=== PATIENT | female | born 1940 | race Caucasian/White ===

== ENCOUNTER → 2019-06-19 09:19 | Outpatient (BNVA) | payer MEDICARE, SELFPAY | PROVIDERS: Family Provider Family Medicine; PCP Family Medicine; Visit Provider Internal Medicine Rheumatology | DX: M81.0 Age-related osteoporosis without current pathological fracture (principal); Z79.899 Other long term (current) drug therapy; Z11.59 Encounter for screening for other viral diseases; Z11.1 Encounter for screening for respiratory tuberculosis; M19.90 Unspecified osteoarthritis, unspecified site; M32.9 Systemic lupus erythematosus, unspecified; Z72.89 Other problems related to lifestyle | CPT/HCPCS: 36415; 80076; 82306; 82310; 82565; 85025; 85651; 86140; 86480; 86704; 86803; 87340 ==

== ENCOUNTER → 2019-06-19 09:29 | Outpatient (BNVA) | payer MEDICARE, SELFPAY | PROVIDERS: Family Provider Family Medicine; PCP Family Medicine; Visit Provider Internal Medicine Rheumatology | DX: M81.0 Age-related osteoporosis without current pathological fracture (principal); M19.90 Unspecified osteoarthritis, unspecified site; M32.9 Systemic lupus erythematosus, unspecified; Z79.899 Other long term (current) drug therapy | CPT/HCPCS: 85025 ==

== ENCOUNTER → 2019-07-02 11:16 | Outpatient (BNVA) | payer MEDICARE, SELFPAY | PROVIDERS: Family Provider Family Medicine; PCP Family Medicine; Visit Provider Internal Medicine Rheumatology | DX: M32.9 Systemic lupus erythematosus, unspecified (principal); Z79.899 Other long term (current) drug therapy | CPT/HCPCS: 36415; 81001; 82565; 82570; 84156; 86160; 86225; 87086 ==

== ENCOUNTER → 2019-09-19 10:09 | Outpatient (BNVA) | payer MEDICARE, SELFPAY | PROVIDERS: Family Provider Family Medicine; PCP Family Medicine; Visit Provider Internal Medicine Rheumatology | DX: Z79.899 Other long term (current) drug therapy (principal); M32.9 Systemic lupus erythematosus, unspecified | CPT/HCPCS: 36415; 80076; 81001; 82565; 82575; 84156; 85025; 85651; 86140; 86160 ==

== ENCOUNTER → 2019-09-25 10:19 | Outpatient (BNVA) | payer MEDICARE, SELFPAY | PROVIDERS: Family Provider Family Medicine; PCP Family Medicine; Visit Provider Internal Medicine Rheumatology | DX: L93.2 Other local lupus erythematosus (principal); R76.8 Other specified abnormal immunological findings in serum; Z79.899 Other long term (current) drug therapy; M05.9 Rheumatoid arthritis with rheumatoid factor, unspecified; I12.9 Hypertensive chronic kidney disease with stage 1 through stage 4 chronic kidney disease, or unspecified chronic kidney disease; N18.9 Chronic kidney disease, unspecified; Z79.52 Long term (current) use of systemic steroids | CPT/HCPCS: 99214 ==

== ENCOUNTER 2019-10-25 11:42 | Outpatient (CLI) | payer MEDICARE, SELFPAY ==
--- NOTE | 2019-10-25 11:46 | MM_ITS ---
WS: [id number] DIAGNOSTIC LEFT DIGITAL MAMMOGRAM WITH CAD HISTORY: HX OF BREAST CA (RT MAST) COMPARISON: 10/15/2018 and 10/13/2017 Technique: CC, MLO and ML views. Breast composition: There are scattered areas of fibroglandular density. Stable asymmetry in the lat eral LEFT breast and stable calcifications. No interval change. MM/[place] [id number] IMPRESSION: BI-RADS: 2-Benign FOLLOW UP: 1 Year Follow-up
== END 2019-10-25 11:43 | disposition home or self-care (01) ==
LOC: RADSHAW 11:45
PROVIDERS: PCP Family Medicine; Visit Provider Family Medicine
DX: Z85.3 Personal history of malignant neoplasm of breast (principal); N64.89 Other specified disorders of breast
CPT/HCPCS: 77065

== ENCOUNTER → 2019-12-11 12:07 | Outpatient (BNVA) | payer MEDICARE, SELFPAY | PROVIDERS: PCP Family Medicine; Visit Provider Internal Medicine Cardiovascular Disease | DX: E78.2 Mixed hyperlipidemia (principal) | CPT/HCPCS: 80061 ==

== ENCOUNTER → 2020-01-29 11:22 | Outpatient (BNVA) | payer MEDICARE, SELFPAY | PROVIDERS: PCP Family Medicine; Visit Provider Internal Medicine Rheumatology | DX: L93.2 Other local lupus erythematosus (principal); I12.9 Hypertensive chronic kidney disease with stage 1 through stage 4 chronic kidney disease, or unspecified chronic kidney disease; N18.9 Chronic kidney disease, unspecified; R76.8 Other specified abnormal immunological findings in serum; Z79.52 Long term (current) use of systemic steroids; M19.90 Unspecified osteoarthritis, unspecified site; Z79.899 Other long term (current) drug therapy; M81.0 Age-related osteoporosis without current pathological fracture | CPT/HCPCS: 36415; 99214 ==

== ENCOUNTER → 2020-02-04 10:52 | Outpatient (BNVA) | payer MEDICARE, SELFPAY | PROVIDERS: PCP Family Medicine; Visit Provider Internal Medicine Rheumatology | DX: M32.9 Systemic lupus erythematosus, unspecified (principal); Z79.899 Other long term (current) drug therapy | CPT/HCPCS: 36415; 80076; 82306; 82565; 84550; 85025; 85651; 86140 ==

== ENCOUNTER → 2020-06-01 10:48 | Outpatient (BNVA) | payer MEDICARE, SELFPAY | PROVIDERS: PCP Family Medicine; Visit Provider Internal Medicine Rheumatology | DX: L93.2 Other local lupus erythematosus (principal); Z79.899 Other long term (current) drug therapy; M19.90 Unspecified osteoarthritis, unspecified site | CPT/HCPCS: 36415; 80076; 81001; 82565; 84156; 85025; 86140; 86160; 87086 ==

== ENCOUNTER → 2020-06-08 10:55 | Outpatient (BNVA) | payer MEDICARE, SELFPAY | PROVIDERS: PCP Family Medicine; Visit Provider Internal Medicine Rheumatology | DX: L93.2 Other local lupus erythematosus (principal); M19.90 Unspecified osteoarthritis, unspecified site; M81.0 Age-related osteoporosis without current pathological fracture; Z79.899 Other long term (current) drug therapy; R76.8 Other specified abnormal immunological findings in serum | CPT/HCPCS: 99214 ==

== ENCOUNTER 2020-06-08 12:00 | Outpatient (CLI) | payer MEDICARE, SELFPAY ==
[2020-06-08 12:45] LABS: Calcium 9.4 mg/dL (8.5-10.5)
== END 2020-06-08 12:01 | disposition home or self-care (01) ==
PROVIDERS: PCP Family Medicine; Visit Provider Internal Medicine Rheumatology
DX: M81.0 Age-related osteoporosis without current pathological fracture (principal); Z79.899 Other long term (current) drug therapy
CPT/HCPCS: 36415; 82310

== ENCOUNTER → 2020-06-11 10:30 | Outpatient (BNVA) | payer MEDICARE, SELFPAY | PROVIDERS: PCP Family Medicine; Visit Provider Internal Medicine Cardiovascular Disease | DX: E78.2 Mixed hyperlipidemia (principal); I10 Essential (primary) hypertension; G47.33 Obstructive sleep apnea (adult) (pediatric); I25.10 Atherosclerotic heart disease of native coronary artery without angina pectoris | CPT/HCPCS: 80061 ==

== ENCOUNTER → 2020-09-09 10:19 | Outpatient (BNVA) | payer MEDICARE, SELFPAY | PROVIDERS: PCP Family Medicine; Visit Provider Internal Medicine Rheumatology | DX: M32.9 Systemic lupus erythematosus, unspecified (principal); Z79.899 Other long term (current) drug therapy | CPT/HCPCS: 36415; 80076; 81001; 82565; 82570; 84156; 85025; 86140 ==

== ENCOUNTER 2020-10-27 11:06 | Observation (INO) | payer MEDICARE, SELFPAY ==
[2020-10-27] VITALS (44 sets, daily range): BP systolic 97–146; BP diastolic 55–88; PULSE 58–82; RESP 17–18; TEMP 37.1; O2SAT 84–99
--- NOTE | 2020-10-27 11:11 | ECG_ITS ---
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 Measurements Intervals [place] Rate: 61 P: -12 OK: 251 QRS: -68 QRSD: 155 T: 115 QT: 445 QTc: 450 Interpretive Statements SINUS RHYTHM WITH FIRST DEGREE AV BLOCK INTRAVENTRICULAR CONDUCTION DELAY [130+ ms QRS DURATION] LEFT VENTRICULAR HYPERTROPHY AND ST-T CHANGE ANTEROLATERAL MYOCARDIAL INFARCTION, PROBABLY RECENT Compared to ECG 07/02/2016 19:33:38 First degree AV block now present Intraventricular conduction delay now present ST (T wave) deviation now present Myocardial infarct finding now present Sinus bradycardia no longer present Left-axis deviation no longer present T-wave abnormality no longer present Electronically Signed On 11-04-2020 12:48:02 CDT by Jenniffer Ortiz M.D. [id number]
--- NOTE | 2020-10-27 11:15 | XRR_ITS ---
PROCEDURE INFORMATION: Exam: XR Chest Exam date and time: 10/27/2020 11:15 AM Age: 80 years old Clinical indication: Pain; Angina pectoris; Additional info: Chest pain TECHNIQUE: Imaging protocol: XR of the chest. Views: 1 view. COMPARISON: CR Chest 2 views* [id number] 07/29/2014 10:30 AM FINDINGS: Lungs: There is a small benign calcified granuloma in the left lung. No pneumonia is seen. Pleural spaces: Unremarkable. No pleural effusion. No pneumothorax. Heart/Mediastinum: The heart is normal for the AP projection. Benign small calcified mediastinal lymph nodes are present. Bones/joints: Unremarkable. XR/XR chest 1V portable [id number] IMPRESSION: No significant cardiopulmonary abnormality.
--- NOTE | 2020-10-27 11:16 | W.ED.CHESTPA ---
HPI - Chest Pain General: Chief Complaint: Chest Pain Stated Complaint: CHEST PAIN Time Seen by Provider: 10/27/20 11:15 History of Present Illness: HPI narrative: 80-year-old female with a history of coronary artery disease presents with complaint of chest pain with radiation to her left arm. Began this morning after she been unloading some groceries into her home. She had similar symptoms about 15 years ago when she had a IL and had several stents placed she states she had around 5 stents placed around 2005 or . She is a nondiabetic she does still take a full dose aspirin today as well as atorvastatin. She not recently had any symptoms like this or any other episodes. She did take a sublingual nitro with some relief of pain her pain is nearly resolved when she arrives here. EMS called a STEMI in the field on arrival here she has a right bundle branch block Dr. Bowles seen her initially when she presented here reviewed EKGs does not feel it is a STEMI. MD complaint: chest pain Pertinent past history: coronary artery disease Onset (ago): minute(s) Timing of current episode: episodic Prior episodes: Yes Onset: during exertion Pain location: left chest Pain radiation: left arm Severity: moderate Quality: aching and heaviness Relieving factors: nitroglycerin Exacerbating factors: exertion Associated symptoms: Reports dyspnea; Deny abdominal pain, diaphoresis, fever(s), leg edema, nausea, palpitations, sense of impending doom, syncope or vomiting Treatment prior to arrival: aspirin and nitroglycerin Review of Systems Const: Denies: fever(s) or diaphoresis Card: Denies: palpitations or syncope Resp: Reports: dyspnea GI: Denies: abdominal pain, nausea or vomiting [facility] ED PFSH: Medical History ASHD (arteriosclerotic heart disease) CKD (chronic kidney disease) Cutaneous lupus erythematosus Dysphagia Endometrial cancer GERD (gastroesophageal reflux disease) High risk medication use Hyperlipidemia Hypertension Immunization counseling Lupus (systemic lupus erythematosus) Osteoarthritis Osteoporosis 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 Sleep apnea SS-A antibody positive Surgical History H/O mastectomy H/O: hysterectomy History of appendectomy History of PTCA History of shoulder surgery Family History (Updated 06/11/20 @ 09:59 by Maria Alejandra Lund RN) Father Diabetes Family/Other Diabetes Denies family history of Rheumatoid arthritis CAD (coronary artery disease) Clotting disorder Dementia Chronic kidney disease (CKD) Systemic lupus erythematosus (SLE) in adult Suicide Anesthesia complication Bleeding disorder Lung disease Cancer Hypertension Stroke Social History Smoking and tobacco status: never smoked Alcohol intake: never History of recent travel: No Physical Exam Const: COMMON NORMALS: no acute distress GENERAL APPEARANCE: cooperative and comfortable ORIENTATION/CONSCIOUSNESS: Yes awake, Yes oriented to person, Yes oriented to place and Yes oriented to time HENMT: COMMON NORMALS: normocephalic, atraumatic and hearing grossly normal bilaterally HEAD & SCALP: normocephalic and atraumatic Neck/C-Spine: COMMON NORMALS: no JVD Resp: COMMON NORMALS: normal respiratory effort, No retractions, No use of accessory muscles and clear to auscultation bilaterally AUSCULTATION: clear to auscultation bilaterally Cardio: COMMON NORMALS: no JVD, regular rate, regular rhythm and No murmurs present (Cardio) RATE: regular rate RHYTHM: regular rhythm GI: COMMON NORMALS: Soft to palpation and No hepatosplenomegaly present AUSCULTATION: Yes normoactive bowel sounds PALPATION: Yes Soft to palpation, No Tenderness to palpation present (GI), No Guarding due to palpation present (GI) and Yes No hepatosplenomegaly present Extremity: COMMON NORMALS: normal to inspection, capillary refill normal, no clubbing, cyanosis or edema, no calf tenderness and no pedal edema Neuro: SENSORIUM/ORIENTATION: Yes oriented to person, Yes oriented to place and Yes oriented to time Skin: COMMON NORMALS: no rashes or lesions noted GENERAL SKIN EXAM: no rashes or lesions noted Course Vital Signs: Vital signs: Vital Signs Temperature 98.3 F 10/29/20 11:41 Pulse Rate 66 10/29/20 11:41 Respiratory Rate 17 10/29/20 11:41 Blood Pressure 122/74 10/29/20 11:41 Pulse Oximetry 98 10/29/20 11:41 MDM - Chest Pain MDM Narrative: Medical decision making narrative: Patient's first troponin markedly elevated 124. she continues to have chest pain despite multiple interventions and titration of nitro and given morphine. Discussed with Dr. Alcala again and he will take patient to the [facility] directly from the emergency room. Lab Data: Labs: Lab Results 10/27/20 10/27/20 10/27/20 Range/Units 10:57 10:57 10:57 WBC 10.2 H (4.0-10.0) 10^3/ uL RBC 3.77 L (4.1-5.3) 10^6/u L Hgb 12.4 (11.5-15.3) g/dL Hct 37.4 (37.0-47.0) % MCV 99.2 H (81-99) fL MCH 32.9 (28.0-34.0) pg MCHC 33.2 (30.0-36.0) g/dL RDW 12.1 (12.1-15.1) % Plt Count 215 (130-400) 10^3/c mm MPV 12.0 H (7.4-10.4) fL Neut % (Auto) 70.3 % Lymph % (Auto) 19.9 % [place] % (Auto) 8.1 % Eos % (Auto) 0.5 % Baso % (Auto) 0.8 % Neut # (Auto) 7.16 (1.8-7.7) 10^3/u L Lymph # (Auto) 2.0 (0.8-4.8) 10^3/u L [place] # (Auto) 0.8 (0.2-0.9) 10^3/u L Eos # (Auto) 0.1 (0.0-0.8) 10^3/u L Baso # (Auto) 0.1 (0.0-0.1) 10^3/u L Nucleated RBC % (a uto) 0 % Nucleated RBCs # 0.0 /100WBC Sodium 133 L (136-145) mmol/L Potassium 4.1 (3.5-5.1) mmol/L Chloride 96 L (98-107) mmol/L Carbon Dioxide 20 L (22-29) mmol/L Anion Gap 21.1 H (5-19) BUN 11 (8-23) mg/dL Creatinine 1.2 H (0.5-0.9) mg/dL GFR Calculation Not Reportable Glucose 161 H (65-115) mg/dL Calculated Osmolal ity 279 L (285-295) mOsm/k g Calcium 9.2 (8.5-10.5) mg/dL Total Bilirubin 0.5 (0.15-1.2) mg/dL AST 21 (0-32) U/L ALT 9 (0-33) U/L Alkaline Phosphata se 75 (35-105) IU/L Troponin T Baselin e 124 H* (0-10) ng/L Total Protein 6.6 (6.6-8.7) g/dL Albumin 4.5 (3.5-5.2) g/dL Globulin 2.1 (1.3-4.6) g/dL Discharge Plan Discharge Patient Disposition: Admitted As Inpatient Admit Provider: Galilea Bowles Clinical Impression: Acute non-ST elevation myocardial infarction (NSTEMI), Lupus (systemic lupus erythematosus), Hyperlipidemia, ASHD (arteriosclerotic heart disease), Hypertension Condition: Stable Discharge Diet: Cardiac Discharge Activity: Increase activity as tolerated Coding Level of Care Code ED Manager [employer] for Rosa Joyner
[2020-10-27 11:19] LABS: Basophils # 0.1 10^3/uL (0.0-0.1); Basophils % 0.8 %; Eosinophils # 0.1 10^3/uL (0.0-0.8); Eosinophils % 0.5 %; Hematocrit 37.4 % (37.0-47.0); Hemoglobin 12.4 g/dL (11.5-15.3); Lymphocytes % 19.9 %; Mean Corpuscular HGB Conc 33.2 g/dL (30.0-36.0); Mean Corpuscular Hemoglobin 32.9 pg (28.0-34.0); Mean Corpuscular Volume 99.2 fL (81-99); Monocytes # 0.8 10^3/uL (0.2-0.9); Monocytes % 8.1 %; Neutrophils # 7.16 10^3/uL (1.8-7.7); Neutrophils % 70.3 %; Nucleated Red Blood Cells % 0 %; Platelet Count 215 10^3/cmm (130-400); Red Blood Count 3.77 10^6/uL (4.1-5.3); Red Cell Distribution Width 12.1 % (12.1-15.1); White Blood Count 10.2 10^3/uL (4.0-10.0)
[2020-10-27] MEDS: clopidogrel 300 mg Tablet 600 MG PO (11:33)
[2020-10-27] MEDS: nitroglycerin 1 gm/inch oint Pkt 1 INCH TOPICAL (11:33)
[2020-10-27 11:37] LABS: Troponin(5th) Baseline 124 ng/L (0-10)
[2020-10-27 11:41] LABS: Alanine Aminotransferase 9 U/L (0-33); Albumin Level 4.5 g/dL (3.5-5.2); Alkaline Phosphatase 75 IU/L (35-105); Aspartate Amino Transferase 21 U/L (0-32); Blood Urea Nitrogen 11 mg/dL (8-23); Calcium 9.2 mg/dL (8.5-10.5); Carbon Dioxide 20 mmol/L (22-29); Chloride 96 mmol/L (98-107); Globulin 2.1 g/dL (1.3-4.6); Glucose 161 mg/dL (65-115); Osmolality Calculated 279 mOsm/kg (285-295); Sodium 133 mmol/L (136-145); Total Bilirubin 0.5 mg/dL (0.15-1.2); Total Protein 6.6 g/dL (6.6-8.7)
--- NOTE | 2020-10-27 11:43 | XACV_ITS ---
Exam Room: 1 Ht: 160 cm Wt: 65 kg BSA: 1.71 m2 Gender: Female : 1940 Any Known Allergies: Other Exam Priority: Routine Procedure(s): Procedure Description: Diagnostic procedure Procedure Description: PCI procedure Procedure Description: Drug Eluting Coronary Stent Procedure Description: PTCA Procedure Description: Miscellaneous Procedure Description: Temporary Pacemaker Insertion Procedure Description: ACT Procedure Description: Coronary Angiography Diagnostic Cath Status: Urgent Diagnostic Findings * Left Main has no disease. * Left Anterior Descending has no disease. * Circumflex has no disease. * Proximal Right Coronary Artery: total occlusion, RUBINA: 0 flow. * Mid Right Coronary Artery: total occlusion, RUBINA: 0 flow. * Coronary angiography shows right dominance. PCI Status: Urgent PCI Indication: STEMI - Immediate PCI for STEMI Interventional Findings * After somewhat difficulty we were able to cross the RCA lesion. Pronto-4 catheter was used for thrombectomy due to large thrombous burden. After multiple balloon angioplasty using compliant and noncompliant balloon were able to cross with the 3.5 x 38 mm Jamie stent posted at high NHUNG. It was then postdilated with noncompliant 3.5 x 12 mm balloon, excellent angiographic result with RUBINA-3 flow was achieved.Please note that due to hypotension and instability leading to shock patient was started on pressor temporary pacemaker was also placed for severe symptomatic bradycardia which improved her condition. Pacemaker was then taken out of the patient at the end of the case before transferring to cardiac stepdown unit in a stable condition since we do not have ICU bed because of Covid situation.. * Proximal Right Coronary Artery: 100% stenosis treated with a AB MINI TREK 1.50X8 RX BALLOON, AB TREK 3.00X20 RX BALLOON, and MDT NC EUPHORA RX 3.90I62BK BALLOON. 0% residual stenosis, RUBINA: 3 flow. * Mid Right Coronary Artery: 100% stenosis treated with a AB MINI TREK 1.50X8 RX BALLOON, AB TREK 2.75X20 RX BALLOON, AB TREK 3.00X20 RX BALLOON, MDT NC EUPHORA RX 3.20X19FJ BALLOON, and MDT R JAMIE 3.0X38 PARUL. 0% residual stenosis, RUBINA: 3 flow. Conclusions 1. 1-Normal left main2-LAD has patent previously placed bifurcating stent without significant in-stent restenosis in both diagonal and main left anterior descending artery3-LCx has patent previously placed proximal stent4-RCA is acutely occluded in the proximal and mid segment with in-stent stenosis and acute thrombosis.. 2. Temporary pacemaker placement: An emergent condition due to severe symptomatic bradycardia and shock due to right coronary artery occlusion temporary pacemaker was placed under stabilized condition through right femoral vein. Patient was paced at 60 to 80 bpm. Pacemaker was taken out at the end of the intervention since negative rate and rhythm was restored and blood pressure was stable.. 3. There is total occlusion coronary artery disease with one vessel disease. 4. Proximal Right Coronary Artery was treated with a Balloon, Balloon, and Balloon. 5. Mid Right Coronary Artery was treated with a Balloon, Balloon, Balloon, Balloon, and Drug Eluting Stent. Recommendations * 1-Return to inpatient for close monitoring and routine cath care2-Risk factor modification for secondary prevention3-Statin and aspirin 81 mg life--long, if tolerated4-Patient was pre-loaded with 600 mg of Plavix, continue Plavix 75mg p.o. daily for at least one year. We will assess at the end of one year again to continue if further or not5-Continue optimal medical management6-Follow up with cardiology in four weeks and your primary care in 10 days. Diagnostic RX Recommendation: PCI w/o planned CABG Pressures Phase:Rest AO : 156 / 83 ( 111 ) @ 11:09:00 AM 137 / 84 ( 109 ) @ 11:11:00 AM 152 / 82 ( 109 ) @ 11:17:00 AM 117 / 71 ( 84 ) @ 11:24:00 AM 108 / 59 ( 79 ) @ 11:26:00 AM 121 / 63 ( 93 ) @ 11:40:00 AM 128 / 71 ( 96 ) @ 11:44:00 AM 38 / 20 ( 22 ) @ 11:49:00 AM 38 / 22 ( 24 ) @ 11:49:00 AM 115 / 67 ( 88 ) @ 11:51:00 AM 74 / 37 ( 50 ) @ 11:55:00 AM 185 / 116 ( 139 ) @ 12:06:00 PM 177 / 102 ( 141 ) @ 12:08:00 PM 148 / 93 ( 118 ) @ 12:11:00 PM 117 / 73 ( 94 ) @ 12:14:00 PM 83 / 38 ( 57 ) @ 12:30:00 PM Clinical Evaluation EBL: 5mL-10mL Procedural Details Procedure Consent Obtained. Current Diagnosis : NSTEMI. Pre-Procedure Time Out. Identified patient by full name and date of as verbalized by the patient/guarantor. Does the consent match the physician's order: Yes. Accurate & Complete Informed Consent: Yes. Inpatient/Outpatient History & Physical on Chart: Yes. If H&P is completed, is and addenduem needed: Yes; If yes, is the addendum complete: N/A. Visualize and Verify Site with Patient/Guarantor: N/A. Relevant Radiology Images available: Yes. Pre-op teaching completed and patient verbalized understanding. The risks, benefits, and alternatives of sedation and/or procedure were discussed by physician. The patient agrees to continue. Procedure started. [facility] Clinical Fraility Score: 4: Vulnerable. Stock Tracer Indications: ACS > 24 hours. Chest Pain Symptom Assessment: Typical Angina Symptoms. Correct patient, site and procedure confirmed by cath team. Current diagnosis: NSTEMI. PERRLA. 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 Lungs clear x 5 lobes. A 18 gauge IV was started in the left anticubital using aseptic technique. IV Fluids: 0.9% NaCl at KVO. 0 mL infused prior to cardiac cath tech. Oxygen started at 2liters/min via nasal canula. bilateral groins was prepped with chloroprep then draped in the usual sterile fashion. Physician notified. Baseline sample Acquired. HR: 68 BPM. Physician arrived. Physician scrubbed in. Immediate Pre-Procedure Time Out. Correct Patient: Yes; Correct Procedure: Yes; Correct Site: Yes; Correct Patient Position: Yes; Correct Supplies: Yes; Dried Flammable Prep: Yes; Blood Products Available: N/A;. Lidocaine 1% infiltrated to the right groin. Arterial access obtained with micropuncture set. A Right femoral angiogram was performed to determine safe placement of closure device. A 5 hungarian JL4 catheter in over wire. Multiple views taken of left coronary artery. Catheter removed over the standard wire. A 5 hungarian JR4 catheter in over wire. Multiple views taken of right coronary artery. Catheter removed over the standard wire. 6 hungarian JR 4 guide catheter was inserted over the wire. Guide catheter out. 6 hungarian AL 0.75 guide catheter was inserted over the wire. Runthrough guidewire was advanced through the guide catheter to lesion in the prox RCA. AR Trek 2.75x20 balloon inserterted OTW. Balloon out. A second Runthrough guidewire was advanced through the guide catheter to lesion in the prox RCA. AR Trek 1.5x8 balloon inserterted OTW. Balloon out. One of the Runthrough wires out. AR Trek 1.5x8 balloon inserterted OTW. AP Pads placed on patient. Family arrived to [facility] and placed in the waiting room. Inflation number : 1 A AB MINI TREK 1.50X8 RX BALLOON was prepped and advanced across the Prox RCA , then inflated to 15 NHUNG for 0:19 seconds. Inflation number: 2 The AB MINI TREK 1.50X8 RX BALLOON was reinflated across the Prox RCA, to 15 NHUNG for 0:14 seconds. Results checked. Inflation number: 1 The AB MINI TREK 1.50X8 RX BALLOON was reinflated across the Mid RCA, to 15 NHUNG for 0:19 seconds. Inflation number: 2 The AB MINI TREK 1.50X8 RX BALLOON was reinflated across the Mid RCA, to 16 NHUNG for 0:09 seconds. Inflation number: 3 The AB MINI TREK 1.50X8 RX BALLOON was reinflated across the Mid RCA, to 16 NHUNG for 0:09 seconds. Balloon out. Inflation number : 4 A AB TREK 2.75X20 RX BALLOON was prepped and advanced across the Mid RCA , then inflated to 12 NHUNG for 0:12 seconds. Inflation number: 5 The AB TREK 2.75X20 RX BALLOON was reinflated across the Mid RCA, to 12 NHUNG for 0:09 seconds. Inflation number: 6 The AB TREK 2.75X20 RX BALLOON was reinflated across the Mid RCA, to 12 NHUNG for 0:09 seconds. Inflation number: 7 The AB TREK 2.75X20 RX BALLOON was reinflated across the Mid RCA, to 12 NHUNG for 0:08 seconds. Balloon out. Results checked. MDT R [place] 3.0x38 inserted and advanced OTW. Intact stent removed OTW. wire repositioned. Inflation number : 8 A AB TREK 3.00X20 RX BALLOON was prepped and advanced across the Mid RCA , then inflated to 16 NHUNG for 0:15 seconds. Inflation number: 3 The AB TREK 3.00X20 RX BALLOON was reinflated across the Prox RCA, to 16 NHUNG for 0:11 seconds. Balloon out. MDT R Jamie 3.0x38 inserted and advanced OTW. guideliner inserted OTW. Intact stent out OTW. Balloon out. guideliner out. Wire out. Dopamine off. Lidocaine 1% infiltrated to the right groin. TEMPORARY PACEMAKER:. Venous access obtained with a micropuncture set. Temporary pacer inserted. Rate: 80. MA: 5. 6 hungarian AL 0.75 SH guide catheter was inserted over the wire. Family updated by Bella Starr RN. Results checked. Runthrough guidewire was advanced through the guide catheter to lesion in the mid RCA. Inflation number : 4 A MDT NC EUPHORA RX 3.24A11AY BALLOON was prepped and advanced across the Prox RCA , then inflated to 16 NHUNG for 0:18 seconds. Inflation number: 5 The MDT NC EUPHORA RX 3.95V97ZH BALLOON was reinflated across the Prox RCA, to 16 NHUNG for 0:21 seconds. Inflation number: 9 The MDT NC EUPHORA RX 3.34I30SH BALLOON was reinflated across the Mid RCA, to 14 NHUNG for 0:14 seconds. Inflation number: 10 The MDT NC EUPHORA RX 3.44P45MJ BALLOON was reinflated across the Mid RCA, to 16 NHUNG for 0:17 seconds. Inflation number: 11 The MDT NC EUPHORA RX 3.94P66AB BALLOON was reinflated across the Mid RCA, to 16 NHUNG for 0:09 seconds. Inflation number: 12 The MDT NC EUPHORA RX 3.53F02FH BALLOON was reinflated across the Mid RCA, to 16 NHUNG for 0:15 seconds. Balloon out. ACT drawn. Results 362 seconds. Therapeutic limits - pre-heparin administration 90-150 seconds and monitoring heparin during a vascular procedure >250 seconds. Inflation Number : 13 A MDT R JAMIE 3.0X38 PARUL -Lot Number# _[id number] Exp: 02/10/2022 was prepped and advanced across the Mid RCA. The stent was deployed at 18 NHUNG for 0:38 seconds. Stent balloon out over wire. Results checked. Inflation number: 14 The MDT NC EUPHORA RX 3.07T20WL BALLOON was reinflated across the Mid RCA, to 16 NHUNG for 0:14 seconds. Inflation number: 15 The MDT NC EUPHORA RX 3.93W07SU BALLOON was reinflated across the Mid RCA, to 16 NHUNG for 0:08 seconds. Inflation number: 6 The MDT NC EUPHORA RX 3.56W60HC BALLOON was reinflated across the Prox RCA, to 16 NHUNG for 0:08 seconds. Inflation number: 7 The MDT NC EUPHORA RX 3.50C01ZV BALLOON was reinflated across the Prox RCA, to 14 NHUNG for 0:12 seconds. Balloon out. Results checked. Wire out. Results checked. Guide catheter out. TPM removed. Sheath(s) sutured into position with 2-0 silk and sterile 4x4's and Op-site applied over the site. No oozing or signs and symptoms of hematoma noted. Arterial sheath flushed and connected to tranducer and pressure bag with heparinized saline. Venous sheath flushed and connected to 0.9% NaCl with extension tubing. A Suture was successful obtaining hemostatsis at the Right Femoral vein insertion site. A Suture was successful obtaining hemostatsis at the Right Femoral artery insertion site. Post Procedure: Pulses reassessed and unchanged. PERRLA. 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 No VTE prophylaxis required. Medication's Wasted: Other = Versed 0.5 mg. Medication's Wasted: Heparin = 3000 units. Medication's Wasted: Other = Epinepherine 0.5 mg. Medication's Wasted: Other = Atropine 0.75 mg. Medication's Wasted: Lidocaine 1% = 12 mL. Total IV fluids: 548 mL. Contrast type used: Omnipaque 300 mg/mL, 150 mL bottle. PCI Indication: NSTE. Post-op diagnosis: CAD. Complications: None. Estimated blood loss: 5mL-10mL. Procedure completed. Patient transferred by bed to 1st floor. Vital chart was stopped. Access Site Site: Right Femoral artery Sheath Size: 6 Fr Hemostasis Method: Suture Hemostasis Success: Successful Site: Right Femoral vein Sheath Size: 6 Fr Hemostasis Method: Suture Hemostasis Success: Successful Procedure Medications Start: 12:01 PM Stop: 12:01 PM Medication: Versed Amount: 1 mg Route: I.V. Start: 12:01 PM Stop: 12:01 PM Medication: Fentanyl Amount: 50 mcg Route: I.V. Start: 12:02 PM Stop: 12:02 PM Medication: Versed Amount: 1 mg Route: I.V. Start: 12:08 PM Stop: 12:08 PM Medication: Versed Amount: 1 mg Route: I.V. Start: 12:17 PM Stop: 12:17 PM Medication: Versed Amount: 1 mg Route: I.V. Start: 12:18 PM Stop: 12:18 PM Medication: Heparin Amount: 3000 units Route: I.V. Start: 12:20 PM Stop: 12:20 PM Medication: Fentanyl Amount: 50 mcg Route: I.V. Start: 12:26 PM Stop: 12:26 PM Medication: Aggrastat 12.5 mg/250 mL Amount: 33 ml Route: I.V. bolus Start: 12:26 PM Stop: 12: PM Medication: Aggrastat 12.5 mg/250 mL Amount: 11.9 ml/hr Route: I.V. bolus Start: 12:39 PM Stop: 12:39 PM Medication: 0.9% Saline Amount: 250 ml Route: I.V. bolus Start: 12:42 PM Stop: 12:42 PM Medication: Versed Amount: 1 mg Route: I.V. Start: 12:49 PM Stop: 12:49 PM Medication: Atropine Amount: 0.25 mg Route: I.V. Start: 12:51 PM Stop: 12:51 PM Medication: Atropine Amount: 0.5 mg Route: I.V. Start: 12:55 PM Stop: 12:55 PM Medication: Atropine Amount: 0.25 mg Route: I.V. Start: 12:57 PM Stop: 12:57 PM Medication: Atropine Amount: 0.25 mg Route: I.V. Start: 12:59 PM Stop: 12:59 PM Medication: Zofran (ondansetron) Amount: 4 mg Route: I.V. Start: 12:59 PM Stop: 12:59 PM Medication: Dopamine 400mg/250 mL Amount: 10 mcg/kg/min Route: I.V. drip Start: 1:03 PM Stop: 1:03 PM Medication: Epinephrine Amount: 0.5 mg Route: I.V. Start: 1:08 PM Stop: 1:08 PM Medication: Zofran (ondansetron) Amount: 4 mg Route: I.V. Start: 1:13 PM Stop: 1:13 PM Medication: Lopressor (metoprolol) Amount: 5 mg Route: I.V. Start: 1:32 PM Stop: 1:32 PM Medication: Versed Amount: 0.5 mg Route: I.V. I, the attending physician, have reviewed and verified all procedure medications. Yes, all medications given per verbal order History/Risk Factors Hypertension: No Dyslipidemia: No Peripheral Arterial Disease (PAD): No Myocardial Infarction (NE): No Obesity: No Renal Disease: No Prior Interventions PCI: No CABG: No Valve Surgery: No Report Signatures Finalized by Galilea Bowles MD on 11/05/2020 02:33 PM
[2020-10-27 11:45] LABS: Anion Gap 21.1 (5-19); Potassium 4.1 mmol/L (3.5-5.1)
[2020-10-27] MEDS: heparin 5,000 unit/mL INJ 1 mL 4000 UNIT XX (11:49)
--- NOTE | 2020-10-27 11:50 | PM.HP ---
Providers/Chief Complaint Admitting Physician: Galilea Bowles MD Primary Care Provider: Javid Edwards MD Chief Complaint: CHEST PAIN History of Present Illness Bryanna Mark is a 80 year old female past medical history significant for coronary artery disease status post PCI 2004, hypertension hyperlipidemia on prednisone for immunological disorder, chronic kidney disease baseline creatinine around 1.2 presented with chest pain of 1 hour duration exactly similar fashion when she has her heart attack. There were dynamic EKG changes noted on EMS strips when she was alerted ST elevation OR however I reviewed the strip and called it off for ST elevation since she has a right bundle branch block with mild lateral ST elevation. Repeat twelve-lead EKG after nitroglycerin showed resolution of EKG changes and back to right bundle branch block. Patient continues to have chest pain first troponin was 124 which is positive for acute coronary syndrome. Since patient continues to have chest pain and had dynamic EKG changes I will take her to the Rehabilitator urgently. We will load her with Plavix aspirin and heparin. I have detailed discussion with the patient regarding all risk benefit and alternative for the procedure including contrast-induced nephropathy leading to transient or permanent dialysis, major minor bleed, urgent emergent vascular or bypass surgery, acute closure of stent, arrhythmia and worse case scenario . She understood and would like to proceed with it. Review of Systems Const: Denies: fever(s) or diaphoresis Card: Denies: palpitations or syncope Resp: Reports: dyspnea GI: Denies: abdominal pain, nausea or vomiting Medications/Allergies Home Medications Medication Instructions Recorded Confirmed Last Taken Type omega-3 fatty acids 1,000 mg 1,000 mg PO DAILY cap 03/30/19 10/28/20 Unknown History capsule aspirin 325 mg tablet 325 mg PO QAM 06/26/19 10/28/20 Unknown History cholecalciferol (vitamin D3) 50 2,000 unit PO DAILY #30 tab 01/27/20 10/28/20 Unknown Rx mcg (2,000 unit) tablet atenolol 25 mg PO BID 10/27/20 10/28/20 Unknown History atorvastatin 20 mg PO QAM 10/27/20 10/28/20 Unknown History nitroglycerin [Nitro-Time] 2.5 mg PO BID 10/27/20 10/28/20 Unknown History alendronate 70 mg PO Q7D 10/28/20 10/28/20 10/19/20 History amlodipine 5 mg PO BEDTIME 10/28/20 10/28/20 Unknown History diclofenac sodium 4 g TOPICAL QID PRN 10/28/20 10/28/20 Unknown History esomeprazole magnesium [Nexium] 20 mg PO DAILY 10/28/20 10/28/20 Unknown History hydroxychloroquine See Rx Instructions .ROUTE .COMPLEX 10/28/20 10/28/20 Unknown History lisinopril 40 mg PO QAM 10/28/20 10/28/20 Unknown History loratadine 10 mg PO DAILY PRN 10/28/20 10/28/20 Unknown History nitrofurantoin monohyd/m-cryst 1 cap PO BID 10/28/20 10/28/20 10/27/20 History finished 10/27/20 prednisone 2.5 mg PO QAM 10/28/20 10/28/20 Unknown History Allergies Allergy/AdvReac Type Severity Reaction Status Date / Time niacin Allergy ALGY-Rash Verified 10/28/20 08:35 PFSH Acute PFSH: Medical History ASHD (arteriosclerotic heart disease) CKD (chronic kidney disease) Cutaneous lupus erythematosus Dysphagia Endometrial cancer GERD (gastroesophageal reflux disease) High risk medication use Hyperlipidemia Hypertension Immunization counseling Lupus (systemic lupus erythematosus) Osteoarthritis Osteoporosis Positive sm/PRACTICE BUSINESS ASST antibody Sleep apnea SS-A antibody positive Surgical History H/O mastectomy H/O: hysterectomy History of appendectomy History of PTCA History of shoulder surgery Family History (Updated 06/11/20 @ 09:59 by Maria Alejandra Lund RN) Father Diabetes Family/Other Diabetes Denies family history of Rheumatoid arthritis CAD (coronary artery disease) Clotting disorder Dementia Chronic kidney disease (CKD) Systemic lupus erythematosus (SLE) in adult Suicide Anesthesia complication Bleeding disorder Lung disease Cancer Hypertension Stroke Social History Smoking and tobacco status: never smoked Alcohol intake: never History of recent travel: No Vitals/I&O/Wt Last Vital Signs Temp 98.7 F 10/27/20 11:14 Pulse 58 L 10/27/20 11:39 Resp 17 10/27/20 11:39 BP 135/81 10/27/20 11:39 Pulse Ox 98 10/27/20 11:39 Weight last 48 hrs Weight 143 lb Physical Exam Narrative: EXAM NARRATIVE: GENERAL: Patient is alert, awake and oriented x3. Moderate distress NECK: No jugular vein distension. HEENT: No cyanosis. No icterus. No pallor. HEART: Regular S1 and S2. No murmur, rub or gallop. LUNGS: Clear to auscultate bilaterally. ABDOMEN: Soft, nontender and nondistended. Positive bowel sounds. No guarding, rebound or tenderness. CENTRAL NERVOUS SYSTEM: Grossly nonfocal. EXTREMITIES: Lower extremities without edema bilaterally. Data : 10/28/20 04:30 10/28/20 04:30 A&P Assessment and plan (1) Non-ST elevation OR (NSTEMI): Patient has unstable non-ST elevation since she continues to have chest pain EKG changes we will proceed with left heart cath/PCI if indicated Status: Acute (2) Hypertension: Well-controlled Status: Acute Qualifiers: Hypertension type: essential hypertension Qualified Code(s): I10 - Essential (primary) hypertension (3) CKD (chronic kidney disease): IV fluids will be given will minimize contrast. Patient understand the risk of contrast-induced nephropathy Status: Acute Attestations Medical Necessity Statement*: Patient will be observation for 24 hours. Coding Level of Care Code New Pt Acute Screwhead Stoner And Polisher for Chg Fwd Patient Type New Medical Decision Making Moderate Complexity Diagnoses Non-ST elevation OR (NSTEMI) I21.4 Hypertension I10 Hypertension type: essential hypertension CKD (chronic kidney disease) N18.9
--- NOTE | 2020-10-27 13:11 | ECG_ITS ---
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 Measurements Intervals [place] Rate: 66 P: 83 NM: 245 QRS: -72 QRSD: 150 T: 102 QT: 457 QTc: 480 Interpretive Statements SINUS RHYTHM WITH FIRST DEGREE AV BLOCK INTRAVENTRICULAR CONDUCTION DELAY [130+ ms QRS DURATION] LEFT VENTRICULAR HYPERTROPHY AND ST-T CHANGE [VOLTAGE CRITERIA PLUS ST/T ABNORMALITY] ANTEROLATERAL MYOCARDIAL INFARCTION [40+ ms Q WAVE IN I/aVL/V3-V6], OF INDETERMINATE AGE ACUTE OK INTERPRETATION BASED ON A DEFAULT AGE OF 40 YEARS Compared to ECG 10/27/2020 11:10:50 No significant changes Electronically Signed On 10-27-2020 18:24:10 CDT by Rojas Redmond M.D. [id number]
[2020-10-27] MEDS: nitroglycerin 0.4 mg sublingual Tablet SUBLINGUAL (15:14)
--- NOTE | 2020-10-27 17:11 | ECG_ITS ---
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 Measurements Intervals [place] Rate: 62 P: 48 HI: 232 QRS: -70 QRSD: 152 T: 106 QT: 463 QTc: 473 Interpretive Statements SINUS RHYTHM WITH FIRST DEGREE AV BLOCK INTRAVENTRICULAR CONDUCTION DELAY [130+ ms QRS DURATION] LEFT VENTRICULAR HYPERTROPHY AND ST-T CHANGE [VOLTAGE CRITERIA PLUS ST/T ABNORMALITY] ANTEROLATERAL MYOCARDIAL INFARCTION [40+ ms Q WAVE IN I/aVL/V3-V6], OF INDETERMINATE AGE Compared to ECG 10/27/2020 16:38:56 No significant changes Electronically Signed On 10-29-2020 10:02:49 CDT by Jenniffer Ortiz M.D. [id number]
[2020-10-27 17:19] LABS: INR 1.13 (0.8-1.2)
[2020-10-27 17:32] LABS: Troponin 5 2HR 1438 ng/L (0-10)
--- NOTE | 2020-10-27 17:45 | PC.NURSE ---
PTT still pending at this time.
--- NOTE | 2020-10-27 18:28 | PC.NURSE ---
PTT pending. Call placed to lab. No answer.
[2020-10-27 18:53] LABS: Partial Thromboplastin Time 166.9 SECONDS (23.9-36.7)
--- NOTE | 2020-10-27 19:07 | PC.NURSE ---
Shift Note Frequent safety and comfort rounds continue. Orders and/or nursing care completed as indicated. Patient monitored for response to intervention and treatment(s). Education provided includes[post cath orders, pain medicines ordered, expected lab tests & activity restrictions. Two daughters at bedside.]. Patient and/or rental sales representative [Patient & daughters state understanding. Will continue to monitor BP. HR. Right groin site. pedal pulses..
[2020-10-27 20:41] LABS: Partial Thromboplastin Time 39.3 SECONDS (23.9-36.7)
[2020-10-28] VITALS (23 sets, daily range): BP systolic 103–128; BP diastolic 55–73; PULSE 57–82; RESP 16–18; TEMP 36.4–37.4; O2SAT 85–98
--- NOTE | 2020-10-28 01:00 | PC.NURSE ---
Around 2140: PTT therapeutic. Removed arterial sheath to patients right groin. Held pressure 20 min. Not hematoma noted. Vitals stable. Around 2215: Assisted Emma Dooley RN with removal of venous sheath to right groin. Held pressure 20 min. No hematoma noted. Vitals stable. Dressed sites with 4x4 guaze and transparent film. Patient tolerated procedures well.
[2020-10-28 05:10] LABS: Basophils # 0.1 10^3/uL (0.0-0.1); Basophils % 0.5 %; Eosinophils % 0.3 %; Hematocrit 33.1 % (37.0-47.0); Hemoglobin 10.3 g/dL (11.5-15.3); Lymphocytes % 19.3 %; Mean Corpuscular HGB Conc 31.1 g/dL (30.0-36.0); Mean Corpuscular Hemoglobin 32.4 pg (28.0-34.0); Mean Corpuscular Volume 104.1 fL (81-99); Mean Platelet Volume 11.7 fL (7.4-10.4); Monocytes # 0.9 10^3/uL (0.2-0.9); Monocytes % 8.5 %; Neutrophils # 7.31 10^3/uL (1.8-7.7); Nucleated Red Blood Cells % 0 %; Platelet Count 188 10^3/cmm (130-400); Red Blood Count 3.18 10^6/uL (4.1-5.3); Red Cell Distribution Width 12.4 % (12.1-15.1); White Blood Count 10.3 10^3/uL (4.0-10.0)
[2020-10-28 05:58] LABS: Anion Gap 14.1 (5-19); Blood Urea Nitrogen 13 mg/dL (8-23); Calcium 8.3 mg/dL (8.5-10.5); Carbon Dioxide 21 mmol/L (22-29); Chloride 104 mmol/L (98-107); Glucose 126 mg/dL (65-115); Osmolality Calculated 282 mOsm/kg (285-295); Potassium 4.1 mmol/L (3.5-5.1); Sodium 135 mmol/L (136-145)
[2020-10-28 06:00] LABS: Troponin T (5th) Once 2187 ng/L (0-10)
--- NOTE | 2020-10-28 06:29 | PC.NURSE ---
Shift Note Frequent safety and comfort rounds continue. Orders and/or nursing care completed as indicated. Patient monitored for response to intervention and treatment(s). Education provided includes reportable signs and symptoms and activity restrictions. Patient and/or patient access representative verbalized understanding of all teaching. Will continue to monitor.
--- NOTE | 2020-10-28 08:36 | PC.PHAR ---
pt states she takes care of her own medications-pt states she takes her hydroxychloroquine 200mg takes 100mg qam and 200mg hs rx filled as alternate taking 1 tab today with 2 tabs the next etc. on 09/06/20 90d/s-
[2020-10-28] MEDS: clopidogrel 75 mg Tablet PO (08:39)
--- NOTE | 2020-10-28 09:05 | USCV_ITS ---
Bryanna Mark Age: 80 Gender: F : 1940 Exam Date: 10/28/2020 14:09 Ordering Phys: Galilea Bowles MD ([email or web address]) Technologist: Trisha Stockton Exam Location: [facility] [place] Indication: POST STEMI BP: 117 / 73 HR: 64 Rhythm: Sinus Technical Quality: Adequate MEASUREMENTS (Male / Female) Normal Values 2D ECHO LV Diastolic Diameter PLAX 4.5 cm 4.2 - 5.9 / 3.9 - 5.3 cm LV Systolic Diameter PLAX 2.5 cm LV Chamber Size 3.8 cm IVS Diastolic Thickness 1.2 cm 0.6 - 1.0 / 0.6 - 0.9 cm IVS Systolic Thickness 1.3 cm LVPW Diastolic Thickness 1.4 cm 0.6 - 1.0 / 0.6 - 0.9 cm LVPW Systolic Thickness 1.5 cm RV Chamber Size 3.0 cm LVOT Diameter 2.0 cm LV Ejection Fraction 2D Teich 75.6 % LV Ejection Fraction MOD 2C 57.3 % LV Ejection Fraction 2C AL 60.0 % LA Diameter 3.1 cm LA Width 2.5 cm LA Height 3.5 cm RA Width 2.6 cm RA Height 4.2 cm Aorta at Sinotubular Diameter 3.0 cm M-MODE LV Diastolic Diameter MM 4.2 cm 4.2 - 5.9 / 3.9 - 5.3 cm LV Systolic Diameter MM 2.5 cm LV Ejection Fraction MM Teich 70.2 % IVS Diastolic Thickness MM 1.2 cm 0.6 - 1.0 / 0.6 - 0.9 cm IVS Systolic Thickness MM 1.2 cm LVPW Diastolic Thickness MM 1.2 cm 0.6 - 1.0 / 0.6 - 0.9 cm LVPW Systolic Thickness MM 1.4 cm Aortic Annulus Diameter 3.4 cm LA Ao Ratio MM 1.2 MV E Point Septal Separation 0.8 cm DOPPLER AV Peak Velocity 150.0 cm/s LVOT Peak Velocity 96.0 cm/s AV Area Cont Eq vti 2.6 cm squared AV Area Cont Eq pk 2.1 cm squared MV Area PHT 3.0 cm squared Mitral E to A Ratio 0.7 MV E' Velocity 39.0 cm/s Mitral E to MV E' Ratio 18.2 Mitral E to LV E' Lateral Ratio 15.8 Mitral E to LV E' Septal Ratio 21.4 TR Peak Velocity 165.9 cm/s TR Peak Gradient 11.0 mmHg TR Mean Velocity 115.6 cm/s TR Mean Gradient 6.6 mmHg TR Velocity Time Integral 43.3 cm TV Peak E Velocity 71.0 cm/s Right Atrial Pressure 3.0 mmHg Pulmonary Artery Systolic Pressu 14.0 mmHg PV Peak Velocity 66.0 cm/s RV Acceleration Time 0.2 s RV Ejection Time 0.3 s RV AcT/ET 0.6 FINDINGS Left Ventricle Normal left ventricular cavity size. Normal left ventricular systolic function. Left ventricular ejection fraction is estimated at 60 %. There appeared to be inferior wall hypokinesis.Grade I/IV diastolic dysfunction (abnormal relaxation filling pattern), normal to mildly elevated filling pressures. Right Ventricle The right ventricle is normal in size and function. Right Atrium The right atrium is normal in size. Left Atrium The left atrium is normal in size. Mitral Valve Structurally normal mitral valve without significant stenosis or prolapse. There is no mitral regurgitation. Aortic Valve Structurally normal aortic valve without significant sclerosis or stenosis. There is no aortic regurgitation. Tricuspid Valve Structurally normal tricuspid valve without significant stenosis or regurgitation. Pulmonary artery systolic pressure is normal. Pulmonic Valve Structurally normal pulmonic valve without significant stenosis. There is no pulmonic regurgitation. Pericardium Normal pericardium without effusion. Aorta Normal ascending aorta dimension. CONCLUSIONS 1-Normal left ventricular cavity size. Normal left ventricular systolic function. Left ventricular ejection fraction is estimated at 60 %. There appeared to be inferior wall hypokinesis.Grade I/IV diastolic dysfunction (abnormal relaxation filling pattern), normal to mildly elevated filling pressures. 2-There is no pericardial effusion. 3-No significant valve abnormalities. 4-Pulmonary artery systolic pressure is within normal limits. 5-Right atrial pressure is around 5 mm of mercury. 6-There are no prior echocardiogram studies to compare. Galilea Bowles MD (Electronically Signed) Final Date: 28 October 2020 18:07 S
--- NOTE | 2020-10-28 09:22 | PC.CHAP ---
Pastoral Care Encounter/Spiritual Assessment Type of Contact [] Declined occupational therapist assistants visit [] Patient/Family/Request visit [] Outpatient visit [] Follow-up visit [] Physician referral [] Code/Alert [x] Routine visit [] Staff referral [] Actively dying [] Patient sleeping [] Family support [] [] Out of room [] Palliative care [] [] Receiving care in room [] Pre-surgical visit [] Trauma [] Long length of stay [] ICU visit [] Other: Relational/Emotional Strength [] Patient feels connected with others/family/visitors/staff [] Distress [] Loneliness/isolation [] Abandonment Spirituality of Patient [x] Person of Winter [] Attends Baptist of their Winter [] Believes in Prayer [] Reads Bible or Baptist materials [] There are Spiritual issues to be addressed Professor Of Music Interventions [x] Prayer [x] Active listening [x] Non-anxious presence [x] Spiritual/emotional support [] Crisis/trauma care [] Spiritual counseling [] Bereavement support [] Provided bereavement packet [] Provided Bible/devotional materials [] Provided toy/stuffed animal, coloring book to patient or family member [] Provided Communion [] Anointing/[place] [] Salvation [x] Completed spiritual assessment [] Other: Impact on Illness or Injury [] Angry [] Fearful [] Anxious [] Often cries [] Exhaustion [] Unable to work [] Unable to attend jew [] Unable to walk/stand [] Unable to read [] Unable to drive [] Unable to eat/drink [] Unable to sleep [] Unable to be with family [] Patient intubated [] Other: Summary feeling much better .. another stint .. already had 5... very happy with care Time spent with patient 10 min
--- NOTE | 2020-10-28 12:43 | P.PN_ITS ---
Subjective Subjective: Interval history: Patient underwent left heart cath noted to have occluded RCA with full metal jacket stents in the past. It was treated with balloon angioplasty and drug-eluting stent postdilated with noncompliant balloon. During the intervention patient dropped blood pressure and became severely bradycardic it was treated with temporary pacemaker pressors and atropine. Post PCI course overnight remained uneventful. Pacemaker was discontinued upon transfer from the Supervisor Electron Tube Processing. Troponin jumped up to more than 2000. Today she denies any complaints and stable vital cosby. Right groin looks good without major bruise or hematoma Vitals/I&O/Wt Last Vital Signs Temp 98.9 F 10/28/20 07:55 Pulse 72 10/28/20 07:55 Resp 18 10/28/20 07:55 BP 116/66 10/28/20 07:55 Pulse Ox 97 10/28/20 07:55 10/27/20 10/28/20 10/28/20 22:59 06:59 14:59 Intake Total 120 / 120 Output Total 1250 / 1250 Balance 120 / 120 -1250 / -1130 Weight last 48 hrs Weight 148 lb 4.8 oz Weight 143 lb Physical Exam Narrative: EXAM NARRATIVE: GENERAL: Patient is alert, awake and oriented x3. NECK: No jugular vein distension. HEENT: No cyanosis. No icterus. No pallor. HEART: Regular S1 and S2. No murmur, rub or gallop. LUNGS: Clear to auscultate bilaterally. ABDOMEN: Soft, nontender and nondistended. Positive bowel sounds. No guarding, rebound or tenderness. CENTRAL NERVOUS SYSTEM: Grossly nonfocal. EXTREMITIES: Lower extremities without edema bilaterally. Data : 10/28/20 04:30 10/28/20 04:30 A&P Assessment and plan (1) Non-ST elevation DC (NSTEMI): Post PCI to mid RCA with drug-eluting stent. No overnight event will optimize medicine will ask for echocardiogram today. We will monitor her for any heart block after institution beta-ted. If remains stable over the next 24 hours will discharge Status: Acute (2) Hypertension: Well-controlled Status: Acute Qualifiers: Hypertension type: essential hypertension Qualified Code(s): I10 - Essential (primary) hypertension (3) CKD (chronic kidney disease): Stable and normal now. Will discontinue IV fluid Status: Acute Attestations Medical Necessity Statement*: Patient require continuation hospitalization. 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
[2020-10-28] MEDS: alum-mag-hydroxide-sime 30 mL UDC PO (18:34)
--- NOTE | 2020-10-28 19:13 | PC.NURSE ---
Shift Note Frequent safety and comfort rounds continue. Orders and/or nursing care completed as indicated. Patient monitored for response to intervention and treatment(s). Education provided includes post heart attack care site care and restrictions. Patient and/or consumer sales representative verbalized understanding. Will continue to monitor.
[2020-10-29 04:00] VITALS: BP 101/57; PULSE 73; RESP 16; TEMP 525.2; TEMP 977.4; O2SAT 93
[2020-10-29 05:53] VITALS: PULSE 67
[2020-10-29 07:41] VITALS: BP 114/75; PULSE 69; RESP 17; TEMP 36.7; O2SAT 95
[2020-10-29] MEDS: clopidogrel 75 mg Tablet PO (09:00)
--- NOTE | 2020-10-29 10:11 | P.DS_ITS ---
Discharge Providers Date of Admission: 10/28/20 13:24 Date of Discharge: October 29, 2020 Attending Provider at Admission: Galilea Bowles MD Attending Provider at Discharge: Galilea Bowles MD Primary Care Provider: Javid Edwards MD Diagnoses at Discharge Discharge Diagnosis (1) Non-ST elevation [place] (NSTEMI): Status: Resolved (2) Hypertension: Status: Acute Qualifiers: Hypertension type: essential hypertension Qualified Code(s): I10 - Ess ential (primary) hypertension (3) CKD (chronic kidney disease): Reason for Visit Reason for Visit: CHEST PAIN Hospital Course Hospital Course Patient underwent left heart cath noted to have occluded RCA with full metal jacket stents in the past. It was treated with balloon angioplasty and drug- eluting stent postdilated with noncompliant balloon. During the intervention patient dropped blood pressure and became severely bradycardic it was treated with temporary pacemaker pressors and atropine. Post PCI course overnight remained uneventful. Pacemaker was discontinued upon transfer from the Combination Operator. Troponin jumped up to more than 2000. Today she denies any complaints and stable vital cosby. Overall she is doing fine from cardiovascular perspective medicine were optimized she denies any more complaint. Right groin looks good without major bruise or hematoma. We will discharge her with follow-up at cardiology clinic . Physical Exam Narrative: EXAM NARRATIVE: GENERAL: Patient is alert, awake and oriented x3. NECK: No jugular vein distension. HEENT: No cyanosis. No icterus. No pallor. HEART: Regular S1 and S2. No murmur, rub or gallop. LUNGS: Clear to auscultate bilaterally. ABDOMEN: Soft, nontender and nondistended. Positive bowel sounds. No guarding, rebound or tenderness. CENTRAL NERVOUS SYSTEM: Grossly nonfocal. EXTREMITIES: Lower extremities without edema bilaterally. Discharge Data Data Completed and Pending: Completed Studies During Hospitalization Category Date Time Status XR chest 1V meaghan ble [id number] Stat Exams 10/27/20 11:15 Completed CV. echo complete * [id number] Routine Ultrasound 10/28/20 09:05 Completed Pending at discharge Category Date Time Status MANAGER TECHNICAL SERVICES request for service Stat Exams 10/27/20 11:43 Taken Basic Metabolic P silvestre Routine Lab 10/29/20 10:07 Ordered Troponin T (5th) Once Routine Lab 10/29/20 10:07 Ordered Vitals: Last Vital Signs Temp 98.1 F 10/29/20 07:41 Pulse 69 10/29/20 07:41 Resp 17 10/29/20 07:41 BP 114/75 10/29/20 07:41 Pulse Ox 95 10/29/20 07:41 Discharge Plan Discharge Patient Disposition: Home Condition: Stable Prescriptions: New clopidogrel 75 mg Tablet 75 mg PO DAILY Qty: 90 RF: 4 pantoprazole 40 mg tablet,delayed release (DR/EC) 40 mg PO DAILY 56 Days Qty: 56 RF: 0 Continued omega-3 fatty acids [Fish Oil Concentrate] 1,000 mg capsule 1,000 mg PO DAILY RF: 0 cholecalciferol (vitamin D3) 50 mcg (2,000 unit) tablet 2,000 unit PO DAILY Qty: 30 RF: 0 atenolol 25 mg tablet 25 mg PO BID RF: 0 atorvastatin 20 mg tablet 20 mg PO QAM RF: 0 nitroglycerin [Nitro-Time] 2.5 mg capsule, extended release 2.5 mg PO BID RF: 0 alendronate 70 mg tablet 70 mg PO Q7D RF: 0 loratadine 10 mg tablet 10 mg PO DAILY PRN (Reason: Allergy Symptoms) RF: 0 nitrofurantoin monohyd/m-cryst 100 mg capsule 1 cap PO BID RF: 0 prednisone 2.5 mg tablet 2.5 mg PO QAM RF: 0 hydroxychloroquine 200 mg tablet See Rx Instructions .ROUTE .COMPLEX RF: 0 diclofenac sodium 1 % gel 4 g topical QID PRN (Reason: Pain) RF: 0 Changed aspirin 325 mg tablet 81 mg PO QAM Qty: 0 RF: 0 lisinopril 40 mg tablet 20 mg PO QAM Qty: 30 RF: 4 Discontinued esomeprazole magnesium [Nexium] 20 mg Capsule,Delayed Release(Dr/Ec) 20 mg PO DAILY RF: 0 amlodipine 5 mg tablet 5 mg PO BEDTIME RF: 0 Discharge Orders: Discharge Order (Routine); Ordered 10/29/20 Ordered By: Galilea Bowles Referrals: Rojas Redmond MD [Physician] - (You have a follow up appointment with Dr. Redmond on 12/17 at 3:00pm. If you have any quesitons or concers please call the office. ) Carmella Phillip FNP [Nurse Practitioner] - (You have a hospital follow up appointment with Carmella Phillip on , November 05, at 3:00pm. If you have any questions or concerns please call the office. ) Discharge Diet: Cardiac Discharge Activity: Increase activity as tolerated Patient Instructions: Myocardial Infarction (DC), Left Heart Catheterization (DC), Coronary Angioplasty (DC), Coronary Intravascular Stent Placement (DC), Chest Pain Stoplight, Opioid Safety, Post Angiogram Home Care Instructions Activity Restrictions/Additional Instructions: Follow-up with Ms. Carmella Phillip 7 days. Follow-up with Dr. Redmond in 6 to 8 w eeks. Discharge Attestations Time Spent in Discharge Care*: greater than 30 min Specific Discharge Activities: educating patient and educating and/or supporting family/caregiver Quality Metrics Clinical Quality Measures During this hospital stay, did patient experience: AMI Clinical Trial Participant: No Contraindication to aspirin (AMI): Aspirin given Contraindication to statin: Statin prescribed Coding Level of Care Code Established Pt Acute Chg FW DC note Patient Type Established History Comprehensive Exam Comprehensive Medical Decision Making Moderate Complexity Diagnoses Non-ST elevation [place] (NSTEMI) I21.4 Hypertension I10 Hypertension type: essential hypertension CKD (chronic kidney disease) N18.9
--- NOTE | 2020-10-29 10:30 | PC.NURSE ---
called Lab to verify on orders for BMP and Trop. Orders received and they will come down to pt room.
--- NOTE | 2020-10-29 11:14 | PC.CHAP ---
Pastoral Care Encounter/Spiritual Assessment Type of Contact [] Declined prior authorization nurse visit [] Patient/Family/Request visit [] Outpatient visit [] Follow-up visit [] Physician referral [] Code/Alert [x] Routine visit [] Staff referral [] Actively dying [] Patient sleeping [] Family support [] [] Out of room [x] Palliative care [] [x] Receiving care in room [] Pre-surgical visit [] Trauma [x] Long length of stay [] ICU visit [] Other: Relational/Emotional Strength [x] Patient feels connected with others/family/visitors/staff [x] Distress [] Loneliness/isolation [] Abandonment Spirituality of Patient [x] Person of Winter [] Attends Sikh of their Winter [x] Believes in Prayer [] Reads Bible or Methodist materials [] There are Spiritual issues to be addressed Sales And Service Advisor Interventions [x] Prayer [x] Active listening [x] Non-anxious presence [x] Spiritual/emotional support [] Crisis/trauma care [x] Spiritual counseling [] Bereavement support [] Provided bereavement packet [] Provided Bible/devotional materials [] Provided toy/stuffed animal, coloring book to patient or family member [x] Provided Communion [] Anointing/[place] [] Salvation [x] Completed spiritual assessment [] Other: Impact on Illness or Injury [] Angry [x] Fearful [] Anxious [] Often cries [] Exhaustion [x] Unable to work [] Unable to attend muslim [] Unable to walk/stand [] Unable to read [] Unable to drive [] Unable to eat/drink [] Unable to sleep [] Unable to be with family [] Patient intubated [] Other: Summary has nurse with her under nurses care was able to have prayer no communication Time spent with patient 10 mins
[2020-10-29 11:36] VITALS: BP 122/74; PULSE 66; RESP 17; TEMP 36.8; O2SAT 98
[2020-10-29 11:41] VITALS: BP 122/74; PULSE 66; RESP 17; TEMP 36.8; O2SAT 98
[2020-10-29 12:00] LABS: Anion Gap 14.5 (5-19); Blood Urea Nitrogen 14 mg/dL (8-23); Calcium 8.8 mg/dL (8.5-10.5); Carbon Dioxide 24 mmol/L (22-29); Chloride 99 mmol/L (98-107); Glucose 137 mg/dL (65-115); Osmolality Calculated 279 mOsm/kg (285-295); Potassium 4.5 mmol/L (3.5-5.1); Sodium 133 mmol/L (136-145)
[2020-10-29 12:09] LABS: Troponin T (5th) Once 2088 ng/L (0-10)
--- NOTE | 2020-10-29 13:04 | PC.NURSE ---
Discharge to home w/ caregiver Accompanied by Dr Gilman. Ushered via wheelchair to their private vehicle. Instructions provided on post angiogram, and new meds, continued meds, dose change to lisinopril and aspirin and stopped meds. Discharge packet provided. education materials provided to pt.
== END 2020-10-29 12:00 | disposition home or self-care (01) ==
LOC: ER 11:37 → CCL 11:44 → CSU 10-28 05:56
PROVIDERS: Nurse Practitioner Family; Admitting Provider Internal Medicine Cardiovascular Disease; Emergency Provider Family Medicine; PCP Family Medicine; Visit Provider Internal Medicine Cardiovascular Disease
DX: I21.4 Non-ST elevation (NSTEMI) myocardial infarction (principal); I12.9 Hypertensive chronic kidney disease with stage 1 through stage 4 chronic kidney disease, or unspecified chronic kidney disease; N18.9 Chronic kidney disease, unspecified; I25.10 Atherosclerotic heart disease of native coronary artery without angina pectoris; E78.5 Hyperlipidemia, unspecified; Z79.52 Long term (current) use of systemic steroids; Z79.82 Long term (current) use of aspirin; Z85.89 Personal history of malignant neoplasm of other organs and systems; M19.90 Unspecified osteoarthritis, unspecified site; M81.0 Age-related osteoporosis without current pathological fracture; G47.30 Sleep apnea, unspecified
CPT/HCPCS: 33210; 36415; 71045; 80048; 80053; 84484; 85025; 85347; 85610; 85730; 93005; 93306; 93454; 99291; C1725; C1769; C1779; C1874; C1887; C1894; C9600; G0378; J0171; J0461; J1265; J1644; J2250; J2405; J3010; J3246; J3490; Q9967

== ENCOUNTER → 2020-11-05 16:00 | Outpatient (BNVA) | payer MEDICARE, SELFPAY | PROVIDERS: PCP Family Medicine; Visit Provider Nurse Practitioner Family | DX: I25.10 Atherosclerotic heart disease of native coronary artery without angina pectoris (principal); Z09 Encounter for follow-up examination after completed treatment for conditions other than malignant neoplasm | CPT/HCPCS: 80048 ==

== ENCOUNTER → 2020-11-30 09:54 | Outpatient (BNVA) | payer MEDICARE, SELFPAY | PROVIDERS: PCP Family Medicine; Visit Provider Internal Medicine Rheumatology | DX: L93.2 Other local lupus erythematosus (principal); Z79.899 Other long term (current) drug therapy | CPT/HCPCS: 36415; 80076 ==

== ENCOUNTER → 2020-12-07 09:40 | Outpatient (BNVA) | payer MEDICARE, SELFPAY | PROVIDERS: PCP Family Medicine; Visit Provider Internal Medicine Cardiovascular Disease | DX: E78.2 Mixed hyperlipidemia (principal); E78.5 Hyperlipidemia, unspecified | CPT/HCPCS: 80061 ==

== ENCOUNTER → 2020-12-29 10:44 | Outpatient (BNVA) | payer MEDICARE, SELFPAY | PROVIDERS: PCP Family Medicine; Visit Provider Internal Medicine Rheumatology | DX: L93.2 Other local lupus erythematosus (principal); M19.90 Unspecified osteoarthritis, unspecified site; M81.0 Age-related osteoporosis without current pathological fracture; Z79.899 Other long term (current) drug therapy; R76.8 Other specified abnormal immunological findings in serum; I25.10 Atherosclerotic heart disease of native coronary artery without angina pectoris; I13.10 Hypertensive heart and chronic kidney disease without heart failure, with stage 1 through stage 4 chronic kidney disease, or unspecified chronic kidney disease; N18.9 Chronic kidney disease, unspecified; Z71.89 Other specified counseling | CPT/HCPCS: 99214 ==

== ENCOUNTER 2021-01-29 10:37 | Outpatient (CLI) | payer MEDICARE, SELFPAY ==
--- NOTE | 2021-01-29 10:40 | MM_ITS ---
WS: [id number] Left breast diagnostic digital mammogram, 01/29/2021 Clinical Data: HX OF BREAST Ca; rt MASTECTOMY Comparison: 10/25/2019, 10/15/2018, 10/13/2017, 10/07/2016, 10/06/2015, 09/29/2012, 09/26/2013, 09/24/2012, 08/23, 08/18/2010, 08/05/2010, 02/04/2010, 01/14/2009, 01/14/2008, 01/10/2007, 01/09/2006. Findings: The breast parenchymal pattern shows fibroglandular tissue. No spiculated masses or clustered calcifi cations are seen. There are no secondary signs of carcinoma. MM/[place] [id number] Impression: 1. Negative left breast mammogram unchanged. 2. Recommend annual left breast mammogram. BIRADS: 1-Negative FOLLOW UP: 1 Year Follow-up The CAD liner checker was used.
== END 2021-01-29 10:38 | disposition home or self-care (01) ==
LOC: RADSHAW 10:39
PROVIDERS: PCP Family Medicine; Visit Provider Family Medicine
DX: Z85.3 Personal history of malignant neoplasm of breast (principal); Z90.12 Acquired absence of left breast and nipple
CPT/HCPCS: 77065

== ENCOUNTER 2021-02-14 11:22 | Observation (INO) | payer MEDICARE, SELFPAY ==
--- NOTE | 2021-02-14 11:33 | CTR_ITS ---
PROCEDURE INFORMATION: Exam: CT Angiography Head With Contrast, Arteriography Exam date and time: 02/14/2021 11:33 AM Age: 80 years old Clinical indication: Dizziness and giddiness and vertigo; Additional info: Vertigo/light-headedness TECHNIQUE: Imaging protocol: Computed tomography angiography of the head with contrast. Exam focused on the arteries. 3D rendering (Not supervised by radiologist): MIP and/or 3D reconstructed images were created by the technologist. Radiation optimization: All CT scans at this facility use at least one of these dose optimization techniques: automated exposure control; mA and/or kV adjustment per patient size (includes targeted exams where dose is matched to clinical indication); or iterative reconstruction. Contrast material: VISI 320; Contrast volume: 95 ml; Contrast route: INTRAVENOUS (IV); COMPARISON: CT head wo con* [id number] 02/14/2021 12:51 PM RADIATION DOSE METRICS: Total DLP (mGy-cm): 2178.79 FINDINGS: ANTERIOR CIRCULATION: Right internal carotid artery: Unremarkable. Intracranial segment is patent with no significant stenosis. No aneurysm. Right middle cerebral artery: Unremarkable. No occlusion or significant stenosis. No aneurysm. Right anterior cerebral artery: Unremarkable. No occlusion or significant stenosis. No aneurysm. Left internal carotid artery: Unremarkable. Intracranial segment is patent with no significant stenosis. No aneurysm. Left middle cerebral artery: Unremarkable. No occlusion or significant stenosis. No aneurysm. Left anterior cerebral artery: Unremarkable. No occlusion or significant stenosis. No aneurysm. POSTERIOR CIRCULATION: Right vertebral artery: Unremarkable. No occlusion or significant stenosis. No aneurysm. Left vertebral artery: Unremarkable. No occlusion or significant stenosis. No aneurysm. Basilar artery: Unremarkable. No occlusion or significant stenosis. No aneurysm. Right posterior cerebral artery: Unremarkable. No occlusion or significant stenosis. No aneurysm. Left posterior cerebral artery: Unremarkable. No occlusion or significant stenosis. No aneurysm. Brain: No definite mass, mass effect, or midline shift. Cerebral ventricles: No ventriculomegaly. Bones/joints: Unremarkable. No acute fracture. Soft tissues: Unremarkable. IMPRESSION: No large vessel stenosis or occlusion. PROCEDURE INFORMATION: Exam: CT Angiography Neck With Contrast Exam date and time: 02/14/2021 11:33 AM Age: 80 years old Clinical indication: Dizziness and giddiness and vertigo; Additional info: Vertigo/light-headedness TECHNIQUE: Imaging protocol: Computed tomography angiography of the neck with contrast. 3D rendering (Not supervised by radiologist): MIP and/or 3D reconstructed images were created by the technologist. Radiation optimization: All CT scans at this facility use at least one of these dose optimization techniques: automated exposure control; mA and/or kV adjustment per patient size (includes targeted exams where dose is matched to clinical indication); or iterative reconstruction. Contrast material: VISI 320; Contrast volume: 95 ml; Contrast route: INTRAVENOUS (IV); COMPARISON: CT head wo con* [id number] 02/14/2021 12:51 PM RADIATION DOSE METRICS: Total DLP (mGy-cm): 2178.79 FINDINGS: Right common carotid artery: No stenosis. No dissection or occlusion. Right internal carotid artery: No stenosis of the extracranial segment. No dissection or occlusion. Right external carotid artery: No occlusion or stenosis of the origin. Left common carotid artery: No stenosis. No dissection or occlusion. Left internal carotid artery: Mild luminal narrowing of the proximal internal carotid artery with less than 50% luminal narrowing. No dissection or occlusion. Left external carotid artery: No occlusion or stenosis of the origin. Right vertebral artery: No stenosis. No dissection or occlusion. Left vertebral artery: No stenosis. No dissection or occlusion. Soft tissues: Normal. No significant soft tissue swelling. Bones/joints: No acute fracture. CT/CT angio headneck* [id number] IMPRESSION: Mild luminal narrowing of the left internal carotid artery. No significant stenosis or occlusion. REFERENCES: NASCET CRITERIA. The degree of internal carotid artery stenosis is based on NASCET criteria. Normal is no stenosis. Mild is less than 50% stenosis. Moderate is 50-69% stenosis. Severe is 70% to 99% stenosis. Total occlusion is no detectable patent lumen. Radiation Dose CTDIVOL = (mGy): DLP = 2178.79~2178.79 (mGy-cm)
--- NOTE | 2021-02-14 11:33 | CTR_ITS ---
PROCEDURE INFORMATION: Exam: CT Head Without Contrast Exam date and time: 02/14/2021 11:33 AM Age: 80 years old Clinical indication: Dizziness; Additional info: Light-headedness TECHNIQUE: Imaging protocol: Computed tomography of the head without contrast. Radiation optimization: All CT scans at this facility use at least one of these dose optimization techniques: automated exposure control; mA and/or kV adjustment per patient size (includes targeted exams where dose is matched to clinical indication); or iterative reconstruction. COMPARISON: MRI Head w/wo* [id number] 10/27/2017 1:24 PM RADIATION DOSE METRICS: Total DLP (mGy-cm): 766.49 FINDINGS: Brain: No hemorrhage. Mild diffuse cerebral atrophy and sequela of chronic small vessel ischemic disease. No mass effect. Cerebral ventricles: No ventriculomegaly. Paranasal sinuses: Visualized sinuses are unremarkable. No fluid levels. Mastoid air cells: Visualized mastoid air cells are well aerated. Bones/joints: Unremarkable. No acute fracture. Soft tissues: Unremarkable. CT/CT head wo con* [id number] IMPRESSION: No acute intracranial abnormality. Radiation Dose CTDIVOL = (mGy): DLP = 766.49 (mGy-cm)
--- NOTE | 2021-02-14 11:34 | ECG_ITS ---
[facility] Test Date: 2021-02-14 Pat Name: Bryanna Mark Department: Room: 253 Gender: Female Emergency Medcl Emt: : 1940 Requested By: Jad Avery Order Number: [id number] Reading MD: JEANNE CARPENTER Measurements Intervals [place] Rate: 58 P: 74 MT: 243 QRS: -69 QRSD: 150 T: 107 QT: 454 QTc: 447 Interpretive Statements SINUS BRADYCARDIA WITH FIRST DEGREE AV BLOCK, RBBB INTRAVENTRICULAR CONDUCTION DELAY [130+ ms QRS DURATION] LEFT VENTRICULAR HYPERTROPHY AND ST-T CHANGE [VOLTAGE CRITERIA PLUS ST/T ABNORMALITY] Compared to ECG 02/14/2021 14:29:25 No significant change Electronically Signed On 02-15-2021 12:53:25 WAREHOUSE SHIPPER by JEANNE CARPENTER [email or web address]
[2021-02-14 11:42] VITALS: BP 123/91; PULSE 67; RESP 18; TEMP 37.1; O2SAT 99; BMI 26.5
[2021-02-14 11:42] LABS: Basophils # 0.1 10^3/uL (0.0-0.1); Basophils % 0.8 %; Eosinophils # 0.1 10^3/uL (0.0-0.8); Eosinophils % 1.3 %; Hematocrit 39.4 % (37.0-47.0); Hemoglobin 12.6 g/dL (11.5-15.3); Lymphocytes % 35.3 %; Mean Corpuscular Hemoglobin 30.4 pg (28.0-34.0); Mean Corpuscular Volume 95.2 fl (81-99); Mean Platelet Volume 12.7 fL (7.4-10.4); Monocytes # 0.8 10^3/uL (0.2-0.9); Monocytes % 9.1 %; Neutrophils # 4.49 10^3/uL (1.8-7.7); Neutrophils % 53.1 %; Nucleated Red Blood Cells % 0 %; Platelet Count 241 10^3/cmm (130-400); Red Blood Count 4.14 10^6/uL (4.1-5.3); Red Cell Distribution Width 12.5 % (12.1-15.1); White Blood Count 8.5 10^3/uL (4.0-10.0)
--- NOTE | 2021-02-14 11:54 | ED_ITS ---
HPI - General Adult General: Chief complaint: Dizziness Stated complaint: DIZZINESS Time Seen by Provider: 02/14/21 11:33 History of Present Illness: HPI narrative: HPI: [80]yo patient w/ hx of CAD s/p stent x 5 on plavix, HTN, hLD BIBA for concern for light-headedness and vertigo-like symptoms since 7:15am. Patient was at home when she suddenly felt light-headed on standing up and that she is spinning. Patient denies any room spinning sensation. Patient has had issues with plavix in the past and was recently restarted on the medicine given significant coronary diseases. Patient lives at home by herself and has fallen last week due to similar symptoms. On arrival, the patient denies any chest pain, SOB, palpitations, focal neurological weakness in the arms or legs. Patient could not recall exactly what happened, but denied any post-ictal confusion, bowel or bladder incontinence after the incident. Denies any chest pain, shortness, palpitation, abdominal pain or back pain prior to the episode of syncope. No recent exertional chest pain or shortness of breath. Denies vertigo or disequilibrium. The episode of syncope was not preceded by any prodromes including nausea, pallor, or diaphoresis. No symptoms of diarrhea, hematuria, dysuria, melena or hematochezia. No prior documented hx of anemia requiring blood transfusions, VTE, or aortic aneurysm. Cath report from showed severe one vessel disease for which patient was started on plavix. Patient is followed by Dr. Redmond. Onset: 4 hrs ago Duration: Episodic Location: home Severity: moderate Review of Systems Narrative: Constitutional: No fever, no chills. HEENT: No vision changes CV: No chest pain, no palpitations PULM: No productive cough, no dyspnea. GI: No abdominal pain, no N/V/D. : No Dysuria MSKEL: No muscle pain SKIN: No new rashes, no lesions. NEURO: No headache, no focal weakness. +light-headedness, +vertigo HEME: No visible bruises PSYCH: Normal mood PFSH ED PFSH: Medical History ASHD (arteriosclerotic heart disease) CKD (chronic kidney disease) Cutaneous lupus erythematosus Dysphagia Endometrial cancer GERD (gastroesophageal reflux disease) High risk medication use Hyperlipidemia Hypertension Immunization counseling Lupus (systemic lupus erythematosus) Osteoarthritis Osteoporosis Positive sm/COTTON BALL BAGGER antibody Sleep apnea SS-A antibody positive Surgical History H/O mastectomy H/O: hysterectomy History of appendectomy History of PTCA History of shoulder surgery Family History Father Diabetes Family/Other Diabetes Denies family history of Rheumatoid arthritis CAD (coronary artery disease) Clotting disorder Dementia Chronic kidney disease (CKD) Systemic lupus erythematosus (SLE) in adult Suicide Anesthesia complication Bleeding disorder Lung disease Cancer Hypertension Stroke Social History Smoking and tobacco status: never smoked Alcohol intake: never History of recent travel: No Physical Exam 2 Narrative: EXAM NARRATIVE: Head: Atraumatic Eyes: PERRL, conjunctiva without injection, eyes tracking ENT: Mucous membrane moist NECK: Supple without lymphadenopathy, no nuchal rigidity LUNGS: LCTAB CV: RRR ABDOMEN: Soft, nontender in all quadrants, no guarding or rebound tenderness, no CVA or flank tenderness bilaterally EXTREMITY: Normal ROM SKIN: No rash or erythema NEURO: Mental status: A/Ox3 CN II-XII tested and intact. Sensation intact to sharp/dull differentiation in all extremities. Motor: Normal tone and bulk. No abnormal movements appreciated. No pronator drift. Strength tested and 5/5 in bilateral wrist flexion/extension, elbow flexion/extension, shoulder abduction, straight leg raise, knee flexion/extension, ankle dorsiflexion/plantarflexion. Patient unable to ambulate with steady gait Coordination: Finger to nose and heel to miranda testing intact bilaterally. PSYCH: Cooperative mood and affect Course Vital Signs: Vital signs: Vital Signs Temperature 98.7 F 02/14/21 11:42 Pulse Rate 67 02/14/21 11:42 Respiratory Rate 18 02/14/21 11:42 Blood Pressure 123/91 02/14/21 11:42 Pulse Oximetry 99 02/14/21 11:42 MDM - General Adult MDM Narrative: Medical decision making narrative: [80]yo patient w/ hx of CAD s/p stent x 5, HLD, HTN presenting to the ED with near syncope w/ vertigo-like symptoms. -No chestp ain -palpitations. Currently symptom free. HDS. Neurologically intact. Given history, exam and workup, presentation not consistent with seizures given short time course, no postictal state, no seizure activity. Low suspicion for acute neurologic catastrophes to include ICH given lack of trauma, risk factors for bleeding diathesis. Low suspicion for vascular catastrophes to include PE, thoracic aortic dissection, AAA rupture. Presentation not consistent with acute life threatening arrhythmia, structural heart disease, electrical conduction abnormalities, or ACS. Workup: CBC, BMP, Troponin x 2, CT head, CTA head/neck Intervention: IVF, meclizine, PO challenge, and serial reassessment EKG: No e/o STEMI. No evidence of Brugada?s sign, delta wave, epsilon wave, significantly prolonged QTc, or malignant arrhythmia. [11:59] On reassessment, patient continues to HDS. No acute complaints currently. No syncopal episode in the ER. No arrhythmia noted on the equipment monitor phototypesetting. []Patient has been able to ambulate in the ED without issues. No suspicion of neurogenic syncope at this time. However, given age, cardiovascula r risk factors and multiple co-rmbities, the patient will need inpatient workup for cardiac syncope. Patient agrees with the plan for inpatient admission at this time. Disposition: Admit to medicine, telemetry bed for cardiac monitoring and cardiology review. Lab Data: Labs: Lab Results 02/14/21 02/14/21 02/14/21 11:00 11:00 11:00 WBC 8.5 10^3/uL 10^3/ uL (4.0-10.0) RBC 4.14 10^6/uL 10^6 /uL (4.1-5.3) Hgb 12.6 g/dL g/dL (11.5-15.3) Hct 39.4 % % (37.0-47.0) MCV 95.2 fl fl (81-99) MCH 30.4 pg pg (28.0-34.0) MCHC 32.0 g/dL g/dL (30.0-36.0) RDW 12.5 % % (12.1-15.1) Plt Count 241 10^3/cmm 10^3 /cmm (130-400) MPV 12.7 fL H fL (7.4-10.4) Neut % (Auto) 53.1 % % Lymph % (Auto) 35.3 % % Wright % (Auto) 9.1 % % Eos % (Auto) 1.3 % % Baso % (Auto) 0.8 % % Neut # (Auto) 4.49 10^3/uL 10^3 /uL (1.8-7.7) Lymph # (Auto) 3.0 10^3/uL 10^3/ uL (0.8-4.8) Wright # (Auto) 0.8 10^3/uL 10^3/ uL (0.2-0.9) Eos # (Auto) 0.1 10^3/uL 10^3/ uL (0.0-0.8) Baso # (Auto) 0.1 10^3/uL 10^3/ uL (0.0-0.1) Nucleated RBC % (a uto) 0 % % Nucleated RBCs # 0.0 /100WBC /100W BC Sodium 128 mmol/L L mmol /L (136-145) Potassium 4.4 mmol/L mmol/L (3.5-5.1) Chloride 92 mmol/L L mmol/ L (98-107) Carbon Dioxide 24 mmol/L mmol/L (22-29) Anion Gap 16.4 (5-19) BUN 16 mg/dL mg/dL (8-23) Creatinine 1.1 mg/dL H mg/dL (0.5-0.9) GFR Calculation Not Reportable Glucose 178 mg/dL H mg/dL (65-115) Calculated Osmolal ity 272 mOsm/kg L mOs m/kg (285-295) Calcium 9.4 mg/dL mg/dL (8.5-10.5) Total Bilirubin 0.2 mg/dL mg/dL (0.15-1.2) AST 22 U/L U/L (0-32) ALT 11 U/L U/L (0-33) Alkaline Phosphata se 87 IU/L IU/L (35-105) Troponin T Baselin e 139 ng/L H* ng/L (0-10) Total Protein 7.0 g/dL g/dL (6.6-8.7) Albumin 4.5 g/dL g/dL (3.5-5.2) Globulin 2.5 g/dL g/dL (1.3-4.6) Lipase 67 U/L H U/L (13-60) Imaging Data^: Other Imaging: Radiologist's impression: [facility] [facility] [place], [place] [address]FE Scan ReportSigned Patient: Bryanna Mark #: [id number]: [id number]#:[id number]/Sex: 80 / FADM Date: 02/14/21Loc: ERRoom/Bed:Attending Dr: Ordering Provider/Ordering MD: Jad Avery MD Date of Service: 02/14/21 Procedure(s): CT angio headneck* [id number] Accession Number(s): [id number] Report Number: [id number] PROCEDURE INFORMATION: Exam: CT Angiography Head With Contrast, Arteriography Exam date and time: 02/14/2021 11:33 AM Age: 80 years old Clinical indication: Dizziness and giddiness and vertigo; Additional info: Vertigo/light-headedness TECHNIQUE: Imaging protocol: Computed tomography angiography of the head with contrast. Exam focused on the arteries. 3D rendering (Not supervised by radiologist): MIP and/or 3D reconstructed images were created by the technologist. Radiation optimization: All CT scans at this facility use at least one of these dose optimization techniques: automated exposure control; mA and/or kV adjustment per patient size (includes targeted exams where dose is matched to clinical indication); or iterative reconstruction. Contrast material: VISI 320; Contrast volume: 95 ml; Contrast route: INTRAVENOUS (IV); COMPARISON: CT head wo con* [id number] 02/14/2021 12:51 PM RADIATION DOSE METRICS: Total DLP (mGy-cm): 2178.79 FINDINGS: ANTERIOR CIRCULATION: Right internal carotid artery: Unremarkable. Intracranial segment is patent with no significant stenosis. No aneurysm. Right middle cerebral artery: Unremarkable. No occlusion or significant stenosis. No aneurysm. Right anterior cerebral artery: Unremarkable. No occlusion or significant stenosis. No aneurysm. Left internal carotid artery: Unremarkable. Intracranial segment is patent with no significant stenosis. No aneurysm. Left middle cerebral artery: Unremarkable. No occlusion or significant stenosis. No aneurysm. Left anterior cerebral artery: Unremarkable. No occlusion or significant stenosis. No aneurysm. POSTERIOR CIRCULATION: Right vertebral artery: Unremarkable. No occlusion or significant stenosis. No aneurysm. Left vertebral artery: Unremarkable. No occlusion or significant stenosis. No aneurysm. Basilar artery: Unremarkable. No occlusion or significant stenosis. No aneurysm. Right posterior cerebral artery: Unremarkable. No occlusion or significant stenosis. No aneurysm. Left posterior cerebral artery: Unremarkable. No occlusion or significant stenosis. No aneurysm. Brain: No definite mass, mass effect, or midline shift. Cerebral ventricles: No ventriculomegaly. Bones/joints: Unremarkable. No acute fracture. Soft tissues: Unremarkable. IMPRESSION: No large vessel stenosis or occlusion. PROCEDURE INFORMATION: Exam: CT Angiography Neck With Contrast Exam date and time: 02/14/2021 11:33 AM Age: 80 years old Clinical indication: Dizziness and giddiness and vertigo; Additional info: Vertigo/light-headedness TECHNIQUE: Imaging protocol: Computed tomography angiography of the neck with contrast. 3D rendering (Not supervised by radiologist): MIP and/or 3D reconstructed images were created by the technologist. Radiation optimization: All CT scans at this facility use at least one of these dose optimization techniques: automated exposure control; mA and/or kV adjustment per patient size (includes targeted exams where dose is matched to clinical indication); or iterative reconstruction. Contrast material: VISI 320; Contrast volume: 95 ml; Contrast route: INTRAVENOUS (IV); COMPARISON: CT head wo con* [id number] 02/14/2021 12:51 PM RADIATION DOSE METRICS: Total DLP (mGy-cm): 2178.79 FINDINGS: Right common carotid artery: No stenosis. No dissection or occlusion. Right internal carotid artery: No stenosis of the extracranial segment. No dissection or occlusion. Right external carotid artery: No occlusion or stenosis of the origin. Left common carotid artery: No stenosis. No dissection or occlusion. Left internal carotid artery: Mild luminal narrowing of the proximal internal carotid artery with less than 50% luminal narrowing. No dissection or occlusion. Left external carotid artery: No occlusion or stenosis of the origin. Right vertebral artery: No stenosis. No dissection or occlusion. Left vertebral artery: No stenosis. No dissection or occlusion. Soft tissues: Normal. No significant soft tissue swelling. Bones/joints: No acute fracture. CT/CT angio headneck* [id number] IMPRESSION: Mild luminal narrowing of the left internal carotid artery. No significant stenosis or occlusion. REFERENCES: NASCET CRITERIA. The degree of internal carotid artery stenosis is based on NASCET criteria. Normal is no stenosis. Mild is less than 50% stenosis. Moderate is 50-69% stenosis. Severe is 70% to 99% stenosis. Total occlusion is no detectable patent lumen. Radiation Dose CTDIVOL = (mGy): DLP = 2178.79~2178.79 (mGy-cm) Dictated By:Rodolfo Tate DOSigned By:Rodolfo Tate DOSigned Date/Time:02/14/21 1338DD/ [address] [place] [id number] Scan ReportSigned Patient: Bryanna Mrak #: [id number]: 1940Acct#:[id number]/Sex: 80 / FADM Date: 02/14/21Loc: ERRoom/Bed:Attending Dr: Ordering Provider/Ordering MD: Jad Avery MD Date of Service: 02/14/21 Procedure(s): CT head wo con* [id number] Accession Number(s): [id number] Report Number: [id number] PROCEDURE INFORMATION: Exam: CT Head Without Contrast Exam date and time: 02/14/2021 11:33 AM Age: 80 years old Clinical indication: Dizziness; Additional info: Light-headedness TECHNIQUE: Imaging protocol: Computed tomography of the head without contrast. Radiation optimization: All CT scans at this facility use at least one of these dose optimization techniques: automated exposure control; mA and/or kV adjustment per patient size (includes targeted exams where dose is matched to clinical indication); or iterative reconstruction. COMPARISON: MRI Head w/wo* [id number] 10/27/2017 1:24 PM RADIATION DOSE METRICS: Total DLP (mGy-cm): 766.49 FINDINGS: Brain: No hemorrhage. Mild diffuse cerebral atrophy and sequela of chronic small vessel ischemic disease. No mass effect. Cerebral ventricles: No ventriculomegaly. Paranasal sinuses: Visualized sinuses are unremarkable. No fluid levels. Mastoid air cells: Visualized mastoid air cells are well aerated. Bones/joints: Unremarkable. No acute fracture. Soft tissues: Unremarkable. CT/CT head wo con* [id number] IMPRESSION: No acute intracranial abnormality. Radiation Dose CTDIVOL = (mGy): DLP = 766.49 (mGy-cm) Dictated By:Rodolfo Tate DOSigned By:Rodolfo Tate DOSigned Date/Time:02/14/21 1335DD/ 1133 Discharge Plan Discharge Patient Disposition: Admitted As Inpatient Clinical Impression: Light-headedness, Vertigo Condition: Stable Discharge Diet: Advance as tolerated Discharge Activity: Resume usual activity Coding Level of Care Code ED Finger Lift Operator for Rosa Joyner
[2021-02-14 12:15] LABS: Alanine Aminotransferase 11 U/L (0-33); Albumin Level 4.5 g/dL (3.5-5.2); Alkaline Phosphatase 87 IU/L (35-105); Anion Gap 16.4 (5-19); Aspartate Amino Transferase 22 U/L (0-32); Blood Urea Nitrogen 16 mg/dL (8-23); Calcium 9.4 mg/dL (8.5-10.5); Carbon Dioxide 24 mmol/L (22-29); Chloride 92 mmol/L (98-107); Creatinine Clr Calc Pharmacy 37.1411; Globulin 2.5 g/dL (1.3-4.6); Glucose 178 mg/dL (65-115); Lipase 67 U/L (13-60); Osmolality Calculated 272 mOsm/kg (285-295); Potassium 4.4 mmol/L (3.5-5.1); Sodium 128 mmol/L (136-145); Total Bilirubin 0.2 mg/dL (0.15-1.2)
[2021-02-14 12:38] LABS: Troponin(5th) Baseline 139 ng/L (0-10)
[2021-02-14] MEDS: iodixanol 320 mg/mL 100mL Btl IV (12:59)
--- NOTE | 2021-02-14 13:34 | ECG_ITS ---
[facility] Test Date: 2021-02-14 Pat Name: Bryanna Mark Department: Room: Gender: Female Impregnating Helper: : 1940 Requested By: Jad Avery Order Number: [id number] Reading MD: JEANNE CARPENTER Measurements Intervals [place] Rate: 58 P: 51 MT: 245 QRS: -68 QRSD: 152 T: 109 QT: 446 QTc: 440 Interpretive Statements SINUS BRADYCARDIA WITH FIRST DEGREE AV BLOCK RIGHT BUNDLE BRANCH BLOCK [120+ ms QRS DURATION, UPRIGHT V1, 40+ ms S IN I/aVL/V4/V5/V6] LEFT VENTRICULAR HYPERTROPHY AND ST-T CHANGE [VOLTAGE CRITERIA PLUS ST/T ABNORMALITY] INFERIOR MYOCARDIAL INFARCTION , OF INDETERMINATE AGE [40+ ms Q WAVE AND/OR ST/T ABNORMALITY IN II/aVF] ANTEROLATERAL MYOCARDIAL INFARCTION , OF INDETERMINATE AGE [40+ ms Q WAVE IN I/aVL/V3-V6] Compared to ECG 02/14/2021 13:22:58 Right bundle-branch block now present Sinus rhythm no longer present Intraventricular conduction delay no longer present ST (T wave) deviation still present Myocardial infarct finding still present Electronically Signed On 02-15-2021 12:59:00 CLINIC MD ASSOCIATE by JEANNE CARPENTER [id number]
[2021-02-14] MEDS: sodium chloride 0.9% 500 ML IV (13:38)
[2021-02-14] MEDS: meclizine 25 mg tablet 50 MG PO (13:38)
[2021-02-14] MEDS: aspirin 325 mg Tablet PO (13:39)
[2021-02-14] MEDS: heparin drip 25,000 UNIT/500 ML PREMIX 19 UNIT IV (13:46)
[2021-02-14] MEDS: heparin 5,000 unit/mL INJ 1 mL 4000 UNIT IVP (13:47)
[2021-02-14 13:54] VITALS: BP 132/77; PULSE 63; RESP 18; O2SAT 100
--- NOTE | 2021-02-14 13:56 | PC.NURSE ---
Continual cardiac, Blood Pressure, and SpO2 monitoring initiated upon arrival.
[2021-02-14 14:49] LABS: Troponin 5 2HR Delta -13.5 ABS# (0-10)
[2021-02-14 14:50] LABS: Troponin 5 2HR 125.5 ng/L (0-10)
--- NOTE | 2021-02-14 15:58 | PM.HP ---
Providers/Chief Complaint Primary Care Provider: Javid Edwards MD Chief Complaint: DIZZINESS History of Present Illness Bryanna Mark is a 80 year old female with past medical history of coronary artery disease status post stent x5 on aspirin and Plavix, hypertension, hyperlipidemia came in via EMS for concern of lightheadedness and vertigo-like symptoms since this morning. She said she was home when she first started getting lightheaded upon standing up and that she is spinning. She denies any room spinning sensation. She has had issues in the past with Plavix but recently (3 months ago) was started on it due to her significant coronary artery disease. She says she lives at home alone and has had falls in the previous week due to similar symptoms. She can remember exactly what happened but denies any postictal confusion, bladder or bowel incontinence after the incident. Both Of patient's daughter present in the room and patient states that she has had issues with vertigo in the past and she has been to on meclizine as well. She no longer takes it however. She also complains of sinus issues and she says that she has been having headaches lately as well. She denies a fever cough. Denies any ear fullness. Denies any pain behind her ears. She has also been told in the past that her blood pressure drops low when she stands up. Denies chest pain, shortness of breath, palpitation, abdominal pain, back pain. Denies diarrhea, constipation. She follows Dr. Redmond as an outpatient.Patient did have an angiogram done in October this year and had severe RCA disease for which she was stented ED course: 123/91, respirate 18, pulse rate 67, temperature 98.7, pulse ox 99% CBC BMP troponin x2 were done. CTA head and neck was also performed. She was given IV fluids meclizine. EKG did not show any new findings. He does have a left bundle branch block which is old. Due to cardiovascular risk factors multiple comorbidities patient will need inpatient work-up for cardiac syncope. Hospitalist was called for admission. CT head neck did not show any large vessel stenosis or occlusion, he did show mild luminal narrowing of the left internal carotid artery. No significant stenosis or occlusion. Review of Systems General: Reports: 10 or more systems reviewed and unremarkable except in HPI and below Medications/Allergies Home Medications Medication Instructions Recorded Confirmed Last Taken Type omega-3 fatty acids 1,000 mg 1,000 mg PO DAILY cap 03/30/19 12/29/20 Unknown History capsule cholecalciferol (vitamin D3) 50 2,000 unit PO DAILY #30 tab 01/27/20 12/29/20 Unknown Rx mcg (2,000 unit) tablet atenolol 25 mg PO BID 10/27/20 12/29/20 Unknown History atorvastatin 20 mg PO QAM 10/27/20 12/29/20 Unknown History nitroglycerin [Nitro-Time] 2.5 mg PO BID 10/27/20 12/29/20 Unknown History aspirin 81 mg PO QAM #0 tab 10/28/20 12/29/20 Unknown Rx clopidogrel 75 mg PO DAILY #90 tab 10/28/20 12/29/20 Unknown Rx diclofenac sodium 4 g TOPICAL QID PRN 10/28/20 12/29/20 Unknown History lisinopril 40 mg tablet 40 mg PO QAM #90 tab 12/17/20 12/29/20 Unknown Rx hydroxychloroquine 200 mg tablet See Rx Instructions PO .COMPLEX 12/29/20 12/29/20 Unknown Rx #45 tab prednisone 2.5 mg tablet 2.5 mg PO QAM #30 tab 12/29/20 12/29/20 Unknown Rx Allergies Allergy/AdvReac Type Severity Reaction Status Date / Time niacin Allergy ALGY-Rash Verified 12/29/20 11:19 PFSH Acute PFSH: Medical History ASHD (arteriosclerotic heart disease) CKD (chronic kidney disease) Cutaneous lupus erythematosus Dysphagia Endometrial cancer GERD (gastroesophageal reflux disease) High risk medication use Hyperlipidemia Hypertension Immunization counseling Lupus (systemic lupus erythematosus) Osteoarthritis Osteoporosis Positive sm/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 RELATIONSHIP CONSULTANT antibody Sleep apnea SS-A antibody positive Surgical History H/O mastectomy H/O: hysterectomy History of appendectomy History of PTCA History of shoulder surgery Family History Father Diabetes Family/Other Diabetes Denies family history of Rheumatoid arthritis CAD (coronary artery disease) Clotting disorder Dementia Chronic kidney disease (CKD) Systemic lupus erythematosus (SLE) in adult Suicide Anesthesia complication Bleeding disorder Lung disease Cancer Hypertension Stroke Social History Smoking and tobacco status: never smoked Alcohol intake: never History of recent travel: No Vitals/I&O/Wt Last Vital Signs Temp 98.7 F 02/14/21 11:42 Pulse 63 02/14/21 13:54 Resp 18 02/14/21 13:54 BP 132/77 02/14/21 13:54 Pulse Ox 100 02/14/21 13:54 Weight last 48 hrs Weight 68.039 kg Physical Exam Narrative: EXAM NARRATIVE: General: Alert oriented x3, patient seen sitting up in bed with 2 daughters present bedside. HEENT: Normocephalic, atraumatic, EOMI, breathing NC, Right TM clear, cerumen noted in right ear, left TM is slightly erythematous, no evidence of effusion. Throat non-erythematous. Cardio: Regular rate rhythm, normal S1-S2, no gross murmers Respiratory: Good bilateral air entry, no wheezes no rhonchi appreciated GI: Abdomen soft, nontender, nondistended, bowel sounds + Behavior: Appropriate and cooperative Extremities: Pulses 2+, no edema, no cyanosis Data : 02/14/21 17:37 02/14/21 11:00 A&P Assessment and plan (1) Light-headedness: Status: Acute (2) Vertigo: Status: Acute (3) Hyperlipidemia: Status: Acute (4) Hypertension: Status: Acute Qualifiers: Hypertension type: essential hypertension Qualified Code(s): I10 - Essential (primary) hypertension (5) Sleep apnea: Status: Acute Qualifiers: Sleep apnea type: obstructive Qualified Code(s): G47.33 - Obstructive sleep apnea (adult) (pediatric) (6) Otitis media: Status: Acute Additional A&P Information Pt presented with light headedness and falls at home. She has a long standing hx of vertigo. Also has been having headaches. Was on meclizine in the past. Reports issues with sinuses as well. Ear exam shows mildly erythematous left tympanic membrane. - Will start augmentin 875 BID for otitis media. Pt's symptoms do not seem to be due to cardiac etiology but will rule arrythmia. - Start meclizine 25 TID - Check orthostatic vitals - Place on cardiac telemetry - Trop elevated but delta trop negative. (when she had NSTEMI in oct, trop went up to 1400 range). Case discussed with director of land on-call (Dr. Bowles). He reviewed her angiogram results. There are no other vessels diseased enough to have intervention. She had severe RCA disease which was stented. Plavix could possibly cause lightheadedness and in that case patient can be loaded with brilinta 180 and started on 90 BID. I will hold off on his for now as I believe her vertigo/light headedness is related to ear infection. - Will start anti-histamine as well for her. - Will rule out cardiac arrythmia - monitor on tele. - Consider placing radiation monitor at discharge - Will wait for 6 hour troponin. - Place on IV fluids for gentle hydration. - Patient is vaccinated for COVID (including booster dose). - Pt was started on heparin drip in ER. After extensive discussion with cardiology, i will dc drip at this point. FUll Code Cardiac diet DVT PPX: heparin Attestations Medical Necessity Statement*: observation. Possible dc in AM. Coding Level of Care Code Acute In Process Inspector for Chg Fwd Diagnoses Light-headedness R42 Vertigo R42 Hyperlipidemia E78.5 Hypertension I10 Hypertension type: essential hypertension Sleep apnea G47.33 Sleep apnea type: obstructive Otitis media H66.90
--- NOTE | 2021-02-14 17:34 | ECG_ITS ---
[facility] Test Date: 2021-02-14 Pat Name: Bryanna Mark Department: Room: Gender: Female Wool Fleece Sorter: : 1940 Requested By: Jad Avery Order Number: [id number] Reading MD: JEANNE CARPENTER Measurements Intervals [place] Rate: 61 P: -2 IA: 241 QRS: -69 QRSD: 149 T: 108 QT: 429 QTc: 434 Interpretive Statements SINUS RHYTHM WITH FIRST DEGREE AV BLOCK INTRAVENTRICULAR CONDUCTION DELAY [130+ ms QRS DURATION] LEFT VENTRICULAR HYPERTROPHY AND ST-T CHANGE [VOLTAGE CRITERIA PLUS ST/T ABNORMALITY] ANTEROLATERAL MYOCARDIAL INFARCTION , OF INDETERMINATE AGE [40+ ms Q WAVE IN I/aVL/V3-V6] Compared to ECG 10/27/2020 18:38:49 No significant changes Electronically Signed On 02-15-2021 12:59:13 RADIO FREQUENCY TECHNICIAN by JEANNE CARPENTER [email or web address] [email or web address] hospital[id number]
[2021-02-14 17:44] LABS: Platelet Count 188 10^3/cmm (130-400)
[2021-02-14 20:50] VITALS: BP 116/60; PULSE 53; RESP 14; O2SAT 99
[2021-02-14 20:55] VITALS: BP 123/80; BP 139/84; PULSE 58; PULSE 60; RESP 17; TEMP 36.7; O2SAT 96
[2021-02-14] MEDS: atorvastatin 40 mg Tablet 20 MG PO (21:54)
[2021-02-14] MEDS: meclizine 25 mg tablet PO (21:54)
[2021-02-14] MEDS: amoxicillin-clav 875-125 mg Tablet 1 TAB PO (21:54)
[2021-02-14 22:49] VITALS: BMI 25.4
[2021-02-14 23:40] VITALS: PULSE 89; O2SAT 92
[2021-02-15] VITALS: BP 122/80; PULSE 69; RESP 18; TEMP 36.7; O2SAT 96
[2021-02-15 04:00] VITALS: BP 120/79; PULSE 67; RESP 17; TEMP 36.7; O2SAT 94
[2021-02-15 05:39] LABS: Basophils # 0.1 10^3/uL (0.0-0.1); Basophils % 0.9 %; Eosinophils # 0.1 10^3/uL (0.0-0.8); Eosinophils % 1.6 %; Hematocrit 35.3 % (37.0-47.0); Hemoglobin 11.3 g/dL (11.5-15.3); Lymphocytes # 1.9 10^3/uL (0.8-4.8); Lymphocytes % 27.5 %; Mean Corpuscular Hemoglobin 30.4 pg (28.0-34.0); Mean Corpuscular Volume 94.9 fl (81-99); Mean Platelet Volume 12.4 fL (7.4-10.4); Monocytes # 0.7 10^3/uL (0.2-0.9); Monocytes % 10.9 %; Neutrophils # 3.94 10^3/uL (1.8-7.7); Neutrophils % 58.7 %; Nucleated Red Blood Cells % 0 %; Platelet Count 189 10^3/cmm (130-400); Red Blood Count 3.72 10^6/uL (4.1-5.3); Red Cell Distribution Width 12.7 % (12.1-15.1); White Blood Count 6.7 10^3/uL (4.0-10.0)
[2021-02-15 06:05] LABS: Alanine Aminotransferase 10 U/L (0-33); Albumin Level 3.7 g/dL (3.5-5.2); Alkaline Phosphatase 63 IU/L (35-105); Anion Gap 12.7 (5-19); Aspartate Amino Transferase 21 U/L (0-32); Blood Urea Nitrogen 14 mg/dL (8-23); Carbon Dioxide 25 mmol/L (22-29); Chloride 101 mmol/L (98-107); Globulin 1.9 g/dL (1.3-4.6); Glucose 74 mg/dL (65-115); Osmolality Calculated 277 mOsm/kg (285-295); Potassium 4.7 mmol/L (3.5-5.1); Sodium 134 mmol/L (136-145); Total Bilirubin 0.3 mg/dL (0.15-1.2); Total Protein 5.6 g/dL (6.6-8.7)
[2021-02-15 07:33] VITALS: BP 106/61; PULSE 52; RESP 16; TEMP 36.9; O2SAT 95
[2021-02-15] MEDS: meclizine 25 mg tablet PO ×2 (07:59→14:41)
[2021-02-15] MEDS: predniSONE 1 mg Tablet 2.5 MG PO (07:59)
[2021-02-15] MEDS: aspirin 81 mg EC Tablet PO (07:59)
[2021-02-15] MEDS: clopidogrel 75 mg Tablet PO (07:59)
[2021-02-15] MEDS: amoxicillin-clav 875-125 mg Tablet 1 TAB PO (07:59)
--- NOTE | 2021-02-15 10:03 | PC.CHAP ---
Pastoral Care Encounter/Spiritual Assessment Type of Contact [] Declined geospatial applications developer visit [] Patient/Family/Request visit [] Outpatient visit [] Follow-up visit [] Physician referral [] Code/Alert [x] Routine visit [] Staff referral [] Actively dying [] Patient sleeping [] Family support [] [] Out of room [] Palliative care [] [] Receiving care in room [] Pre-surgical visit [] Trauma [] Long length of stay [] ICU visit [] Other: Relational/Emotional Strength [x] Patient feels connected with others/family/visitors/staff [] Distress [] Loneliness/isolation [] Abandonment Spirituality of Patient [x] Person of Winter [x] Attends Nondenominational of their Winter [x] Believes in Prayer [] Reads Bible or Gnosticist materials [] There are Spiritual issues to be addressed Appointment Setter Interventions [x] Prayer [x] Active listening [x] Non-anxious presence [x] Spiritual/emotional support [] Crisis/trauma care [] Spiritual counseling [] Bereavement support [] Provided bereavement packet [] Provided Bible/devotional materials [] Provided toy/stuffed animal, coloring book to patient or family member [] Provided Communion [] Anointing/[place] [] Salvation [x] Completed spiritual assessment [] Other: Impact on Illness or Injury [] Angry [] Fearful [] Anxious [] Often cries [] Exhaustion [] Unable to work [] Unable to attend restoration [] Unable to walk/stand [] Unable to read [] Unable to drive [] Unable to eat/drink [] Unable to sleep [] Unable to be with family [] Patient intubated [] Other: Summary Time spent with patient 10 min
[2021-02-15 11:36] VITALS: BP 108/64; PULSE 57; RESP 17; TEMP 36.9; O2SAT 96
--- NOTE | 2021-02-15 13:28 | P.DS_ITS ---
Discharge Providers Date of Admission: 02/14/21 13:51 Date of Discharge: February 15, 2021 Attending Provider at Admission: Maru Juarez MD Attending Provider at Discharge: Galilea Frost MD Primary Care Provider: Javid Edwards MD Diagnoses at Discharge Discharge Diagnosis (1) Light-headedness: Status: Resolved (2) Vertigo: Status: Resolved (3) Hyperlipidemia: (4) Hypertension: Qualifiers: Hypertension type: essential hypertension Qualified Code(s): I10 - Essential (primary) hypertension (5) Sleep apnea: Qualifiers: Sleep apnea type: obstructive Qualified Code(s): G47.33 - Obstructive sleep apnea (adult) (pediatric) (6) Otitis media: Status: Resolved Reason for Visit Reason for Visit: DIZZINESS Hospital Course Hospital Course History of Present Illness by Dr Juarez Bryanna Mark is a 80 year old female with past medical history of coronary artery disease status post stent x5 on aspirin and Plavix, hypertension, hyperlipidemia came in via EMS for concern of lightheadedness and vertigo-like symptoms since this morning. She said she was home when she first started getting lightheaded upon standing up and that she is spinning. She denies any room spinning sensation. She has had issues in the past with Plavix but recently (3 months ago) was started on it due to her significant coronary artery disease. She says she lives at home alone and has had falls in the previous week due to similar symptoms. She can remember exactly what happened but denies any postictal confusion, bladder or bowel incontinence after the incident. Both Of patient's daughter present in the room and patient states that she has had issues with vertigo in the past and she has been to on meclizine as well. She no longer takes it however. She also complains of sinus issues and she says that she has been having headaches lately as well. She denies a fever cough. Denies any ear fullness. Denies any pain behind her ears. She has also been told in the past that her blood pressure drops low when she stands up. Denies chest pain, shortness of breath, palpitation, abdominal pain, back pain. Denies diarrhea, constipation. She follows Dr. Redmond as an outpatient.Patient did have an angiogram done in October this year and had severe RCA disease for which she was stented ED course: 123/91, respirate 18, pulse rate 67, temperature 98.7, pulse ox 99% CBC BMP troponin x2 were done. CTA head and neck was also performed. She was given IV fluids meclizine. EKG did not show any new findings. He does have a left bundle branch block which is old. Due to cardiovascular risk factors multiple comorbidities patient will need inpatient work-up for cardiac syncope. Hospitalist was called for admission. CT head neck did not show any large vesse l stenosis or occlusion, he did show mild luminal narrowing of the left internal carotid artery. No significant stenosis or occlusion Hosp course: Patient was admitted for evaluation of lightheadedness. CT head, CTA head and neck unremarkable. No severe electrolyte abnormality, orthostasis negative. On telemetry she was diagnosed to have bradycardia, lowest heart rate 58, she remained hemodynamically stable. At the time of discharge she will get event monitor, atenolol was discontinued. During hospitalization she was started on Augmentin for possible otitis media. Trop elevated but delta trop negative. (when she had NSTEMI in oct, trop went up to 1400 range). Case discussed with corporation secretary on-call (Dr. Bowles). He reviewed her angiogram results. There are no other vessels diseased enough to have intervention. She had severe RCA disease which was stented. Plavix could possibly cause lightheadedness and in that case patient can be loaded with brilinta 180mg and started on 90mg BID. Daughter updated. Patient will be discharged home with home health services. PT evaluated her and deemed him stable to go home. She was not orthostatic nor lightheaded at the time of PT evaluation. Physical Exam Narrative: EXAM NARRATIVE: General: Alert oriented x3, patient seen sitting up in bed with 2 daughters present bedside. HEENT: Normocephalic, atraumatic, EOMI, breathing NC, Right TM clear, cerumen noted in right ear, left TM is slightly erythematous, no evidence of effusion. Throat non-erythematous. Cardio: Regular rate rhythm, normal S1-S2, no gross murmers Respiratory: Good bilateral air entry, no wheezes no rhonchi appreciated GI: Abdomen soft, nontender, nondistended, bowel sounds + Behavior: Appropriate and cooperative Extremities: Pulses 2+, no edema, no cyanosi Discharge Data Data Completed and Pending: Completed Studies During Hospitalization Category Date Time Status CT angio headneck * [id number] Urge nt Cat Scan 02/14/21 11:[address] head wo con* 7 0450 Urgent Cat Scan 02/14/21 11:33 Completed Pending at discharge Category Date Time Status CV. echo complete * [id number] Routine Ultrasound 02/15/21 18:10 Ordered Labs from last 24 hours 02/15/21 02/15/21 02/14/21 04:40 04:40 17:37 WBC 6.7 RBC 3.72 L Hgb 11.3 L Hct 35.3 L MCV 94.9 MCH 30.4 MCHC 32.0 RDW 12.7 Plt Count 189 188 MPV 12.4 H Neut % (Auto) 58.7 Lymph % (Auto) 27.5 [place] % (Auto) 10.9 Eos % (Auto) 1.6 Baso % (Auto) 0.9 Neut # (Auto) 3.94 Lymph # (Auto) 1.9 [place] # (Auto) 0.7 Eos # (Auto) 0.1 Baso # (Auto) 0.1 Nucleated RBC % (a uto) 0 Nucleated RBCs # 0.0 Sodium 134 L Potassium 4.7 Chloride 101 Carbon Dioxide 25 Anion Gap 12.7 BUN 14 Creatinine 1.0 H GFR Calculation Not Reportable Glucose 74 Calculated Osmolal ity 277 L Calcium 9.0 Magnesium 2.0 Total Bilirubin 0.3 AST 21 ALT 10 Alkaline Phosphata se 63 Troponin T 120 Min [place] Delta Troponin T Troponin T Hi Sens 6Hr Troponin T Hi Sens 6Hr Delta Total Protein 5.6 L Albumin 3.7 Globulin 1.9 02/14/21 02/14/21 17:37 13:36 WBC RBC Hgb Hct MCV MCH MCHC RDW Plt Count MPV Neut % (Auto) Lymph % (Auto) [place] % (Auto) Eos % (Auto) Baso % (Auto) Neut # (Auto) Lymph # (Auto) [place] # (Auto) Eos # (Auto) Baso # (Auto) Nucleated RBC % (a uto) Nucleated RBCs # Sodium Potassium Chloride Carbon Dioxide Anion Gap BUN Creatinine GFR Calculation Glucose Calculated Osmolal ity Calcium Magnesium Total Bilirubin AST ALT Alkaline Phosphata se Troponin T 120 Min [place] 125.5 H Delta Troponin T -13.5 L Troponin T Hi Sens 6Hr 147.0 H Troponin T Hi Sens 6Hr Delta 8.0 Total Protein Albumin Globulin Vitals: Last Vital Signs Temp 98.4 F 02/15/21 11:36 Pulse 57 L 02/15/21 11:36 Resp 17 02/15/21 11:36 BP 108/64 02/15/21 11:36 Pulse Ox 96 02/15/21 11:36 Discharge Plan Discharge Patient Disposition: Home Health Service Condition: Stable Prescriptions: New meclizine 25 mg Tablet 25 mg PO TID Qty: 30 RF: 0 amoxicillin-pot clavulanate 875-125 mg Tablet 1 tab PO BID Qty: 10 RF: 0 Brilinta 90 mg tablet 90 mg PO BID Qty: 60 RF: 4 Continued hydroxychloroquine 200 mg tablet See Rx Instructions PO .COMPLEX Qty: 45 RF: 3 prednisone 2.5 mg tablet 2.5 mg PO QAM Qty: 30 RF: 3 omega-3 fatty acids [Fish Oil Concentrate] 1,000 mg capsule 1,000 mg PO DAILY RF: 0 lisinopril 40 mg tablet 40 mg PO QAM Qty: 90 RF: 3 cholecalciferol (vitamin D3) 50 mcg (2,000 unit) tablet 2,000 unit PO DAILY Qty: 30 RF: 0 atorvastatin 20 mg tablet 20 mg PO QAM RF: 0 nitroglycerin [Nitro-Time] 2.5 mg capsule, extended release 2.5 mg PO BID RF: 0 diclofenac sodium 1 % gel 4 g topical QID PRN (Reason: Pain) RF: 0 aspirin 325 mg tablet 81 mg PO QAM Qty: 0 RF: 0 Discontinued atenolol 25 mg tablet 25 mg PO BID RF: 0 clopidogrel 75 mg Tablet 75 mg PO DAILY Qty: 90 RF: 4 Discharge Orders: Discharge Order (Routine); Ordered 02/15/21 Ordered By: Galilea Frost Other Ambulatory Orders: CA cardiac event monitor (Routine) Timeframe: 3 Weeks Facility: [facility] - Location: Cardiac Diagnostic Laboratory Ordered By: Galilea Frost Referrals: Javid Edwards MD [Primary Care Provider] - 02/23/21 1:40 pm Discharge Diet: Advance as tolerated Discharge Activity: Resume usual activity Patient Instructions: Meclizine (By mouth) (Antivert, Antivert/25, Antivert/50, Motion..., Amoxicillin/Clavulanate Potassium (By mouth) (Augmentin, Augmentin..., Vertigo (DC), Opioid Safety Discharge Attestations Time Spent in Discharge Care*: less than 30 min Quality Metrics Clinical Quality Measures During this hospital stay, did patient experience: None Coding Level of Care Code Acute Chg FW DC note Diagnoses Light-headedness R42 Vertigo R42 Hyperlipidemia E78.5 Hypertension I10 Hypertension type: essential hypertension Sleep apnea G47.33 Sleep apnea type: obstructive Otitis media H66.90
[2021-02-15 15:17] VITALS: BP 110/68; PULSE 59; RESP 16; TEMP 36.7; O2SAT 95
[2021-02-15 15:47] VITALS: BP 110/68; PULSE 59; RESP 16; TEMP 36.7; O2SAT 95
--- NOTE | 2021-02-16 14:30 | PC.SOCIAL ---
spoke with Bryanna at [facility], she states they did receive the paperwork and are reviewing, they will contact [facility] when they know if they can or can't accept.
--- NOTE | 2021-02-17 09:16 | DCPLANNER ---
manager balance had message to schedule a follow up appointment for patient with Dr. Trinh. Patient was admitted to the floor.
== END 2021-02-15 15:47 | disposition home health service (06) ==
LOC: ER 14:07 → MEDSURG 17:49
PROVIDERS: Admitting Provider Internal Medicine; Emergency Provider Emergency Medicine; PCP Family Medicine; Visit Provider Internal Medicine
DX: R42 Dizziness and giddiness (principal); I25.10 Atherosclerotic heart disease of native coronary artery without angina pectoris; E78.5 Hyperlipidemia, unspecified; I10 Essential (primary) hypertension; G47.33 Obstructive sleep apnea (adult) (pediatric); H66.90 Otitis media, unspecified, unspecified ear; I25.2 Old myocardial infarction; Z79.82 Long term (current) use of aspirin; Z79.02 Long term (current) use of antithrombotics/antiplatelets; Z95.5 Presence of coronary angioplasty implant and graft
CPT/HCPCS: 36415; 70450; 70496; 70498; 80053; 83690; 83735; 84484; 85025; 85049; 93005; 96365; 96375; 97116; 97161; 99285; G0378; J1644; J7040; J7512; J8597; Q9967

== ENCOUNTER → 2021-05-04 13:16 | Outpatient (BNVA) | payer MEDICARE, SELFPAY | PROVIDERS: PCP Family Medicine; Visit Provider Internal Medicine Rheumatology | DX: L93.2 Other local lupus erythematosus (principal); Z79.899 Other long term (current) drug therapy; Z79.52 Long term (current) use of systemic steroids; R76.8 Other specified abnormal immunological findings in serum; M81.0 Age-related osteoporosis without current pathological fracture; I12.9 Hypertensive chronic kidney disease with stage 1 through stage 4 chronic kidney disease, or unspecified chronic kidney disease; N18.9 Chronic kidney disease, unspecified; I25.10 Atherosclerotic heart disease of native coronary artery without angina pectoris; Z71.89 Other specified counseling | CPT/HCPCS: 99214 ==

== ENCOUNTER → 2021-05-27 14:33 | Outpatient (BNVA) | payer MEDICARE, SELFPAY | PROVIDERS: PCP Family Medicine; Visit Provider Internal Medicine Cardiovascular Disease | DX: I25.10 Atherosclerotic heart disease of native coronary artery without angina pectoris (principal); R00.1 Bradycardia, unspecified; Z79.899 Other long term (current) drug therapy; G47.33 Obstructive sleep apnea (adult) (pediatric); E78.5 Hyperlipidemia, unspecified; I10 Essential (primary) hypertension; G40.909 Epilepsy, unspecified, not intractable, without status epilepticus | CPT/HCPCS: 99214 ==

== ENCOUNTER 2021-05-29 22:19 | Inpatient (IN) | payer MEDICARE, SELFPAY ==
[2021-05-29 22:25] VITALS: BP 94/73; PULSE 30; RESP 30; TEMP 36.6; O2SAT 92; BMI 29.2
--- NOTE | 2021-05-29 22:25 | XRR_ITS ---
PROCEDURE INFORMATION: Exam: XR Chest Exam date and time: 05/29/2021 10:25 PM Age: 80 years old Clinical indication: Other: Bradycardia; Additional info: Nausea, 3rd degree heart block TECHNIQUE: Imaging protocol: XR of the chest. Views: 1 view. COMPARISON: CR XR chest 1V portable [id number] 10/27/2020 11:20 AM FINDINGS: Lungs: No consolidation. Left upper lobe calcified benign granuloma. Pleural spaces: Unremarkable. No pleural effusion. No pneumothorax. Heart/Mediastinum: Cardiomegaly. Bones/joints: Unremarkable. XR/XR chest 1V portable [id number] IMPRESSION: Cardiomegaly, lungs are clear.
--- NOTE | 2021-05-29 22:26 | ECG_ITS ---
[facility] Test Date: 2021-05-29 Pat Name: Bryanna Mark Department: Room: ICU10 Gender: Female Coding Spec: : 1940 Requested By: Amarjit Navarro Order Number: [id number] Deidre MD: Girma Jones M.D. Measurements Intervals [place] Rate: 36 P: [place]: QRS: 158 QRSD: 157 T: -76 QT: 574 QTc: 450 Interpretive Statements SINUS RHYTHM WITH HIGH GRADE AV BLOCK RIGHT BUNDLE BRANCH BLOCK [120+ ms QRS DURATION, UPRIGHT V1, 40+ ms S IN I/aVL/V4/V5/V6] LEFT POSTERIOR FASCICULAR BLOCK [QRS AXIS > 109, INFERIOR Q] POSSIBLE ANTERIOR MYOCARDIAL INFARCTION , OF INDETERMINATE AGE [30 ms Q WAVE IN V3/V4, OR R < 0.2 mV IN V4] Compared to ECG 02/14/2021 18:51:36 Left posterior fascicular block now present Myocardial infarct finding now present Sinus bradycardia no longer present ST (T wave) deviation no longer present Electronically Signed On 05-30-2021 15:44:22 CDT by Girma Jones M.D. [id number]
[2021-05-29 22:31] LABS: ABG PH Result 7.35 (7.35-7.45); Arterial Blood Gas Hematocrit 34.1 % (37-47); Base Excess ABG -8.6 mmol/L (-2.0-2.0); Blood Gas Allen Test Pos; Blood Gas LPM 3.5 %; Blood Gas Sample Site Radial, right; Blood Gas Sample Type Arterial; HCO3 ABG 15.9 mmol/L (22-26); Oxygen Device NC
[2021-05-29 22:34] LABS: Basophils # 0.1 10^3/uL (0.0-0.1); Basophils % 0.5 %; Eosinophils % 0.1 %; Hematocrit 36.4 % (37.0-47.0); Hemoglobin 11.8 g/dL (11.5-15.3); Lymphocytes # 3.5 10^3/uL (0.8-4.8); Lymphocytes % 22.9 %; Mean Corpuscular HGB Conc 32.4 g/dL (30.0-36.0); Mean Corpuscular Hemoglobin 30.9 pg (28.0-34.0); Mean Corpuscular Volume 95.3 fl (81-99); Mean Platelet Volume 12.2 fL (7.4-10.4); Monocytes # 1.1 10^3/uL (0.2-0.9); Monocytes % 7.3 %; Neutrophils # 10.38 10^3/uL (1.8-7.7); Neutrophils % 68.6 %; Nucleated Red Blood Cells % 0 %; Platelet Count 256 10^3/cmm (130-400); Red Blood Count 3.82 10^6/uL (4.1-5.3); Red Cell Distribution Width 13.6 % (12.1-15.1); White Blood Count 15.2 10^3/uL (4.0-10.0)
[2021-05-29] MEDS: sodium chloride 0.9% 500 ML 999 ML IV (22:39)
[2021-05-29 22:45] LABS: INR 1.05 (0.8-1.2)
[2021-05-29] MEDS: succinylcholine 20 mg/mL SDV 10mL 100 MG IV (22:47)
[2021-05-29 22:48] VITALS: BP 80/30; PULSE 86; RESP 25; O2SAT 95
[2021-05-29 22:53] VITALS: RESP 14
[2021-05-29 22:56] LABS: Alanine Aminotransferase 17 U/L (0-33); Albumin Level 4.2 g/dL (3.5-5.2); Alkaline Phosphatase 88 IU/L (35-105); Anion Gap 25.7 (5-19); Aspartate Amino Transferase 27 U/L (0-32); Blood Urea Nitrogen 23 mg/dL (8-23); Calcium 8.5 mg/dL (8.5-10.5); Carbon Dioxide 15 mmol/L (22-29); Chloride 86 mmol/L (98-107); Creatine Phosphokinase 212 U/L (26-192); Globulin 2.3 g/dL (1.3-4.6); Glucose 196 mg/dL (65-115); Magnesium 2.3 mg/dL (1.7-2.3); Osmolality Calculated 263 mOsm/kg (285-295); Phosphorus 4.5 mg/dL (2.5-4.5); Potassium 4.7 mmol/L (3.5-5.1); Sodium 122 mmol/L (136-145); Total Bilirubin 0.4 mg/dL (0.15-1.2); Total Protein 6.5 g/dL (6.6-8.7)
[2021-05-29 22:57] LABS: Troponin(5th) Baseline 216 ng/L (0-10)
[2021-05-29] MEDS: EPINEPHrine 0.1 mg/mL SYR 10 mL 1 MG IVP (22:59)
[2021-05-29 23:00] VITALS: BP 180/100; PULSE 95; RESP 24
[2021-05-29 23:00] LABS: NT Pro B Type Natriuretic Pept 7756 pg/mL (0-450)
--- NOTE | 2021-05-29 23:02 | XRR_ITS ---
PROCEDURE INFORMATION: Exam: XR Chest Exam date and time: 05/29/2021 11:02 PM Age: 80 years old Clinical indication: Device placement; Other: Ett and og placement; Additional info: Intubation tube placement TECHNIQUE: Imaging protocol: XR of the chest. Views: 1 view. COMPARISON: CR (CHEST, ) 05/29/2021 10:33 PM FINDINGS: Tubes, catheters and devices: Endotracheal tube tip seen in place 4.5 cm above the paul. Lungs: Unremarkable. No consolidation. Pleural spaces: Unremarkable. No pleural effusion. No pneumothorax. Heart/Mediastinum: Cardiomegaly. Bones/joints: Unremarkable. XR/XR chest 1V portable [id number] IMPRESSION: 1. Endotracheal tube tip seen in place 4.5 cm above the paul. 2. Cardiomegaly.
--- NOTE | 2021-05-29 23:16 | XACV_ITS ---
Exam Room: 2 Ht: 160 cm Wt: 75 kg BSA: 1.85 m2 Gender: Female : 1940 Any Known Allergies: Other Exam Priority: Routine Procedure(s): Procedure Description: Diagnostic procedure Procedure Description: Miscellaneous Procedure Description: Temporary Pacemaker Insertion Procedure Description: Coronary Angiography Diagnostic Cath Status: Emergency Diagnostic Findings * No disease noted in the Left Main, Left Anterior Descending, Right, or Circumflex coronary arteries. Patent prior stents. * Coronary angiography shows right dominance. * INDICATION: 80 year old female with past medical history of coronary artery disease with multiple PCI's in the past, hypertension, hyperlipidemia, lupus and seizure disorder has presented to the hospital after feeling weak for 1 day. She was also having nausea and complained of chest pain, indigestion and was burping through the day. When EMS arrived they found her in complete heart block and heart rates in the 30s. She was put on transcutaneous pacing. In the emergency room she was intubated.EKG does not show ST elevation [place] however has baseline artifact and has complete heart block. Initial troponin is 216.. PCI Status: Emergency Interventional Findings * PROCEDURE DETAIL: We obtained access in the right common femoral vein. After introducing the sheath, we placed transvenous pacemaker and capture was confirmed. Sheath and pacemaker were sutured in place. Patient left the cardiac catheterization technician in a stable condition. . Conclusions 1. No disease noted in the Left Main, Left Anterior Descending, Right, or Circumflex coronary arteries. Patent prior stents. 2. S/p successful temporary pacemaker placement. Recommendations * Transfer to ICU. * Patient will need permanent pacemaker placement. Diagnostic RX Recommendation: medical therapy and/or counseling Pressures Phase:Rest AO : -19 / -21 ( -20 ) @ 7:23:36 PM 0 / -1 ( 0 ) @ 7:23:36 PM 75 / 55 ( 66 ) @ 7:23:36 PM Clinical Evaluation EBL: 5mL-10mL Procedural Details Pre-Procedure Time Out. Identified patient by full name and date of as verbalized by the patient/guarantor. Does the consent match the physician's order: Yes. Accurate & Complete Informed Consent: N/A Emergent. Inpatient/Outpatient History & Physical on Chart: N/A Emergent. If H&P is completed, is and addenduem needed: N/A Emergent; If yes, is the addendum complete: N/A Emergent. Visualize and Verify Site with Patient/Guarantor: N/A. Relevant Radiology Images available: N/A Emergent. The risks, benefits, and alternatives of sedation and/or procedure were discussed by physician. The patient agrees to continue. Procedure started. [facility] Clinical Fraility Score: 6: Moderately Frail. Air Pollution Analyst Indications: Other. Correct patient, site and procedure confirmed by cath team. IV Site on Arrival: 18 gauge in the left anticubital. IV Fluids: 0.9% NaCl at KVO. 0 mL infused prior to cardiac catheterization technician. right groin was prepped with chloroprep then draped in the usual sterile fashion. right radial was prepped with chloroprep then draped in the usual sterile fashion. Physician notified. Baseline sample Acquired. HR: 96 BPM. Patient arrived to cardiac catheterization technician on a ventilator and will be managed by respiratiory. Equipment: 6F - Femoral. Cardiac Cath Pack. ACIST Manifold Kit Model BT 2000. Heparinized Saline (2 units/mL), 1000 mL bag. Kit, Micropuncture. Physician arrived. Physician scrubbed in. Immediate Pre-Procedure Time Out. Correct Patient: N/A Emergent; Correct Procedure: N/A Emergent; Correct Site: N/A Emergent; Correct Patient Position: N/A Emergent; Correct Supplies: N/A Emergent; Dried Flammable Prep: N/A Emergent; Blood Products Available: N/A Emergent;. Lidocaine 1% infiltrated to the right groin. Venous access obtained with a micropuncture set. Temporary pacer inserted. Trancutaneous pacemaker turned off. Temporary pacemaker turned on. Lidocaine 1% infiltrated to the right groin. Arterial access obtained with micropuncture set. Patient arrived with a Versed and Epi drip. A 5 sudanese JL4 catheter in over wire. Multiple views taken of left coronary artery. Catheter removed over the standard wire. A 5 sudanese JR4 catheter in over wire. Multiple views taken of right coronary artery. Catheter removed over the standard wire. A Right femoral angiogram was performed to determine safe placement of closure device. A Suture was successful obtaining hemostatsis at the Right Femoral vein insertion site. A Angio-Seal VIP ([place]) was successful obtaining hemostatsis at the Right Femoral artery insertion site. Post Procedure: Pulses reassessed and unchanged. PERRLA. Strong, equal hand upholsterer helper bilaterally. No VTE prophylaxis required. Medication's Wasted: Other = Versed 1 mg. Total IV fluids: 111 mL. Contrast type used: Visipaque 320 mgI/mL, 500 mL bottle. Estimated blood loss: 5mL-10mL. Airway - Unaffected, no intervention required; spontaneous ventilation. Circulation: W/N/L, pulses unchanged. Nausea/Vomiting: No. Procedure completed. Medication's Wasted: Lidocaine 1% = 11 mL. Medication's Wasted: Other = Fentanyl 100 mg. Medication's Wasted: Heparin = 1000 units. Patient transferred by bed to ICU. Vital chart was stopped. Access Site Site: Right Femoral vein Sheath Size: 6 Fr Hemostasis Method: Suture Hemostasis Success: Successful Site: Right Femoral artery Sheath Size: 6 Fr Hemostasis Method: Angio-Seal VIP ([place]) Hemostasis Success: Successful Procedure Medications Start: 11:49 PM Stop: 11:49 PM Medication: Versed Amount: 0.5 mg Route: I.V. Start: 12:09 AM Stop: 12:09 AM Medication: Versed Amount: 0.5 mg Route: I.V. I, the attending physician, have reviewed and verified all procedure medications. Yes, all medications given per verbal order History/Risk Factors Hypertension: Yes Dyslipidemia: Yes Peripheral Arterial Disease (PAD): No Myocardial Infarction (HI): Yes Obesity: Yes Renal Disease: No Tobacco Use: Never Prior Interventions PCI: Yes CABG: No Valve Surgery: No Date of PCI: 10/27/2020 Report Signatures Finalized by Girma Jones MD on 06/12/2021 09:03 AM
--- NOTE | 2021-05-29 23:16 | PM.CONSULT ---
Providers/Reason For Consult Consulting Physician/Specialty*: Girma Jones MD/Cardiology Reason for Consult*: Complete heart block/NSTEMI Requesting Physician: Dr Ferguson Primary Care Provider: Javid Edwards MD History of Present Illness History of Present Illness Bryanna Mark is a 80 year old female with past medical history of coronary artery disease with multiple PCI's in the past, hypertension, hyperlipidemia, lupus and seizure disorder has presented to the hospital after feeling weak for 1 day. She was also having nausea and complained of chest pain, indigestion and was burping through the day. When EMS arrived they found her in complete heart block and heart rates in the 30s. She was put on transcutaneous pacing. In the emergency room she was intubated. EKG does not show ST elevation [place] however has baseline artifact and has complete heart block. Initial troponin is 216. Review of Systems General: Reports: ROS unobtainable due to endotracheal tube Medications/Allergies Home Medications Medication Instructions Recorded Confirmed Last Taken Type omega-3 fatty acids 1,000 mg 1,000 mg PO DAILY cap 03/30/19 05/27/21 02/14/21 History capsule (Fish Oil Concentrate) cholecalciferol (vitamin D3) 50 2,000 unit PO DAILY #30 tab 01/27/20 05/27/21 02/14/21 Rx mcg (2,000 unit) tablet aspirin 325 mg tablet 81 mg PO QAM #0 tab 10/28/20 05/27/21 02/15/21 Rx diclofenac sodium 1 % topical gel 4 g TOPICAL QID PRN 10/28/20 05/27/21 02/08/21 History ticagrelor 90 mg tablet (Brilinta) 90 mg PO BID #60 tab 02/16/21 05/27/21 Unknown Rx nitroglycerin 2.5 mg See Rx Instructions .ROUTE 05/03/21 05/27/21 Unknown Rx capsule,extended release .COMPLEX #180 capsule (Nitro-Time) hydroxychloroquine 200 mg tablet See Rx Instructions PO .COMPLEX 05/04/21 05/27/21 Unknown Rx #45 tab prednisone 2.5 mg tablet See Rx Instructions .ROUTE 05/04/21 05/27/21 Unknown Rx .COMPLEX #90 tab atorvastatin 20 mg tablet See Rx Instructions .ROUTE 05/05/21 05/27/21 Unknown Rx .COMPLEX #100 tab levetiracetam 250 mg tablet 500 mg PO BID tab 05/27/21 05/27/21 Unknown History lisinopril 40 mg tablet 20 mg PO QAM tab 05/27/21 Unknown History Allergies Allergy/AdvReac Type Severity Reaction Status Date / Time niacin Allergy ALGY-Rash Verified 05/27/21 09:37 PFSH Acute PFSH: Medical History ASHD (arteriosclerotic heart disease) CKD (chronic kidney disease) Cutaneous lupus erythematosus Dysphagia Endometrial cancer GERD (gastroesophageal reflux disease) High risk medication use Hyperlipidemia Hypertension Immunization counseling Lupus (systemic lupus erythematosus) Osteoarthritis Osteoporosis Positive sm/CROWN ATTACHER antibody Sleep apnea SS-A antibody positive Surgical History H/O mastectomy H/O: hysterectomy History of appendectomy History of PTCA History of shoulder surgery Family History Father Diabetes Family/Other Diabetes Denies family history of Rheumatoid arthritis CAD (coronary artery disease) Clotting disorder Dementia Chronic kidney disease (CKD) Systemic lupus erythematosus (SLE) in adult Suicide Anesthesia complication Bleeding disorder Lung disease Cancer Hypertension Stroke Social History Smoking and tobacco status: never smoked Alcohol intake: never History of recent travel: No Vitals/I&O/Wt Last Vital Signs Temp 97.8 F 05/29/21 22:25 Pulse 95 05/29/21 23:00 Resp 24 H 05/29/21 23:00 BP 180/100 05/29/21 23:00 Pulse Ox 95 05/29/21 22:48 Weight last 48 hrs Weight 165 lb Physical Exam Narrative: GENERAL: Patient is intubated HEENT: No cyanosis. No icterus. No pallor. [] HEART: Paced rhythm LUNGS: Crackles ABDOMEN: Soft CENTRAL NERVOUS SYSTEM: Intubated and sedated EXTREMITIES: Lower extremities with 1+ edema bilaterally. Urinary Catheter Management: Castellanos: Cath Placed During This Visit: yes Urinary Catheter Date of Insertion: 05/29/21 Urinary Catheter Time of Insertion: 23:05 Data : 05/29/21 22:20 05/30/21 06:05 A&P Assessment and plan (1) NSTEMI (non-ST elevated myocardial infarction): Status: Acute (2) Complete heart block: Status: Acute (3) Hyperlipidemia: Status: Acute (4) Hypertension: Status: Acute Qualifiers: Hypertension type: essential hypertension Qualified Code(s): I10 - Essential (primary) hypertension (5) Bradycardia: Status: Acute (6) ASHD (arteriosclerotic heart disease): Status: Acute Plan Patient has presented with complete heart block, confusion and not feeling well. She was complaining of chest pressure and indigestion through the day. Initial troponin is elevated. We will proceed with temporary pacemaker placement and coronary angiogram with possible percutaneous coronary intervention. Risks and benefits of the procedure have been discussed with the patient and his family. They understand the risks and benefits and wants to proceed with the procedure. They want her to be DNR for continuous churn buttermaker but for the duration of procedure have agreed to keep her full code. We will continue aspirin and Brilinta Her D-dimer is elevated as well. Patient is intubated and sedated. We will repeat echocardiogram Thank you for involving us with care of this patient. We will continue to follow. Please call with questions. Coding Level of Care Code Acute Stave Log Cut Off Saw Operator for [facility] Fwd Diagnoses NSTEMI (non-ST elevated myocardial infarction) I21.4 Complete heart block I44.2 Hyperlipidemia E78.5 Hypertension I10 Hypertension type: essential hypertension Bradycardia R00.1 ASHD (arteriosclerotic heart disease) I25.10
[2021-05-29 23:21] LABS: Add Urine Culture? No; Add Urine Microscopic? YES; Amorphous Sediment Urine 1+ /hpf; Bacteria Urine TRACE /hpf; Bilirubin Urine Neg (Negative); Blood Urine 2+ (Negative); Glucose Urine UA Norm (Normal); Ketones Urine Negative (Negative); Leukocyte Esterase Urine Negative (Negative); Nitrate Urine Negative (Negative); Protein Urine Neg (Negative); Squamous Epithelial Cell Urine 0-4 /hpf (0-5); Urine Appearance Clear (CLEAR); Urine Color Yellow (Yellow); Urobilinogen Urine Norm (Negative); WBC Urine 0-4 /hpf (0-5); pH Urine 5 (5-7)
--- NOTE | 2021-05-29 23:35 | W.PM.OPSUD ---
Surgery/Procedure H&P Update DATE OF PROCEDURE: May 29, 2021 DATE H&P PERFORMED: 05/29/21 H&P UPDATE INFORMATION: I have reviewed H&P completed within last 30 days, I have examined patient prior to procedure and No changes to prior documentation PREOP DIAGNOSIS: NSTEMI/ Complete heart block PRIMARY INDICATION FOR PROCEDURE: NSTEMI/complete heart block PLANNED PROCEDURE: Temporary transvenous pacemaker placement/ LHC/ Possible PCI OTHER PERTINENT EXAM FINDINGS: Patient is intubated and sedated
[2021-05-30] VITALS (58 sets, daily range): BP systolic 79–130; BP diastolic 44–93; PULSE 70–81; RESP 14–31; TEMP 36.5–38.1; O2SAT 90–100
--- NOTE | 2021-05-30 00:26 | ED_ITS ---
HPI - Chest Pain General: Chief Complaint: Chest Pain Stated Complaint: bradycardia/ pacing Time Seen by Provider: 05/29/21 22:25 Source: family and EMS History of Present Illness: 80-year-old female, who lives at home. EMS was called to the home regarding generalized weakness, multiple episodes of seizure today, nausea and vomiting. Evidently, she was also having chest pressure as well according to the family. On EMS arrival, she was found to be lethargic, and complete heart block on the monitor. She presents paced after receiving 5 mg of Versed. She response to noxious stimuli. Last blood pressure was 100 systolic. MD complaint: chest heaviness, chest discomfort and other Pertinent past history: coronary artery disease Onset (ago): hour(s) Timing of current episode: still present Prior episodes: No Onset: during rest Pain location: substernal Pain radiation: other Quality: other Associated symptoms: Reports nausea and vomiting; Deny fever(s) Review of Systems General: Reports: ROS unobtainable due to medical condition and ROS unobtainable due to mental status Const: Denies: fever(s) Card: Reports: chest pain GI: Reports: nausea and vomiting Neuro: Reports: other [facility] ED PFSH: Medical History ASHD (arteriosclerotic heart disease) CKD (chronic kidney disease) Cutaneous lupus erythematosus Dysphagia Endometrial cancer GERD (gastroesophageal reflux disease) High risk medication use Hyperlipidemia Hypertension Immunization counseling Lupus (systemic lupus erythematosus) Osteoarthritis Osteoporosis Positive sm/CEPHALOMETRIC ANALYST antibody Sleep apnea SS-A antibody positive Surgical History H/O mastectomy H/O: hysterectomy History of appendectomy History of PTCA History of shoulder surgery Family History Father Diabetes Family/Other Diabetes Denies family history of Rheumatoid arthritis CAD (coronary artery disease) Clotting disorder Dementia Chronic kidney disease (CKD) Systemic lupus erythematosus (SLE) in adult Suicide Anesthesia complication Bleeding disorder Lung disease Cancer Hypertension Stroke Social History Smoking and tobacco status: never smoked Alcohol intake: never History of recent travel: No Physical Exam Const: GENERAL APPEARANCE: ill appearing and frail appearing ORIENTATION/CONSCIOUSNESS: Yes patient obtunded HENMT: COMMON NORMALS: normocephalic, atraumatic and Normal external nose present HEAD & SCALP: normocephalic and atraumatic FACE & SINUS: normal facial exam NOSE: Normal external nose present Eye: COMMON NORMALS: Equal, round and reactive pupils present and EOMs intact bilaterally PUPIL: Yes Equal, round and reactive pupils present Chest: COMMONS NORMALS: normal inspection of the chest Resp: EFFORT & INSPECTION: Yes decreased respiratory effort and Yes labored AUSCULTATION: rhonchi (Slight) and diminished lung sounds Cardio: RATE: bradycardic RHYTHM: abnormal rhythm PERIPHERAL PULSES: radial pulses present (Thready) GI: COMMON NORMALS: Normal to inspection, nondistended, normoactive bowel sounds present INSPECTION: Yes normal to inspection Neuro: BRICE COMA SCALE: document GCS findings Brice coma scale eye opening: To pressure [place] coma scale verbal response: Sounds [place] coma scale motor response: Localising [place] coma scale total score: 9 Procedures Intubation Time out performed: No sedative: Etomidate Mg Given: 20 paralytic: Succinylcholine Mg Given: 100 Laryngoscope: fiber optic video scope ET Tube Size: 8 ET Tube Uncuffed: No Tube Secured Depth (cm): 22 Tube Secured Location: lips Tube Placement Confirmation: visualized tube passing through cords, equal breath sounds bilaterally and confirmation by capnometry Patient Tolerated Procedure: well and no complications Intubation Complications: none Course Consultations: Consultation #1: Karen Consultation #2: [email or web address] Vital Signs: Vital signs: Vital Signs Temperature 97.8 F 05/29/21 22:25 Pulse Rate 95 05/29/21 23:00 Respiratory Rate 24 H 05/29/21 23:00 Blood Pressure 180/100 05/29/21 23:00 Pulse Oximetry 95 05/29/21 22:48 MDM - Chest Pain Medical Decision Making Patient arrives in complete heart block, being paced. Patient was moved over to our monitor, pacing paused to obtain EKG which shows essentially complete heart block. Patient was obtunded after 5 mg of Versed in the field. Patient was mildly hypotensive as well. Cardiology was consulted on the patient's arrival. EKG was shown to cardiology. Spoke with family briefly, they agreed to transfer to [employer] for transvenous pacer placement. They also agreed to intubation to secure airway for procedure. They however do not want chest compressions done outside of the procedure for resuscitation. Intubation proceeded without complication. Patient became difficult to capture on the pacemaker, and was bradycardic in terms of peripheral pulses. 1 mg of epinephrine was given, with increase in heart rate, and better capture. Pressure improved as well. This process was repeated once for another episode of bradycardia and hypotension without good capture. Patient was placed on an epinephrine drip for transfer to the [employer] to provide adequate pressure and heart rate. Family was counseled on condition, and critical nature of the presentation and process. Hospitalist is aware to and will admit with cardiology consultation. Lab Data : 05/29/21 22:20 05/29/21 22:20 Radiology Impressions Chest X-Ray 05/29/21 23:02 IMPRESSION: 1. Endotracheal tube tip seen in place 4.5 cm above the paul. 2. Cardiomegaly. Laboratory Results WBC 15.2 10^3/uL (4.0-10.0) H 05/29/21 22:20 RBC 3.82 10^6/uL (4.1-5.3) L 05/29/21 22:20 Hgb 11.8 g/dL (11.5-15.3) 05/29/21 22: Hct 36.4 % (37.0-47.0) L 05/29/21: MCV 95.3 fl (81-99) 05/29/21 22:20 MCH 30.9 pg (28.0-34.0) 05/29/21 22:20 MCHC 32.4 g/dL (30.0-36.0) 05/29/21: RDW 13.6 % (12.1-15.1) 05/29/21 22:20 Plt Count 256 10^3/cmm (130-400) 05/29/21 22:20 MPV 12.2 fL (7.4-10.4) H 05/29/21 22:20 Neut % (Auto) 68.6 % 05/29/21 22:20 Lymph % (Auto) 22.9 % 05/29/21 22:20 [place] % (Auto) 7.3 % 05/29/21: Eos % (Auto) 0.1 % 05/29/21:20 Baso % (Auto) 0.5 % 05/29/21 22:20 Neut # (Auto) 10.38 10^3/uL (1.8-7.7) H 05/29/21 22: Lymph # (Auto) 3.5 10^3/uL (0.8-4.8) 05/29/21 22:20 [place] # (Auto) 1.1 10^3/uL (0.2-0.9) H 05/29/21 22: Eos # (Auto) 0.0 10^3/uL (0.0-0.8) 05/29/21 22: Baso # (Auto) 0.1 10^3/uL (0.0-0.1) 05/29/21 22: Nucleated RBC % (auto) 0 % 05/29/21 22: Nucleated RBCs # 0.0 /100WBC 05/29/21 22: PT 14.00 SECONDS (12.1-14.9) 05/29/21 22: INR 1.05 (0.8-1.2) 05/29/21 22: APTT 30.0 SECONDS (23.9-36.7) 05/29/21 22: D-Dimer 2.30 ug/mIFEU (0-0.59) H 05/29/21: Specimen Type Arterial 05/29/21: Sample Site Radial, right 05/29/21: ABG pH 7.35 (7.35-7.45) 05/29/21: ABG pCO2 29.0 mmHg (35-45) L 05/29/21: ABG pO2 117.0 mmHg (80.0-100.0) H 05/29/21: ABG HCO3 15.9 mmol/L (22-26) L 05/29/21: ABG Base Excess -8.6 mmol/L (-2.0-2.0) L 05/29/21: Wes Test Pos 05/29/21: Hematocrit 34.1 % (37-47) L 05/29/21: O2 Delivery Device Nc 05/29/21: O2 Liters/Min 3.5 % 03/12/22 22:29 Field Control Inspector ID [email or web address] 05/29/21 22:29 Sodium 122 mmol/L (136-145) L 05/29/21 22:20 Potassium 4.7 mmol/L (3.5-5.1) 05/29/21 22:20 Chloride 86 mmol/L (98-107) L 05/29/21 22:20 Carbon Dioxide 15 mmol/L (22-29) L 05/29/21 22:20 Anion Gap 25.7 (5-19) H 05/29/21 22:20 BUN 23 mg/dL (8-23) 05/29/21 22:20 Creatinine 1.8 mg/dL (0.5-0.9) H 05/29/21 22:20 GFR Calculation Not Reportable 05/29/21 22:20 Glucose 196 mg/dL (65-115) H 05/29/21 22:20 Calculated Osmolality 263 mOsm/kg (285-295) L 05/29/21 22:20 Calcium 8.5 mg/dL (8.5-10.5) 05/29/21 22:20 Phosphorus 4.5 mg/dL (2.5-4.5) 05/29/21 22:20 Magnesium 2.3 mg/dL (1.7-2.3) 05/29/21 22:20 Total Bilirubin 0.4 mg/dL (0.15-1.2) 05/29/21 22:20 AST 27 U/L (0-32) 05/29/21 22:20 ALT 17 U/L (0-33) 05/29/21 22:20 Alkaline Phosphatase 88 IU/L (35-105) 05/29/21 22:20 Creatine Kinase 212 U/L (26-192) H 05/29/21 22:20 Troponin T Baseline 216 ng/L (0-10) H* 05/29/21 22:20 NT-Pro-B Natriuret Pep 7756 pg/mL (0-450) H 05/29/21 22:20 Total Protein 6.5 g/dL (6.6-8.7) L 05/29/21 22:20 Albumin 4.2 g/dL (3.5-5.2) 05/29/21 22:20 Globulin 2.3 g/dL (1.3-4.6) 05/29/21 22:20 Urine Color Yellow (Yellow) 05/29/21 23:06 Urine Appearance Clear (CLEAR) 05/29/21 23:06 Urine pH 5 (5-7) 05/29/21 23:06 Ur Specific [place] 1.020 (1.005-1.030) 05/29/21 23:06 Urine Protein Neg (Negative) 05/29/21 23:06 Urine Glucose (UA) Norm (Normal) 05/29/21 23:06 Urine Ketones Negative (Negative) 05/29/21 23:06 Urine Blood 2+ (Negative) H 05/29/21 23:06 Urine Nitrate Negative (Negative) 05/29/21 23:06 Urine Bilirubin Neg (Negative) 05/29/21 23:06 Urine Urobilinogen Norm mg/dL (Negative) 05/29/21 23:06 Ur Leukocyte Esterase Negative (Negative) 05/29/21 23:06 Urine RBC 5-10 /hpf (0-2) H 05/29/21 23:06 Urine WBC 0-4 /hpf (0-5) H 05/29/21 23:06 Ur Squamous Epith Cells 0-4 /hpf (0-5) H 05/29/21 23:06 Amorphous Sediment 1+ /hpf 05/29/21 23:06 Urine Bacteria Trace /hpf (NONE) 05/29/21 23:06 Hyaline Casts 5-10 /lpf H 05/29/21 23:06 Critical Care Time Critical Care Time: Critical Care Time: Yes Total Critical Care Time: 40 Attestation: This case had a high probability of a clinically significant, sudden, or life threatening deterioration of this patient's condition which required my full and direct attention, intervention and personal management. Time is independent of any procedures performed including the intubation. Discharge Plan Discharge Patient Disposition: Admitted As Inpatient Clinical Impression: Complete heart block, Cardiogenic shock Condition: Critical Coding Level of Care Code ED Shoe Repairer for [facility] Exam Comprehensive
[2021-05-30] MEDS: EPINEPHrine 2.5 MG in sodium chloride 0.9% 250 ML 9.07 MG IV (00:30)
[2021-05-30] MEDS: sodium chloride 0.9% 1,000 ML 50 ML IV (00:30)
--- NOTE | 2021-05-30 00:30 | PC.NURSE ---
TRANSFER FROM [employer] Patient [place] [employer] [place]. Right temporary venous pacer in place, rate 70, 2.5 mA, Asynchronous. Versed gtt running at 1 mg/hour, fentanyl drip hanging but not running, NS at 50 mL/hour, Epi drip at 0.2 mcg/kg/min. ET tube 8.0, 22 cm at lip, TV 350, PEEP 5, Fi02 35%. Patient squeezes nurses hand with left hand. RN to wean off epi drip and begin levophed.
--- NOTE | 2021-05-30 01:00 | USCV_ITS ---
Bryanna Mark Age: 80 Gender: F : 1940 Exam Date: 05/30/2021 06:21 Ordering Phys: Vivian Dumont MD Technologist: Trisha Stockton [place] [facility] [place]: POST CODE ON VENT TEMP PACER BP: 100 / 71 HR: 70 Rhythm: Sinus Technical Quality: Adequate MEASUREMENTS (Male / Female) Normal Values 2D ECHO LV Diastolic Diameter PLAX 3.6 cm 4.2 - 5.9 / 3.9 - 5.3 cm LV Systolic Diameter PLAX 3.0 cm LV Chamber Size 3.3 cm IVS Diastolic Thickness 1.2 cm 0.6 - 1.0 / 0.6 - 0.9 cm IVS Systolic Thickness 1.5 cm LVPW Diastolic Thickness 1.5 cm 0.6 - 1.0 / 0.6 - 0.9 cm LVPW Systolic Thickness 2.3 cm RV Chamber Size 2.3 cm LVOT Diameter 2.0 cm LV Ejection Fraction 2D Teich 38.8 % LV Ejection Fraction MOD 2C 51.5 % LV Ejection Fraction 2C AL 50.2 % LA Diameter 2.2 cm LA Width 3.7 cm LA Height 4.6 cm RA Width 3.7 cm RA Height 3.9 cm Aorta at Sinotubular Diameter 3.3 cm M-MODE Aortic Annulus Diameter 3.4 cm LA Ao Ratio MM 0.8 MV E Point Septal Separation 0.7 cm DOPPLER AV Peak Velocity 139.0 cm/s LVOT Peak Velocity 81.0 cm/s AV Area Cont Eq vti 2.3 cm squared AV Area Cont Eq pk 1.8 cm squared MV Area PHT 5.0 cm squared Mitral E to A Ratio 0.8 MV E' Velocity 49.0 cm/s Mitral E to MV E' Ratio 18.5 Mitral E to LV E' Lateral Ratio 23.0 Mitral E to LV E' Septal Ratio 15.5 TR Peak Velocity 153.1 cm/s TR Peak Gradient 9.4 mmHg TR Mean Velocity 109.9 cm/s TR Mean Gradient 5.6 mmHg TR Velocity Time Integral 37.3 cm TV Peak E Velocity 97.0 cm/s Right Atrial Pressure 15.0 mmHg Pulmonary Artery Systolic Pressu 24.4 mmHg PV Peak Velocity 78.0 cm/s RV Acceleration Time 0.1 s RV Ejection Time 0.4 s RV AcT/ET 0.4 FINDINGS Left Ventricle Technically limited quality echocardiogram because of poor ultrasonic windows. Normal left ventricular size. Grossly LV systolic function is mildly reduced. Regional wall motion abnormalities cannot be assessed because of poor ultrasonic windows. Grade 1 diastolic dysfunction Right Ventricle Grossly normal Right Atrium The right atrium is normal in size. Left Atrium The left atrium is normal in size. Mitral Valve Mitral annular calcification without significant stenosis or prolapse. There is mild mitral regurgitation. Aortic Valve Thickened aortic valve without significant stenosis. There is no aortic regurgitation. Tricuspid Valve Grossly normal. No significant stenosis or regurgitation. Insufficient TR jet to calculate RVSP. Pulmonic Valve Not well-visualized Pericardium Normal pericardium without effusion. Aorta Normal ascending aorta dimension. CONCLUSIONS Technically limited quality echocardiogram because of poor ultrasonic windows. Grossly LV systolic function is mildly reduced. Accurate assessment of regional wall motion abnormalities is not possible because of poor quality images. Grade 1 diastolic dysfunction. Mild mitral regurgitation. Mild mitral annular calcification is seen. Accurate comparison is not possible with prior echocardiograms because of limited quality of current study. Girma Jones MD (Electronically Signed) Final Date: 30 May 2021 10:28 S
--- NOTE | 2021-05-30 01:00 | USR_ITS ---
PROCEDURE INFORMATION: Exam: US Duplex Lower Extremity Veins, Bilateral Exam date and time: 05/30/2021 1:00 AM Age: 80 years old Clinical indication: Other: Post code; Prior surgery; Surgery date: 6+ months; Surgery type: PT on vent but looks like lt knee replacement. Appears well healed. ; Additional info: Evaluate for dvt TECHNIQUE: Imaging protocol: Real-time Duplex ultrasound of the bilateral extremities with 2-D louis scale, color Doppler flow and spectral waveform analysis with image documentation. Complete exam focused on the bilateral lower extremity veins. COMPARISON: CTA Thoracic/Abd/Pelvis Aorta 07/02/2016 1:50 PM FINDINGS: Right deep veins: The common femoral vein and deep femoral vein were not imaged due to bandage. The popliteal veins is patent without thrombus. Normal Doppler waveforms. Normal compressibility and/or augmentation response. Right superficial veins: No visualized thrombus. The great saphenous vein superior segment was not imaged due to bandage. Left deep veins: Unremarkable. The common femoral, femoral, proximal profunda femoral and popliteal veins are patent without thrombus. Normal Doppler waveforms. Normal compressibility and/or augmentation response. Left superficial veins: Saphenofemoral junction is patent without thrombus. Soft tissues: Unremarkable. US/[place] [id number] IMPRESSION: 1. No deep vein thrombosis identified (limited study).
--- NOTE | 2021-05-30 01:05 | P.HP_ITS ---
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 Over the last 24 hours patient has been complaining of recurrent episodes of nausea vomiting and her described seizure-like activity . Latter episodes are described as lightheadedness, transient loss of consciousness or altered mentation followed by a sensation of feeling unwell. No postictal phase per se. Today she had these episodes more frequently. EMS was called which found her to be in complete heart block with heart rate 30s. She was very lethargic. She received Versed and transcutaneous pacing was started and discontinued in the ER. She was subsequently intubated for airway protection due as she was lethargic likely has a combination of the heart block and benzodiazepines. Went to cardiac Technical Agronomist urgently and now has a temporary transvenous pacemaker in place. And 2 mg of epinephrine infusion at the time of my assessment. Ongoing drips are fentanyl at 50 and Versed at 2 mg/h, wakes up to calling name and follow simple commands. Blood pressure is currently stable, heart rhythm is paced. Coronaries were noted to be without current obstruction and all previous stents were patent. Patient also with a h/o chronic hyponatremia, today Na is at 122. Review of Systems General: Reports: 10 or more systems reviewed and unremarkable except in HPI and below Const: Denies: fever(s), chills or body aches Eyes: Denies: change in vision, blurry vision or photophobia ENMT: Reports: hoarseness; Denies: throat pain, enlarged tonsils, odynophagia or nasal congestion Card: Denies: chest pain, palpitations, irregular heart rhythm, edema, swelling of feet/ankles, lightheadedness, pre-syncope, dyspnea on exertion or orthopnea Resp: Denies: dyspnea, productive cough, non-productive cough, wheezing, stridor, pain on inspiration, change in phlegm color, hemoptysis or chest congestion GI: Denies: abdominal pain, nausea, vomiting, hematemesis, coffee ground emesis, dysphagia, heartburn, diarrhea, constipation, GI cramping, change in stool character, hematochezia or melena : Denies: flank pain, difficulty voiding, dysuria, urinary frequency, urinary urgency, urinary hesitancy or hematuria Musc: Denies: neck pain, back pain, extremity pain, joint swelling, joint warmth or deformity Neuro: Denies: headache(s), numbness in extremities, weakness in extremities, sensory changes, difficulty walking, frequent falls, dizziness, vertigo, behavioral changes, Slurred speech present or seizure-like activity Psych: Denies: anxiety, depression, suicidal ideation or homicidal ideation Endo: Denies: polyuria, polydipsia, tired all the time, cold intolerance or hot flashes Moncho/Lymph: Denies: easy bruising or easy bleeding Medications/Allergies Home Medications Medication Instructions Recorded Confirmed Last Taken Type omega-3 fatty acids 1,000 mg 1,000 mg PO DAILY cap 03/30/19 05/27/21 02/14/21 History capsule (Fish Oil Concentrate) cholecalciferol (vitamin D3) 50 2,000 unit PO DAILY #30 tab 01/27/20 05/27/21 02/14/21 Rx mcg (2,000 unit) tablet aspirin 325 mg tablet 81 mg PO QAM #0 tab 10/28/20 05/27/21 02/15/21 Rx diclofenac sodium 1 % topical gel 4 g TOPICAL QID PRN 10/28/20 05/27/21 02/08/21 History ticagrelor 90 mg tablet (Brilinta) 90 mg PO BID #60 tab 02/16/21 05/27/21 Unknown Rx nitroglycerin 2.5 mg See Rx Instructions .ROUTE 05/03/21 05/27/21 Unknown Rx capsule,extended release .COMPLEX #180 capsule (Nitro-Time) hydroxychloroquine 200 mg tablet See Rx Instructions PO .COMPLEX 05/04/21 05/27/21 Unknown Rx #45 tab prednisone 2.5 mg tablet See Rx Instructions .ROUTE 05/04/21 05/27/21 Unknown Rx .COMPLEX #90 tab atorvastatin 20 mg tablet See Rx Instructions .ROUTE 05/05/21 05/27/21 Unknown Rx .COMPLEX #100 tab levetiracetam 250 mg tablet 500 mg PO BID tab 05/27/21 05/27/21 Unknown History lisinopril 40 mg tablet 20 mg PO QAM tab 05/27/21 Unknown History Allergies Allergy/AdvReac Type Severity Reaction Status Date / Time niacin Allergy ALGY-Rash Verified 05/27/21 09:37 PFSH Acute PFSH: Medical History ASHD (arteriosclerotic heart disease) CKD (chronic kidney disease) Cutaneous lupus erythematosus Dysphagia Endometrial cancer GERD (gastroesophageal reflux disease) High risk medication use Hyperlipidemia Hypertension Immunization counseling Lupus (systemic lupus erythematosus) Osteoarthritis Osteoporosis 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 Sleep apnea SS-A antibody positive Surgical History H/O mastectomy H/O: hysterectomy History of appendectomy History of PTCA History of shoulder surgery Family History Father Diabetes Family/Other Diabetes Denies family history of Rheumatoid arthritis CAD (coronary artery disease) Clotting disorder Dementia Chronic kidney disease (CKD) Systemic lupus erythematosus (SLE) in adult Suicide Anesthesia complication Bleeding disorder Lung disease Cancer Hypertension Stroke Social History Smoking and tobacco status: never smoked Alcohol intake: never History of recent travel: No Vitals/I&O/Wt Last Vital Signs Temp 97.8 F 05/29/21 22:25 Pulse 95 05/29/21 23:00 Resp 24 H 05/29/21 23:00 BP 180/100 05/29/21 23:00 Pulse Ox 95 05/29/21 22:48 05/29/21 05/29/21 05/30/21 14:59 22:59 07:59 Intake Total 500 / 500 Balance 500 / 500 Weight last 48 hrs Weight 74.843 kg Physical Exam Narrative: GEN: intubated, sedated, currently on Fenatnyl and Versed infusion CVS: S1S2 N RS: CTA B/L all areas Abd: Soft, nt/nd , bs+ CONVEYOR LOADER: unable to assess at this time. EXT: No edema, clubbing or cyanosis Urinary Catheter Management: Castellanos: Cath Placed During This Visit: yes Urinary Catheter Date of Insertion: 05/29/21 Urinary Catheter Time of Insertion: 23:05 Data : 05/29/21 22:20 05/29/21 22:20 A&P Assessment and plan (1) Complete heart block: Patient presenting today with complete heart block, now status post placement of transvenous pacer overnight. At the time of current assessment patient is pacing, heart rate in the 70s. Requiring 2 mics of epinephrine, blood pressure 130/70 mmHg. Change epinephrine infusion to Levophed, titrate to keep MAP greater than 65. Initially had presented with cardiogenic shock which is now resolved. We will monitor her in the ICU overnight and titrate pressors as possible. Elevated troponins, however underwent left heart cath additionally which showed clean coronaries and patent stents. Possible that patient's past seizure episodes since 10/2020 were related to intermittent heart block and syncope. Continue fentanyl and Versed for sedation, aim to start titrating down sedation in the morning and attempts at extubation. PPM placement likely tomorrow Continue aspirin, list of her home medications pending verification. Continue home dose of prednisone. Noted elevated D-dimer, avoiding CTA chest has just received contrast and creatinine at 1.8. Check lower extremity Doppler. Status: Acute (2) Cardiogenic shock: Status: Acute (3) Hyponatremia: Sodium currently at 122 Check urine lites Gentle IV fluids normal saline at 50 cc an hour Daughter reports multiple episodes of vomiting and a few episodes of diarrhea today which may be contributing. Recheck sodium with a.m. labs. Status: Acute Plan CODE STATUS: Limited resuscitation. Patient is DNR with no chest compressions. Also DNI once extubated periprocedurally. Okay for ICU admission, pressors, central line, ACLS drugs only. Attestations Medical Necessity Statement*: >2midnight admission anticipated for above defined care Coding Level of Care Code Acute Pulp Screen Operator for Rosa Joyner Diagnoses Complete heart block I44.2 Cardiogenic shock R57.0 Hyponatremia E87.1
[2021-05-30] MEDS: norepinephrine 8 MG in dextrose 5 % 500 ML 3.81 MG IV (01:46)
--- NOTE | 2021-05-30 03:08 | PC.NURSE ---
Castellanos catheter placed in ER.
--- NOTE | 2021-05-30 04:17 | PC.NURSE ---
FAMILY Family in waiting room. RN went to update on patients status. Notified that all blood pressure support paused at this time and patient is tolerating.
[2021-05-30 05:24] LABS: ABG PCO2 30.9 mmHg (35-45); ABG PH Result 7.44 (7.35-7.45); Arterial Blood Gas Hematocrit 33.7 % (37-47); Base Excess ABG -2.3 mmol/L (-2.0-2.0); Blood Gas Allen Test Pos; Blood Gas Sample Site Radial, right; Blood Gas Sample Type Arterial; Blood Gas Tidal Volume 0.35; HCO3 ABG 21.1 mmol/L (22-26); Oxygen Device VENT
--- NOTE | 2021-05-30 05:26 | ECG_ITS ---
[facility] Test Date: 2021-05-30 Pat Name: Bryanna Mark Department: Room: ICU10 Gender: Female Secretary Of State: : 1940 Requested By: Amarjit Navarro Order Number: [id number] Deidre MD: Girma Jones M.D. Measurements Intervals [place] Rate: 71 P: [place]: QRS: -90 QRSD: 188 T: 72 QT: 489 QTc: 531 Interpretive Statements ELECTRONIC VENTRICULAR PACEMAKER Compared to ECG 05/29/2021 22:23:19 Sinus rhythm no longer present Right bundle-branch block no longer present Left posterior fascicular block no longer present Myocardial infarct finding no longer present T-wave abnormality no longer present Possible ischemia no longer present Prolonged QT interval no longer present Electronically Signed On 05-30-2021 15:52:37 CDT by Girma Jones M.D. [id number]
--- NOTE | 2021-05-30 05:41 | PC.NURSE ---
SEDATION VACATION Patient given sedation vacation. Patient follows commands to squeeze nurses hand with right and left hand. Case Packer equal. When patient told to let go she did so. Patient attempting to talk with ET tube in, patient reassured. Patient nods appropriately to yes and no questions.
[2021-05-30 06:39] LABS: Troponin T (5th) Once 228 ng/L (0-10)
[2021-05-30 06:42] LABS: Alanine Aminotransferase 33 U/L (0-33); Albumin Level 3.6 g/dL (3.5-5.2); Alkaline Phosphatase 78 IU/L (35-105); Anion Gap 15.7 (5-19); Aspartate Amino Transferase 43 U/L (0-32); Blood Urea Nitrogen 22 mg/dL (8-23); Calcium 7.9 mg/dL (8.5-10.5); Carbon Dioxide 21 mmol/L (22-29); Chloride 91 mmol/L (98-107); Glucose 122 mg/dL (65-115); Osmolality Calculated 261 mOsm/kg (285-295); Potassium 4.7 mmol/L (3.5-5.1); Sodium 123 mmol/L (136-145); Thyroid Stimulating Hormone 3.73 uIU/mL (0.27-4.20); Total Bilirubin 0.5 mg/dL (0.15-1.2); Total Protein 5.6 g/dL (6.6-8.7)
--- NOTE | 2021-05-30 08:14 | XRR_ITS ---
PROCEDURE INFORMATION: Exam: XR Chest Exam date and time: 05/30/2021 8:14 AM Age: 80 years old Clinical indication: Dyspnea; Additional info: Chf, recent extubation TECHNIQUE: Imaging protocol: XR of the chest. Views: 1 view. COMPARISON: CR XR chest 1V portable [id number] 05/29/2021 10:58 PM FINDINGS: Lungs: Unremarkable. No consolidation. Pleural spaces: Unremarkable. No pleural effusion. No pneumothorax. Heart/Mediastinum: Unremarkable. No cardiomegaly. Bones/joints: Unremarkable. XR/XR chest 1V portable [id number] IMPRESSION: No acute findings.
--- NOTE | 2021-05-30 08:38 | PM.PN ---
Subjective Subjective: Patient had temporary transvenous pacemaker placed last night. Left heart cath showed patent prior stents. Vitals/I&O/Wt Last Vital Signs Temp 97.7 F 05/30/21 00:55 Pulse 71 05/30/21 06:00 Resp 24 H 05/30/21 07:50 BP 119/75 05/30/21 04:00 Pulse Ox 100 05/30/21 07:50 05/29/21 05/30/21 05/30/21 21:59 06:59 14:59 Intake Total Output Total Balance Weight last 48 hrs Weight 165 lb Physical Exam Narrative: GENERAL: Patient is intubated HEENT: No cyanosis. No icterus. No pallor. [] HEART: Paced rhythm LUNGS: Clear to auscultation ABDOMEN: Soft CENTRAL NERVOUS SYSTEM: Intubated and sedated EXTREMITIES: Lower extremities with 1+ edema bilaterally. Urinary Catheter Management: Castellanos: Cath Placed During This Visit: yes Reason for Continuing Indwelling Catheter: Accurate Measurement of Urinary Output in Critically Ill Patients Urinary Catheter Date of Insertion: 05/29/21 Urinary Catheter Time of Insertion: 23:05 Data : 05/30/21 15:47 05/30/21 15:47 A&P Assessment and plan (1) NSTEMI (non-ST elevated myocardial infarction): Status: Acute (2) Complete heart block: Status: Acute (3) Hyperlipidemia: Status: Acute (4) Hypertension: Status: Acute Qualifiers: Hypertension type: essential hypertension Qualified Code(s): I10 - Essential (primary) hypertension (5) Bradycardia: Status: Acute (6) ASHD (arteriosclerotic heart disease): Status: Acute Plan Patient has presented with complete heart block, confusion and not feeling well. She was complaining of chest pressure and indigestion through the day. Initial troponin was elevated. Patient had successful placement of TVP last night. Pacing at 70 bpm. LHC did not show significant CAD. Prior stents were patent. Plan for permanent pacemaker placement in 1-2 days once infection is ruled out We will continue aspirin and Brilinta Requiring minimal support from the Vent. Plan for extubation today. Repeat echocardiogram was of limited quality and showed mildly reduced LV function. Thank you for involving us with care of this patient. We will continue to follow. Please call with questions. Attestations Medical Necessity Statement*: Care expected to cross 2 midnights. Coding Level of Care Code Acute Cripple Worker for Chg Fwd Diagnoses NSTEMI (non-ST elevated myocardial infarction) I21.4 Complete heart block I44.2 Hyperlipidemia E78.5 Hypertension I10 Hypertension type: essential hypertension Bradycardia R00.1 ASHD (arteriosclerotic heart disease) I25.10
[2021-05-30] MEDS: FUROsemide 10 mg/mL SDV 4mL 40 MG IVP (09:19)
[2021-05-30] MEDS: aspirin 81 mg EC Tablet PO (09:19)
[2021-05-30] MEDS: levETIRAcetam 500 mg Tablet PO ×2 (09:19→18:22)
[2021-05-30] MEDS: pantoprazole DR 40 mg Tablet PO ×2 (09:20→18:22)
[2021-05-30] MEDS: predniSONE 1 mg Tablet 2 MG PO (09:20)
--- NOTE | 2021-05-30 10:41 | PC.NURSE ---
Dr. Menard at bedside, Patient extubated to 3L NC, small amount bloody drainage noted on OG tube when pulled out, Dr. Menard gave v.o. to draw BMP and HgB at 1600, make sure protonix is BID
[2021-05-30] MEDS: piperacillin-tazobactam 3.375 GM in sodium chloride 0.9% (plus) 50 ML IV ×2 (11:33→18:22)
[2021-05-30 12:24] LABS: Iron 110 ug/dL (37-145); Percent Saturation 42.1 % (20-50); Total Iron Binding Capacity 261 mcg/dl; Unsaturated Iron Binding 151 ug/dL (112-347)
--- NOTE | 2021-05-30 12:27 | PM.PN ---
Subjective Subjective: Admitted last night. On examination seen with family at bedside. Patient is awake and alert on 50 of fentanyl, volume control on minimal support with ventilator. Patient is following commands. Patient sedation was turned off completely, was turned over to pressure support at 8 with which she did fine and was ultimately extubated. Patient has been placed with temporary venous pacemaker. Denies any nausea vomiting, headache, chest pain. Vitals/I&O/Wt Last Vital Signs Temp 97.7 F 05/30/21 00:55 Pulse 72 05/30/21 10:55 Resp 19 H 05/30/21 10:46 BP 119/75 05/30/21 04:00 Pulse Ox 96 05/30/21 10:46 05/29/21 05/30/21 05/30/21 21:59 06:59 14:59 Intake Total Output Total Balance Weight last 48 hrs Weight 74.843 kg Physical Exam Narrative: General: No acute distress, AO x3 HEENT: PERRLA, pupils bilaterally equal and reactive Chest: Bilateral good rate equal air entry, fine crackles present in lower zone CVS: S1-S2 regular, soft pansystolic murmur at left retrosternal fourth intercostal space, paced rhythm,, no tachycardia, no gallops, no rubs Abdomen: Soft, nontender, no organomegaly, bowel sounds present Neuro: No focal deficits, no facial deformity, AO x3, power 5/5 in all limbs Urinary Catheter Management: Castellanos: Cath Placed During This Visit: yes Reason for Continuing Indwelling Catheter: Accurate Measurement of Urinary Output in Critically Ill Patients Urinary Catheter Date of Insertion: 05/29/21 Urinary Catheter Time of Insertion: 23:05 Data : 05/29/21 22:20 05/30/21 06:05 A&P Assessment and plan (1) Complete heart block: Post transvenous pacemaker implantation. Paced. EKG appreciated. Hold off on any rate limiting drugs. Plan for pacemaker implantation tomorrow. Echocardiogram results appreciated. Possibly mild LV dysfunction, grade 1 diastolic dysfunction. Keep mean artery pressure 65. Head of the bed elevated to 30 to 45 degrees. Status: Acute (2) Cardiogenic shock: Resolved. Off Levophed. Status: Acute (3) Hyponatremia: Cannot rule out SIADH versus hypervolemic hyponatremia. Stop IV fluids. IV Lasix 40 mg stat. Add urine studies to the UA from yesterday. Repeat BMP in evening. Status: Acute Plan Respiratory failure: Intubated on admission most likely to protect airway. Extubated today. Mild leukocytosis. Check MRSA swab. For now start on Zosyn as patient is planned for pacemaker implantation in next 24 hours. If remains hemodynamically stable and afebrile can plan to stop Zosyn within next 2 days. Check A1c, lipid panel, blood culture. CODE STATUS: Limited resuscitation. Patient is DNR with no chest compressions. Also DNI once extubated periprocedurally. Okay for ICU admission, pressors, central line, ACLS drugs only. Bedside swallow study. Lovenox for DVT prophylaxis. Protonix for PUD prophylaxis. Attestations Medical Necessity Statement*: Requires further hospitalization for management of respiratory failure, post extubation, resolving cardiogenic shock, complete heart block requiring pacemaker implantation Critical Care Time: BXThe high probability of a clinically significant, sudden or life threatening deterioration of the patient's [cardiac, renal, respiratory system(s) required my full and direct attention, intervention and personal management. The critical care time is as shown. This time is in addition to time spent performing any reported procedures but includes the following: [x] Data and vital sign review and interpretation [x] Patient assessment, examination and intervention [x] Documentation [x] Medication orders and management Critical Care Time (min): 90 Coding Level of Care Code Acute Financial Counselor for Rosa Fwd Diagnoses Complete heart block I44.2 Cardiogenic shock R57.0 Hyponatremia E87.1
[2021-05-30 15:56] LABS: Basophils # 0.1 10^3/uL (0.0-0.1); Basophils % 0.4 %; Lymphocytes # 1.7 10^3/uL (0.8-4.8); Lymphocytes % 10.8 %; Mean Corpuscular HGB Conc 34.2 g/dL (30.0-36.0); Mean Corpuscular Hemoglobin 31.9 pg (28.0-34.0); Mean Corpuscular Volume 93.4 fl (81-99); Monocytes # 1.8 10^3/uL (0.2-0.9); Monocytes % 11.6 %; Neutrophils # 11.68 10^3/uL (1.8-7.7); Neutrophils % 76.7 %; Nucleated Red Blood Cells % 0 %; Platelet Count 188 10^3/cmm (130-400); Red Blood Count 4.07 10^6/uL (4.1-5.3); Red Cell Distribution Width 13.8 % (12.1-15.1); White Blood Count 15.2 10^3/uL (4.0-10.0)
[2021-05-30 16:36] LABS: Anion Gap 19.2 (5-19); Blood Urea Nitrogen 20 mg/dL (8-23); Calcium 8.4 mg/dL (8.5-10.5); Carbon Dioxide 24 mmol/L (22-29); Chloride 89 mmol/L (98-107); Glucose 106 mg/dL (65-115); Osmolality Calculated 269 mOsm/kg (285-295); Potassium 4.2 mmol/L (3.5-5.1); Sodium 128 mmol/L (136-145)
[2021-05-30] MEDS: ondansetron 2 mg/ML SDV 2 mL 4 MG IVP (19:50)
[2021-05-30 19:59] LABS: Potassium, Radom Urine 56 mmol/L; Urine Random Sodium 33 mmol/L
[2021-05-30 20:00] LABS: Urine Random Chloride 15 mmol/L
[2021-05-30] MEDS: atorvastatin 40 mg Tablet 20 MG PO (20:01)
[2021-05-31] VITALS (98 sets, daily range): BP systolic 76–139; BP diastolic 30–109; PULSE 69–124; RESP 15–36; TEMP 36.8–37.6; O2SAT 74–100
[2021-05-31] MEDS: acetaminophen 325 mg Tablet 650 MG PO ×2 (00:29→20:24)
--- NOTE | 2021-05-31 00:49 | ECG_ITS ---
[facility] Test Date: 2021-05-31 Pat Name: Bryanna Mark Department: Room: ICU10 Gender: Female Carder Blankets: : 1940 Requested By: Vivian Dumont Order Number: [id number] Deidre MD: Girma Jones M.D. Measurements Intervals [place] Rate: 88 P: 103 CT: 318 QRS: -73 QRSD: 153 T: 107 QT: 430 QTc: 523 Interpretive Statements POSSIBLE RIGHT ATRIAL ENLARGEMENT [0.25mV P-WAVE] INTRAVENTRICULAR CONDUCTION DELAY [130+ ms QRS DURATION] LEFT VENTRICULAR HYPERTROPHY AND ST-T CHANGE [VOLTAGE CRITERIA PLUS ST/T ABNORMALITY] Compared to ECG 05/30/2021 05:17:10 Intraventricular conduction delay now present Left ventricular hypertrophy now present ST (T wave) deviation now present Myocardial infarct finding now present Ventricular-paced complex(es) or rhythm no longer present Electronically Signed On 05-31-2021 21:50:02 CDT by Girma Jones M.D. [id number]
[2021-05-31] MEDS: piperacillin-tazobactam 3.375 GM in sodium chloride 0.9% (plus) 50 ML IV ×3 (02:56→18:01)
[2021-05-31 04:57] LABS: Basophils # 0.1 10^3/uL (0.0-0.1); Basophils % 0.5 %; Hematocrit 34.4 % (37.0-47.0); Hemoglobin 11.5 g/dL (11.5-15.3); Lymphocytes # 1.9 10^3/uL (0.8-4.8); Lymphocytes % 12.5 %; Mean Corpuscular HGB Conc 33.4 g/dL (30.0-36.0); Mean Corpuscular Hemoglobin 31.8 pg (28.0-34.0); Mean Platelet Volume 12.1 fL (7.4-10.4); Monocytes # 1.5 10^3/uL (0.2-0.9); Monocytes % 9.9 %; Neutrophils # 11.81 10^3/uL (1.8-7.7); Neutrophils % 76.8 %; Nucleated Red Blood Cells % 0 %; Platelet Count 181 10^3/cmm (130-400); Red Blood Count 3.62 10^6/uL (4.1-5.3); White Blood Count 15.4 10^3/uL (4.0-10.0)
[2021-05-31 05:21] LABS: Cholesterol 92 mg/dL (0-200); HDL Cholesterol 46 mg/dL (60-100); LDL Cholesterol Calculated 31 mg/dL (50-129); Triglycerides 75 mg/dL (0-150); VLDL Cholestrol Calculation 15 mg/dL (0-30)
[2021-05-31 05:27] LABS: Estmated Average Glucose 108; Hemoglobin A1C 5.4 % (4.0-6.0)
[2021-05-31 05:31] LABS: Alanine Aminotransferase 24 U/L (0-33); Albumin Level 3.7 g/dL (3.5-5.2); Alkaline Phosphatase 71 IU/L (35-105); Anion Gap 18.1 (5-19); Aspartate Amino Transferase 35 U/L (0-32); Blood Urea Nitrogen 28 mg/dL (8-23); Calcium 7.8 mg/dL (8.5-10.5); Carbon Dioxide 19 mmol/L (22-29); Chloride 94 mmol/L (98-107); Globulin 1.6 g/dL (1.3-4.6); Glucose 120 mg/dL (65-115); Osmolality Calculated 271 mOsm/kg (285-295); Potassium 4.1 mmol/L (3.5-5.1); Sodium 127 mmol/L (136-145); Thyroid Stimulating Hormone 2.01 uIU/mL (0.27-4.20); Total Bilirubin 0.4 mg/dL (0.15-1.2); Total Protein 5.3 g/dL (6.6-8.7)
--- NOTE | 2021-05-31 07:32 | PC.NURSE ---
Dr. Jones rounded this morning discussing POC. Talked about patient receiving permanent pacemaker possibly by tomorrow with Dr. Redmond. Received order for Levophed for patients blood pressure.
[2021-05-31] MEDS: pantoprazole DR 40 mg Tablet PO ×2 (08:14→17:02)
[2021-05-31] MEDS: aspirin 81 mg EC Tablet PO (08:14)
[2021-05-31] MEDS: levETIRAcetam 500 mg Tablet PO ×2 (08:14→17:01)
[2021-05-31] MEDS: predniSONE 1 mg Tablet 2 MG PO (08:14)
[2021-05-31] MEDS: enoxaparin 40 mg/0.4 mL Syringe SUBCUT (08:15)
--- NOTE | 2021-05-31 08:45 | P.PN_ITS ---
Subjective Subjective: This patient is admitted to the hospital with complaints of nausea vomiting and diarrhea. She was found to be in complete heart block. She had a temporary pacemaker insertion. She also had a cardiac catheterization which revealed a patent stented segments of the arteries. LV ejection fraction appeared to be in the normal range by echocardiogram. Echocardiogram was suboptimal quality. Patient continues to be hypotensive. She is on Levophed at 15 mics. She is not on any IV fluid at this time. No chest pain or chest tightness. No shortness of breath. Medications: Medication Review Details: Current Medications Acetaminophen (Acetaminophen 325 Mg Tablet) 650 mg PO Q6H PRN PRN Reason: Mild/Mod Pain Or Temp >/= 101 Last Admin: 05/31/21 00:29 Dose: 650 mg Documented by: Aspirin (Aspirin 81 Mg Ec Tablet) 81 mg PO DAILY [facility] Last Admin: 05/31/21 08:14 Dose: 81 mg Documented by: Atorvastatin Calcium (Atorvastatin 40 Mg Tablet) 20 mg PO BEDTIME [facility] Last Admin: 05/30/21 20:01 Dose: 20 mg Documented by: Enoxaparin Sodium (Enoxaparin 40 Mg/0.4 Ml Syringe) 40 mg SUBCUT Q24H [facility] Last Admin: 05/31/21 08:15 Dose: 40 mg Documented by: Piperacillin Sod/Tazobactam (Sod 3.375 gm/ Sodium Chloride) 50 mls @ 12.5 mls/hr IV Q8H [facility]; Protocol Last Infusion: 05/31/21 07:29 Dose: Infused Documented by: Norepinephrine Bitartrate 4 mg (/ Dextrose) 254 mls @ 0 mls/hr IV .Q0M [facility]; Protocol Levetiracetam (Levetiracetam 500 Mg Tablet) 500 mg PO BID [facility] Last Admin: 05/31/21 08:14 Dose: 500 mg Documented by: Ondansetron HCl (Ondansetron 2 Mg/Ml Sdv 2 Ml) 4 mg IVP Q8H PRN PRN Reason: vomiting, or N/V if npo Last Admin: 05/30/21 19:50 Dose: 4 mg Documented by: Pantoprazole Sodium (Pantoprazole Dr 40 Mg Tablet) 40 mg PO BID [facility] Last Admin: 05/31/21 08:14 Dose: 40 mg Documented by: Prednisone (Prednisone 1 Mg Tablet) 2 mg PO DAILY [facility] Last Admin: 05/31/21 08:14 Dose: 2 mg Documented by: Vitals/I&O/Wt Last Vital Signs Temp 98.3 F 05/31/21 04:23 Pulse 118 H 05/31/21 08:41 Resp 18 05/31/21 08:35 BP 103/56 05/31/21 08:15 Pulse Ox 96 05/31/21 08:35 05/30/21 05/31/21 05/31/21 22:59 06:59 14:59 Intake Total 160 / 160 50 / 50 Output Total 1500 / 1500 325 / 1825 Balance -1340 / -1340 -325 / -1665 50 / 50 Weight last 48 hrs Weight 165 lb Physical Exam Narrative: GENERAL: The patient is alert and oriented times three. Not in any acute distress. Appears to be somewhat HEENT: No significant pallor, icterus or lymphadenopathy.Oral cavity: There are no mucous membrane lesions. NECK: Trachea appears to be central. No masses noted. No JVD or thyromegaly appreciated. RESPIRATORY: Chest is symmetrical. No intercostals muscle retraction or any accessory muscle activation. There is no chest wall tenderness. Breath sounds are heard bilaterally. No rales or rhonchi heard. No evidence of any consolidation. BREASTS: Deferred. HEART: The first heart sound is variable. No significant murmurs. No pericardial rub. Abdomen. No distention. No tenderness. No organomegaly appreciated. Bowel sounds are normally heard. : Deferred. RECTAL: Deferred. LYMPHATIC: No lymphadenopathy noted in the neck or groin. EXTREMITIES: No edema or cyanosis. No clubbing. Peripheral pulses are palpated in fairly good volume and amplitude MUSCULOSKELETAL: No acute joint deformities or swelling SKIN: There are no significant rashes or ecchymosis NEUROPSYCHIATRIC: The patient is alert and oriented x3. Appears to be in a good mood. No tremors or rigidity noted. Urinary Catheter Management: Castellanos: Cath Placed During This Visit: yes Reason for Continuing Indwelling Catheter: Accurate Measurement of Urinary Output in Critically Ill Patients Urinary Catheter Date of Insertion: 05/29/21 Urinary Catheter Time of Insertion: 23:05 Data : 05/31/21 04:32 05/31/21 04:32 Other Labs: Laboratory Last Values WBC 15.4 10^3/uL (4.0-10.0) H 05/31/21 04:32 RBC 3.62 10^6/uL (4.1-5.3) L 05/31/21 04:32 Hgb 11.5 g/dL (11.5-15.3) 05/31/21 04:32 Hct 34.4 % (37.0-47.0) L 05/31/21 04:32 MCV 95.0 fl (81-99) 05/31/21 04:32 MCH 31.8 pg (28.0-34.0) 05/31/21 04:32 MCHC 33.4 g/dL (30.0-36.0) 05/31/21 04:32 RDW 14.0 % (12.1-15.1) 05/31/21 04:32 Plt Count 181 10^3/cmm (130-400) 05/31/21 04:32 MPV 12.1 fL (7.4-10.4) H 05/31/21 04:32 Neut % (Auto) 76.8 % 05/31/21 04:32 Lymph % (Auto) 12.5 % 05/31/21 04:32 [place] % (Auto) 9.9 % 05/31/21 04:32 Eos % (Auto) 0.0 % 05/31/21 04:32 Baso % (Auto) 0.5 % 05/31/21 04:32 Neut # (Auto) 11.81 10^3/uL (1.8-7.7) H 05/31/21 04:32 Lymph # (Auto) 1.9 10^3/uL (0.8-4.8) 05/31/21 04:32 [place] # (Auto) 1.5 10^3/uL (0.2-0.9) H 05/31/21 04:32 Eos # (Auto) 0.0 10^3/uL (0.0-0.8) 05/31/21 04:32 Baso # (Auto) 0.1 10^3/uL (0.0-0.1) 05/31/21 04:32 Nucleated RBC % (auto) 0 % 05/31/21 04:32 Nucleated RBCs # 0.0 /100WBC 05/31/21 04:32 PT 14.00 SECONDS (12.1-14.9) 05/29/21 22:20 INR 1.05 (0.8-1.2) 05/29/21 22:20 APTT 30.0 SECONDS (23.9-36.7) 05/29/21 22:20 D-Dimer 2.30 ug/mIFEU (0-0.59) H 05/29/21 22:20 Specimen Type Arterial 05/30/21 03:04 Sample Site Radial, right 05/30/21 03:04 ABG pH 7.44 (7.35-7.45) 05/30/21 03:04 ABG pCO2 30.9 mmHg (35-45) L 05/30/21 03:04 ABG pO2 152.0 mmHg (80.0-100.0) H 05/30/21 03:04 ABG HCO3 21.1 mmol/L (22-26) L 05/30/21 03:04 ABG Base Excess -2.3 mmol/L (-2.0-2.0) L 05/30/21 03:04 Wes Test Pos 05/30/21 03:04 Hematocrit 33.7 % (37-47) L 05/30/21 03:04 O2 Delivery Device Vent 05/30/21 03:04 O2 Liters/Min 3.5 % 05/29/21 22:29 FiO2 35.0 % 05/30/21 03:04 Tidal Volume 0.35 05/30/21 03:04 PEEP 5.0 cmH20 05/30/21 03:04 Animal Husbandry Worker ID [email or web address] 05/30/21 03:04 Sodium 127 mmol/L (136-145) L 05/31/21 04:32 Potassium 4.1 mmol/L (3.5-5.1) 05/31/21 04:32 Chloride 94 mmol/L (98-107) L 05/31/21 04:32 Carbon Dioxide 19 mmol/L (22-29) L 05/31/21 04:32 Anion Gap 18.1 (5-19) 05/31/21 04:32 BUN 28 mg/dL (8-23) H 05/31/21 04:32 Creatinine 1.7 mg/dL (0.5-0.9) H 05/31/21 04:32 GFR Calculation Not Reportable 05/31/21 04:32 Glucose 120 mg/dL (65-115) H 05/31/21 04:32 Estimat Average Glucose 108 05/31/21 04:32 Hemoglobin A1c 5.4 % (4.0-6.0) 05/31/21 04:32 Calculated Osmolality 271 mOsm/kg (285-295) L 05/31/21 04:32 Calcium 7.8 mg/dL (8.5-10.5) L 05/31/21 04:32 Phosphorus 4.5 mg/dL (2.5-4.5) 05/29/21 22:20 Magnesium 2.0 mg/dL (1.7-2.3) 05/31/21 04:32 Iron 110 ug/dL (37-145) 05/30/21 06:05 TIBC 261 mcg/dl 05/30/21 06:05 % Saturation 42.1 % (20-50) 05/30/21 06:05 Unsat Iron Binding 151 ug/dL (112-347) 05/30/21 06:05 Total Bilirubin 0.4 mg/dL (0.15-1.2) 05/31/21 04:32 AST 35 U/L (0-32) H 05/31/21 04:32 ALT 24 U/L (0-33) 05/31/21 04:32 Alkaline Phosphatase 71 IU/L (35-105) 05/31/21 04:32 Creatine Kinase 212 U/L (26-192) H 05/29/21 22:20 Troponin T Gen 5 ng/L 228 ng/L (0-10) H* 05/30/21 06:05 Troponin T Baseline 216 ng/L (0-10) H* 05/29/21 22:20 NT-Pro-B Natriuret Pep 7756 pg/mL (0-450) H 05/29/21 22:20 Total Protein 5.3 g/dL (6.6-8.7) L 05/31/21 04:32 Albumin 3.7 g/dL (3.5-5.2) 05/31/21 04:32 Globulin 1.6 g/dL (1.3-4.6) 05/31/21 04:32 Triglycerides 75 mg/dL (0-150) 05/31/21 04:32 Cholesterol 92 mg/dL (0-200) 05/31/21 04:32 LDL Cholesterol, Calc 31 mg/dL (50-129) L 05/31/21 04:32 Total VLDL Cholesterol 15 mg/dL (0-30) 05/31/21 04:32 HDL Cholesterol 46 mg/dL (60-100) L 05/31/21 04:32 Cholesterol/HDL Ratio 2.00 mg/dL (0.0-4.40) 05/31/21 04:32 TSH 2.01 uIU/mL (0.27-4.20) 05/31/21 04:32 Urine Color Yellow (Yellow) 05/29/21 23:06 Urine Appearance Clear (CLEAR) 05/29/21 23:06 Urine pH 5 (5-7) 05/29/21 23:06 Ur Specific [place] 1.020 (1.005-1.030) 05/29/21 23:06 Urine Protein Neg (Negative) 05/29/21 23:06 Urine Glucose (UA) Norm (Normal) 05/29/21 23:06 Urine Ketones Negative (Negative) 05/29/21 23:06 Urine Blood 2+ (Negative) H 05/29/21 23:06 Urine Nitrate Negative (Negative) 05/29/21 23:06 Urine Bilirubin Neg (Negative) 05/29/21 23:06 Urine Urobilinogen Norm mg/dL (Negative) 05/29/21 23:06 Ur Leukocyte Esterase Negative (Negative) 05/29/21 23:06 Urine RBC 5-10 /hpf (0-2) H 05/29/21 23:06 Urine WBC 0-4 /hpf (0-5) H 05/29/21 23:06 Ur Squamous Epith Cells 0-4 /hpf (0-5) H 05/29/21 23:06 Amorphous Sediment 1+ /hpf 05/29/21 23:06 Urine Bacteria Trace /hpf (NONE) 05/29/21 23:06 Hyaline Casts 5-10 /lpf H 05/29/21 23:06 Ur Random Sodium 33 mmol/L 05/29/21 23:06 Ur Random Potassium 56 mmol/L 05/29/21 23:06 Ur Random Chloride 15 mmol/L 05/29/21 23:06 Micro: Microbiology 05/30/21 18:24 Blood Culture - Preliminary Blood SPECIMEN COLLECTED 05/30/21 18:19 Blood Culture - Preliminary Blood SPECIMEN COLLECTED EKG 3: My Interpretation: EKG showed sinus tachycardia with first-degree AV block and supraventricular ectopics. Intraventricular conduction delay. Features of old anterol ateral/inferior wall myocardial infarction EKG computer-generated impression: Venous Duplex 05/30/21 01:00 IMPRESSION: 1. No deep vein thrombosis identified (limited study). Chest X-Ray 05/30/21 08:14 IMPRESSION: No acute findings. A&P Assessment and plan (1) Complete heart block: The patient seems to have intermittent high degree AV block. Currently she seems to be in sinus tachycardia. She requires a permanent pacemaker [place]. Currently she has the temporary transvenous pacemaker. Because of the low-grade fever and elevated white cell count, we may hold off on this procedure at this time. Status: Acute (2) Elevated troponin: Most likely a type II myocardial infarction. Apparently the patient had the cardiac arrest him to reveal no no significant coronary lesions. Status: Acute (3) ASHD (arteriosclerotic heart disease): Status post cardiac catheterization. Found to have patent stents. At this point, patient may not require any further intervention. Status: Acute (4) Elevated white blood cell count: Source of infection is not clear. Status: Acute (5) Low grade fever: As mentioned above. Blood culture is pending. Status: Acute Plan We will consider the permanent basement dilation, once the fever has subsided and the patient has no evidence of infection Attestations Medical Necessity Statement*: Patient requires continued hospital stay for close monitoring and further management Coding Level of Care Code Acute Composite Mechanic for [facility] Fwd History Detailed Exam Detailed Medical Decision Making Moderate Complexity Diagnoses Complete heart block I44.2 Elevated troponin R77.8 ASHD (arteriosclerotic heart disease) I25.10 Elevated white blood cell count D72.829 Low grade fever R50.9
[2021-05-31] MEDS: sodium chloride 0.9% 250 ML 999 ML IV (09:13)
[2021-05-31] MEDS: sodium chloride 0.9% 1,000 ML 75 ML IV (09:19)
--- NOTE | 2021-05-31 10:43 | PC.CHAP ---
Pastoral Care Encounter/Spiritual Assessment Type of Contact [] Declined electro mechanical technologist visit [] Patient/Family/Request visit [] Outpatient visit [] Follow-up visit [] Physician referral [] Code/Alert [x] Routine visit [] Staff referral [] Actively dying [] Patient sleeping [x] Family support [] [] Out of room [] Palliative care [] [] Receiving care in room [] Pre-surgical visit [] Trauma [] Long length of stay [x] ICU visit [] Other: Relational/Emotional Strength [] Patient feels connected with others/family/visitors/staff [] Distress [] Loneliness/isolation [] Abandonment Spirituality of Patient [] Person of Winter [] Attends Buddhist of their Winter [] Believes in Prayer [] Reads Bible or Catholic materials [] There are Spiritual issues to be addressed Jacquard Twine Polisher Operator Interventions [x] Prayer [x] Active listening [x] Non-anxious presence [x] Spiritual/emotional support [] Crisis/trauma care [] Spiritual counseling [] Bereavement support [] Provided bereavement packet [] Provided Bible/devotional materials [] Provided toy/stuffed animal, coloring book to patient or family member [] Provided Communion [] Anointing/[place] [] Salvation [x] Completed spiritual assessment [] Other: Impact on Illness or Injury [] Angry [] Fearful [] Anxious [] Often cries [] Exhaustion [] Unable to work [] Unable to attend caodaism [] Unable to walk/stand [] Unable to read [] Unable to drive [] Unable to eat/drink [] Unable to sleep [] Unable to be with family [] Patient intubated [] Other: Summary daughters present with patient... Time spent with patient 10 min
[2021-05-31] MEDS: sodium chloride 0.9% 1,000 ML 125 ML IV (16:48)
--- NOTE | 2021-05-31 18:03 | PC.NURSE ---
Dr. Redmond rounded a few times today, if patient remains afebrile and low WBC possible pacemaker placement tomorrow, pending results.
--- NOTE | 2021-05-31 19:27 | PM.PN ---
Subjective Subjective: Pt doing better. Had cardiac cath. Has some rt groin discomfort. N/V better. Has Temp PCM. Denies CP, SOB, cough, dizziness. Vitals/I&O/Wt Last Vital Signs Temp 99.5 F 05/31/21 18:00 Pulse 92 05/31/21 18:00 Resp 24 H 05/31/21 18:00 BP 120/56 05/31/21 18:00 Pulse Ox 98 05/31/21 18:00 05/31/21 05/31/21 05/31/21 06:59 14:59 22:59 Intake Total 645.974 / 306.529 8484.75 / 1684.724 Output Total 325 / 1825 800 / 800 Balance -325 / -1665 645.974 / 645.974 238.75 / 884.724 Weight last 48 hrs Weight 74.843 kg Physical Exam Const: OTHER: NAD Resp: OTHER: BS+, CTA Cardio: OTHER: S1S2, RRR, Mur (-) GI: OTHER: Soft, NT, BS+ Extremity: OTHER: Edema+ Neuro: OTHER: A&Ox4 non focal Skin: OTHER: Rt groin dressing dry Urinary Catheter Management: Castellanos: Cath Placed During This Visit: yes Reason for Continuing Indwelling Catheter: Accurate Measurement of Urinary Output in Critically Ill Patients Urinary Catheter Date of Insertion: 05/29/21 Urinary Catheter Time of Insertion: 23:05 Data : 06/02/21 02:59 06/02/21 02:59 Micro: Microbiology 05/30/21 18:24 Blood Culture - Preliminary Blood NEGATIVE TO DATE 05/30/21 18:19 Blood Culture - Preliminary Blood NEGATIVE TO DATE 05/30/21 19:35 MRSA Culture - Final Nose A&P Assessment and plan (1) Bradycardia: due to Complete Heart Block Status: Acute (2) Hypertension: stable Status: Acute Qualifiers: Hypertension type: essential hypertension Qualified Code(s): I10 - Essential (primary) hypertension (3) Complete heart block: Temp PCM. RRR Status: Acute (4) NSTEMI (non-ST elevated myocardial infarction): stable Status: Acute (5) Hyperlipidemia: Status: Acute Plan Patient has presented with complete heart block, confusion and not feeling well.? She was complaining of chest pressure and indigestion through the day.? Initial troponin was elevated. Patient had successful placement of TVP last night. Pacing at 70 bpm. LHC did not show significant CAD. Prior stents were patent. Plan for permanent pacemaker placement in 1-2 days once infection is ruled out We will continue aspirin and Brilinta Requiring minimal support from the Vent. Plan for extubation today. Repeat echocardiogram was of limited quality and showed mildly reduced LV function. Thank you for involving us with care of this patient.? We will continue to follow.? Please call with questions. Attestations Medical Necessity Statement*: Requires further hospitalization for management of respiratory failure, post extubation, resolving cardiogenic shock, complete heart block requiring pacemaker implantation Time Spent in Patient Care: 25 min Critical Care Time: 10 min Coding Level of Care Code Acute Band Aid Machine Operator for [facility] Fwd Diagnoses Bradycardia R00.1 Hypertension I10 Hypertension type: essential hypertension Complete heart block I44.2 NSTEMI (non-ST elevated myocardial infarction) I21.4 Hyperlipidemia E78.5
[2021-05-31] MEDS: atorvastatin 40 mg Tablet 20 MG PO (20:23)
[2021-06-01] VITALS (67 sets, daily range): BP systolic 92–157; BP diastolic 46–81; PULSE 75–107; RESP 15–31; TEMP 36.8–37.4; O2SAT 74–100
[2021-06-01] MEDS: sodium chloride 0.9% 1,000 ML 125 ML IV ×3 (01:04→16:32)
[2021-06-01] MEDS: piperacillin-tazobactam 3.375 GM in sodium chloride 0.9% (plus) 50 ML IV ×3 (02:04→18:01)
[2021-06-01 06:05] LABS: Basophils % 0.3 %; Hematocrit 30.1 % (37.0-47.0); Hemoglobin 9.8 g/dL (11.5-15.3); Lymphocytes # 0.8 10^3/uL (0.8-4.8); Lymphocytes % 7.4 %; Mean Corpuscular HGB Conc 32.6 g/dL (30.0-36.0); Mean Corpuscular Hemoglobin 31.4 pg (28.0-34.0); Mean Corpuscular Volume 96.5 fl (81-99); Mean Platelet Volume 11.5 fL (7.4-10.4); Monocytes # 0.9 10^3/uL (0.2-0.9); Monocytes % 7.7 %; Neutrophils % 84.2 %; Nucleated Red Blood Cells % 0 %; Platelet Count 140 10^3/cmm (130-400); Red Blood Count 3.12 10^6/uL (4.1-5.3); Red Cell Distribution Width 14.3 % (12.1-15.1); White Blood Count 11.3 10^3/uL (4.0-10.0)
[2021-06-01 06:33] LABS: Anion Gap 12.8 (5-19); Blood Urea Nitrogen 16 mg/dL (8-23); Carbon Dioxide 20 mmol/L (22-29); Chloride 103 mmol/L (98-107); Glucose 117 mg/dL (65-115); Osmolality Calculated 276 mOsm/kg (285-295); Potassium 3.8 mmol/L (3.5-5.1); Sodium 132 mmol/L (136-145)
[2021-06-01] MEDS: levETIRAcetam 500 mg Tablet PO ×2 (08:09→17:11)
[2021-06-01] MEDS: pantoprazole DR 40 mg Tablet PO ×2 (08:09→17:11)
[2021-06-01] MEDS: aspirin 81 mg EC Tablet PO (08:09)
[2021-06-01] MEDS: predniSONE 1 mg Tablet 2 MG PO (08:09)
[2021-06-01] MEDS: enoxaparin 30 mg/0.3 mL Syringe SUBCUT (09:14)
--- NOTE | 2021-06-01 09:14 | PC.NURSE ---
Dr. Redmond rounded this morning and decided to wait until possibly tomorrow to insert permanent pacemaker due to WBC still being slightly elevated.
[2021-06-01] MEDS: ondansetron 2 mg/ML SDV 2 mL 4 MG IVP (09:18)
--- NOTE | 2021-06-01 09:33 | PC.NURSE ---
Patient reports nausea during breakfast and family asked for basin because patient was going to get sick, witnessed patient spitting eggs out in basin. Patient stated eggs were dry . PRN zofran given for nausea.
--- NOTE | 2021-06-01 09:46 | PM.PN ---
Subjective Subjective: Patient is feeling okay. This morning she had a temp of 99.4. The white cell count is coming down. Telemetry shows mostly sinus rhythm with a first-degree AV block. Couple of times she had ventricular pacing for couple of beats. She is off the IV pressors Medications: Medication Review Details: Current Medications Acetaminophen (Acetaminophen 325 Mg Tablet) 650 mg PO Q6H PRN PRN Reason: Mild/Mod Pain Or Temp >/= 101 Last Admin: 05/31/21 20:24 Dose: 650 mg Documented by: Aspirin (Aspirin 81 Mg Ec Tablet) 81 mg PO DAILY [facility] Last Admin: 06/01/21 08:09 Dose: 81 mg Documented by: Atorvastatin Calcium (Atorvastatin 40 Mg Tablet) 20 mg PO BEDTIME [facility] Last Admin: 05/31/21 20:23 Dose: 20 mg Documented by: Enoxaparin Sodium (Enoxaparin 30 Mg/0.3 Ml Syringe) 30 mg SUBCUT Q24H [facility] Last Admin: 06/01/21 09:14 Dose: 30 mg Documented by: Piperacillin Sod/Tazobactam (Sod 3.375 gm/ Sodium Chloride) 50 mls @ 12.5 mls/hr IV Q8H [facility]; Protocol Last Infusion: 06/01/21 06:10 Dose: Infused Documented by: Norepinephrine Bitartrate 4 mg (/ Dextrose) 254 mls @ 0 mls/hr IV .Q0M [facility]; Protocol Last Titration: 05/31/21 10:02 Dose: 0 mcg/min, 0 mls/hr Documented by: Sodium Chloride (Sodium Chloride 0.9%) 1,000 mls @ 125 mls/hr IV .Q8H [facility] Last Admin: 06/01/21 08:45 Dose: 125 mls/hr Documented by: Levetiracetam (Levetiracetam 500 Mg Tablet) 500 mg PO BID [facility] Last Admin: 06/01/21 08:09 Dose: 500 mg Documented by: Ondansetron HCl (Ondansetron 2 Mg/Ml Sdv 2 Ml) 4 mg IVP Q8H PRN PRN Reason: vomiting, or N/V if npo Last Admin: 06/01/21 09:18 Dose: 4 mg Documented by: Pantoprazole Sodium (Pantoprazole Dr 40 Mg Tablet) 40 mg PO BID [facility] Last Admin: 06/01/21 08:09 Dose: 40 mg Documented by: Prednisone (Prednisone 1 Mg Tablet) 2 mg PO DAILY [facility] Last Admin: 06/01/21 08:09 Dose: 2 mg Documented by: Trazodone HCl (Trazodone 50 Mg Tablet) 25 mg PO BEDTIME PRN PRN Reason: SLEEP Vitals/I&O/Wt Last Vital Signs Temp 99.4 F 06/01/21 08:15 Pulse 82 06/01/21 08:15 Resp 23 H 06/01/21 08:15 BP 141/54 06/01/21 08:15 Pulse Ox 99 06/01/21 08:15 05/31/21 06/01/21 06/01/21 22:59 06:59 14:59 Intake Total 1088.75 / 2580.913 8986 / 2784.724 1020.417 / 1020.417 Output Total 1050 / 1050 250 / 1300 Balance 38.75 / 684.724 800 / 8862.943 0833.417 / 1020.417 Physical Exam Narrative: GENERAL: The patient is alert and oriented times three. Not in any acute distress.? Appears to be somewhat HEENT: No significant pallor, icterus or lymphadenopathy.Oral cavity: There are no mucous membrane lesions. NECK: Trachea appears to be central. No masses noted. No JVD or thyromegaly appreciated. RESPIRATORY: Chest is symmetrical. No intercostals muscle retraction or any accessory muscle activation. There is no chest wall tenderness. Breath sounds are heard bilaterally. No rales or rhonchi heard. No evidence of any consolidation. BREASTS: Deferred. HEART: The first heart sound is variable.? No significant murmurs.? No pericardial rub. Abdomen. No ? distention. No tenderness. No organomegaly appreciated.? Bowel sounds are normally heard. : Deferred. RECTAL: Deferred. LYMPHATIC: No lymphadenopathy noted in the neck or groin. EXTREMITIES: No edema or cyanosis. No clubbing.? Peripheral pulses are palpated in fairly good volume and amplitude MUSCULOSKELETAL: No acute joint deformities or swelling SKIN: There are no significant rashes or ecchymosis NEUROPSYCHIATRIC: The patient is alert and oriented x3. Appears to be in a good mood. No tremors or rigidity noted. Urinary Catheter Management: Castellanos: Cath Placed During This Visit: yes Reason for Continuing Indwelling Catheter: Accurate Measurement of Urinary Output in Critically Ill Patients Urinary Catheter Date of Insertion: 05/29/21 Urinary Catheter Time of Insertion: 23:05 Data : 06/01/21 05:56 06/01/21 05:56 Micro: Microbiology 05/30/21 18:24 Blood Culture - Preliminary Blood NEGATIVE TO DATE 05/30/21 18:19 Blood Culture - Preliminary Blood NEGATIVE TO DATE 05/30/21 19:35 MRSA Culture - Final Nose A&P Assessment and plan (1) Complete heart block: The patient seems to have intermittent high degree AV block. Currently she seems to be in sinus rhythm .she requires a permanent pacemaker implantation. Currently she has the temporary transvenous pacemaker. She still has a low-grade fever but the white cell count is coming down. Blood cultures has no growth so far. Urine culture grew only contaminants. Status: Acute (2) Elevated troponin: Most likely a type II myocardial infarction. Apparently the patient had the cardiac arrest him to reveal no no significant coronary lesions. Status: Acute (3) ASHD (arteriosclerotic heart disease): Status post cardiac catheterization. Found to have patent stents. At this point, patient may not require any further intervention. Status: Acute (4) Elevated white blood cell count: Source of infection is not clear. Status: Acute (5) Low grade fever: As mentioned above. Blood culture final report is pending Status: Acute Plan We will consider the permanent basement dilation, once the fever has subsided and the patient has no evidence of infection. We would like to make sure that she remains afebrile for at least 24 hours. Attestations Medical Necessity Statement*: Patient requires continued hospital stay for close monitoring and further management Coding Level of Care Code Acute Pharmacy Resident for g Fwd History Detailed Exam Detailed Medical Decision Making Moderate Complexity Diagnoses Complete heart block I44.2 Elevated troponin R77.8 ASHD (arteriosclerotic heart disease) I25.10 Elevated white blood cell count D72.829 Low grade fever R50.9
--- NOTE | 2021-06-01 11:28 | PM.PN ---
Subjective Subjective: Doing little better. Less nausea. Some rt groin discomfort. Denies CP, SOB, dizziness, cough.Lt ar soreness much less Vitals/I&O/Wt Last Vital Signs Temp 98.7 F 06/02/21 06:00 Pulse 109 H 06/02/21 10:00 Resp 23 H 06/02/21 10:00 BP 142/58 06/02/21 10:00 Pulse Ox 92 06/02/21 09:00 06/01/21 06/02/21 06/02/21 22:59 06:59 14:59 Intake Total 1262.917 / 2453.334 1050 / 3503.334 1000 / 1000 Output Total 150 / 150 225 / 375 Balance 1112.917 / 2303.334 825 / 3128.334 1000 / 1000 Physical Exam Narrative: NAD CVS: S1S2, RRR, Mur (-) Resp: CTA Abd soft, NT, BS+ Edema trace DIRECTOR OF MATERIALS MANAGEMENT: A&Ox4 Skin: lt deltoid area bruised Urinary Catheter Management: Castellanos: Cath Placed During This Visit: yes Reason for Continuing Indwelling Catheter: Accurate Measurement of Urinary Output in Critically Ill Patients Urinary Catheter Date of Insertion: 05/29/21 Urinary Catheter Time of Insertion: 23:05 Data : 06/02/21 02:59 06/02/21 02:59 A&P Assessment and plan (1) Acute blood loss anemia: Status: Acute (2) Elevated white blood cell count: Status: Acute (3) Hyponatremia: Status: Acute (4) Complete heart block: Status: Acute (5) Hypertension: Status: Acute Qualifiers: Hypertension type: essential hypertension Qualified Code(s): I10 - Essential (primary) hypertension (6) Bradycardia: Status: Acute (7) ASHD (arteriosclerotic heart disease): Status: Acute Plan Patient has presented with complete heart block, confusion and not feeling well.? She was complaining of chest pressure and indigestion through the day.? Initial troponin was elevated. Patient had successful placement of TVP last night. Pacing at 70 bpm. LHC did not show significant CAD. Prior stents were patent. Plan for permanent pacemaker placement in 1-2 days once infection is ruled out We will continue aspirin and Brilinta Requiring minimal support from the Vent. Plan for extubation today. Repeat echocardiogram was of limited quality and showed mildly reduced LV function. Thank you for involving Pt scheduled to have permanent PCM placed F/u H/H. due to her Ac anemia which is most likely caused by the recent hematoma over her lt deltoid area and partially from possibly from Zosyn. Pt is asymptomatic however. Leukocytosis improving. Due to Prednisone Attestations Medical Necessity Statement*: Requires further hospitalization for management of respiratory failure, post extubation, resolving cardiogenic shock, complete heart block requiring pacemaker implantation. Has temporay Pacemaker but will need Permanent Pacemaker sheduled for placement tomorrow Coding Level of Care Code Acute Patient Clerical Assistant for Chg Fwd Diagnoses Acute blood loss anemia D62 Elevated white blood cell count D72.829 Hyponatremia E87.1 Complete heart block I44.2 Hypertension I10 Hypertension type: essential hypertension Bradycardia R00.1 ASHD (arteriosclerotic heart disease) I25.10
--- NOTE | 2021-06-01 14:53 | PC.NURSE ---
Patient resting well after bed bath and linen change.
[2021-06-01] MEDS: atorvastatin 40 mg Tablet 20 MG PO (20:25)
[2021-06-02] VITALS (25 sets, daily range): BP systolic 88–154; BP diastolic 53–87; PULSE 70–131; RESP 17–35; TEMP 36.9–37.3; O2SAT 91–100
[2021-06-02] MEDS: sodium chloride 0.9% 1,000 ML 125 ML IV ×3 (00:33→22:17)
[2021-06-02] MEDS: piperacillin-tazobactam 3.375 GM in sodium chloride 0.9% (plus) 50 ML IV ×3 (02:21→18:45)
[2021-06-02 03:25] LABS: Basophils % 0.2 %; Hematocrit 28.6 % (37.0-47.0); Hemoglobin 9.1 g/dL (11.5-15.3); Lymphocytes % 8.3 %; Mean Corpuscular HGB Conc 31.8 g/dL (30.0-36.0); Mean Corpuscular Hemoglobin 31.2 pg (28.0-34.0); Mean Corpuscular Volume 97.9 fl (81-99); Mean Platelet Volume 12.3 fL (7.4-10.4); Monocytes # 0.9 10^3/uL (0.2-0.9); Monocytes % 7.7 %; Neutrophils # 9.78 10^3/uL (1.8-7.7); Neutrophils % 83.2 %; Nucleated Red Blood Cells % 0 %; Platelet Count 159 10^3/cmm (130-400); Red Blood Count 2.92 10^6/uL (4.1-5.3); Red Cell Distribution Width 14.4 % (12.1-15.1); White Blood Count 11.8 10^3/uL (4.0-10.0)
[2021-06-02 03:47] LABS: Anion Gap 11.6 (5-19); Blood Urea Nitrogen 13 mg/dL (8-23); Calcium 8.1 mg/dL (8.5-10.5); Carbon Dioxide 19 mmol/L (22-29); Chloride 106 mmol/L (98-107); Glucose 125 mg/dL (65-115); Osmolality Calculated 278 mOsm/kg (285-295); Potassium 3.6 mmol/L (3.5-5.1); Sodium 133 mmol/L (136-145)
--- NOTE | 2021-06-02 09:27 | PM.PN ---
Subjective Subjective: The patient is remaining afebrile. Has not had any chest pain, palpitation or dizziness. No unusual shortness of breath. No cough. Telemetry shows sinus rhythm/tachycardia. She had ventricular pacing couple of times for couple of beats. No other specific symptoms. Medications: Medication Review Details: Current Medications Acetaminophen (Acetaminophen 325 Mg Tablet) 650 mg PO Q6H PRN PRN Reason: Mild/Mod Pain Or Temp >/= 101 Last Admin: 05/31/21 20:24 Dose: 650 mg Documented by: Aspirin (Aspirin 81 Mg Ec Tablet) 81 mg PO DAILY [facility] Last Admin: 06/01/21 08:09 Dose: 81 mg Documented by: Atorvastatin Calcium (Atorvastatin 40 Mg Tablet) 20 mg PO BEDTIME [facility] Last Admin: 06/01/21 20:25 Dose: 20 mg Documented by: Enoxaparin Sodium (Enoxaparin 40 Mg/0.4 Ml Syringe) 40 mg SUBCUT Q24H SUNNY Piperacillin Sod/Tazobactam (Sod 3.375 gm/ Sodium Chloride) 50 mls @ 12.5 mls/hr IV Q8H [facility]; Protocol Last Infusion: 06/02/21 06:29 Dose: Infused Documented by: Norepinephrine Bitartrate 4 mg (/ Dextrose) 254 mls @ 0 mls/hr IV .Q0M [facility]; Protocol Last Titration: 05/31/21 10:02 Dose: 0 mcg/min, 0 mls/hr Documented by: Sodium Chloride (Sodium Chloride 0.9%) 1,000 mls @ 125 mls/hr IV .Q8H [facility] Last Admin: 06/02/21 00:33 Dose: 125 mls/hr Documented by: Levetiracetam (Levetiracetam 500 Mg Tablet) 500 mg PO BID [facility] Last Admin: 06/01/21 17:11 Dose: 500 mg Documented by: Ondansetron HCl (Ondansetron 2 Mg/Ml Sdv 2 Ml) 4 mg IVP Q8H PRN PRN Reason: vomiting, or N/V if npo Last Admin: 06/01/21 09:18 Dose: 4 mg Documented by: Pantoprazole Sodium (Pantoprazole Dr 40 Mg Tablet) 40 mg PO BID [facility] Last Admin: 06/01/21 17:11 Dose: 40 mg Documented by: Prednisone (Prednisone 1 Mg Tablet) 2 mg PO DAILY [facility] Last Admin: 06/01/21 08:09 Dose: 2 mg Documented by: Trazodone HCl (Trazodone 50 Mg Tablet) 25 mg PO BEDTIME PRN PRN Reason: SLEEP Vitals/I&O/Wt Last Vital Signs Temp 98.7 F 06/02/21 06:00 Pulse 77 06/02/21 06:00 Resp 22 H 06/02/21 06:00 BP 128/65 06/02/21 06:00 Pulse Ox 99 06/02/21 06:00 06/01/21 06/02/21 06/02/21 22:59 06:59 14:59 Intake Total 1262.917 / 2453.334 1050 / 3503.334 Output Total 150 / 150 225 / 375 Balance 1112.917 / 2303.334 825 / 3128.334 Physical Exam Narrative: GENERAL: The patient is alert and oriented times three. Not in any acute distress.? Appears to be somewhat HEENT: Mild pallor, No icterus or lymphadenopathy.Oral cavity: There are no mucous membrane lesions. NECK: Trachea appears to be central. No masses noted. No JVD or thyromegaly appreciated. RESPIRATORY: Chest is symmetrical. No intercostals muscle retraction or any accessory muscle activation. There is no chest wall tenderness. Breath sounds are heard bilaterally. No rales or rhonchi heard. No evidence of any consolidation. BREASTS: Deferred. HEART: The first heart sound is variable.? No significant murmurs.? No pericardial rub. Abdomen. No ? distention. No tenderness. No organomegaly appreciated.? Bowel sounds are normally heard. : Deferred. RECTAL: Deferred. LYMPHATIC: No lymphadenopathy noted in the neck or groin. EXTREMITIES: Has diffuse ecchymosis and swelling in the left upper extremity. Early she fell on the left side MUSCULOSKELETAL: No acute joint deformities or swelling SKIN: She has diffuse ecchymosis in the left upper arm. NEUROPSYCHIATRIC: The patient is alert and oriented x3. Appears to be in a good mood. No tremors or rigidity noted. Urinary Catheter Management: Castellanos: Cath Placed During This Visit: yes Reason for Continuing Indwelling Catheter: Accurate Measurement of Urinary Output in Critically Ill Patients Urinary Catheter Date of Insertion: 05/29/21 Urinary Catheter Time of Insertion: 23:05 Data : 06/02/21 02:59 03/16/22 02:59 A&P Assessment and plan (1) Complete heart block: The patient seems to have intermittent high degree AV block. Currently she seems to be in sinus rhythm .she requires a permanent pacemaker implantation. Currently she has the temporary transvenous pacemaker. Since she is remaining afebrile with no bacterial growth in the cultures, it may be appropriate to go ahead with a permanent pacemaker. Discussed with the primary attending, Dr. Powers Status: Acute (2) Elevated troponin: Most likely a type II myocardial infarction. Apparently the patient had the cardiac catheterization which revealed no significant coronary lesions Status: Acute (3) ASHD (arteriosclerotic heart disease): Status post cardiac catheterization. Found to have patent stents. At this point, patient may not require any further intervention. Status: Acute (4) Elevated white blood cell count: This could be related to the steroid use. Her white cell count has come down from 15.8-11.8. Status: Acute (5) Low grade fever: Patient is currently afebrile most of 48 hours. Cultures are negative so far. Status: Acute (6) Acute blood loss anemia: She has no active source of bleeding. Most likely this is from the hemodilution and frequent blood drawing. Status: Acute Plan Since there is no evidence of any active infection at this time, it may be appropriate to go ahead with the permanent pacer implantation. Since she is requiring the pacing only once in a great while, we may do a single-chamber pacemaker. This also may reduce the chance of infection. Discussed with Dr. Powers who agreed with this plan. She has no evidence of any active bleed. Attestations Medical Necessity Statement*: Patient requires continued hospital stay for close monitoring and further management Coding Level of Care Code Acute Overnight Associate for Chg Fwd History Detailed Exam Detailed Medical Decision Making Moderate Complexity Diagnoses Complete heart block I44.2 Elevated troponin R77.8 ASHD (arteriosclerotic heart disease) I25.10 Elevated white blood cell count D72.829 Low grade fever R50.9 Acute blood loss anemia D62
[2021-06-02] MEDS: pantoprazole DR 40 mg Tablet PO ×2 (09:43→17:04)
[2021-06-02] MEDS: predniSONE 1 mg Tablet 2 MG PO (09:43)
[2021-06-02] MEDS: levETIRAcetam 500 mg Tablet PO ×2 (09:43→17:04)
[2021-06-02] MEDS: aspirin 81 mg EC Tablet PO (09:43)
--- NOTE | 2021-06-02 10:41 | PC.SOCIAL ---
IMM update IMM updated with patient. Copy Pg 2 provided. Verbalized an understanding. Initialled, dated, timed, and placed in chart.
[2021-06-02] MEDS: LORazepam 2 mg/mL INJ 1 mL IVP (11:43)
--- NOTE | 2021-06-02 11:56 | PM.PN ---
Subjective Subjective: Nausea improved. Doing much better. Denies, CP, SOB, headache, dizziness. No h/o hematuria, hemetemesis, GI bleed. Her bruising over lt arm improving Vitals/I&O/Wt Last Vital Signs Temp 98.7 F 06/02/21 06:00 Pulse 109 H 06/02/21 10:00 Resp 23 H 06/02/21 10:00 BP 142/58 06/02/21 10:00 Pulse Ox 92 06/02/21 09:00 06/01/21 06/02/21 06/02/21 22:59 06:59 14:59 Intake Total 1262.917 / 2453.334 1050 / 3503.334 1000 / 1000 Output Total 150 / 150 225 / 375 Balance 1112.917 / 2303.334 825 / 3128.334 1000 / 1000 Physical Exam Narrative: NAD CVS: S1S2, RRR, Mur (-) Resp: CTA Abd soft, NT, BS+ Edema trace RADIATION ONCOLOGY MANAGER: A&Ox4 Skin: lt deltoid area bruise Urinary Catheter Management: Castellanos: Cath Placed During This Visit: yes Reason for Continuing Indwelling Catheter: Accurate Measurement of Urinary Output in Critically Ill Patients Urinary Catheter Date of Insertion: 05/29/21 Urinary Catheter Time of Insertion: 23:05 Data : 06/02/21 02:59 06/02/21 02:59 A&P Assessment and plan (1) Acute blood loss anemia: Status: Acute (2) Elevated troponin: Status: Acute (3) Elevated white blood cell count: Status: Acute (4) Complete heart block: Status: Acute (5) Seizure disorder: Status: Acute (6) Hypertension: Status: Acute Qualifiers: Hypertension type: essential hypertension Qualified Code(s): I10 - Essential (primary) hypertension (7) Bradycardia: Status: Acute (8) ASHD (arteriosclerotic heart disease): Status: Acute Plan Patient has presented with complete heart block, confusion and not feeling well.? She was complaining of chest pressure and indigestion through the day.? Initial troponin was elevated. Patient had successful placement of TVP last night. Pacing at 70 bpm. LHC did not show significant CAD. Prior stents were patent. Plan for permanent pacemaker placement in 1-2 days once infection is ruled out We will continue aspirin and Brilinta Requiring minimal support from the Vent. Plan for extubation today. Repeat echocardiogram was of limited quality and showed mildly reduced LV function. Thank you for involving today Pt scheduled to have permanent PCM placed F/u H/H. due to her Ac anemia which is most likely caused by the recent hematoma over her lt deltoid area and partially from possibly from Zosyn. No other signs of bleeding source. Pt is asymptomatic however. Leukocytosis improving. Due to Prednisone. Rosario C/S neg. On Abx. Afebrile Attestations Medical Necessity Statement*: Requires further hospitalization for management of respiratory failure, post extubation, resolving cardiogenic shock, complete heart block requiring pacemaker implantation. Has temporay Pacemaker but will need Permanent Pacemaker sheduled for placement today Time Spent in Patient Care: 40 min Critical Care Time: 10 min Coding Level of Care Code Acute Marble Setter Helper for Rosa Fwd Diagnoses Acute blood loss anemia D62 Elevated troponin R77.8 Elevated white blood cell count D72.829 Complete heart block I44.2 Seizure disorder G40.909 Hypertension I10 Hypertension type: essential hypertension Bradycardia R00.1 ASHD (arteriosclerotic heart disease) I25.10
--- NOTE | 2021-06-02 11:58 | PC.CHAP ---
Pastoral Care Encounter/Spiritual Assessment Type of Contact [] Declined supervisor tile and mottle visit [] Patient/Family/Request visit [] Outpatient visit [] Follow-up visit [] Physician referral [] Code/Alert [x] Routine visit [] Staff referral [] Actively dying [] Patient sleeping [x] Family support [] [] Out of room [] Palliative care [] [] Receiving care in room [] Pre-surgical visit [] Trauma [] Long length of stay [x] ICU visit [] Other: Relational/Emotional Strength [] Patient feels connected with others/family/visitors/staff [] Distress [] Loneliness/isolation [] Abandonment Spirituality of Patient [] Person of Winter [] Attends Protestant of their Winter [] Believes in Prayer [] Reads Bible or Scientology materials [] There are Spiritual issues to be addressed Display Screen Fabricator Interventions [x] Prayer [x] Active listening [x] Non-anxious presence [x] Spiritual/emotional support [] Crisis/trauma care [] Spiritual counseling [] Bereavement support [] Provided bereavement packet [] Provided Bible/devotional materials [] Provided toy/stuffed animal, coloring book to patient or family member [] Provided Communion [] Anointing/[place] [] Salvation [x] Completed spiritual assessment [] Other: Impact on Illness or Injury [] Angry [] Fearful [] Anxious [] Often cries [] Exhaustion [] Unable to work [] Unable to attend temple [] Unable to walk/stand [] Unable to read [] Unable to drive [] Unable to eat/drink [] Unable to sleep [] Unable to be with family [] Patient intubated [] Other: Summary daughters present... patient getting pace maker... Time spent with patient 15 min
--- NOTE | 2021-06-02 12:06 | PC.NURSE ---
Patient out with rn labor delivery at this time
--- NOTE | 2021-06-02 15:08 | PC.NURSE ---
patient back from cardiac cath rn at this time
--- NOTE | 2021-06-02 17:32 | XRR_ITS ---
PROCEDURE INFORMATION: Exam: XR Chest Exam date and time: 06/02/2021 5:32 PM Age: 80 years old Clinical indication: Device placement; Cardiac pacemaker placement or adjustment; Additional info: Post pacemaker, please make sure that all the extraneous leads are off the TECHNIQUE: Imaging protocol: XR of the chest. Views: 1 view. COMPARISON: CR (CHEST, ) 05/30/2021 12:41 PM FINDINGS: Tubes, catheters and devices: Pacemaker. Lungs: Mild pulmonary vascular congestion. Patchy bilateral left greater than right airspace infiltrates and/or pulmonary edema. Pleural spaces: Unremarkable. No pleural effusion. No pneumothorax. Heart/Mediastinum: Cardiomegaly. Bones/joints: Unremarkable. XR/XR chest 1V portable [id number] IMPRESSION: 1. Cardiomegaly. 2. Mild pulmonary vascular congestion. 3. Patchy bilateral left greater than right airspace infiltrates and/or pulmonary edema.
--- NOTE | 2021-06-02 20:17 | P.OP_ITS ---
Operative Report Date of procedure: June 02, 2021 Pre-op diagnosis: Preop Diagnosis NSTEMI/ Complete heart block Procedure: LOCATION: Cardiac catheterization lab PREOPERATIVE DIAGNOSES: Intermittent high degree AV block POSTOPERATIVE DIAGNOSES: The same COMPLICATIONS: None ESTIMATED BLOOD LOSS: Around 5 milliliters. BRIEF HISTORY: This is an 80-year-old white female who was initially admitted to hospital with complaints of nausea vomiting diarrhea and high degree AV block. Her heart rate was in the 30s. She had a temporary pacemaker insertion to the right groin. She was admitted to the ICU for close monitoring and management. She required intermittent ventricular pacing. For further management of her condition, she required a permanent pacemaker implantation. She had elevated white cell count and low-grade fever. But for the last 48 hours or so, she has not had any fever. Her white cell count came down significantly. At this point, it was thought to be appropriate to go ahead with the permanent pacer implantation. A single chamber permanent pacemaker implantation was recommended for further management of her condition. Because of the recent infection, chronic steroid use and anemia tests are to be appropriate to go ahead with a single-chamber device to minimize the chance of infection. She was not a candidate for Micra in view of her age and chronic steroid use. The procedure was explained to the patient in detail with the risks and benefits. The risks of bleeding, hematoma, vascular injury, infection, pneumothorax, myocardial perforation and other concomitant complications were explained in detail, which the patient and her family understood well and consented to proceed. PROCEDURE DESCRIPTION: The patient was brought to the Cardiac Catheterization Lab. The left and the right side of the neck and the subclavian area were cleaned and draped in a sterile fashion. 1% Xylocaine was used as the local anesthetic agent. Left subclavian venogram was performed by injecting 20 milliliters of Omnipaque through the left antecubital vein. A left subclavian venous access was obtained using an 18-gauge access needle, under venographic guidance. . A two-inch long incision was made 2.0 centimeters below the midclavicular region. By sharp and blunt dissection, a pacemaker pocket was made. Over the guidewire, a 7-Kyrgyz venous sheath with dilator was advanced. The venous dilator and the guidewire were taken out. A screw-in ventricular lead was advanced through the venous sheath and was positioned towards the right ventricle. Under fluoroscopic guidance, the ventricular lead was positioned toward the right ventricular apex. Good pacing and sensing thresholds were obtained. The lead was secured to the endocardium by advancing the helix. The stability of the lead was tested by gentle twisting movements and also by asking the patient to take some deep breaths and cough. The venous sheath was peeled off, at this time. The lead was secured to the pectoralis fascia, by suturing with 1-0 Surgilon. The pacemaker pocket was copiously irrigated with vancomycin solution. Complete hemostasis was achieved. Sponge counts were confirmed. The leads were attached to a Medtronic generator. The leads were positioned behind the generator and the generator was attached to the pectoralis fascia after placing an antibiotic sleeve TYRX by suturing with 0-Surgilon. The pocket was closed in layers. Skin was approximated using 4-0 Vicryl. IMPLANTED DEVICES: VENTRICULAR LEAD: Model number: [id number]/[id number] Serial number: [id number] Make: [employer] GENERATOR Brand:Azurel XT SR MRI SureScan Model number: [id number] Serial number: [id number] Make: Medtronic IMPLANTATION DATA: With the pacing system analyzer, the R wave sensing was 17 millivolts with a lead impedance of 589 and a pacing threshold was 0.875 volts at 0.5 milliseconds. Through the device, the R-wave sensing was 17.3 millivolts with a lead impedance of 608 and a pacing threshold was 1.0 volts at 0.4 milliseconds. The pacemaker was set for VVI mode with a rate of 60 bpm. The ventricular output of 3.5 V, pulse width of 0.4 ms and sensitivity of 0.9 mV TYRX REF [facility] 6122 Lot #[id number] Make- Medtronic (We used the TYRX because of the patient's a recent infection, anemia, long-term steroid use-high risk for recurrent infection) A pressure dressing was applied over the pacemaker site. The patient was transferred to the Medical Floor in stable condition. A chest x-ray was ordered to confirm the lead position and also to rule out any pneumothorax.
[2021-06-02] MEDS: atorvastatin 40 mg Tablet 20 MG PO (21:23)
[2021-06-02] MEDS: acetaminophen 325 mg Tablet 650 MG PO (21:23)
[2021-06-02] MEDS: trazodone 50 mg Tablet 25 MG PO (21:52)
[2021-06-03] VITALS (22 sets, daily range): BP systolic 79–145; BP diastolic 43–84; PULSE 70–114; RESP 16–31; TEMP 37.1–38.2; O2SAT 85–100
[2021-06-03] MEDS: lanolin oint 7 gm 1 APPLIC TOPICAL (02:13)
[2021-06-03] MEDS: piperacillin-tazobactam 3.375 GM in sodium chloride 0.9% (plus) 50 ML IV ×3 (02:13→17:59)
--- NOTE | 2021-06-03 06:00 | ECG_ITS ---
[facility] Test Date: 2021-06-03 Pat Name: Bryanna Mark Department: Room: ICU10 Gender: Female Electrical Integrator: : 1940 Requested By: Rojas Redmond Order Number: [id number] Deidre MD: Rojas Redmond M.D. Measurements Intervals Abie Rate: 94 P: 79 ME: 210 QRS: -62 QRSD: 136 T: 114 QT: 392 QTc: 492 Interpretive Statements Atrial fibrillation with rapid ventricular rate. Intraventricular conduction delay ACUTE IN Compared to ECG 05/31/2021 01:45:40 First degree AV block now present Myocardial infarct finding now present Left ventricular hypertrophy no longer present ST (T wave) deviation no longer present Electronically Signed On 06-03-2021 21:59:46 CDT by Rojas Redmond M.D. [email or web address]
--- NOTE | 2021-06-03 07:33 | PC.OT ---
OT evaluation orders received. Hold OT evaluation due to bed rest orders x24 hours.
[2021-06-03] MEDS: enoxaparin 40 mg/0.4 mL Syringe SUBCUT (08:16)
[2021-06-03] MEDS: aspirin 81 mg EC Tablet PO (08:16)
[2021-06-03] MEDS: predniSONE 1 mg Tablet 2 MG PO (08:16)
[2021-06-03] MEDS: pantoprazole DR 40 mg Tablet PO ×2 (08:16→17:50)
[2021-06-03] MEDS: levETIRAcetam 500 mg Tablet PO ×2 (08:16→17:50)
[2021-06-03] MEDS: sodium chloride 0.9% 1,000 ML 125 ML IV (08:25)
[2021-06-03] MEDS: potassium chloride oral liq 20 mEq/15 mL UDC PO (09:33)
[2021-06-03] MEDS: FUROsemide 10 mg/mL SDV 4mL 40 MG IVP (09:33)
--- NOTE | 2021-06-03 09:58 | P.PN_ITS ---
Subjective Subjective: Patient is feeling okay. She was confused during the night. Denies any chest pain or shortness of breath. Her chest x-ray revealed features of CHF with a possible pneumonia. She remains afebrile. The repeat CBC from this morning is pending. She also has painful swelling of the right metatars ophalangeal joint. She had a infection of the joint which was drained in the past by her primary care provider Medications: Medication Review Details: Laboratory Last Values WBC 11.8 10^3/uL (4.0 -10.0) H 06/02/21 02:59 RBC 2.92 10^6/uL (4.1 -5.3) L 06/02/21 02:59 Hgb 9.1 g/dL (11.5-15 .3) L 06/02/21 02:59 Hct 28.6 % (37.0-47.0 ) L 06/02/21 02:59 MCV 97.9 fl (81-99) 06/02/21 02:59 MCH 31.2 pg (28.0-34. 0) 06/02/21 02:59 MCHC 31.8 g/dL (30.0-3 6.0) 06/02/21 02:59 RDW 14.4 % (12.1-15.1 ) 06/02/21 02:59 Plt Count 159 10^3/cmm (130 -400) 06/02/21 02:59 MPV 12.3 fL (7.4-10.4 ) H 06/02/21 02:59 Neut % (Auto) 83.2 % 06/02/21 02:59 Lymph % (Auto) 8.3 % 06/02/21 02:59 Guadalupe % (Auto) 7.7 % 06/02/21 02:59 Eos % (Auto) 0.0 % 06/02/21 02:59 Baso % (Auto) 0.2 % 06/02/21 02:59 Neut # (Auto) 9.78 10^3/uL (1.8 -7.7) H 06/02/21 02:59 Lymph # (Auto) 1.0 10^3/uL (0.8- 4.8) 06/02/21 02:59 Guadalupe # (Auto) 0.9 10^3/uL (0.2- 0.9) 06/02/21 02:59 Eos # (Auto) 0.0 10^3/uL (0.0- 0.8) 06/02/21 02:59 Baso # (Auto) 0.0 10^3/uL (0.0- 0.1) 06/02/21 02:59 Nucleated RBC % (a uto) 0 % 06/02/21 02:59 Nucleated RBCs # 0.0 /100WBC 06/02/21 02:59 PT 14.00 SECONDS (12 .1-14.9) 05/29/21 22:20 INR 1.05 (0.8-1.2) 05/29/21 22:20 APTT 30.0 SECONDS (23. 9-36.7) 05/29/21 22:20 D-Dimer 2.30 ug/mIFEU (0- 0.59) H 05/29/21 22:20 Specimen Type Arterial 05/30/21 03:04 Sample Site Radial, right 05/30/21 03:04 ABG pH 7.44 (7.35-7.45) 05/30/21 03:04 ABG pCO2 30.9 mmHg (35-45) L 05/30/21 03:04 ABG pO2 152.0 mmHg (80.0- 100.0) H 05/30/21 03:04 ABG HCO3 21.1 mmol/L (22-2 6) L 05/30/21 03:04 ABG Base Excess -2.3 mmol/L (-2.0 -2.0) L 05/30/21 03:04 Wes Test Pos 05/30/21 03:04 Hematocrit 33.7 % (37-47) L 05/30/21 03:04 O2 Delivery Device Vent 05/30/21 03:04 O2 Liters/Min 3.5 % 05/29/21 22:29 FiO2 35.0 % 05/30/21 03:04 Tidal Volume 0.35 05/30/21 03:04 PEEP 5.0 cmH20 05/30/21 03:04 Senior Linux Unix Engineer ID [email or web address] 05/30/21 03:04 Sodium 133 mmol/L (136-1 45) L 06/02/21 02:59 Potassium 3.6 mmol/L (3.5-5 .1) 06/02/21 02:59 Chloride 106 mmol/L (98-10 7) 06/02/21 02:59 Carbon Dioxide 19 mmol/L (22-29) L 06/02/21 02:59 Anion Gap 11.6 (5-19) 06/02/21 02:59 BUN 13 mg/dL (8-23) 06/02/21 02:59 Creatinine 0.9 mg/dL (0.5-0. 9) 06/02/21 02:59 GFR Calculation Not Reportable 06/02/21 02:59 Glucose 125 mg/dL (65-115 ) H 06/02/21 02:59 Estimat Average Gl ucose 108 05/31/21 04:32 Hemoglobin A1c 5.4 % (4.0-6.0) 05/31/21 04:32 Calculated Osmolal ity 278 mOsm/kg (285- 295) L 06/02/21 02:59 Calcium 8.1 mg/dL (8.5-10 .5) L 06/02/21 02:59 Phosphorus 4.5 mg/dL (2.5-4. 5) 05/29/21 22:20 Magnesium 2.0 mg/dL (1.7-2. 3) 05/31/21 04:32 Iron 110 ug/dL (37-145 ) 05/30/21 06:05 TIBC 261 mcg/dl 05/30/21 06:05 % Saturation 42.1 % (20-50) 05/30/21 06:05 Unsat Iron Binding 151 ug/dL (112-34 7) 05/30/21 06:05 Total Bilirubin 0.4 mg/dL (0.15-1 .2) 05/31/21 04:32 AST 35 U/L (0-32) H 05/31/21 04:32 ALT 24 U/L (0-33) 05/31/21 04:32 Alkaline Phosphata se 71 IU/L (35-105) 05/31/21 04:32 Creatine Kinase 212 U/L (26-192) H 05/29/21 22:20 Troponin T Gen 5 n g/L 228 ng/L (0-10) H* 05/30/21 06:05 Troponin T Baselin e 216 ng/L (0-10) H* 05/29/21 22:20 NT-Pro-B Natriuret Pep 7756 pg/mL (0-450 ) H 05/29/21 22:20 Total Protein 5.3 g/dL (6.6-8.7 ) L 05/31/21 04:32 Albumin 3.7 g/dL (3.5-5.2 ) 05/31/21 04:32 Globulin 1.6 g/dL (1.3-4.6 ) 05/31/21 04:32 Triglycerides 75 mg/dL (0-150) 05/31/21 04:32 Cholesterol 92 mg/dL (0-200) 05/31/21 04:32 LDL Cholesterol, C alc 31 mg/dL (50-129) L 05/31/21 04:32 Total VLDL Cholest miguel 15 mg/dL (0-30) 05/31/21 04:32 HDL Cholesterol 46 mg/dL (60-100) L 05/31/21 04:32 Cholesterol/HDL Ra gila 2.00 mg/dL (0.0-4 .40) 05/31/21 04:32 TSH 2.01 uIU/mL (0.27 -4.20) 05/31/21 04:32 Urine Color Yellow (Yellow) 05/29/21 23:06 Urine Appearance Clear (CLEAR) 05/29/21 23:06 Urine pH 5 (5-7) 05/29/21 23:06 Ur Specific Gravit y 1.020 (1.005-1.0 30) 05/29/21 23:06 Urine Protein Neg (Negative) 05/29/21 23:06 Urine Glucose (UA) Norm (Normal) 05/29/21 23:06 Urine Ketones Negative (Negati ve) 05/29/21 23:06 Urine Blood 2+ (Negative) H 05/29/21 23:06 Urine Nitrate Negative (Negati ve) 05/29/21 23:06 Urine Bilirubin Neg (Negative) 05/29/21 23:06 Urine Urobilinogen Norm mg/dL (Negat essence) 05/29/21 23:06 Ur Leukocyte Merari ase Negative (Negati ve) 05/29/21 23:06 Urine RBC 5-10 /hpf (0-2) H 05/29/21 23:06 Urine WBC 0-4 /hpf (0-5) H 05/29/21 23:06 Ur Squamous Epith Cells 0-4 /hpf (0-5) H 05/29/21 23:06 Amorphous Sediment 1+ /hpf 05/29/21 23:06 Urine Bacteria Trace /hpf (NONE) 05/29/21 23:06 Hyaline Casts 5-10 /lpf H 05/29/21 23:06 Ur Random Sodium 33 mmol/L 05/29/21 23:06 Ur Random Potassiu m 56 mmol/L 05/29/21 23:06 Ur Random Chloride 15 mmol/L 05/29/21 23:06 Vitals/I&O/Wt Last Vital Signs Temp 99.0 F 06/03/21 08:00 Pulse 86 06/03/21 08:00 Resp 30 H 06/03/21 08:00 BP 120/67 06/03/21 08:00 Pulse Ox 99 06/03/21 06:00 06/02/21 06/03/21 06/03/21 22:59 06:59 14:59 Intake Total 1200 / 2250 1000 / 3250 Output Total 400 / 400 300 / 700 Balance 800 / 1850 700 / 2550 Physical Exam Narrative: GENERAL: The patient is alert and oriented times three. Not in any acute distress.? Appears to be somewhat HEENT: Mild pallor, No icterus or lymphadenopathy.Oral cavity: There are no mucous membrane lesions. NECK: Trachea appears to be central. No masses noted. No JVD or thyromegaly appr eciated. RESPIRATORY: The pacemaker site has no hematoma bleeding. Few fine crackles at the bases. BREASTS: Deferred. HEART: The first heart sound is variable.? No significant murmurs.? No pericardial rub. Abdomen. No ? distention. No tenderness. No organomegaly appreciated.? Bowel sounds are normally heard. : Deferred. RECTAL: Deferred. LYMPHATIC: No lymphadenopathy noted in the neck or groin. EXTREMITIES: Has diffuse ecchymosis and swelling in the left upper extremity.? Early she fell on the left side MUSCULOSKELETAL: Diffuse swelling with redness of the right metatarsophalangeal joint SKIN: She has diffuse ecchymosis in the left upper arm. NEUROPSYCHIATRIC: The patient is alert and oriented x3. Appears to be in a good mood. No tremors or rigidity noted. Urinary Catheter Management: Castellanos: Cath Placed During This Visit: yes Reason for Continuing Indwelling Catheter: Accurate Measurement of Urinary Output in Critically Ill Patients Urinary Catheter Date of Insertion: 05/29/21 Urinary Catheter Time of Insertion: 23:05 Data : 06/03/21 09:49 06/02/21 02:59 Other Labs: Laboratory Last Values WBC 11.8 10^3/uL (4.0-10.0) H 06/02/21 02:59 RBC 2.92 10^6/uL (4.1-5.3) L 06/02/21 02:59 Hgb 9.1 g/dL (11.5-15.3) L 06/02/21 02:59 Hct 28.6 % (37.0-47.0) L 06/02/21 02:59 MCV 97.9 fl (81-99) 06/02/21 02:59 MCH 31.2 pg (28.0-34.0) 06/02/21 02:59 MCHC 31.8 g/dL (30.0-36.0) 06/02/21 02:59 RDW 14.4 % (12.1-15.1) 06/02/21 02:59 Plt Count 159 10^3/cmm (130-400) 06/02/21 02:59 MPV 12.3 fL (7.4-10.4) H 06/02/21 02:59 Neut % (Auto) 83.2 % 06/02/21 02:59 Lymph % (Auto) 8.3 % 06/02/21 02:59 Guadalupe % (Auto) 7.7 % 06/02/21 02:59 Eos % (Auto) 0.0 % 06/02/21 02:59 Baso % (Auto) 0.2 % 06/02/21 02:59 Neut # (Auto) 9.78 10^3/uL (1.8-7.7) H 06/02/21 02:59 Lymph # (Auto) 1.0 10^3/uL (0.8-4.8) 06/02/21 02:59 [place]upe # (Auto) 0.9 10^3/uL (0.2-0.9) 06/02/21 02:59 Eos # (Auto) 0.0 10^3/uL (0.0-0.8) 06/02/21 02:59 Baso # (Auto) 0.0 10^3/uL (0.0-0.1) 06/02/21 02:59 Nucleated RBC % (auto) 0 % 06/02/21 02:59 Nucleated RBCs # 0.0 /100WBC 06/02/21 02:59 PT 14.00 SECONDS (12.1-14.9) 05/29/21 22:20 INR 1.05 (0.8-1.2) 05/29/21 22:20 APTT 30.0 SECONDS (23.9-36.7) 05/29/21 22:20 D-Dimer 2.30 ug/mIFEU (0-0.59) H 05/29/21 22:20 Specimen Type Arterial 05/30/21 03:04 Sample Site Radial, right 05/30/21 03:04 ABG pH 7.44 (7.35-7.45) 05/30/21 03:04 ABG pCO2 30.9 mmHg (35-45) L 05/30/21 03:04 ABG pO2 152.0 mmHg (80.0-100.0) H 05/30/21 03:04 ABG HCO3 21.1 mmol/L (22-26) L 05/30/21 03:04 ABG Base Excess -2.3 mmol/L (-2.0-2.0) L 05/30/21 03:04 Wes Test Pos 05/30/21 03:04 Hematocrit 33.7 % (37-47) L 05/30/21 03:04 O2 Delivery Device Vent 05/30/21 03:04 O2 Liters/Min 3.5 % 05/29/21 22:29 FiO2 35.0 % 05/30/21 03:04 Tidal Volume 0.35 05/30/21 03:04 PEEP 5.0 cmH20 05/30/21 03:04 Senior Linux Unix Engineer ID [email or web address] 05/30/21 03:04 Sodium 133 mmol/L (136-145) L 06/02/21 02:59 Potassium 3.6 mmol/L (3.5-5.1) 06/02/21 02:59 Chloride 106 mmol/L (98-107) 06/02/21 02:59 Carbon Dioxide 19 mmol/L (22-29) L 06/02/21 02:59 Anion Gap 11.6 (5-19) 06/02/21 02:59 BUN 13 mg/dL (8-23) 06/02/21 02:59 Creatinine 0.9 mg/dL (0.5-0.9) 06/02/21 02:59 GFR Calculation Not Reportable 06/02/21 02:59 Glucose 125 mg/dL (65-115) H 06/02/21 02:59 Estimat Average Glucose 108 05/31/21 04:32 Hemoglobin A1c 5.4 % (4.0-6.0) 05/31/21 04:32 Calculated Osmolality 278 mOsm/kg (285-295) L 06/02/21 02:59 Calcium 8.1 mg/dL (8.5-10.5) L 06/02/21 02:59 Phosphorus 4.5 mg/dL (2.5-4.5) 05/29/21 22:20 Magnesium 2.0 mg/dL (1.7-2.3) 05/31/21 04:32 Iron 110 ug/dL (37-145) 05/30/21 06:05 TIBC 261 mcg/dl 05/30/21 06:05 % Saturation 42.1 % (20-50) 05/30/21 06:05 Unsat Iron Binding 151 ug/dL (112-347) 05/30/21 06:05 Total Bilirubin 0.4 mg/dL (0.15-1.2) 05/31/21 04:32 AST 35 U/L (0-32) H 05/31/21 04:32 ALT 24 U/L (0-33) 05/31/21 04:32 Alkaline Phosphatase 71 IU/L (35-105) 05/31/21 04:32 Creatine Kinase 212 U/L (26-192) H 05/29/21 22:20 Troponin T Gen 5 ng/L 228 ng/L (0-10) H* 05/30/21 06:05 Troponin T Baseline 216 ng/L (0-10) H* 05/29/21 22:20 NT-Pro-B Natriuret Pep 7756 pg/mL (0-450) H 05/29/21 22:20 Total Protein 5.3 g/dL (6.6-8.7) L 05/31/21 04:32 Albumin 3.7 g/dL (3.5-5.2) 05/31/21 04:32 Globulin 1.6 g/dL (1.3-4.6) 05/31/21 04:32 Triglycerides 75 mg/dL (0-150) 05/31/21 04:32 Cholesterol 92 mg/dL (0-200) 05/31/21 04:32 LDL Cholesterol, Calc 31 mg/dL (50-129) L 05/31/21 04:32 Total VLDL Cholesterol 15 mg/dL (0-30) 05/31/21 04:32 HDL Cholesterol 46 mg/dL (60-100) L 05/31/21 04:32 Cholesterol/HDL Ratio 2.00 mg/dL (0.0-4.40) 05/31/21 04:32 TSH 2.01 uIU/mL (0.27-4.20) 05/31/21 04:32 Urine Color Yellow (Yellow) 05/29/21 23:06 Urine Appearance Clear (CLEAR) 05/29/21 23:06 Urine pH 5 (5-7) 05/29/21 23:06 Ur Specific Boling 1.020 (1.005-1.030) 05/29/21 23:06 Urine Protein Neg (Negative) 05/29/21 23:06 Urine Glucose (UA) Norm (Normal) 05/29/21 23:06 Urine Ketones Negative (Negative) 05/29/21 23:06 Urine Blood 2+ (Negative) H 05/29/21 23:06 Urine Nitrate Negative (Negative) 05/29/21 23:06 Urine Bilirubin Neg (Negative) 05/29/21 23:06 Urine Urobilinogen Norm mg/dL (Negative) 05/29/21 23:06 Ur Leukocyte Esterase Negative (Negative) 05/29/21 23:06 Urine RBC 5-10 /hpf (0-2) H 05/29/21 23:06 Urine WBC 0-4 /hpf (0-5) H 05/29/21 23:06 Ur Squamous Epith Cells 0-4 /hpf (0-5) H 05/29/21 23:06 Amorphous Sediment 1+ /hpf 05/29/21 23:06 Urine Bacteria Trace /hpf (NONE) 05/29/21 23:06 Hyaline Casts 5-10 /lpf H 05/29/21 23:06 Ur Random Sodium 33 mmol/L 05/29/21 23:06 Ur Random Potassium 56 mmol/L 05/29/21 23:06 Ur Random Chloride 15 mmol/L 05/29/21 23:06 A&P Assessment and plan (1) Acute diastolic heart failure: Had some episodes of sinus tachycardia. Most likely this might be causing the diastolic heart failure. She may be carefully treated with diuretics. Status: Acute (2) Third degree heart block: Patient had intermittent high degree AV block. Had the permanent pacer implantation yesterday. Status: Acute (3) Presence of permanent cardiac pacemaker: Patient had the permanent single-chamber pacemaker evaluation yesterday. Jabari tabitah was interrogated today. Was found to be functioning well. Patient and the family was given instructions about further management. May continue on the current antibiotics. Status: Acute (4) Gouty arthritis: Patient appears to have gouty arthritis of the right big toe at the metatarsophalangeal joint. Management as per the primary. This could be causing the elevated white cell count. Status: Acute (5) ASHD (arteriosclerotic heart disease): Status post cardiac catheterization. Found to have patent stents. At this point, patient may not require any further intervention. Status: Acute (6) Acute blood loss anemia: Anemia is improving. Status: Acute Plan Patient may be given Lasix 40 mg with potassium 20 mEq p.o. now. Also will discontinue the IV fluid. Management of the possible gouty arthritis as per Dr. Powers Continue on the current antibiotics. Possible discharge home tomorrow with Keflex 500 mg p.o. every 6 hours for 5 days Attestations Medical Necessity Statement*: Possible discharge home tomorrow Coding Level of Care Code Acute Finish Specialist for Chg Fwd History Detailed Exam Detailed Medical Decision Making Moderate Complexity Diagnoses ASHD (arteriosclerotic heart disease) I25.10 Acute blood loss anemia D62 Third degree heart block I44.2 Presence of permanent cardiac pacemaker Z95.0 Gouty arthritis M10.9 Acute diastolic heart failure I50.31
[2021-06-03 10:09] LABS: Basophils % 0.3 %; Hematocrit 30.4 % (37.0-47.0); Hemoglobin 10.1 g/dL (11.5-15.3); Lymphocytes # 1.1 10^3/uL (0.8-4.8); Lymphocytes % 9.2 %; Mean Corpuscular HGB Conc 33.2 g/dL (30.0-36.0); Mean Corpuscular Hemoglobin 31.9 pg (28.0-34.0); Mean Corpuscular Volume 95.9 fl (81-99); Mean Platelet Volume 11.4 fL (7.4-10.4); Monocytes % 8.4 %; Neutrophils # 9.72 10^3/uL (1.8-7.7); Neutrophils % 81.4 %; Nucleated Red Blood Cells % 0 %; Platelet Count 191 10^3/cmm (130-400); Red Blood Count 3.17 10^6/uL (4.1-5.3); Red Cell Distribution Width 14.3 % (12.1-15.1); White Blood Count 11.9 10^3/uL (4.0-10.0)
--- NOTE | 2021-06-03 16:10 | P.PN_ITS ---
Subjective Subjective: Pt doing better today. Had perm PCM placed yesterday. Her leg has edema. Denied CP< SOB, cough, N/V Vitals/I&O/Wt Last Vital Signs Temp 98.9 F 06/05/21 07:35 Pulse 71 06/05/21 07:35 Resp 16 06/05/21 07:35 BP 107/64 06/05/21 07:35 Pulse Ox 97 06/05/21 07:35 06/04/21 06/05/21 06/05/21 22:59 06:59 14:59 Intake Total 580 / 1060 450 / 1510 Output Total 425 / 425 300 / 725 Balance 155 / 635 150 / 785 Physical Exam Narrative: NAD CVS: S1S2, RRR, Mur (-) Resp: CTA Abd soft, NT, BS+ Edema trace DISTRICT ADMINISTRATIVE ASSISTANT: A&Ox4 Skin: lt deltoid area bruise Rt Big Toe: swollen, tender, warm, erythema+ Urinary Catheter Management: Castellanos: Cath Placed During This Visit: yes Reason for Continuing Indwelling Catheter: Accurate Measurement of Urinary Output in Critically Ill Patients Urinary Catheter Date of Insertion: 05/29/21 Urinary Catheter Time of Insertion: 23:05 Data : 06/04/21 15:57 06/04/21 15:57 Micro: Microbiology 05/30/21 18:24 Blood Culture - Final Blood NO GROWTH AFTER 5 DAYS 05/30/21 18:19 Blood Culture - Final Blood NO GROWTH AFTER 5 DAYS A&P Assessment and plan (1) Acute diastolic heart failure: edema Status: Acute (2) Presence of permanent cardiac pacemaker: Placed 06/02/21 Status: Acute (3) Third degree heart block: Rate controlled now Status: Acute (4) Acute blood loss anemia: Possibly due to hematoma over arm and meds Status: Acute (5) Hyponatremia: improving Status: Acute (6) Seizure disorder: Status: Acute (7) ASHD (arteriosclerotic heart disease): Status: Acute (8) Hypertension: Status: Acute Qualifiers: Hypertension type: essential hypertension Qualified Code(s): I10 - Essential (primary) hypertension (9) Gouty arthritis: Inflamed Rt 1st MTP jt Status: Acute Plan Lasix IV Kenalog 40 mg IM Prednisone 40 mg qd x5. Then taper to her usual dose Celebrex 200 mg bid x5 d Attestations Medical Necessity Statement*: Pt w/ 3rd degree Ht Block now s/p PCM, has Ac Diastolic CHF and Ac Gout. Will need continued hospitalization for the management of these acute problems Time Spent in Patient Care: 45 min Critical Care Time: 10 min Coding Level of Care Code Acute Senior Qa Automation Engineer for Chg Fwd Diagnoses Acute diastolic heart failure I50.31 Presence of permanent cardiac pacemaker Z95.0 Third degree heart block I44.2 Acute blood loss anemia D62 Hyponatremia E87.1 Seizure disorder G40.909 ASHD (arteriosclerotic heart disease) I25.10 Hypertension I10 Hypertension type: essential hypertension Gouty arthritis M10.9
--- NOTE | 2021-06-03 17:44 | PC.NURSE ---
Patient HR sustaining 140s SR W/ BBB. Travel Journalist notified by this nurse. Orders to give 5mg of metoprolol IVP and to follow up in half in hour post administration.
[2021-06-03] MEDS: metoprolol tartrate 1 mg/1 mL SDV 5 mL 5 MG IVP (17:50)
[2021-06-03] MEDS: CELEcoxib 100 mg Capsule PO (17:50)
[2021-06-03] MEDS: triamcinolone 40 mg/mL SDV IM (17:50)
[2021-06-03] MEDS: metoprolol tartrate 50 mg Tablet PO (19:41)
[2021-06-03] MEDS: acetaminophen 325 mg Tablet 650 MG PO (19:41)
[2021-06-03] MEDS: FUROsemide 20 mg Tablet PO (21:22)
[2021-06-03] MEDS: atorvastatin 40 mg Tablet 20 MG PO (21:22)
[2021-06-03] MEDS: potassium chloride ER 10 mEq Tablet PO (21:22)
[2021-06-04] VITALS (21 sets, daily range): BP systolic 102–130; BP diastolic 57–79; PULSE 70–118; RESP 7–34; TEMP 36.6–37.3; O2SAT 94–100
[2021-06-04] MEDS: piperacillin-tazobactam 3.375 GM in sodium chloride 0.9% (plus) 50 ML IV ×3 (02:14→21:42)
[2021-06-04] MEDS: aspirin 81 mg EC Tablet PO (09:08)
[2021-06-04] MEDS: FUROsemide 20 mg Tablet PO (09:08)
[2021-06-04] MEDS: pantoprazole DR 40 mg Tablet PO ×2 (09:08→17:11)
[2021-06-04] MEDS: levETIRAcetam 500 mg Tablet PO ×2 (09:08→17:11)
[2021-06-04] MEDS: enoxaparin 40 mg/0.4 mL Syringe SUBCUT (09:09)
[2021-06-04] MEDS: potassium chloride ER 10 mEq Tablet PO (09:09)
[2021-06-04] MEDS: metoprolol tartrate 50 mg Tablet PO (09:10)
[2021-06-04] MEDS: CELEcoxib 100 mg Capsule PO ×2 (09:10→17:11)
--- NOTE | 2021-06-04 09:41 | PM.PN ---
Subjective Subjective: Doing better. Rt toe less swollen and painful. Less red. Feels tired. Denied CP, SOB, dizziness Vitals/I&O/Wt Last Vital Signs Temp 98.9 F 06/05/21 07:35 Pulse 71 06/05/21 07:35 Resp 16 06/05/21 07:35 BP 107/64 06/05/21 07:35 Pulse Ox 97 06/05/21 07:35 06/04/21 06/05/21 06/05/21 22:59 06:59 14:59 Intake Total 580 / 1060 450 / 1510 Output Total 425 / 425 300 / 725 Balance 155 / 635 150 / 785 Physical Exam Narrative: NAD CVS: S1S2, RRR, Mur (-) Resp: CTA Abd soft, NT, BS+ Edema trace PSYCHIATRIC NURSE: A&Ox4 Skin: lt deltoid area bruise Rt 1st MTP Jt: mild tender, less swollen and ertrgem Urinary Catheter Management: Castellanos: Cath Placed During This Visit: yes Reason for Continuing Indwelling Catheter: Accurate Measurement of Urinary Output in Critically Ill Patients Urinary Catheter Date of Insertion: 05/29/21 Urinary Catheter Time of Insertion: 23:05 Data : 06/04/21 15:57 06/04/21 15:57 Micro: Microbiology 05/30/21 18:24 Blood Culture - Final Blood NO GROWTH AFTER 5 DAYS 05/30/21 18:19 Blood Culture - Final Blood NO GROWTH AFTER 5 DAYS A&P Assessment and plan (1) Acute diastolic heart failure: compensated Status: Acute (2) Gouty arthritis: improving Status: Acute (3) Presence of permanent cardiac pacemaker: stable Status: Acute (4) Third degree heart block: s/p PCM. Pacing Status: Acute (5) Hyponatremia: improving Status: Acute (6) Hypertension: Status: Acute Qualifiers: Hypertension type: essential hypertension Qualified Code(s): I10 - Essential (primary) hypertension (7) ASHD (arteriosclerotic heart disease): Status: Acute Plan Transfer pt to [facility] Continue current meds PT/OT Attestations Medical Necessity Statement*: Pt w/ 3rd degree Ht Block now s/p PCM, has Ac Diastolic CHF and Ac Gout. Will need continued hospitalization for the management of these acute problems Time Spent in Patient Care: 45 min Coding Level of Care Code Acute Marriage Therapist for Chg Fwd Diagnoses Acute diastolic heart failure I50.31 Gouty arthritis M10.9 Presence of permanent cardiac pacemaker Z95.0 Third degree heart block I44.2 Hyponatremia E87.1 Hypertension I10 Hypertension type: essential hypertension ASHD (arteriosclerotic heart disease) I25.10
--- NOTE | 2021-06-04 10:31 | PC.CHAP ---
Pastoral Care Encounter/Spiritual Assessment Type of Contact [] Declined clinical social work therapist visit [] Patient/Family/Request visit [] Outpatient visit [] Follow-up visit [] Physician referral [] Code/Alert [x] Routine visit [] Staff referral [] Actively dying [] Patient sleeping [x] Family support [] [] Out of room [] Palliative care [] [] Receiving care in room [] Pre-surgical visit [] Trauma [] Long length of stay [x] ICU visit [] Other: Relational/Emotional Strength [] Patient feels connected with others/family/visitors/staff [] Distress [] Loneliness/isolation [] Abandonment Spirituality of Patient [] Person of Winter [] Attends Orthodoxy of their Winter [] Believes in Prayer [] Reads Bible or Mosque materials [] There are Spiritual issues to be addressed B2B Sales Consultant Interventions [x] Prayer [x] Active listening [x] Non-anxious presence [x] Spiritual/emotional support [] Crisis/trauma care [] Spiritual counseling [] Bereavement support [] Provided bereavement packet [] Provided Bible/devotional materials [] Provided toy/stuffed animal, coloring book to patient or family member [] Provided Communion [] Anointing/Trevor [] Salvation [x] Completed spiritual assessment [] Other: Impact on Illness or Injury [] Angry [] Fearful [] Anxious [] Often cries [] Exhaustion [] Unable to work [] Unable to attend spiritism [] Unable to walk/stand [] Unable to read [] Unable to drive [] Unable to eat/drink [] Unable to sleep [] Unable to be with family [] Patient intubated [] Other: Summary patient setting up in chair.. family states there is confusion.. hoping there will be clarity soon.. daughter remained in room all night with patient.. Time spent with patient 15 min
--- NOTE | 2021-06-04 15:04 | P.PN_ITS ---
Subjective Subjective: The patient is feeling better. However she has difficulty in ambulation because of generalized weakness. Her shortness of breath is improved. She had a urine output of more than 3 L following the IV Lasix yesterday. She also had a low-grade fever last night. She continues to have the swelling of the right metatarsophalangeal joint which is swollen and tender with a diffuse redness. Medications: Medication Review Details: Current Medications Acetaminophen (Acetaminophen 325 Mg Tablet) 650 mg PO Q6H PRN PRN Reason: Mild/Mod Pain Or Temp >/= 101 Last Admin: 06/03/21 19:41 Dose: 650 mg Documented by: Aspirin (Aspirin 81 Mg Ec Tablet) 81 mg PO DAILY [facility] Last Admin: 06/04/21 09:08 Dose: 81 mg Documented by: Atorvastatin Calcium (Atorvastatin 40 Mg Tablet) 20 mg PO BEDTIME [facility] Last Admin: 06/03/21 21:22 Dose: 20 mg Documented by: Celecoxib (Celecoxib 100 Mg Capsule) 100 mg PO BID [facility] Last Admin: 06/04/21 09:10 Dose: 100 mg Documented by: Enoxaparin Sodium (Enoxaparin 40 Mg/0.4 Ml Syringe) 40 mg SUBCUT Q24H [facility] Last Admin: 06/04/21 09:09 Dose: 40 mg Documented by: Furosemide (Furosemide 20 Mg Tablet) 20 mg PO DAILY@0800 [facility] Last Admin: 06/04/21 09:08 Dose: 20 mg Documented by: Piperacillin Sod/Tazobactam (Sod 3.375 gm/ Sodium Chloride) 50 mls @ 12.5 mls/hr IV Q8H [facility]; Protocol Last Admin: 06/04/21 12:46 Dose: 12.5 mls/hr Documented by: Norepinephrine Bitartrate 4 mg (/ Dextrose) 254 mls @ 0 mls/hr IV .Q0M [facility]; Protocol Last Titration: 05/31/21 10:02 Dose: 0 mcg/min, 0 mls/hr Documented by: Lanolin (Lanolin Oint 7 Gm) 1 applic TOPICAL PRN PRN PRN Reason: DRYNESS Last Admin: 06/03/21 02:13 Dose: 1 applic Documented by: Levetiracetam (Levetiracetam 500 Mg Tablet) 500 mg PO BID [facility] Last Admin: 06/04/21 09:08 Dose: 500 mg Documented by: Metoprolol Tartrate (Metoprolol Tartrate 50 Mg Tablet) 50 mg PO BID@0900,2100 [facility] Last Admin: 06/04/21 09:10 Dose: 50 mg Documented by: Ondansetron HCl (Ondansetron 2 Mg/Ml Sdv 2 Ml) 4 mg IVP Q8H PRN PRN Reason: vomiting, or N/V if npo Last Admin: 06/01/21 09:18 Dose: 4 mg Documented by: Pantoprazole Sodium (Pantoprazole Dr 40 Mg Tablet) 40 mg PO BID [facility] Last Admin: 06/04/21 09:08 Dose: 40 mg Documented by: Potassium Chloride (Potassium Chloride Er 10 Meq Tablet) 10 meq PO DAILY [facility] Last Admin: 06/04/21 09:09 Dose: 10 meq Documented by: Prednisone (Prednisone 1 Mg Tablet) 2 mg PO DAILY [facility] Last Admin: 06/03/21 08:16 Dose: 2 mg Documented by: Trazodone HCl (Trazodone 50 Mg Tablet) 25 mg PO BEDTIME PRN PRN Reason: SLEEP Last Admin: 06/02/21 21:52 Dose: 25 mg Documented by: Vitals/I&O/Wt Last Vital Signs Temp 98.8 F 06/04/21 03:00 Pulse 72 06/04/21 14:00 Resp 19 H 06/04/21 14:00 BP 121/67 06/04/21 14:00 Pulse Ox 94 06/04/21 14:00 06/04/21 06/04/21 06/04/21 06:59 14:59 22:59 Intake Total 50 / 920 480 / 480 Output Total 900 / 3625 Balance -850 / -2705 480 / 480 Physical Exam Narrative: GENERAL: The patient is alert and oriented times three. Not in any acute distress.? Appears to be somewhat HEENT: Mild pallor, No icterus or lymphadenopathy.Oral cavity: There are no mucous membrane lesions. NECK: Trachea appears to be central. No masses noted. No JVD or thyromegaly appreciated. RESPIRATORY: The pacemaker site has no hematoma bleeding.? Few fine crackles at the bases. BREASTS: Deferred. HEART: The first heart sound is variable.? No significant murmurs.? No pericardial rub. Abdomen. No ? distention. No tenderness. No organomegaly appreciated.? Bowel sounds are normally heard. : Deferred. RECTAL: Deferred. LYMPHATIC: No lymphadenopathy noted in the neck or groin. EXTREMITIES: Has diffuse ecchymosis and swelling in the left upper extremity.? Early she fell on the left side MUSCULOSKELETAL: Diffuse swelling with redness of the right metatarsophalangeal joint SKIN: She has diffuse ecchymosis in the left upper arm, seems to be resolving NEUROLOGY: The patient is alert and oriented x3. Appears to be in a good mood. No tremors or rigidity noted. Urinary Catheter Management: Castellanos: Cath Placed During This Visit: yes Reason for Continuing Indwelling Catheter: Accurate Measurement of Urinary Output in Critically Ill Patients Urinary Catheter Date of Insertion: 05/29/21 Urinary Catheter Time of Insertion: 23:05 Data : 06/03/21 09:49 06/02/21 02:59 Other Labs: Laboratory Last Values WBC 11.9 10^3/uL (4.0-10.0) H 06/03/21 09:49 RBC 3.17 10^6/uL (4.1-5.3) L 06/03/21 09:49 Hgb 10.1 g/dL (11.5-15.3) L 06/03/21 09:49 Hct 30.4 % (37.0-47.0) L 06/03/21 09:49 MCV 95.9 fl (81-99) 06/03/21 09:49 MCH 31.9 pg (28.0-34.0) 06/03/21 09:49 MCHC 33.2 g/dL (30.0-36.0) 06/03/21 09:49 RDW 14.3 % (12.1-15.1) 06/03/21 09:49 Plt Count 191 10^3/cmm (130-400) 06/03/21 09:49 MPV 11.4 fL (7.4-10.4) H 06/03/21 09:49 Neut % (Auto) 81.4 % 06/03/21 09:49 Lymph % (Auto) 9.2 % 06/03/21 09:49 [place] % (Auto) 8.4 % 06/03/21 09:49 Eos % (Auto) 0.0 % 06/03/21 09:49 Baso % (Auto) 0.3 % 06/03/21 09:49 Neut # (Auto) 9.72 10^3/uL (1.8-7.7) H 06/03/21 09:49 Lymph # (Auto) 1.1 10^3/uL (0.8-4.8) 06/03/21 09:49 [place] # (Auto) 1.0 10^3/uL (0.2-0.9) H 06/03/21 09:49 Eos # (Auto) 0.0 10^3/uL (0.0-0.8) 06/03/21 09:49 Baso # (Auto) 0.0 10^3/uL (0.0-0.1) 06/03/21 09:49 Nucleated RBC % (auto) 0 % 06/03/21 09:49 Nucleated RBCs # 0.0 /100WBC 06/03/21 09:49 PT 14.00 SECONDS (12.1-14.9) 05/29/21 22:20 INR 1.05 (0.8-1.2) 05/29/21 22:20 APTT 30.0 SECONDS (23.9-36.7) 05/29/21 22:20 D-Dimer 2.30 ug/mIFEU (0-0.59) H 05/29/21 22:20 Specimen Type Arterial 05/30/21 03:04 Sample Site Radial, right 05/30/21 03:04 ABG pH 7.44 (7.35-7.45) 05/30/21 03:04 ABG pCO2 30.9 mmHg (35-45) L 05/30/21 03:04 ABG pO2 152.0 mmHg (80.0-100.0) H 05/30/21 03:04 ABG HCO3 21.1 mmol/L (22-26) L 05/30/21 03:04 ABG Base Excess -2.3 mmol/L (-2.0-2.0) L 05/30/21 03:04 Wes Test Pos 05/30/21 03:04 Hematocrit 33.7 % (37-47) L 05/30/21 03:04 O2 Delivery Device Vent 05/30/21 03:04 O2 Liters/Min 3.5 % 05/29/21 22:29 FiO2 35.0 % 05/30/21 03:04 Tidal Volume 0.35 05/30/21 03:04 PEEP 5.0 cmH20 05/30/21 03:04 Grain Oilseed Or Pasture Grower ID ellpe 05/30/21 03:04 Sodium 133 mmol/L (136-145) L 06/02/21 02:59 Potassium 3.6 mmol/L (3.5-5.1) 06/02/21 02:59 Chloride 106 mmol/L (98-107) 06/02/21 02:59 Carbon Dioxide 19 mmol/L (22-29) L 06/02/21 02:59 Anion Gap 11.6 (5-19) 06/02/21 02:59 BUN 13 mg/dL (8-23) 06/02/21 02:59 Creatinine 0.9 mg/dL (0.5-0.9) 06/02/21 02:59 GFR Calculation Not Reportable 06/02/21 02:59 Glucose 125 mg/dL (65-115) H 06/02/21 02:59 Estimat Average Glucose 108 05/31/21 04:32 Hemoglobin A1c 5.4 % (4.0-6.0) 05/31/21 04:32 Calculated Osmolality 278 mOsm/kg (285-295) L 06/02/21 02:59 Calcium 8.1 mg/dL (8.5-10.5) L 06/02/21 02:59 Phosphorus 4.5 mg/dL (2.5-4.5) 05/29/21 22:20 Magnesium 2.0 mg/dL (1.7-2.3) 05/31/21 04:32 Iron 110 ug/dL (37-145) 05/30/21 06:05 TIBC 261 mcg/dl 05/30/21 06:05 % Saturation 42.1 % (20-50) 05/30/21 06:05 Unsat Iron Binding 151 ug/dL (112-347) 05/30/21 06:05 Total Bilirubin 0.4 mg/dL (0.15-1.2) 05/31/21 04:32 AST 35 U/L (0-32) H 05/31/21 04:32 ALT 24 U/L (0-33) 05/31/21 04:32 Alkaline Phosphatase 71 IU/L (35-105) 05/31/21 04:32 Creatine Kinase 212 U/L (26-192) H 05/29/21 22:20 Troponin T Gen 5 ng/L 228 ng/L (0-10) H* 05/30/21 06:05 Troponin T Baseline 216 ng/L (0-10) H* 05/29/21 22:20 NT-Pro-B Natriuret Pep 7756 pg/mL (0-450) H 05/29/21 22:20 Total Protein 5.3 g/dL (6.6-8.7) L 05/31/21 04:32 Albumin 3.7 g/dL (3.5-5.2) 05/31/21 04:32 Globulin 1.6 g/dL (1.3-4.6) 05/31/21 04:32 Triglycerides 75 mg/dL (0-150) 05/31/21 04:32 Cholesterol 92 mg/dL (0-200) 05/31/21 04:32 LDL Cholesterol, Calc 31 mg/dL (50-129) L 05/31/21 04:32 Total VLDL Cholesterol 15 mg/dL (0-30) 05/31/21 04:32 HDL Cholesterol 46 mg/dL (60-100) L 05/31/21 04:32 Cholesterol/HDL Ratio 2.00 mg/dL (0.0-4.40) 05/31/21 04:32 TSH 2.01 uIU/mL (0.27-4.20) 05/31/21 04:32 Urine Color Yellow (Yellow) 05/29/21 23:06 Urine Appearance Clear (CLEAR) 05/29/21 23:06 Urine pH 5 (5-7) 05/29/21 23:06 Ur Specific [place] 1.020 (1.005-1.030) 05/29/21 23:06 Urine Protein Neg (Negative) 05/29/21 23:06 Urine Glucose (UA) Norm (Normal) 05/29/21 23:06 Urine Ketones Negative (Negative) 05/29/21 23:06 Urine Blood 2+ (Negative) H 05/29/21 23:06 Urine Nitrate Negative (Negative) 05/29/21 23:06 Urine Bilirubin Neg (Negative) 05/29/21 23:06 Urine Urobilinogen Norm mg/dL (Negative) 05/29/21 23:06 Ur Leukocyte Esterase Negative (Negative) 05/29/21 23:06 Urine RBC 5-10 /hpf (0-2) H 05/29/21 23:06 Urine WBC 0-4 /hpf (0-5) H 05/29/21 23:06 Ur Squamous Epith Cells 0-4 /hpf (0-5) H 05/29/21 23:06 Amorphous Sediment 1+ /hpf 05/29/21 23:06 Urine Bacteria Trace /hpf (NONE) 05/29/21 23:06 Hyaline Casts 5-10 /lpf H 05/29/21 23:06 Ur Random Sodium 33 mmol/L 05/29/21 23:06 Ur Random Potassium 56 mmol/L 05/29/21 23:06 Ur Random Chloride 15 mmol/L 05/29/21 23:06 A&P Assessment and plan (1) Acute diastolic heart failure: Patient responded appropriately to IV Lasix. Currently on the p.o. Lasix 20 mg daily. The heart failure seems to be compensated. May continue on the current medications. The extreme feeling of weakness is unexplained. I may go ahead and do a BMP to evaluate for any electrolyte abnormalities. Status: Acute (2) Third degree heart block: Patient had intermittent high degree AV block. Had the permanent pacer impl antation yesterday. Has not had any significant arrhythmias since the metoprolol was restarted. We will continue on the same Status: Acute (3) Presence of permanent cardiac pacemaker: The pacemaker function appears to be appropriate. We will continue on the current measures. We will arrange for in office and at home monitoring, once discharge Status: Acute (4) Gouty arthritis: Patient appears to have gouty arthritis of the right big toe at the metatarsophalangeal joint. Management as per the primary. This could be causing the elevated white cell count. Repeat the CBC today. Status: Acute (5) ASHD (arteriosclerotic heart disease): Status post cardiac catheterization. Found to have patent stents. At this point, patient may not require any further intervention. Status: Acute (6) Acute blood loss anemia: We will do a repeat CBC today. Status: Acute Plan IV Lasix 20 mg PO today. Continue on the continue on the p.o. Lasix. Encourage ambulation with the physical therapy. Repeat CBC and BMP today. If he continues to remain stable, possible discharge home tomorrow Attestations Medical Necessity Statement*: Dispositioin as per the primary Coding Level of Care Code Acute Supervisor [employer] for Chg Fwd History Detailed Exam Detailed Medical Decision Making Moderate Complexity Diagnoses Acute diastolic heart failure I50.31 Third degree heart block I44.2 Presence of permanent cardiac pacemaker Z95.0 Gouty arthritis M10.9 ASHD (arteriosclerotic heart disease) I25.10 Acute blood loss anemia D62
--- NOTE | 2021-06-04 15:30 | PC.SOCIAL ---
IMM update IMM updated with patient. Verbalized an understanding. Copy Pg 2 provided. Initialled, dated, timed, and placed in chart.
[2021-06-04 16:18] LABS: Basophils # 0.1 10^3/uL (0.0-0.1); Basophils % 0.3 %; Eosinophils # 0.1 10^3/uL (0.0-0.8); Eosinophils % 0.5 %; Hematocrit 27.6 % (37.0-47.0); Hemoglobin 9.5 g/dL (11.5-15.3); Lymphocytes # 1.1 10^3/uL (0.8-4.8); Lymphocytes % 7.6 %; Mean Corpuscular HGB Conc 34.4 g/dL (30.0-36.0); Mean Corpuscular Hemoglobin 31.9 pg (28.0-34.0); Mean Corpuscular Volume 92.6 fl (81-99); Mean Platelet Volume 11.6 fL (7.4-10.4); Monocytes % 6.5 %; Neutrophils # 12.49 10^3/uL (1.8-7.7); Neutrophils % 84.4 %; Nucleated Red Blood Cells % 0 %; Platelet Count 193 10^3/cmm (130-400); Red Blood Count 2.98 10^6/uL (4.1-5.3); Red Cell Distribution Width 14.5 % (12.1-15.1); White Blood Count 14.8 10^3/uL (4.0-10.0)
[2021-06-04 16:37] LABS: Anion Gap 20.8 (5-19); Blood Urea Nitrogen 15 mg/dL (8-23); Calcium 8.3 mg/dL (8.5-10.5); Carbon Dioxide 16 mmol/L (22-29); Chloride 99 mmol/L (98-107); Glucose 160 mg/dL (65-115); Osmolality Calculated 278 mOsm/kg (285-295); Potassium 3.8 mmol/L (3.5-5.1); Sodium 132 mmol/L (136-145)
--- NOTE | 2021-06-04 16:51 | PC.NURSE ---
Report called to the medical surgical floor to RN assigned to patient. [facility] nurse reported that the patient's room is currently dirty and to wait to transfer patient until room is clean. This nurse will follow up on the status of the room shortly.
[2021-06-04 16:55] LABS: Slide Review Slide Review Perform
--- NOTE | 2021-06-04 18:20 | PC.NURSE ---
Patient transferred to Med Surg floor room 257 accompanied by daughter and this nurse. Patient transferred via wheelchair. Patient transferred from wheelchair to bed with two assist. Patient tolerated well. Belonging transferred with patient and placed at bedside. Nurse notified of patient's arrival. Patient A&Ox4 at time of transfer.
[2021-06-04] MEDS: atorvastatin 40 mg Tablet 20 MG PO (21:43)
[2021-06-05 04:00] VITALS: BP 117/70; PULSE 71; RESP 16; TEMP 37; O2SAT 100
[2021-06-05] MEDS: piperacillin-tazobactam 3.375 GM in sodium chloride 0.9% (plus) 50 ML IV (04:54)
[2021-06-05 06:00] VITALS: PULSE 62
[2021-06-05 07:35] VITALS: BP 107/64; PULSE 71; RESP 16; TEMP 37.2; O2SAT 97
[2021-06-05 08:00] VITALS: BP 107/64; PULSE 71; RESP 16; TEMP 37.2
--- NOTE | 2021-06-05 09:50 | P.PN_ITS ---
Subjective Subjective: The patient is remaining afebrile. No chest pain or shortness of breath. The vital signs are stable. No white cell count is elevated, most likely from the steroids. She is ambulating on telemetry. No specific complaints at this point. Medications: Medication Review Details: Current Medications Acetaminophen (Acetaminophen 325 Mg Tablet) 650 mg PO Q6H PRN PRN Reason: Mild/Mod Pain Or Temp >/= 101 Last Admin: 06/03/21 19:41 Dose: 650 mg Documented by: Aspirin (Aspirin 81 Mg Ec Tablet) 81 mg PO DAILY [facility] Last Admin: 06/04/21 09:08 Dose: 81 mg Documented by: Atorvastatin Calcium (Atorvastatin 40 Mg Tablet) 20 mg PO BEDTIME [facility] Last Admin: 06/04/21 21:43 Dose: 20 mg Documented by: Celecoxib (Celecoxib 100 Mg Capsule) 100 mg PO BID [facility] Last Admin: 06/04/21 17:11 Dose: 100 mg Documented by: Enoxaparin Sodium (Enoxaparin 40 Mg/0.4 Ml Syringe) 40 mg SUBCUT Q24H [facility] Last Admin: 06/04/21 09:09 Dose: 40 mg Documented by: Furosemide (Furosemide 20 Mg Tablet) 20 mg PO DAILY@0800 [facility] Last Admin: 06/04/21 09:08 Dose: 20 mg Documented by: Piperacillin Sod/Tazobactam (Sod 3.375 gm/ Sodium Chloride) 50 mls @ 12.5 mls/hr IV Q8H [facility]; Protocol Last Admin: 06/05/21 04:54 Dose: 12.5 mls/hr Documented by: Lanolin (Lanolin Oint 7 Gm) 1 applic TOPICAL PRN PRN PRN Reason: DRYNESS Last Admin: 06/03/21 02:13 Dose: 1 applic Documented by: Levetiracetam (Levetiracetam 500 Mg Tablet) 500 mg PO BID [facility] Last Admin: 06/04/21 17:11 Dose: 500 mg Documented by: Metoprolol Tartrate (Metoprolol Tartrate 50 Mg Tablet) 50 mg PO BID@0900,2100 [facility] Last Admin: 06/04/21 21:39 Dose: Not Given Documented by: Ondansetron HCl (Ondansetron 2 Mg/Ml Sdv 2 Ml) 4 mg IVP Q8H PRN PRN Reason: vomiting, or N/V if npo Last Admin: 06/01/21 09:18 Dose: 4 mg Documented by: Pantoprazole Sodium (Pantoprazole Dr 40 Mg Tablet) 40 mg PO BID [facility] Last Admin: 06/04/21 17:11 Dose: 40 mg Documented by: Potassium Chloride (Potassium Chloride Er 10 Meq Tablet) 10 meq PO DAILY [facility] Last Admin: 06/04/21 09:09 Dose: 10 meq Documented by: Trazodone HCl (Trazodone 50 Mg Tablet) 25 mg PO BEDTIME PRN PRN Reason: SLEEP Last Admin: 06/02/21 21:52 Dose: 25 mg Documented by: Vitals/I&O/Wt Last Vital Signs Temp 98.9 F 06/05/21 07:35 Pulse 71 06/05/21 07:35 Resp 16 06/05/21 07:35 BP 107/64 06/05/21 07:35 Pulse Ox 97 06/05/21 07:35 06/04/21 06/05/21 06/05/21 22:59 06:59 14:59 Intake Total 580 / 1060 450 / 1510 Output Total 425 / 425 300 / 725 Balance 155 / 635 150 / 785 Physical Exam Narrative: GENERAL: The patient is alert and oriented times three. Not in any acute distress.? Appears to be somewhat HEENT: Mild pallor, No icterus or lymphadenopathy.Oral cavity: There are no mucous membrane lesions. NECK: Trachea appears to be central. No masses noted. No JVD or thyromegaly appreciated. RESPIRATORY: The pacemaker site has no hematoma bleeding.? No rales or rhonchi BREASTS: Deferred. HEART: The first heart sound is variable.? No significant murmurs.? No pericardial rub. Abdomen. No ? distention. No tenderness. No organomegaly appreciated.? Bowel sounds are normally heard. : Deferred. RECTAL: Deferred. LYMPHATIC: No lymphadenopathy noted in the neck or groin. EXTREMITIES: Has diffuse ecchymosis and swelling in the left upper extremity.? Early she fell on the left side MUSCULOSKELETAL: Diffuse swelling with redness of the right metatarsophalangeal joint SKIN: She has diffuse ecchymosis in the left upper arm, seems to be resolving NEUROLOGY: The patient is alert and oriented x3. Appears to be in a good mood. No tremors or rigidity noted Urinary Catheter Management: Castellanos: Cath Placed During This Visit: yes Reason for Continuing Indwelling Catheter: Accurate Measurement of Urinary Output in Critically Ill Patients Urinary Catheter Date of Insertion: 05/29/21 Urinary Catheter Time of Insertion: 23:05 Data : 06/04/21 15:57 06/04/21 15:57 Other Labs: Laboratory Last Values WBC 14.8 10^3/uL (4.0-10.0) H 06/04/21 15:57 RBC 2.98 10^6/uL (4.1-5.3) L 06/04/21 15:57 Hgb 9.5 g/dL (11.5-15.3) L 06/04/21 15:57 Hct 27.6 % (37.0-47.0) L 06/04/21 15:57 MCV 92.6 fl (81-99) 06/04/21 15:57 MCH 31.9 pg (28.0-34.0) 06/04/21 15:57 MCHC 34.4 g/dL (30.0-36.0) 06/04/21 15:57 RDW 14.5 % (12.1-15.1) 06/04/21 15:57 Plt Count 193 10^3/cmm (130-400) 06/04/21 15:57 MPV 11.6 fL (7.4-10.4) H 06/04/21 15:57 Neut % (Auto) 84.4 % 06/04/21 15:57 Lymph % (Auto) 7.6 % 06/04/21 15:57 [place] % (Auto) 6.5 % 06/04/21 15:57 Eos % (Auto) 0.5 % 06/04/21 15:57 Baso % (Auto) 0.3 % 06/04/21 15:57 Neut # (Auto) 12.49 10^3/uL (1.8-7.7) H 06/04/21 15:57 Lymph # (Auto) 1.1 10^3/uL (0.8-4.8) 06/04/21 15:57 [place] # (Auto) 1.0 10^3/uL (0.2-0.9) H 06/04/21 15:57 Eos # (Auto) 0.1 10^3/uL (0.0-0.8) 06/04/21 15:57 Baso # (Auto) 0.1 10^3/uL (0.0-0.1) 06/04/21 15:57 Nucleated RBC % (auto) 0 % 06/04/21 15:57 Nucleated RBCs # 0.0 /100WBC 06/04/21 15:57 PT 14.00 SECONDS (12.1-14.9) 05/29/21 22:20 INR 1.05 (0.8-1.2) 05/29/21 22:20 APTT 30.0 SECONDS (23.9-36.7) 05/29/21 22:20 D-Dimer 2.30 ug/mIFEU (0-0.59) H 05/29/21 22:20 Specimen Type Arterial 05/30/21 03:04 Sample Site Radial, right 05/30/21 03:04 ABG pH 7.44 (7.35-7.45) 05/30/21 03:04 ABG pCO2 30.9 mmHg (35-45) L 05/30/21 03:04 ABG pO2 152.0 mmHg (80.0-100.0) H 05/30/21 03:04 ABG HCO3 21.1 mmol/L (22-26) L 05/30/21 03:04 ABG Base Excess -2.3 mmol/L (-2.0-2.0) L 05/30/21 03:04 Wes Test Pos 05/30/21 03:04 Hematocrit 33.7 % (37-47) L 05/30/21 03:04 O2 Delivery Device Vent 05/30/21 03:04 O2 Liters/Min 3.5 % 05/29/21 22:29 FiO2 35.0 % 05/30/21 03:04 Tidal Volume 0.35 05/30/21 03:04 PEEP 5.0 cmH20 05/30/21 03:04 Room Service Waiter ID ellpe 05/30/21 03:04 Sodium 132 mmol/L (136-145) L 06/04/21 15:57 Potassium 3.8 mmol/L (3.5-5.1) 06/04/21 15:57 Chloride 99 mmol/L (98-107) 06/04/21 15:57 Carbon Dioxide 16 mmol/L (22-29) L 06/04/21 15:57 Anion Gap 20.8 (5-19) H 06/04/21 15:57 BUN 15 mg/dL (8-23) 06/04/21 15:57 Creatinine 1.2 mg/dL (0.5-0.9) H 06/04/21 15:57 GFR Calculation Not Reportable 06/04/21 15:57 Glucose 160 mg/dL (65-115) H 06/04/21 15:57 Estimat Average Glucose 108 05/31/21 04:32 Hemoglobin A1c 5.4 % (4.0-6.0) 05/31/21 04:32 Calculated Osmolality 278 mOsm/kg (285-295) L 06/04/21 15:57 Calcium 8.3 mg/dL (8.5-10.5) L 06/04/21 15:57 Phosphorus 4.5 mg/dL (2.5-4.5) 05/29/21 22:20 Magnesium 2.0 mg/dL (1.7-2.3) 05/31/21 04:32 Iron 110 ug/dL (37-145) 05/30/21 06:05 TIBC 261 mcg/dl 05/30/21 06:05 % Saturation 42.1 % (20-50) 05/30/21 06:05 Unsat Iron Binding 151 ug/dL (112-347) 05/30/21 06:05 Total Bilirubin 0.4 mg/dL (0.15-1.2) 05/31/21 04:32 AST 35 U/L (0-32) H 05/31/21 04:32 ALT 24 U/L (0-33) 05/31/21 04:32 Alkaline Phosphatase 71 IU/L (35-105) 05/31/21 04:32 Creatine Kinase 212 U/L (26-192) H 05/29/21 22:20 Troponin T Gen 5 ng/L 228 ng/L (0-10) H* 05/30/21 06:05 Troponin T Baseline 216 ng/L (0-10) H* 05/29/21 22:20 NT-Pro-B Natriuret Pep 7756 pg/mL (0-450) H 05/29/21 22:20 Total Protein 5.3 g/dL (6.6-8.7) L 05/31/21 04:32 Albumin 3.7 g/dL (3.5-5.2) 05/31/21 04:32 Globulin 1.6 g/dL (1.3-4.6) 05/31/21 04:32 Triglycerides 75 mg/dL (0-150) 05/31/21 04:32 Cholesterol 92 mg/dL (0-200) 05/31/21 04:32 LDL Cholesterol, Calc 31 mg/dL (50-129) L 05/31/21 04:32 Total VLDL Cholesterol 15 mg/dL (0-30) 05/31/21 04:32 HDL Cholesterol 46 mg/dL (60-100) L 05/31/21 04:32 Cholesterol/HDL Ratio 2.00 mg/dL (0.0-4.40) 05/31/21 04:32 TSH 2.01 uIU/mL (0.27-4.20) 05/31/21 04:32 Urine Color Yellow (Yellow) 05/29/21 23:06 Urine Appearance Clear (CLEAR) 05/29/21 23:06 Urine pH 5 (5-7) 05/29/21 23:06 Ur Specific [place] 1.020 (1.005-1.030) 05/29/21 23:06 Urine Protein Neg (Negative) 05/29/21 23:06 Urine Glucose (UA) Norm (Normal) 05/29/21 23:06 Urine Ketones Negative (Negative) 05/29/21 23:06 Urine Blood 2+ (Negative) H 05/29/21 23:06 Urine Nitrate Negative (Negative) 05/29/21 23:06 Urine Bilirubin Neg (Negative) 05/29/21 23:06 Urine Urobilinogen Norm mg/dL (Negative) 05/29/21 23:06 Ur Leukocyte Esterase Negative (Negative) 05/29/21 23:06 Urine RBC 5-10 /hpf (0-2) H 05/29/21 23:06 Urine WBC 0-4 /hpf (0-5) H 05/29/21 23:06 Ur Squamous Epith Cells 0-4 /hpf (0-5) H 05/29/21 23:06 Amorphous Sediment 1+ /hpf 05/29/21 23:06 Urine Bacteria Trace /hpf (NONE) 05/29/21 23:06 Hyaline Casts 5-10 /lpf H 05/29/21 23:06 Ur Random Sodium 33 mmol/L 05/29/21 23:06 Ur Random Potassium 56 mmol/L 05/29/21 23:06 Ur Random Chloride 15 mmol/L 05/29/21 23:06 Micro: Microbiology 05/30/21 18:24 Blood Culture - Final Blood NO GROWTH AFTER 5 DAYS 05/30/21 18:19 Blood Culture - Final Blood NO GROWTH AFTER 5 DAYS A&P Assessment and plan (1) Acute diastolic heart failure: The heart failure is compensated. Patient may continue the Lasix 20 mg p.o. daily. Status: Acute (2) Third degree heart block: Patient had intermittent high degree AV block. Had the permanent pacer implan tation yesterday. Has not had any significant arrhythmias since the metoprolol was restarted. We will continue on the same Status: Acute (3) Presence of permanent cardiac pacemaker: The pacemaker function appears to be appropriate. We will continue on the current measures. We will arrange for in office and at home monitoring, once discharge Status: Acute (4) Gouty arthritis: Patient appears to have gouty arthritis of the right big toe at the metatarsophalangeal joint. Management as per the primary. This could be causing the elevated white cell count. Management as per the primary Status: Acute (5) ASHD (arteriosclerotic heart disease): Status post cardiac catheterization. Found to have patent stents. At this point, patient may not require any further intervention. Status: Acute (6) Acute blood loss anemia: The hemoglobin seems to be stable. Status: Acute Plan If the patient continues to remain stable, may be discharged home today. Will be seen [facility] by the nurse practitioner next week for a wo und check and pacemaker check. Will be seen by me in 1 month. May go home with the Keflex 5 mg p.o. every 6 hours for 5 days and multivitamin 1 tablet daily for 2 weeks. Continue other medications as the days. Discussed with Dr. 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
[2021-06-05] MEDS: FUROsemide 20 mg Tablet PO (09:51)
[2021-06-05] MEDS: potassium chloride ER 10 mEq Tablet PO (09:51)
[2021-06-05] MEDS: pantoprazole DR 40 mg Tablet PO (09:51)
[2021-06-05] MEDS: enoxaparin 40 mg/0.4 mL Syringe SUBCUT (09:52)
[2021-06-05] MEDS: aspirin 81 mg EC Tablet PO (09:52)
[2021-06-05] MEDS: metoprolol tartrate 50 mg Tablet PO (09:52)
[2021-06-05] MEDS: CELEcoxib 100 mg Capsule PO (09:52)
[2021-06-05] MEDS: levETIRAcetam 500 mg Tablet PO (09:52)
--- NOTE | 2021-06-05 10:28 | PC.NURSE ---
Patient up with PT. Heart rate as high as 157. Dr. Redmond on the floor and notified by PT and nurse. Dr. Redmond stated he started Metoprolol 50 mg BID and that should help.
--- NOTE | 2021-06-05 10:40 | PM.DCS ---
Discharge Providers Date of Admission: 05/30/21 00:58 Date of Discharge: June 05, 2021 Attending Provider at Admission: Girma Jones M.D Attending Provider at Discharge: Geovanna Powers MD Consults: dr Redmond Primary Care Provider: Javid Edwards MD Diagnoses at Discharge Discharge Diagnosis (1) Acute diastolic heart failure: Status: Acute (2) Third degree heart block: Status: Acute (3) Presence of permanent cardiac pacemaker: Status: Acute (4) Gouty arthritis: Status: Acute (5) ASHD (arteriosclerotic heart disease): Status: Acute (6) Acute blood loss anemia: Status: Acute Reason for Visit Reason for Visit: bradycardia/ pacing Hospital Course Hospital Course Bryanna Mark is a 80 year old female with a past medical history of coronary artery disease, 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 Over the last 24 hours patient has been complaining of recurrent episodes of nausea vomiting and her described seizure-like activity .? Latter episodes are described as lightheadedness, transient loss of consciousness or altered mentation followed by a sensation of feeling unwell.? No postictal phase per se.? Today she had these episodes more frequently.? EMS was called which found her to be in complete heart block with heart rate 30s.? She was very lethargic.? She received Versed and transcutaneous pacing was started and discontinued in the ER.? She was subsequently intubated for airway protection due as she was lethargic likely has a combination of the heart block and benzodiazepines.? Went to cardiac Security Trainer urgently and now has a temporary transvenous pacemaker in place.? And 2 mg of epinephrine infusion at the time of my assessment.? Ongoing drips are fentanyl at 50 and Versed at 2 mg/h, wakes up to calling name and follow simple commands.? Blood pressure is currently stable, heart rhythm is paced.? Coronaries were noted to be without current obstruction and all previous stents were patent. Patient also with a h/o chronic hyponatremia, today Na is at 122. Pt was admitted to the ICU. Had a temporay Pacemaker place and was pacing well. Her symptoms improved. Nausea, vomiting resolved. Her Troponins were slightly elevated. May be due to some Non ST change ichemia. Pt was started on Toprol after the PCM. Pt was emperically started on Zosyn post PCM placement. Pt then had a permanent PCM placed by Dr Redmond. Her VSS remained stable w/ the PCM. She had a klare of Acute Gout in her Rt 1st MTP jt. Was treated w/ steroid and Celebrex. of which she will complete a 5 day course. The gouty arthritis was improving. She had Ac diastolic CHF and was treated w/ Lasix. She was little deconditioned and she be going home and receive HH w/ PT/OT. she will f/u w/ Dr Redmond in 1 wk Physical Exam Narrative: NAD CVS: S1S2, RRR, Mur (-) Resp: CTA Abd soft, NT, BS+ Edema trace INSPECTOR TECHNICIAN: A&Ox4 Skin: lt deltoid area bruised Rt 1st MTP Jt: mild erythema and swelling, Non tender Urinary Catheter Management: Castellanos: Cath Placed During This Visit: yes Reason for Continuing Indwelling Catheter: Accurate Measurement of Urinary Output in Critically Ill Patients Urinary Catheter Date of Insertion: 05/29/21 Urinary Catheter Time of Insertion: 23:05 Discharge Data Studies Completed and Pending Completed Studies During Hospitalization Category Date Time Status [employer] request for service Routine Exams 06/02/21 11:43 Completed CXRP [XR chest 1V portable [id number]] Routine Exams 06/02/21 17:32 Completed XR chest 1V portable [id number] Routine Exams 05/30/21 08:14 Completed XR chest 1V portable [id number] Stat Exams 05/29/21 22:25 Completed XR chest 1V portable [id number] Stat Exams 05/29/21 23:02 [place] [id number] Routine Ultrasound 05/30/21 01:00 Completed CV. echo complete* [id number] Routine Ultrasound 05/30/21 01:00 Completed Pending at discharge Category Date Time Status [employer] request for service Stat Exams 05/29/21 23:16 Taken Radiology Impressions Venous Duplex 05/30/21 01:00 IMPRESSION: 1. No deep vein thrombosis identified (limited study). Chest X-Ray 06/02/21 17:32 IMPRESSION: 1. Cardiomegaly. 2. Mild pulmonary vascular congestion. 3. Patchy bilateral left greater than right airspace infiltrates and/or pulmonary edema. Laboratory Results WBC 14.8 10^3/uL (4.0-10.0) H 06/04/21 15:57 RBC 2.98 10^6/uL (4.1-5.3) L 06/04/21 15:57 Hgb 9.5 g/dL (11.5-15.3) L 06/04/21 15:57 Hct 27.6 % (37.0-47.0) L 06/04/21 15:57 MCV 92.6 fl (81-99) 06/04/21 15:57 MCH 31.9 pg (28.0-34.0) 06/04/21 15:57 MCHC 34.4 g/dL (30.0-36.0) 06/04/21 15:57 RDW 14.5 % (12.1-15.1) 06/04/21 15:57 Plt Count 193 10^3/cmm (130-400) 06/04/21 15:57 MPV 11.6 fL (7.4-10.4) H 06/04/21 15:57 Neut % (Auto) 84.4 % 06/04/21 15:57 Lymph % (Auto) 7.6 % 06/04/21 15:57 Campbell % (Auto) 6.5 % 06/04/21 15:57 Eos % (Auto) 0.5 % 06/04/21 15:57 Baso % (Auto) 0.3 % 06/04/21 15:57 Neut # (Auto) 12.49 10^3/uL (1.8-7.7) H 06/04/21 15:57 Lymph # (Auto) 1.1 10^3/uL (0.8-4.8) 06/04/21 15:57 Campbell # (Auto) 1.0 10^3/uL (0.2-0.9) H 06/04/21 15:57 Eos # (Auto) 0.1 10^3/uL (0.0-0.8) 06/04/21 15:57 Baso # (Auto) 0.1 10^3/uL (0.0-0.1) 06/04/21 15:57 Nucleated RBC % (auto) 0 % 06/04/21 15:57 Nucleated RBCs # 0.0 /100WBC 06/04/21 15:57 PT 14.00 SECONDS (12.1-14.9) 05/29/21 22:20 INR 1.05 (0.8-1.2) 05/29/21 22:20 APTT 30.0 SECONDS (23.9-36.7) 05/29/21 22:20 D-Dimer 2.30 ug/mIFEU (0-0.59) H 05/29/21 22:20 Specimen Type Arterial 05/30/21 03:04 Sample Site Radial, right 05/30/21 03:04 ABG pH 7.44 (7.35-7.45) 05/30/21 03:04 ABG pCO2 30.9 mmHg (35-45) L 05/30/21 03:04 ABG pO2 152.0 mmHg (80.0-100.0) H 05/30/21 03:04 ABG HCO3 21.1 mmol/L (22-26) L 05/30/21 03:04 ABG Base Excess -2.3 mmol/L (-2.0-2.0) L 05/30/21 03:04 Wes Test Pos 05/30/21 03:04 Hematocrit 33.7 % (37-47) L 05/30/21 03:04 O2 Delivery Device Vent 05/30/21 03:04 O2 Liters/Min 3.5 % 05/29/21 22:29 FiO2 35.0 % 05/30/21 03:04 Tidal Volume 0.35 05/30/21 03:04 PEEP 5.0 cmH20 05/30/21 03:04 Sharepoint Analyst ID [email or web address] 05/30/21 03:04 Sodium 132 mmol/L (136-145) L 06/04/21 15:57 Potassium 3.8 mmol/L (3.5-5.1) 06/04/21 15:57 Chloride 99 mmol/L (98-107) 06/04/21 15:57 Carbon Dioxide 16 mmol/L (22-29) L 06/04/21 15:57 Anion Gap 20.8 (5-19) H 06/04/21 15:57 BUN 15 mg/dL (8-23) 06/04/21 15:57 Creatinine 1.2 mg/dL (0.5-0.9) H 06/04/21 15:57 GFR Calculation Not Reportable 06/04/21 15:57 Glucose 160 mg/dL (65-115) H 06/04/21 15:57 Estimat Average Glucose 108 05/31/21 04:32 Hemoglobin A1c 5.4 % (4.0-6.0) 05/31/21 04:32 Calculated Osmolality 278 mOsm/kg (285-295) L 06/04/21 15:57 Calcium 8.3 mg/dL (8.5-10.5) L 06/04/21 15:57 Phosphorus 4.5 mg/dL (2.5-4.5) 05/29/21 22:20 Magnesium 2.0 mg/dL (1.7-2.3) 05/31/21 04:32 Iron 110 ug/dL (37-145) 05/30/21 06:05 TIBC 261 mcg/dl 05/30/21 06:05 % Saturation 42.1 % (20-50) 05/30/21 06:05 Unsat Iron Binding 151 ug/dL (112-347) 05/30/21 06:05 Total Bilirubin 0.4 mg/dL (0.15-1.2) 05/31/21 04:32 AST 35 U/L (0-32) H 05/31/21 04:32 ALT 24 U/L (0-33) 05/31/21 04:32 Alkaline Phosphatase 71 IU/L (35-105) 05/31/21 04:32 Creatine Kinase 212 U/L (26-192) H 05/29/21 22:20 Troponin T Gen 5 ng/L 228 ng/L (0-10) H* 05/30/21 06:05 Troponin T Baseline 216 ng/L (0-10) H* 05/29/21 22:20 NT-Pro-B Natriuret Pep 7756 pg/mL (0-450) H 05/29/21 22:20 Total Protein 5.3 g/dL (6.6-8.7) L 05/31/21 04:32 Albumin 3.7 g/dL (3.5-5.2) 05/31/21 04:32 Globulin 1.6 g/dL (1.3-4.6) 05/31/21 04:32 Triglycerides 75 mg/dL (0-150) 05/31/21 04:32 Cholesterol 92 mg/dL (0-200) 05/31/21 04:32 LDL Cholesterol, Calc 31 mg/dL (50-129) L 05/31/21 04:32 Total VLDL Cholesterol 15 mg/dL (0-30) 05/31/21 04:32 HDL Cholesterol 46 mg/dL (60-100) L 05/31/21 04:32 Cholesterol/HDL Ratio 2.00 mg/dL (0.0-4.40) 05/31/21 04:32 TSH 2.01 uIU/mL (0.27-4.20) 05/31/21 04:32 Urine Color Yellow (Yellow) 05/29/21 23:06 Urine Appearance Clear (CLEAR) 05/29/21 23:06 Urine pH 5 (5-7) 05/29/21 23:06 Ur Specific [place] 1.020 (1.005-1.030) 05/29/21 23:06 Urine Protein Neg (Negative) 05/29/21 23:06 Urine Glucose (UA) Norm (Normal) 05/29/21 23:06 Urine Ketones Negative (Negative) 05/29/21 23:06 Urine Blood 2+ (Negative) H 05/29/21 23:06 Urine Nitrate Negative (Negative) 05/29/21 23:06 Urine Bilirubin Neg (Negative) 05/29/21 23:06 Urine Urobilinogen Norm mg/dL (Negative) 05/29/21 23:06 Ur Leukocyte Esterase Negative (Negative) 05/29/21 23:06 Urine RBC 5-10 /hpf (0-2) H 05/29/21 23:06 Urine WBC 0-4 /hpf (0-5) H 05/29/21 23:06 Ur Squamous Epith Cells 0-4 /hpf (0-5) H 05/29/21 23:06 Amorphous Sediment 1+ /hpf 05/29/21 23:06 Urine Bacteria Trace /hpf (NONE) 05/29/21 23:06 Hyaline Casts 5-10 /lpf H 05/29/21 23:06 Ur Random Sodium 33 mmol/L 05/29/21 23:06 Ur Random Potassium 56 mmol/L 05/29/21 23:06 Ur Random Chloride 15 mmol/L 05/29/21 23:06 Vitals Last Vital Signs Temp 98.9 F 06/05/21 08:00 Pulse 71 06/05/21 08:00 Resp 16 06/05/21 08:00 BP 107/64 06/05/21 08:00 Pulse Ox 97 06/05/21 07:35 Discharge Plan Discharge Patient Disposition: Home Health Service Condition: Critical Prescriptions: New acetaminophen 325 mg Tablet 650 mg PO Q6H PRN (Reason: Mild/Mod Pain Or Temp >/= 101) 30 Days 0RF aspirin 81 mg Tablet,Delayed Release (Dr/Ec) 81 mg PO DAILY 30 Days 0RF trazodone 50 mg Tablet 25 mg PO BEDTIME PRN (Reason: Sleep) 30 Days 0RF metoprolol tartrate 50 mg Tablet 50 mg PO BID@0900,2100 30 Days 0RF potassium chloride 10 mEq Tablet Extended Release 10 meq PO DAILY 15 Days 0RF cephalexin 500 mg tablet 500 mg PO Q6H 5 Days Qty: 20 0RF celecoxib 100 mg Capsule 100 mg PO BID Qty: 3 0RF furosemide 20 mg Tablet 20 mg PO DAILY@0800 15 Days 0RF prednisone 20 mg tablet 20 mg PO BID 3 Days Qty: 6 0RF Continued omega-3 fatty acids [Fish Oil Concentrate] 1,000 mg capsule 1,000 mg PO DAILY 0RF hydroxychloroquine 200 mg tablet See Rx Instructions PO .COMPLEX Qty: 45 3RF Rx Instructions: alternate doses with 1 tab daily and 2 tabs daily levetiracetam 250 mg tablet 500 mg PO BID 0RF cholecalciferol (vitamin D3) 50 mcg (2,000 unit) tablet 2,000 unit PO DAILY Qty: 30 0RF diclofenac sodium 1 % gel 4 g topical QID PRN (Reason: Pain) 0RF Brilinta 90 mg tablet 90 mg PO BID Qty: 60 4RF atorvastatin 20 mg tablet 20 mg PO DAILY 0RF Nitro-Time 2.5 mg capsule, extended release 2.5 mg PO BID 0RF Held prednisone 2.5 mg tablet 2.5 mg PO DAILY 0RF Hold Instructions: Resume on 06/08/21. Discontinued lisinopril 40 mg tablet 20 mg PO QAM 0RF aspirin 325 mg tablet 81 mg PO QAM Qty: 0 0RF Discharge Orders: Discharge Order (Routine); Ordered 06/05/21 Ordered By: Geovanna Powers Discharge Diet: Cardiac Discharge Activity: Resume usual activity Patient Instructions: Opioid Safety, Post Pacemaker - Ruy Discharge Attestations Time Spent in Discharge Care*: greater than 30 min Quality Metrics Clinical Quality Measures [ No reported AMI, CVA or VTE this stay] Coding Level of Care Code Acute Chg FW DC note Diagnoses Acute diastolic heart failure I50.31 Third degree heart block I44.2 Presence of permanent cardiac pacemaker Z95.0 Gouty arthritis M10.9 ASHD (arteriosclerotic heart disease) I25.10 Acute blood loss anemia D62
--- NOTE | 2021-06-05 11:16 | PC.NURSE ---
MEDICATIONS CALLED INTO [facility] BY THIS NURSE
[2021-06-05 11:22] VITALS: BP 107/66; PULSE 75; RESP 16; TEMP 36.6; O2SAT 99
--- NOTE | 2021-06-05 14:18 | PC.NURSE ---
Discharge paperwork discussed with patient and family. Medications, follow up appointments and all questions answered. Verbalized understanding.
[2021-06-05 15:05] VITALS: BP 107/66; PULSE 75; RESP 16; TEMP 36.6; O2SAT 99
== END 2021-06-05 15:06 | disposition home health service (06) | DRG 242 ==
LOC: ER 22:57 → CCL 23:35 → ICU 05-30 00:59 → MEDSURG 06-04 18:09
PROVIDERS: Internal Medicine; Internal Medicine Cardiovascular Disease; Student in an Organized Health Care Education/Training Program; Admitting Provider Internal Medicine; Emergency Provider Emergency Medicine; PCP Family Medicine; Visit Provider Internal Medicine
PROC: B211YZZ Fluoroscopy of Multiple Coronary Arteries using Other Contrast (ICD-10-PCS; principal; 2021-05-29 23:30)
PROC: 0JH604Z Insertion of Pacemaker, Single Chamber into Chest Subcutaneous Tissue and Fascia, Open Approach (ICD-10-PCS; principal; 2021-06-02 12:00)
DX: I44.2 Atrioventricular block, complete (principal); I50.31 Acute diastolic (congestive) heart failure; I21.A1 Myocardial infarction type 2; R57.0 Cardiogenic shock; I13.0 Hypertensive heart and chronic kidney disease with heart failure and stage 1 through stage 4 chronic kidney disease, or unspecified chronic kidney disease; D62 Acute posthemorrhagic anemia; E87.1 Hypo-osmolality and hyponatremia; I25.10 Atherosclerotic heart disease of native coronary artery without angina pectoris; Z95.5 Presence of coronary angioplasty implant and graft; N18.9 Chronic kidney disease, unspecified; E78.5 Hyperlipidemia, unspecified; L93.0 Discoid lupus erythematosus; G40.909 Epilepsy, unspecified, not intractable, without status epilepticus; Z85.42 Personal history of malignant neoplasm of other parts of uterus; K21.9 Gastro-esophageal reflux disease without esophagitis; M81.0 Age-related osteoporosis without current pathological fracture; Z79.02 Long term (current) use of antithrombotics/antiplatelets; M10.9 Gout, unspecified; Z66 Do not resuscitate; Z90.10 Acquired absence of unspecified breast and nipple; G47.30 Sleep apnea, unspecified
CPT/HCPCS: 31500; 33207; 33210; 36415; 36600; 51702; 71045; 80048; 80053; 80061; 81001; 82436; 82550; 82803; 83036; 83540; 83550; 83735; 83880; 84100; 84133; 84300; 84443; 84484; 85025; 85378; 85610; 85730; 87040; 87641; 92526; 92610; 93005; 93306; 93454; 93970; 94002; 94003; 94799; 96365; 96372; 96375; 97110; 97116; 97162; 97165; 97530; 99214; 99291; A4570; C1760; C1769; C1779; C1786; C1887; C1894; C1898; J0171; J0330; J0690; J1644; J1650; J1940; J2060; J2250; J2405; J2543; J3010; J3301; J3490; J7030; J7040; J7050; J7512; Q9967

== ENCOUNTER → 2021-06-10 13:30 | Outpatient (BNVA) | payer MEDICARE, SELFPAY | PROVIDERS: PCP Family Medicine; Visit Provider Nurse Practitioner Family | DX: I25.10 Atherosclerotic heart disease of native coronary artery without angina pectoris (principal); I10 Essential (primary) hypertension; Z95.0 Presence of cardiac pacemaker | CPT/HCPCS: 36415; 80048; 83880; 99214 ==

== ENCOUNTER → 2021-06-18 10:21 | Outpatient (BNVA) | payer MEDICARE, SELFPAY | PROVIDERS: PCP Family Medicine; Visit Provider Internal Medicine Cardiovascular Disease | DX: I44.2 Atrioventricular block, complete (principal); Z95.0 Presence of cardiac pacemaker ==

== ENCOUNTER → 2021-07-27 13:40 | Outpatient (BNVA) | payer MEDICARE, SELFPAY | PROVIDERS: PCP Family Medicine; Visit Provider Family Medicine | DX: I10 Essential (primary) hypertension (principal) | CPT/HCPCS: 80048 ==

== ENCOUNTER 2021-08-30 11:17 | Inpatient (IN) | payer MEDICARE, SELFPAY ==
[2021-08-30] VITALS (18 sets, daily range): BP systolic 111–137; BP diastolic 49–88; PULSE 60; RESP 14–32; TEMP 36.7–36.9; O2SAT 89–98; BMI 24.4
--- NOTE | 2021-08-30 12:32 | W.ED.SOB ---
HPI - SOB/Dyspnea General: Chief Complaint: Shortness of Breath/Dyspnea Stated Complaint: SOB, Vomiting Time Seen by Provider: 08/30/21 12:32 History of Present Illness: HPI Narrative: Ms. Mark is an 81-year-old lady with significant past medical history of NC, status post pacemaker, on hydroxychloroquine who presents to the emergency department due to shortness of breath and abdominal pain. Onset of shortness of breath was gradual few weeks ago. Initially she mostly noticed it with exertion however is now progressed to being present at rest. Symptoms are worse with exertion, no orthopnea or PND. Mild associated dry cough. No other infectious respiratory symptoms. Additionally 2 days ago she developed bilateral lower abdominal pain. Aching in quality. No associated changes in bowel movements. Nonbilious and nonbloody emesis a few times. Overall course of symptoms has worsened. Intensity respiratory symptoms is moderate however becomes severe with exertion. Intensity of abdominal symptoms is mild to moderate. No other specific changes in health, exacerbating, or alleviating factors identified. 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 Sleep apnea SS-A antibody positive Surgical History H/O mastectomy H/O: hysterectomy History of appendectomy History of PTCA History of shoulder surgery Family History Father Diabetes Family/Other Diabetes Denies family history of Rheumatoid arthritis CAD (coronary artery disease) Clotting disorder Dementia Chronic kidney disease (CKD) Systemic lupus erythematosus (SLE) in adult Suicide Anesthesia complication Bleeding disorder Lung disease Cancer Hypertension Stroke Social History Smoking and tobacco status: never smoked Alcohol intake: never History of recent travel: No Physical Exam Const: COMMON NORMALS: alert GENERAL APPEARANCE: cooperative, well developed and ill appearing (Somewhat) HENMT: COMMON NORMALS: normocephalic and atraumatic HEAD & SCALP: normocephalic and atraumatic Eye: COMMON NORMALS: conjunctivae normal CONJUNCTIVA: Yes conjunctivae normal SCLERA: sclerae normal Neck/C-Spine: COMMON NORMALS: supple GENERAL: Yes trachea midline Resp: COMMON NORMALS: normal respiratory effort EFFORT & INSPECTION: Yes able to speak in complete sentences AUSCULTATION: crackles Laterality: bilateral (We will) Cardio: COMMON NORMALS: regular rate and regular rhythm RATE: regular rate RHYTHM: regular rhythm GI: COMMON NORMALS: Soft to palpation PALPATION: Yes Soft to palpation, Yes Tenderness to palpation present (GI) Details: LLQ and RLQ, No Guarding due to palpation present (GI) and No Rigid due to palpation PERCUSSION: normal to percussion Extremity: GENERAL: Yes normal exam except as noted and No edema Neuro: COMMON NORMALS: moves all extremities SENSORIUM/ORIENTATION: Yes alert and No Orientation impaired Psych: COMMON NORMALS: mental status grossly normal and Normal thought process present THOUGHT PROCESS: Normal thought process present Course ED course: - Patient was seen and evaluated by me at bedside - Patient placed on cardiac monitors, IV access obtained - Initial evaluation notable for exam as above. - Labs and xrays personally interpreted by me. EKG showing paced rhythm. - Labs notable for mild leukocytosis, normal hemoglobin. Metabolic panel without acute electrolyte derangement, mildly decreased bicarb and increased anion gap, creatinine is mildly above baseline. Transaminitis noted. Troponin elevated with intermediate range 2-hour delta troponin. BNP markedly elevated. Lactic acid elevated. Acute hepatitis panel negative - Imaging notable for pulmonary vascular congestion on chest x-ray. CT abdomen pelvis notable for edema pleural effusion. Additionally gallbladder appears abnormal. Ultrasound without acute evidence of cholecystitis. - Upon serial reexamination after treatment the patient was similar to mildly improved with analgesia - Based on patient history, evaluation, and testing as interpreted the most likely cause of the patient's condition is somewhat unclear. Patient is certainly ill, clinically blood pressure is adequate which somewhat clouds clinical picture. Most likely decompensated heart failure though other etiologies such as infectious are also a consideration. Empiric antibiotic given. - The results of ED evaluation were discussed with the patient including plan for admission due to requirement for level of care not available if discharged to prevent significant worsening/deterioration. - Discussed with cardiology Dr. Jones who came to evaluate the patient. - Admitting service was contacted and Dr Frost with the hospitalist service agreed to admit the patient - Patient was admitted without further deterioration or significant events. Note: Click bubbles or prepopulated nicholson in note writing are used for assistance with data collection and billing and are inherently more limited than narrative and other text portions of this note. Please use narrative for additional clinical history and defer to narrative/free test for any case of contradictory information. If information appears in only free text or click bubble it should be considered present or absent as reported. Please contact note lead technical writer for clarifications of clinical information or contradictory information. MDM is a brief summary, contradictory or erroneous seeming information should be clarified and full note should be reviewed. Vital Signs: Vital signs: Vital Signs Temperature 98.5 F 08/30/21 20:10 Pulse Rate 60 08/30/21 21:30 Respiratory Rate 15 08/30/21 21:30 Blood Pressure 130/80 08/30/21 21:30 Pulse Oximetry 94 08/30/21 21:30 MDM - SOB/Dyspnea Medical Decision Making 81-year-old lady with cardiac history presenting with progressive worsening of shortness of breath. Patient found to have laboratory abnormalities consistent with severely decompensated heart failure/cardiogenic shock. Admitted for further management with cardiology consult. Medical Records I reviewed the patient's medical records. Lab Data I reviewed the patient's lab results. : 08/30/21 13:10 08/30/21 13:10 Labs/Radiology: Radiology Impressions Chest X-Ray 08/30/21 12:54 IMPRESSION: Mild cardiomegaly and pulmonary vascular congestion. Chest/Abdomen/Pelvis CT 08/30/21 14:15 IMPRESSION: 1. Cardiomegaly, increased since prior exam. Coronary calcifications. No obvious signs of vascular congestion. 2. New pleural effusions as described. No acute lung consolidation or ground-glass opacity otherwise. IMPRESSION: 1. Gallbladder findings. See discussion above. 2. Colonic diverticulosis. No acute diverticulitis or other obvious acute bowel findings. Somewhat limited exam due to lack of contrast. 3. Trace perihepatic ascites. Abdomen Ultrasound 08/30/21 16:42 IMPRESSION: 1. Mild nonspecific gallbladder wall thickening. This may be related to systemic/cardiac disease, or regional inflammatory disease such as hepatitis or mild cholangitis. No cholelithiasis or obvious imaging signs of acute cholecystitis otherwise. No bile duct dilatation. 2. Other findings as above. Laboratory Results WBC 12.4 10^3/uL (4.0-10.0) H 08/30/21 13:10 RBC 4.47 10^6/uL (4.1-5.3) 08/30/21 13:10 Hgb 12.7 g/dL (11.5-15.3) 08/30/21 13:10 Hct 39.9 % (37.0-47.0) 08/30/21 13:10 MCV 89.3 fl (81-99) 08/30/21 13:10 MCH 28.4 pg (28.0-34.0) 08/30/21 13:10 MCHC 31.8 g/dL (30.0-36.0) 08/30/21 13:10 RDW 14.2 % (12.1-15.1) 08/30/21 13:10 Plt Count 277 10^3/cmm (130-400) 08/30/21 13:10 MPV 11.9 fL (7.4-10.4) H 08/30/21 13:10 Neut % (Auto) 69.8 % 08/30/21 13:10 Lymph % (Auto) 16.0 % 08/30/21 13:10 Runnels % (Auto) 12.6 % 08/30/21 13:10 Eos % (Auto) 0.0 % 08/30/21 13:10 Baso % (Auto) 0.9 % 08/30/21 13:10 Neut # (Auto) 8.67 10^3/uL (1.8-7.7) H 08/30/21 13:10 Lymph # (Auto) 2.0 10^3/uL (0.8-4.8) 08/30/21 13:10 Runnels # (Auto) 1.6 10^3/uL (0.2-0.9) H 08/30/21 13:10 Eos # (Auto) 0.0 10^3/uL (0.0-0.8) 08/30/21 13:10 Baso # (Auto) 0.1 10^3/uL (0.0-0.1) 08/30/21 13:10 Nucleated RBC % (auto) 0.5 % 08/30/21 13:10 Nucleated RBCs # 0.1 /100WBC 08/30/21 13:10 Sodium 137 mmol/L (136-145) 08/30/21 13:10 Potassium 4.5 mmol/L (3.5-5.1) 08/30/21 13:10 Chloride 99 mmol/L (98-107) 08/30/21 13:10 Carbon Dioxide 20 mmol/L (22-29) L 08/30/21 13:10 Anion Gap 22.5 (5-19) H 08/30/21 13:10 BUN 28 mg/dL (8-23) H 08/30/21 13:10 Creatinine 1.4 mg/dL (0.5-0.9) H 08/30/21 13:10 GFR Calculation Not Reportable 08/30/21 13:10 Glucose 110 mg/dL (65-115) 08/30/21 13:10 Calculated Osmolality 290 mOsm/kg (285-295) 08/30/21 13:10 Lactic Acid 5.5 mmol/L (0.5-2.2) H* 08/30/21 16:54 Calcium 9.3 mg/dL (8.5-10.5) 08/30/21 13:10 Total Bilirubin 0.8 mg/dL (0.15-1.2) 08/30/21 13:10 AST 1066 U/L (0-32) H 08/30/21 13:10 ALT 1250 U/L (0-33) H 08/30/21 13:10 Alkaline Phosphatase 141 IU/L (35-105) H 08/30/21 13:10 Troponin T Baseline 275 ng/L (0-10) H* 08/30/21 13:10 Troponin T 120 Minute 281.6 ng/L (0-10) H 08/30/21 15:31 Delta Troponin T 6.6 ABS# (0-10) 08/30/21 15:31 NT-Pro-B Natriuret Pep 34594 pg/mL (0-450) H 08/30/21 13:10 Total Protein 7.0 g/dL (6.6-8.7) 08/30/21 13:10 Albumin 4.4 g/dL (3.5-5.2) 08/30/21 13:10 Globulin 2.6 g/dL (1.3-4.6) 08/30/21 13:10 Lipase 33 U/L (13-60) 08/30/21 13:10 Prolactin 17.60 ng/mL (4.8-23.3) 08/30/21 15:31 Urine Color Yellow (Yellow) 08/30/21 16:07 Urine Appearance Clear (CLEAR) 08/30/21 16:07 Urine pH 5 (5-7) 08/30/21 16:07 Ur Specific Eldridge 1.025 (1.005-1.030) 08/30/21 16:07 Urine Protein Neg (Negative) 08/30/21 16:07 Urine Glucose (UA) Norm (Normal) 08/30/21 16:07 Urine Ketones Negative (Negative) 08/30/21 16:07 Urine Blood 2+ (Negative) H 08/30/21 16:07 Urine Nitrate Negative (Negative) 08/30/21 16:07 Urine Bilirubin Neg (Negative) 08/30/21 16:07 Urine Urobilinogen Norm mg/dL (Negative) 08/30/21 16:07 Ur Leukocyte Esterase Negative (Negative) 08/30/21 16:07 Urine RBC 0-4 /hpf (0-2) H 08/30/21 16:07 Urine WBC 0-4 /hpf (0-5) H 08/30/21 16:07 Ur Squamous Epith Cells 15-25 /hpf (0-5) H 08/30/21 16:07 Amorphous Sediment Not Reportable 08/30/21 16:07 Urine Bacteria 4+ /hpf (NONE) H 08/30/21 16:07 Hepatitis A IgM Ab Non-reactive (Nonreactive) 08/30/21 13:10 Hep Bs Antigen Non-reactive (Nonreactive) 08/30/21 13:10 Hep B Core IgM Ab Non-reactive (Nonreactive) 08/30/21 13:10 Hepatitis C Antibody Non-reactive (Nonreactive) 08/30/21 13:10 Critical Care Time Critical Care Time: Critical Care Time: Yes Total Critical Care Time: 55 Attestation: Due to a high probability of clinically significant, possibly life threatening deterioration, the patient required my highest level of attention and preparedness to intervene emergently and I personally spent this critical care time directly and personally managing the patient. This critical care time included obtaining a history; examining the patient; pulse oximetry; ordering and review of laboratory and imaging studies; arranging urgent treatment with development of a management plan; evaluation of patient's response to treatment; frequent reassessment; and, discussions with other providers as applicable. It was exclusive of separately billable procedures. Primary system involved is cardiovascular Discharge Plan Discharge Patient Disposition: Admitted As Inpatient Admit Provider: Galilea Frost Clinical Impression: Non-ST elevation NC (NSTEMI), Acute on chronic congestive heart failure, Transaminitis, Acidosis, lactic, Cardiogenic shock Condition: Stable Coding Level of Care Code ED Patient Financial Counselor for Rosa Fwd Exam Comprehensive
--- NOTE | 2021-08-30 12:54 | XRR_ITS ---
PROCEDURE INFORMATION: Exam: XR Chest Exam date and time: 08/30/2021 1:01 PM Age: 81 years old Clinical indication: Shortness of breath; Additional info: SOB TECHNIQUE: Imaging protocol: XR of the chest. Views: 1 view. COMPARISON: CR XR chest 1V portable [id number] 06/02/2021 6:02 PM FINDINGS: Lungs: No consolidation. Pleural spaces: No pleural effusion. No pneumothorax. Heart/Mediastinum: Mild cardiomegaly and pulmonary vascular congestion with single lead pacer device noted in the left chest wall. Bones/joints: Rotator cuff anchor noted in the left humeral head. Moderate DJD of both shoulders. Visualized osseous structures are intact. XR/XR chest 1V portable [id number] IMPRESSION: Mild cardiomegaly and pulmonary vascular congestion.
--- NOTE | 2021-08-30 12:55 | ECG_ITS ---
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 Measurements Intervals [place] Rate: 59 P: MI: QRS: -85 QRSD: 193 T: 105 QT: 509 QTc: 508 Interpretive Statements ELECTRONIC VENTRICULAR PACEMAKER ABNORMAL RHYTHM ECG Compared to ECG 06/03/2021 06:02:02 Atrial fibrillation no longer present Intraventricular conduction delay no longer present Electronically Signed On 08-30-2021 19:41:24 CDT by Rojas Redmond M.D. [id number]
[2021-08-30 13:19] LABS: Basophils # 0.1 10^3/uL (0.0-0.1); Basophils % 0.9 %; Hematocrit 39.9 % (37.0-47.0); Hemoglobin 12.7 g/dL (11.5-15.3); Mean Corpuscular HGB Conc 31.8 g/dL (30.0-36.0); Mean Corpuscular Hemoglobin 28.4 pg (28.0-34.0); Mean Corpuscular Volume 89.3 fl (81-99); Mean Platelet Volume 11.9 fL (7.4-10.4); Monocytes # 1.6 10^3/uL (0.2-0.9); Monocytes % 12.6 %; Neutrophils # 8.67 10^3/uL (1.8-7.7); Neutrophils % 69.8 %; Nucleated Red Blood Cells # 0.1 /100WBC; Nucleated Red Blood Cells % 0.5 %; Platelet Count 277 10^3/cmm (130-400); Red Blood Count 4.47 10^6/uL (4.1-5.3); Red Cell Distribution Width 14.2 % (12.1-15.1); White Blood Count 12.4 10^3/uL (4.0-10.0)
--- NOTE | 2021-08-30 13:19 | PC.NURSE ---
PT placed on continuous NIBP, SpO2, and CM
--- NOTE | 2021-08-30 13:23 | PC.PHAR ---
pt and pts family verified pts medications-ext med history shows levetiracetam 250mg bid filled 07/29/21 90d/s pts family states Dr.Spurling simon 3 months ago-pts family states the pt is no longer taking lasix 40mg daily or kcl 10meq daily ext med history shows last filled 07/06/21 90d/s-notes are made in the pharmacy comments
[2021-08-30 13:43] LABS: Troponin(5th) Baseline 275 ng/L (0-10)
[2021-08-30 13:45] LABS: Albumin Level 4.4 g/dL (3.5-5.2); Alkaline Phosphatase 141 IU/L (35-105); Anion Gap 22.5 (5-19); Blood Urea Nitrogen 28 mg/dL (8-23); Calcium 9.3 mg/dL (8.5-10.5); Carbon Dioxide 20 mmol/L (22-29); Chloride 99 mmol/L (98-107); Globulin 2.6 g/dL (1.3-4.6); Glucose 110 mg/dL (65-115); Lipase 33 U/L (13-60); Osmolality Calculated 290 mOsm/kg (285-295); Potassium 4.5 mmol/L (3.5-5.1); Sodium 137 mmol/L (136-145); Total Bilirubin 0.8 mg/dL (0.15-1.2)
[2021-08-30 13:57] LABS: Alanine Aminotransferase 1250 U/L (0-33)
[2021-08-30 14:14] LABS: Aspartate Amino Transferase 1066 U/L (0-32)
--- NOTE | 2021-08-30 14:15 | CTR_ITS ---
PROCEDURE INFORMATION: Exam: CT Chest Without Contrast; Diagnostic Exam date and time: 08/30/2021 4:20 PM Age: 81 years old Clinical indication: Abdominal pain; Generalized; Other: Abd pain; Prior surgery; Surgery date: 6+ months; Surgery type: Appy, hyst, mastectomy and heart SX; Additional info: Lower abd pain, transaminitis TECHNIQUE: Imaging protocol: Diagnostic computed tomography of the chest without contrast. Radiation optimization: All CT scans at this facility use at least one of these dose optimization techniques: automated exposure control; mA and/or kV adjustment per patient size (includes targeted exams where dose is matched to clinical indication); or iterative reconstruction. COMPARISON: CR XR chest 1V portable [id number] 08/30/2021 1:01 PM RADIATION DOSE METRICS: Total DLP (mGy-cm): 897.02 FINDINGS: Tubes, catheters and devices: Left chest wall single chamber cardiac device in place, new since prior exam. Lungs: Calcified granuloma right lung. No acute lung consolidation or ground-glass opacity however lung parenchymal assessment is limited due to some motion. Tiny linear scarring-atelectasis in the left lung base. Pleural spaces: New small right and trace left pleural effusions. Heart: [id number] cardiomegaly with interval increase. Coronary calcifications. Lymph nodes: No enlarged lymph nodes. Vasculature: Unremarkable. No aortic aneurysm. Bones/joints: Osteopenia. Multilevel vertebral disc degeneration and endplate osteophytes. No acute osseous findings otherwise. Old healed bilateral rib fractures. Soft tissues: Prior right mastectomy. PROCEDURE INFORMATION: Exam: CT Abdomen And Pelvis Without Contrast Exam date and time: 08/30/2021 4:20 PM Age: 81 years old Clinical indication: Abdominal pain; Generalized; Other: Abd pain; Prior surgery; Surgery date: 6+ months; Surgery type: Appy, hyst, mastectomy and heart SX; Additional info: Lower abd pain, transaminitis TECHNIQUE: Imaging protocol: Computed tomography of the abdomen and pelvis without contrast. Radiation optimization: All CT scans at this facility use at least one of these dose optimization techniques: automated exposure control; mA and/or kV adjustment per patient size (includes targeted exams where dose is matched to clinical indication); or iterative reconstruction. COMPARISON: CTA Thoracic/Abd/Pelvis Aorta 07/02/2016 1:50 PM RADIATION DOSE METRICS: Total DLP (mGy-cm): 897.02 FINDINGS: Liver: Liver is normal in size with no obvious cirrhosis or obvious CT signs of severe steatosis. Gallbladder and bile ducts: Gallbladder is mildly distended with nonspecific diffuse wall thickening and high-density content. This may be related to high-density/proteinaceous sludge or tiny calculi or vicarious excretion with recent IV contrast injection. No obvious regional fat stranding to suggest definite signs of acute cholecystitis however sonographic correlation may be helpful. No obvious bile duct dilatation. Pancreas: Fatty replaced pancreas with no large contour deforming mass or regional acute inflammatory response. Spleen: Normal. No splenomegaly. Adrenal glands: Normal. No mass. Kidneys and ureters: No obstructing calculus. No hydronephrosis. Stomach and bowel: Moderate amount of fecal retention. No obvious bowel dilatation, pneumatosis or suspicious bowel wall thickening however assessment is limited due to lack of contrast. Colonic diverticulosis. Appendix: Prior appendectomy. Intraperitoneal space: Trace amount of perihepatic ascites. Otherwise no free air or fluid collection. Minimal presacral soft tissue edema with no regional collection. Vasculature: Extensive aortoiliac calcification without aneurysm. Lymph nodes: No enlarged lymph nodes. Urinary bladder: Unremarkable as visualized. Reproductive: Prior hysterectomy. Bones/joints: Osteopenia. Multilevel vertebral disc degeneration and endplate osteophytes. No acute osseous findings otherwise. Soft tissues: Small fat-containing umbilical hernia. CT/[place] [id number] IMPRESSION: 1. Cardiomegaly, increased since prior exam. Coronary calcifications. No obvious signs of vascular congestion. 2. New pleural effusions as described. No acute lung consolidation or ground-glass opacity otherwise. IMPRESSION: 1. Gallbladder findings. See discussion above. 2. Colonic diverticulosis. No acute diverticulitis or other obvious acute bowel findings. Somewhat limited exam due to lack of contrast. 3. Trace perihepatic ascites.
--- NOTE | 2021-08-30 14:52 | PC.NURSE ---
Pacemaker interrogated 1445 [employer] report 1453- Single chamber pacemaker is currently pacing at 60bpm with no recent arrhythmias. On 10 of July and 2021 PT had episodes of nonsustained Vtach lasting 1 second each. All measurements of device are WNL. Report given by Silverio Griffith
--- NOTE | 2021-08-30 14:55 | ECG_ITS ---
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 Measurements Intervals [place] Rate: 60 P: [place]: QRS: 269 QRSD: 190 T: 92 QT: 509 QTc: 509 Interpretive Statements ELECTRONIC VENTRICULAR PACEMAKER ABNORMAL RHYTHM ECG Compared to ECG 06/03/2021 06:02:02 Atrial fibrillation no longer present Intraventricular conduction delay no longer present Electronically Signed On 08-30-2021 19:46:43 CDT by Rojas Redmond M.D. [id number]
--- NOTE | 2021-08-30 15:14 | PC.NURSE ---
EKG done at 1510 and shown to ER doctor
[2021-08-30] MEDS: morphine 4 mg/mL SDV 1 mL IVP (15:42)
[2021-08-30 16:12] LABS: Hepatitis A Antibody IgM Non-Reactive (Nonreactive); Hepatitis B Core IgM Non-Reactive (Nonreactive); Hepatitis B Surface Antigen Non-Reactive (Nonreactive); Hepatitis C Virus Antibody Non-Reactive (Nonreactive)
[2021-08-30 16:35] LABS: Troponin 5 2HR Delta 6.6 ABS# (0-10)
[2021-08-30 16:38] LABS: Troponin 5 2HR 281.6 ng/L (0-10)
--- NOTE | 2021-08-30 16:42 | USR_ITS ---
PROCEDURE INFORMATION: Exam: US Abdomen, Limited; Right Upper Quadrant Exam date and time: 08/30/2021 5:00 PM Age: 81 years old Clinical indication: Abnormal findings; Abnormal lab test; Elevated liver enzymes; Additional info: Ruq, transaminitis, abnormal appearance on CT TECHNIQUE: Imaging protocol: US abdomen. Real time ultrasound with image documentation. Limited exam focused on the right upper quadrant. COMPARISON: [place] [id number] 08/30/2021 4:20 PM FINDINGS: Liver: Liver is normal in size with grossly normal overall echotexture. No evidence of cirrhosis or large mass. Gallbladder: No abnormal gallbladder luminal distention. No shadowing calculi. Again seen is minimal gallbladder wall thickening/edema and/or trace amount of regional fluid however there is no sonographic Maldonado sign. Biliary ducts: No bile duct dilatation. Proximal CBD measures 4 mm. Distal CBD is poorly seen. Pancreas: Pancreas is poorly visualized. Right kidney: Normal. No mass. No hydronephrosis. Aorta: Details are limited due to gaseous abdomen and body habitus. Proximal aorta is normal in size. Distal aorta is poorly seen. Portal venous: Main portal vein is patent with normal flow direction. Intraperitoneal space: Recent CT demonstrated trace amount of perihepatic ascites which is difficult to appreciate on this exam. US/US abdomen limited [id number] IMPRESSION: 1. Mild nonspecific gallbladder wall thickening. This may be related to systemic/cardiac disease, or regional inflammatory disease such as hepatitis or mild cholangitis. No cholelithiasis or obvious imaging signs of acute cholecystitis otherwise. No bile duct dilatation. 2. Other findings as above.
--- NOTE | 2021-08-30 16:43 | PC.NURSE ---
Physician notified of 1st troponin lab value and second troponin critical value. No verbal orders given at this time.
[2021-08-30 17:14] LABS: Specific Gravity, Urine 1.025 (1.005-1.030); Urine Appearance Clear (CLEAR); Urine Color Yellow (Yellow); pH Urine 5 (5-7)
[2021-08-30 17:15] LABS: Add Urine Culture? No; Add Urine Microscopic? YES; Bacteria Urine 4+ /hpf; Bilirubin Urine Neg (Negative); Blood Urine 2+ (Negative); Glucose Urine UA Norm (Normal); Ketones Urine Negative (Negative); Leukocyte Esterase Urine Negative (Negative); Nitrate Urine Negative (Negative); Protein Urine Neg (Negative); RBC Urine 0-4 /hpf (0-2); Squamous Epithelial Cell Urine 15-25 /hpf (0-5); Urobilinogen Urine Norm (Negative); WBC Urine 0-4 /hpf (0-5)
[2021-08-30 17:43] LABS: Lactic Sepsis W/Reflex 5.5 mmol/L (0.5-2.2)
[2021-08-30] MEDS: cefepime 2,000 MG in sodium chloride 0.9% (plus) 50 ML 100 MG IV (18:02)
--- NOTE | 2021-08-30 18:02 | PM.HP ---
Providers/Chief Complaint Primary Care Provider: Javid Edwards MD Chief Complaint: SOB, Vomiting History of Present Illness Bryanna Mark is a 81 year old female with history of coronary disease, recent pacemaker placement for third-degree heart block in May 2021 she was diagnosed with diastolic dysfunction, grade 1, mildly reduced EF, presented today with chief complaint of worsening shortness of breath. Patient stating that her symptoms started getting worse 2 weeks ago with orthopnea, PND and gradually they have worsened to the point she can hardly take 10-15 steps without getting winded, she is also significant conversational dyspnea. She has not experienced any chest pain however noticing recurrent emesis, she is also noticing epigastric pain. No fever dysuria or significant diarrhea. Patient has not taken Keppra since pacemaker placement. She never had any history of seizure. In the ER she has leukocytosis no signs of sepsis, afebrile, MAP above 65, lactic acid is 5, troponin 280s, no active chest pain she is calm and comfortable Maldonado sign negative, gallbladder is thickened and distended however no gallstones or signs of typical cholecystitis She has received antibiotics empirically The ER she received cefepime and morphine Review of Systems Const: Reports: fatigue; Denies: chills Eyes: Denies: change in vision ENMT: Denies: throat pain Card: Denies: chest pain Resp: Reports: dyspnea GI: Reports: abdominal pain, nausea and vomiting : Denies: flank pain Musc: Denies: neck pain Skin/Breast: Denies: rash Neuro: Denies: headache(s) Psych: Denies: anxiety Endo: Denies: polyuria Moncho/Lymph: Denies: easy bruising All/Imm: Denies: urticaria Medications/Allergies Home Medications Medication Instructions Recorded Confirmed Last Taken Type diclofenac sodium 1 % topical gel 2 - 4 g TOPICAL QID PRN 10/28/20 08/30/21 02/08/21 History ticagrelor 90 mg tablet (Brilinta) 90 mg PO BID #60 tab 02/16/21 08/30/21 08/30/21 07:00 Rx atorvastatin 20 mg tablet 20 mg PO QAM 05/30/21 08/30/21 08/30/21 History nitroglycerin 2.5 mg 2.5 mg PO BID 05/30/21 08/30/21 08/30/21 History capsule,extended release (Nitro-Time) prednisone 2.5 mg tablet 2.5 mg PO QAM 05/30/21 08/30/21 08/30/21 History aspirin 81 mg tablet,delayed 81 mg PO QAM 08/30/21 08/30/21 08/30/21 History release cholecalciferol (vitamin D3) 50 2,000 unit PO QAM 08/30/21 08/30/21 08/30/21 History mcg (2,000 unit) tablet esomeprazole magnesium 20 mg 20 mg PO QAM 08/30/21 08/30/21 08/30/21 History capsule,delayed release (Nexium) lisinopril 40 mg tablet 20 mg PO QAM 08/30/21 08/30/21 08/30/21 History metoprolol tartrate 50 mg tablet 50 mg PO BID 08/30/21 08/30/21 08/30/21 History trazodone 50 mg tablet 25 mg PO BEDTIME PRN 08/30/21 08/30/21 Unknown History Allergies Allergy/AdvReac Type Severity Reaction Status Date / Time niacin Allergy ALGY-Rash Verified 08/30/21 13:17 PFSH Acute PFSH: Medical History ASHD (arteriosclerotic heart disease) CKD (chronic kidney disease) Cutaneous lupus erythematosus Dysphagia Endometrial cancer GERD (gastroesophageal reflux disease) High risk medication use Hyperlipidemia Hypertension Immunization counseling Lupus (systemic lupus erythematosus) Osteoarthritis Osteoporosis 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/WELDING MANAGER antibody Sleep apnea SS-A antibody positive Surgical History H/O mastectomy H/O: hysterectomy History of appendectomy History of PTCA History of shoulder surgery Family History Father Diabetes Family/Other Diabetes Denies family history of Rheumatoid arthritis CAD (coronary artery disease) Clotting disorder Dementia Chronic kidney disease (CKD) Systemic lupus erythematosus (SLE) in adult Suicide Anesthesia complication Bleeding disorder Lung disease Cancer Hypertension Stroke Social History Smoking and tobacco status: never smoked Alcohol intake: never History of recent travel: No Vitals/I&O/Wt Last Vital Signs Temp 98.1 F 08/30/21 11:51 Pulse 60 08/30/21 16:30 Resp 25 H 08/30/21 16:30 BP 117/74 08/30/21 16:30 Pulse Ox 93 08/30/21 16:30 Weight last 48 hrs Weight 58.06 kg Physical Exam Narrative: Very pleasant cooperative female currently on room air Saturating well Paced rhythm She has cold feet, mild mottling of toes which is chronic as per her daughter She is not complaining of active pain No ischemic ulcer No signs of edema S1, S2, variable, paced rhythm Abdomen soft, distended, visceral obesity no signs of peritonitis guarding or rigidity Maldonado sign negative Awake and alert Clinically does biventricular heart failure signs Currently on room air Data : 08/30/21 13:10 08/30/21 13:10 A&P Assessment and plan (1) Non-ST elevation ME (NSTEMI): Status: Acute (2) Acute on chronic congestive heart failure: Status: Acute (3) Transaminitis: Status: Acute (4) Acidosis, lactic: Status: Acute (5) Presence of permanent cardiac pacemaker: Status: Acute (6) Sleep apnea: Status: Acute Qualifiers: Sleep apnea type: obstructive Qualified Code(s): G47.33 - Obstructive sleep apnea (adult) (pediatric) (7) SS-A antibody positive: Status: Acute (8) Cutaneous lupus erythematosus: Status: Acute Plan Acute on chronic CHF exacerbation Preserved action fraction heart failure exacerbation Grade 1 diastolic dysfunction Start Lasix 40 mg IV every [address] [place] for accurate output Check echo with contrast Pacemaker interrogation NSTEMI: Start heparin drip She is already on aspirin and Brilinta No active chest pain Cardiology consulted Acute on chronic kidney disease related to cardiorenal anticipating problem with diuresis Nephrotoxic agents High lactic acid with metabolic acidosis high anion gap Secondary to high lactic acid and uremia Exact etiology of high lactic acid is unknown at this point, it could be due to low output from congestive heart failure, does not meet sepsis criteria, Concern for cardiogenic shock? Admit to ICU Patient has been vomiting at home It could be due to intravascular depletion which is being masked due to CHF exacerbation with third spacing I will keep her on renally dosed Zosyn for now her gallbladder is distended which could be related to right-sided heart failure she does not have typical cholecystitis signs, she is afebrile Lipase is not high, bilateral new pleural effusion, perihepatic ascites consistent with CHF exacerbation Third-degree heart block status post pacemaker placement due to pacemaker interrogation She is DNR/DNI Cardiac diet Cardiology consulted DVT prophylaxis Heparin drip Attestations Medical Necessity Statement*: Admit to ICU Time Spent in Patient Care: 40 Coding Level of Care Code Acute Airline Radio Operator for Chg Fwd Diagnoses Non-ST elevation ME (NSTEMI) I21.4 Acute on chronic congestive heart failure I50.9 Transaminitis R74.01 Acidosis, lactic E87.2 Presence of permanent cardiac pacemaker Z95.0 Sleep apnea G47.33 Sleep apnea type: obstructive SS-A antibody positive R76.8 Cutaneous lupus erythematosus L93.2
--- NOTE | 2021-08-30 18:17 | USCV_ITS ---
Bryanna Mark Age: 81 Gender: F : 1940 Exam Date: 08/30/2021 19:01 Ordering Phys: Johann Rojo MD Technologist: [id number] [place] [facility] [place]: Acute vs Chronic Heart Failure BP: 122 / 74 HR: 59 Rhythm: Sinus Technical Quality: Adequate MEASUREMENTS (Male / Female) Normal Values 2D ECHO LV Diastolic Diameter PLAX 4.2 cm 4.2 - 5.9 / 3.9 - 5.3 cm LV Systolic Diameter PLAX 3.2 cm IVS Diastolic Thickness 1.4 cm 0.6 - 1.0 / 0.6 - 0.9 cm IVS Systolic Thickness 1.5 cm LVPW Diastolic Thickness 1.3 cm 0.6 - 1.0 / 0.6 - 0.9 cm LVPW Systolic Thickness 1.7 cm LVOT Diameter 2.0 cm LV Ejection Fraction 2D Teich 48.7 % LV Ejection Fraction MOD 2C 31.6 % LV Ejection Fraction 2C AL 32.4 % LA Diameter 3.1 cm LA Width 3.3 cm LA Height 6.4 cm RA Width 3.8 cm RA Height 4.6 cm Aorta at Sinotubular Diameter 2.1 cm IVC Diameter 2.6 cm M-MODE Aortic Annulus Diameter 2.1 cm LA Ao Ratio MM 1.6 MV E Point Septal Separation 0.8 cm DOPPLER AV Peak Velocity 115.8 cm/s LVOT Peak Velocity 62.0 cm/s AV Area Cont Eq vti 1.5 cm squared AV Area Cont Eq pk 1.7 cm squared MV Peak Velocity 94.0 cm/s MV Area PHT 5.9 cm squared Mitral E to A Ratio 3.0 MV E' Velocity 95.0 cm/s TR Peak Velocity 235.6 cm/s TR Peak Gradient 22.2 mmHg TR Mean Velocity 142.7 cm/s TR Mean Gradient 10.2 mmHg TR Velocity Time Integral 56.5 cm Right Atrial Pressure 10.0 mmHg Pulmonary Artery Systolic Pressu 32.2 mmHg PV Peak Velocity 51.0 cm/s RV Acceleration Time 0.1 s RV Ejection Time 0.2 s RV AcT/ET 0.3 FINDINGS Left Ventricle Normal left ventricular size. LV systolic function is moderately reduced with EF of 35-40%. Accurate assessment of regional wall motion abnormalities not possible because of poor ultrasonic windows. Possible global hypokinesis Right Ventricle RV is hypokinetic Right Atrium The right atrium is normal in size. Left Atrium The left atrium is normal in size. Mitral Valve Mild mitral annular calcification without significant stenosis or prolapse. There is moderate mitral regurgitation. Aortic Valve Aortic valve is thickened and calcified without significant stenosis. There is no aortic regurgitation. Tricuspid Valve Structurally normal tricuspid valve without significant stenosis. Moderate to severe tricuspid regurgitation. Pulmonary artery systolic pressure is normal. Pulmonic Valve There is moderate pulmonic regurgitation. Pericardium Normal pericardium without effusion. Aorta Normal ascending aorta dimension. IVC CONCLUSIONS Technically limited quality echocardiogram because of poor ultrasonic windows. LV systolic function is moderately reduced with EF of 35 to 40%. Accurate assessment of regional wall motion abnormalities not possible because of poor ultrasonic windows. RV is hypokinetic Mild mitral annular calcification without significant stenosis or prolapse. There is moderate mitral regurgitation. Moderate to severe tricuspid regurgitation. There is moderate pulmonic regurgitation. Accurate comparison with prior echocardiogram is not possible because of limited quality studies however LV systolic function appears to be lower, RV is hypokinetic and patient now has moderate mitral regurgitation and moderate to severe tricuspid regurgitation. Grima Jones MD (Electronically Signed) Final Date: 31 August 2021 09:57 S
[2021-08-30 18:43] LABS: Reflex Lactate Order REFLEX LACTIC ORDERD
[2021-08-30 20:16] LABS: Lactic Acid level (Lactate) 3.2 mmol/L (0.5-2.2)
[2021-08-30 20:22] LABS: Troponin 5 6HR 299.8 ng/L (0-10); Troponin 5 6HR Delta 24.8 ng/L (0-12)
[2021-08-30] MEDS: FUROsemide 10 mg/mL SDV 10mL 40 MG IVP (22:16)
[2021-08-30] MEDS: heparin 5,000 unit/mL INJ 1 mL IV (22:19)
--- NOTE | 2021-08-30 22:20 | PM.CONSULT ---
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 Family has noticed she cannot walk a few feet without getting short winded. She also gets short of breath even speaking recently. Denies chest pain. Her labs showed significantly elevated NT proBNP level of 34,000, elevated troponin levels that did not trend up significantly at 2 hours and lactic acid of 5.5. EKG shows paced rhythm Her blood pressure is stable at this time. Review of Systems Const: Reports: fatigue; Denies: chills Eyes: Denies: change in vision ENMT: Denies: throat pain Card: Denies: chest pain Resp: Reports: dyspnea GI: Reports: abdominal pain, nausea and vomiting : Denies: flank pain Musc: Denies: neck pain Skin/Breast: Denies: rash Neuro: Denies: headache(s) Psych: Denies: anxiety Endo: Denies: polyuria Moncho/Lymph: Denies: easy bruising All/Imm: Denies: urticaria Medications/Allergies Home Medications Medication Instructions Recorded Confirmed Last Taken Type diclofenac sodium 1 % topical gel 2 - 4 g TOPICAL QID PRN 10/28/20 08/30/21 02/08/21 History ticagrelor 90 mg tablet (Brilinta) 90 mg PO BID #60 tab 02/16/21 08/30/21 08/30/21 07:00 Rx atorvastatin 20 mg tablet 20 mg PO QAM 05/30/21 08/30/21 08/30/21 History nitroglycerin 2.5 mg 2.5 mg PO BID 05/30/21 08/30/21 08/30/21 History capsule,extended release (Nitro-Time) prednisone 2.5 mg tablet 2.5 mg PO QAM 05/30/21 08/30/21 08/30/21 History aspirin 81 mg tablet,delayed 81 mg PO QAM 08/30/21 08/30/21 08/30/21 History release cholecalciferol (vitamin D3) 50 2,000 unit PO QAM 08/30/21 08/30/21 08/30/21 History mcg (2,000 unit) tablet esomeprazole magnesium 20 mg 20 mg PO QAM 08/30/21 08/30/21 08/30/21 History capsule,delayed release (Nexium) lisinopril 40 mg tablet 20 mg PO QAM 08/30/21 08/30/21 08/30/21 History metoprolol tartrate 50 mg tablet 50 mg PO BID 08/30/21 08/30/21 08/30/21 History trazodone 50 mg tablet 25 mg PO BEDTIME PRN 08/30/21 08/30/21 Unknown History Allergies Allergy/AdvReac Type Severity Reaction Status Date / Time niacin Allergy ALGY-Rash Verified 08/30/21 13:17 Current Medications Generic Name Dose Route Start Last Admin Trade Name Freq PRN Reason Stop Dose Admin Furosemide 40 mg 08/30/21 20:12 08/30/21 22:16 Furosemide 10 Mg/Ml Sdv 10ml IVP 40 mg Q12H SUNNY Administration PFSH Acute PFSH: Medical History (Updated 08/31/21 @ 09:38 by Girma Jones M.D) ASHD (arteriosclerotic heart disease) CKD (chronic kidney disease) Cutaneous lupus erythematosus Dysphagia Endometrial cancer GERD (gastroesophageal reflux disease) High risk medication use Hyperlipidemia Hypertension Immunization counseling Lupus (systemic lupus erythematosus) Osteoarthritis Osteoporosis Positive sm/STORE DETECTIVE antibody Sleep apnea SS-A antibody positive Surgical History H/O mastectomy H/O: hysterectomy History of appendectomy History of PTCA History of shoulder surgery Family History Father Diabetes Family/Other Diabetes Denies family history of Rheumatoid arthritis CAD (coronary artery disease) Clotting disorder Dementia Chronic kidney disease (CKD) Systemic lupus erythematosus (SLE) in adult Suicide Anesthesia complication Bleeding disorder Lung disease Cancer Hypertension Stroke Social History Smoking and tobacco status: never smoked Alcohol intake: never History of recent travel: No Vitals/I&O/Wt Last Vital Signs Temp 98.5 F 08/30/21 20:10 Pulse 60 08/30/21 21:30 Resp 15 08/30/21 21:30 BP 130/80 08/30/21 21:30 Pulse Ox 94 08/30/21 21:30 08/30/21 08/30/21 08/30/21 06:59 14:59 22:59 Intake Total 50 / 50 Balance 50 / 50 Weight last 48 hrs Weight 137 lb 12.623 oz Weight 128 lb Physical Exam Narrative: GENERAL: Patient is alert, awake and oriented x3. [] NECK: No jugular vein distension. [] HEENT: No cyanosis. No icterus. No pallor. [] HEART: Regular S1 and S2. No murmur, rub or gallop. [] LUNGS: Mild crackles bilaterally ABDOMEN: Soft, nontender and nondistended. Positive bowel sounds. No guarding, rebound or tenderness. [] CENTRAL NERVOUS SYSTEM: Grossly nonfocal. [] EXTREMITIES: Lower extremities with 1+ edema bilaterally. Pulses palpable in the lower extremities, both dorsalis pedis and posterior tibial. [] Urinary Catheter Management: Castellanos Latex: Cath Placed During This Visit: yes Urinary Catheter Date of Insertion: 08/30/21 Urinary Catheter Time of Insertion: 21:20 Data : 08/31/21 04:09 08/31/21 04:09 A&P Assessment and plan (1) Acidosis, lactic: Status: Acute (2) Transaminitis: Status: Acute (3) Acute on chronic congestive heart failure: Status: Acute (4) Troponin level elevated: Status: Acute (5) ASHD (arteriosclerotic heart disease): Status: Acute Plan Patient has presented with significant shortness of breath. Likely etiology is congestive heart failure. Start IV diuresis. Strict I&O's. Order echocardiogram with contrast as last study was limited quality. Trend troponins She possibly has early shock his lactic acid is elevated as well. Repeat 1 in the morning. If maps drop, can start on inotropic therapy Patient may need coronary angiogram Thank you for involving us with care of this patient. We will continue to follow. Please call with questions. Consult Attestations Medical Necessity Statement: Care expected to cross 2 midnights Coding Level of Care Code Acute Stock Associate for [facility] Fwd Diagnoses Acidosis, lactic E87.2 Transaminitis R74.01 Acute on chronic congestive heart failure I50.9 Troponin level elevated R77.8 ASHD (arteriosclerotic heart disease) I25.10
[2021-08-30] MEDS: heparin drip 25,000 UNIT/500 ML PREMIX 16.26 UNIT IV (22:26)
[2021-08-30] MEDS: piperacillin-tazobactam 3.375 GM in sodium chloride 0.9% (plus) 50 ML IV (22:29)
[2021-08-30 22:44] LABS: Partial Thromboplastin Time 35.9 SECONDS (23.9-36.7)
[2021-08-31] VITALS (34 sets, daily range): BP systolic 88–129; BP diastolic 49–82; PULSE 18–76; RESP 10–31; TEMP 36.6–37.1; O2SAT 90–98
--- NOTE | 2021-08-31 01:46 | PC.NURSE ---
This RN spoke with MD Parth around 2200 about whether or not to give pt initial heparin bolus. Per Give initial heparin bolus of 3100 units per protocol.
[2021-08-31 04:18] LABS: Basophils # 0.1 10^3/uL (0.0-0.1); Hematocrit 31.9 % (37.0-47.0); Hemoglobin 10.6 g/dL (11.5-15.3); Lymphocytes # 1.9 10^3/uL (0.8-4.8); Lymphocytes % 19.1 %; Mean Corpuscular HGB Conc 33.2 g/dL (30.0-36.0); Mean Corpuscular Hemoglobin 28.8 pg (28.0-34.0); Mean Corpuscular Volume 86.7 fl (81-99); Mean Platelet Volume 12.1 fL (7.4-10.4); Monocytes # 0.9 10^3/uL (0.2-0.9); Monocytes % 9.1 %; Neutrophils # 7.06 10^3/uL (1.8-7.7); Nucleated Red Blood Cells # 0.1 /100WBC; Nucleated Red Blood Cells % 0.7 %; Platelet Count 209 10^3/cmm (130-400); Red Blood Count 3.68 10^6/uL (4.1-5.3); Red Cell Distribution Width 14.1 % (12.1-15.1); White Blood Count 10.1 10^3/uL (4.0-10.0)
[2021-08-31 04:38] LABS: Lactate (Lactic Acid level) 1.6 mmol/L (0.5-2.2)
[2021-08-31 04:40] LABS: Blood Urea Nitrogen 32 mg/dL (8-23); C Reactive Protein 30.7 mg/L (0.0-4.9); Calcium 8.9 mg/dL (8.5-10.5); Carbon Dioxide 22 mmol/L (22-29); Chloride 98 mmol/L (98-107); Glucose 88 mg/dL (65-115); Osmolality Calculated 286 mOsm/kg (285-295); Sodium 135 mmol/L (136-145)
[2021-08-31 04:41] LABS: Anion Gap 19.5 (5-19); Potassium 4.5 mmol/L (3.5-5.1)
[2021-08-31 04:44] LABS: Partial Thromboplastin Time 180.6 SECONDS (23.9-36.7)
[2021-08-31] MEDS: piperacillin-tazobactam 3.375 GM in sodium chloride 0.9% (plus) 50 ML IV ×3 (05:27→21:05)
[2021-08-31] MEDS: pantoprazole DR 40 mg Tablet PO (05:27)
[2021-08-31] MEDS: aspirin 81 mg EC Tablet PO (05:27)
[2021-08-31] MEDS: predniSONE 5 mg Tablet 2.5 MG PO (05:27)
[2021-08-31] MEDS: FUROsemide 10 mg/mL SDV 10mL 40 MG IVP (08:16)
[2021-08-31] MEDS: sennosides-docusate Tablet 1 TAB PO (08:17)
[2021-08-31] MEDS: ticagrelor 90 mg Tablet PO ×2 (08:17→21:05)
--- NOTE | 2021-08-31 09:18 | PC.NURSE ---
Patient resting in bed with family at bedside. Patient appears in good spirits and denies pain at this time.
--- NOTE | 2021-08-31 09:40 | PC.CHAP ---
Pastoral Care Encounter/Spiritual Assessment Type of Contact [] Declined car wiper visit [] Patient/Family/Request visit [] Outpatient visit [] Follow-up visit [] Physician referral [] Code/Alert [x] Routine visit [] Staff referral [] Actively dying [] Patient sleeping [x] Family support [] [] Out of room [] Palliative care [] [] Receiving care in room [] Pre-surgical visit [] Trauma [] Long length of stay [x] ICU visit [] Other: Relational/Emotional Strength [] Patient feels connected with others/family/visitors/staff [] Distress [] Loneliness/isolation [] Abandonment Spirituality of Patient [] Person of Winter [] Attends Evangelical of their Winter [] Believes in Prayer [] Reads Bible or Zoroastrian materials [] There are Spiritual issues to be addressed Digital Product Manager Interventions [x] Prayer [x] Active listening [x Non-anxious presence [x] Spiritual/emotional support [] Crisis/trauma care [] Spiritual counseling [] Bereavement support [] Provided bereavement packet [] Provided Bible/devotional materials [] Provided toy/stuffed animal, coloring book to patient or family member [] Provided Communion [] Anointing/[place] [] Salvation [x] Completed spiritual assessment [] Other: Impact on Illness or Injury [] Angry [] Fearful [] Anxious [] Often cries [] Exhaustion [] Unable to work [] Unable to attend jain [] Unable to walk/stand [] Unable to read [] Unable to drive [] Unable to eat/drink [] Unable to sleep [] Unable to be with family [] Patient intubated [] Other: Summary patient as much better clarity than her last visit...possibly moving to med surg Time spent with patient 10 min
--- NOTE | 2021-08-31 12:26 | P.PN_ITS ---
Subjective Subjective: This morning patient is endorsing feeling better, she had good night sleep No chest pain or shortness of breath Currently on room air She was able to finish her breakfast without worsening of abdominal pain however she was nauseous and had 1 little episode of vomiting Ultrasound of abdomen did not show acute cholecystitis picture She is currently on heparin drip Hemoglobin 10.6 she has been afebrile, blood pressure stable Pacer interrogation unremarkable Creatinine 1.4 Adequate diuretic response almost 2 L, de-escalated IV Lasix to once daily Will follow up with cardiology Lactic acid improved Vitals/I&O/Wt Last Vital Signs Temp 98.6 F 08/31/21 07:30 Pulse 59 L 08/31/21 10:00 Resp 21 H 08/31/21 10:00 BP 101/62 08/31/21 10:00 Pulse Ox 95 08/31/21 10:00 08/30/21 08/31/21 08/31/21 22:59 06:59 14:59 Intake Total 50 / 50 553.522 / 603.522 170 / 170 Output Total 2049 / 2049 600 / 600 Balance 50 / 50 -1496.478 / -1446.478 -430 / -430 Weight last 48 hrs Weight 62.5 kg Weight 58.06 kg Physical Exam Narrative: Patient is laying supine Clinically does not have typical congestive heart failure features She is saturating well on room air no active chest pain Abdomen slightly bloated, nontender right upper quadrant No signs of edema of legs Her toes are not blue , not extremely cold today Paced rhythm Awake and alert Nonfocal neuro exam family is at the bedside Urinary Catheter Management: Castellanos Latex: Cath Placed During This Visit: yes Reason for Continuing Indwelling Catheter: Accurate Measurement of Urinary Output in Critically Ill Patients Urinary Catheter Date of Insertion: 08/30/21 Urinary Catheter Time of Insertion: 21:20 Data : 08/31/21 04:09 08/31/21 04:09 A&P Assessment and plan (1) Non-ST elevation VA (NSTEMI): Status: Acute (2) Cardiogenic shock: Status: Acute (3) Troponin level elevated: Status: Acute (4) ASHD (arteriosclerotic heart disease): Status: Acute (5) Acute on chronic congestive heart failure: Status: Acute (6) Transaminitis: Status: Acute (7) Acidosis, lactic: Status: Acute (8) Presence of permanent cardiac pacemaker: Status: Acute (9) Hyponatremia: Status: Acute (10) Sleep apnea: Status: Acute Qualifiers: Sleep apnea type: obstructive Qualified Code(s): G47.33 - Obstructive sleep apnea (adult) (pediatric) (11) Cutaneous lupus erythematosus: Status: Acute Plan Preserved ejection fraction heart failure exacerbation Acute decompensation Pacemaker interrogation completed Patient is symptomatic free Adequate diuresis Cut back on IV Lasix to once daily Check LFTs Lactic acid improved which I think is related to poor perfusion with underlying CHF Please note her lactic acid improved with better diuresis I Am not considering sepsis to be the etiology High anion gap metabolic acidosis due to lactic acidemia: Improving Patient is not septic Magnesium normal Glucose within target range Acute on chronic kidney disease related to cardiorenal prerenal etiology Anticipating improvement with diuretics Cut back on IV Lasix Abnormal tropes possible NSTEMI No active chest pain Currently on heparin drip Echo with contrast report is pending Gallbladder is dilated however no signs of cholecystitis I have empirically kept her on Zosyn her leukocytosis trending down We will check LFTs today if they are trending down I will discontinue her antibiotics tomorrow DNR/DNI Cardiac diet with fluid striction DVT prophylaxis sufficed with heparin drip Prolactin unremarkable She might be able to get out of ICU if cleared by cardiology Attestations Medical Necessity Statement*: Continue medical management Time Spent in Patient Care: 40 Coding Level of Care Code Acute Correctional Counselor/Case Manager for Chg Fwd Diagnoses Non-ST elevation VA (NSTEMI) I21.4 Cardiogenic shock R57.0 Troponin level elevated R77.8 ASHD (arteriosclerotic heart disease) I25.10 Acute on chronic congestive heart failure I50.9 Transaminitis R74.01 Acidosis, lactic E87.2 Presence of permanent cardiac pacemaker Z95.0 Hyponatremia E87.1 Sleep apnea G47.33 Sleep apnea type: obstructive Cutaneous lupus erythematosus L93.2
[2021-08-31 12:28] LABS: Partial Thromboplastin Time 82.5 SECONDS (23.9-36.7)
[2021-08-31 14:13] LABS: Albumin Level 3.5 g/dL (3.5-5.2); Alkaline Phosphatase 120 IU/L (35-105); Aspartate Amino Transferase 451 U/L (0-32); Globulin 2.2 g/dL (1.3-4.6); Total Bilirubin 0.7 mg/dL (0.15-1.2); Total Protein 5.7 g/dL (6.6-8.7)
[2021-08-31 14:14] LABS: Estmated Average Glucose 143; Hemoglobin A1C 6.6 % (4.0-6.0)
[2021-08-31 14:25] LABS: Alanine Aminotransferase 857 U/L (0-33)
[2021-08-31 18:31] LABS: Partial Thromboplastin Time 75.1 SECONDS (23.9-36.7)
[2021-08-31 21:28] LABS: Partial Thromboplastin Time 73.6 SECONDS (23.9-36.7)
--- NOTE | 2021-08-31 23:09 | P.PN_ITS ---
Subjective Subjective: Patient was admitted to the hospital with the features of acute on chronic heart failure. She has a significant drop in the LV ejection fraction. Elevated troponin T with a significant delta at 6 hours. She has markedly elevated BNP. Denies any chest pain. EKG is uninterpretable because of the pacing artifact. Medications: Medication Review Details: Current Medications Acetaminophen (Acetaminophen 500 Mg Tablet) 500 mg PO Q4H PRN PRN Reason: fever Albuterol/Ipratropium (Ipratropium-Albuterol 3 Ml Neb) 3 ml INHALATION Q6H PRN PRN Reason: SHORTNESS OF BREATH Aspirin (Aspirin 81 Mg Ec Tablet) 81 mg PO QAM [facility] Last Admin: 08/31/21 05:27 Dose: 81 mg Documented by: Furosemide (Furosemide 10 Mg/Ml Sdv 4ml) 40 mg IVP DAILY [facility] Heparin Sodium (Porcine) (Heparin 5,000 Unit/Ml Inj 1 Ml) 0 unit IV PRN PRN; Protocol PRN Reason: Heparin weight-base protocol Last Admin: 08/30/21 22:19 Dose: 3,100 unit Documented by: Heparin Sodium/Sodium Chloride (Heparin Drip) 25,000 unit in 500 mls @ 0 mls/hr IV .Q0M [facility]; Protocol Last Titration: 08/31/21 12:49 Dose: 9.73 unit/kg/hr, 11.3 mls/hr Documented by: Piperacillin Sod/Tazobactam (Sod 3.375 gm/ Sodium Chloride) 50 mls @ 12.5 mls/hr IV Q8H [facility]; Protocol Last Admin: 08/31/21 21:05 Dose: 12.5 mls/hr Documented by: Ondansetron HCl (Ondansetron 2 Mg/Ml Sdv 2 Ml) 4 mg IVP Q6H PRN PRN Reason: NAUSEA AND VOMITING Pantoprazole Sodium (Pantoprazole Dr 40 Mg Tablet) [facility] [place] Last Admin: 08/31/21 05:27 Dose: 40 mg Documented by: Prednisone (Prednisone 5 Mg Tablet) 2.[facility] [place] Last Admin: 08/31/21 05:27 Dose: 2.5 mg Documented by: Senna/Docusate Sodium (Sennosides-Docusate Tablet) 1 tab PO DAILY [facility] Last Admin: 08/31/21 08:17 Dose: 1 tab Documented by: Ticagrelor (Ticagrelor 90 Mg Tablet) 90 mg PO BID SUNNY Last Admin: 08/31/21 21:05 Dose: 90 mg Documented by: Vitals/I&O/Wt Last Vital Signs Temp 98.7 F 08/31/21 20:28 Pulse 18 L 08/31/21 20:28 Resp 18 08/31/21 20:28 BP 108/60 08/31/21 20:28 Pulse Ox 94 08/31/21 20:28 08/31/21 08/31/21 09/01/21 14:59 22:59 06:59 Intake Total 364.005 / 364.005 290 / 654.005 Output Total 600 / 600 900 / 1500 Balance -235.995 / -235.995 -610 / -845.995 Weight last 48 hrs Weight 137 lb 12.623 oz Weight 128 lb Physical Exam Narrative: GENERAL: The patient is alert and oriented times three. Not in any acute distress. HEENT: No significant pallor, icterus or lymphadenopathy.Oral cavity: There are no mucous membrane lesions. NECK: Trachea appears to be central. No masses noted. No JVD or thyromegaly appreciated. RESPIRATORY: Chest is symmetrical. No intercostals muscle retraction or any accessory muscle activation. There is no chest wall tenderness. Breath sounds are heard bilaterally. Few scattered fine rales in the bases BREASTS: Deferred. HEART: The heart sounds are normal. No S3 or S4. Systolic murmur grade 2/6 in the mitral area at the tricuspid area. No pericardial rub ABDOMEN: No vessel pulsations or distention. No tenderness. No organomegaly appreciated. Bowel sounds are normally heard. : Deferred. RECTAL: Deferred. LYMPHATIC: No lymphadenopathy noted in the neck. EXTREMITIES: No edema or cyanosis. No clubbing. MUSCULOSKELETAL: No acute joint deformities or swelling SKIN: There are no significant rashes or ecchymosis NEUROPSYCHIATRIC: The patient is alert and oriented x3. Appears to be in a good mood. No tremors or rigidity noted. Urinary Catheter Management: Castellanos Latex: Cath Placed During This Visit: yes Reason for Continuing Indwelling Catheter: Other Urinary Catheter Date of Insertion: 08/30/21 Urinary Catheter Time of Insertion: 21:20 Data : 08/31/21 04:09 08/31/21 04:09 Other Labs: Laboratory Last Values WBC 10.1 10^3/uL (4.0-10.0) H 08/31/21 04:09 RBC 3.68 10^6/uL (4.1-5.3) L 08/31/21 04:09 Hgb 10.6 g/dL (11.5-15.3) L 08/31/21 04:09 Hct 31.9 % (37.0-47.0) L 08/31/21 04:09 MCV 86.7 fl (81-99) 08/31/21 04:09 MCH 28.8 pg (28.0-34.0) 08/31/21 04:09 MCHC 33.2 g/dL (30.0-36.0) 08/31/21 04:09 RDW 14.1 % (12.1-15.1) 08/31/21 04:09 Plt Count 209 10^3/cmm (130-400) 08/31/21 04:09 MPV 12.1 fL (7.4-10.4) H 08/31/21 04:09 Neut % (Auto) 70.0 % 08/31/21 04:09 Lymph % (Auto) 19.1 % 08/31/21 04:09 Bailey % (Auto) 9.1 % 08/31/21 04:09 Eos % (Auto) 0.0 % 08/31/21 04:09 Baso % (Auto) 1.0 % 08/31/21 04:09 Neut # (Auto) 7.06 10^3/uL (1.8-7.7) 08/31/21 04:09 Lymph # (Auto) 1.9 10^3/uL (0.8-4.8) 08/31/21 04:09 Bailey # (Auto) 0.9 10^3/uL (0.2-0.9) 08/31/21 04:09 Eos # (Auto) 0.0 10^3/uL (0.0-0.8) 08/31/21 04:09 Baso # (Auto) 0.1 10^3/uL (0.0-0.1) 08/31/21 04:09 Nucleated RBC % (auto) 0.7 % 08/31/21 04:09 Nucleated RBCs # 0.1 /100WBC 08/31/21 04:09 APTT 73.6 SECONDS (23.9-36.7) H 08/31/21 20:20 Sodium 135 mmol/L (136-145) L 08/31/21 04:09 Potassium 4.5 mmol/L (3.5-5.1) 08/31/21 04:09 Chloride 98 mmol/L (98-107) 08/31/21 04:09 Carbon Dioxide 22 mmol/L (22-29) 08/31/21 04:09 Anion Gap 19.5 (5-19) H 08/31/21 04:09 BUN 32 mg/dL (8-23) H 08/31/21 04:09 Creatinine 1.4 mg/dL (0.5-0.9) H 08/31/21 04:09 GFR Calculation Not Reportable 08/31/21 04:09 Glucose 88 mg/dL (65-115) 08/31/21 04:09 Estimat Average Glucose 143 08/31/21 13:44 Hemoglobin A1c 6.6 % (4.0-6.0) H 08/31/21 13:44 Calculated Osmolality 286 mOsm/kg (285-295) 08/31/21 04:09 Lactic Acid 5.5 mmol/L (0.5-2.2) H* 08/30/21 16:54 Lactic Acid (Sepsis) 3.2 mmol/L (0.5-2.2) H 08/30/21 19:50 Lactate 1.6 mmol/L (0.5-2.2) 08/31/21 04:09 Calcium 8.9 mg/dL (8.5-10.5) 08/31/21 04:09 Magnesium 2.0 mg/dL (1.7-2.3) 08/31/21 04:09 Total Bilirubin 0.7 mg/dL (0.15-1.2) 08/31/21 13:44 Direct Bilirubin 0.30 mg/dL (0.00-0.30) 08/31/21 13:44 AST 451 U/L (0-32) H 08/31/21 13:44 ALT 857 U/L (0-33) H 08/31/21 13:44 Alkaline Phosphatase 120 IU/L (35-105) H 08/31/21 13:44 Troponin T Baseline 275 ng/L (0-10) H* 08/30/21 13:10 Troponin T 120 Minute 281.6 ng/L (0-10) H 08/30/21 15:31 Delta Troponin T 6.6 ABS# (0-10) 08/30/21 15:31 Troponin T Hi Sens 6Hr 299.8 ng/L (0-10) H 08/30/21 19:50 Troponin T Hi Sens 6Hr Delta 24.8 ng/L (0-12) H* 08/30/21 19:50 C-Reactive Protein 30.7 mg/L (0.0-4.9) H 08/31/21 04:09 NT-Pro-B Natriuret Pep 37333 pg/mL (0-450) H 08/30/21 13:10 Total Protein 5.7 g/dL (6.6-8.7) L 08/31/21 13:44 Albumin 3.5 g/dL (3.5-5.2) 08/31/21 13:44 Globulin 2.2 g/dL (1.3-4.6) 08/31/21 13:44 Lipase 33 U/L (13-60) 08/30/21 13:10 Prolactin 17.60 ng/mL (4.8-23.3) 08/30/21 15:31 Urine Color Yellow (Yellow) 08/30/21 16:07 Urine Appearance Clear (CLEAR) 08/30/21 16:07 Urine pH 5 (5-7) 08/30/21 16:07 Ur Specific [place] 1.025 (1.005-1.030) 08/30/21 16:07 Urine Protein Neg (Negative) 08/30/21 16:07 Urine Glucose (UA) Norm (Normal) 08/30/21 16:07 Urine Ketones Negative (Negative) 08/30/21 16:07 Urine Blood 2+ (Negative) H 08/30/21 16:07 Urine Nitrate Negative (Negative) 08/30/21 16:07 Urine Bilirubin Neg (Negative) 08/30/21 16:07 Urine Urobilinogen Norm mg/dL (Negative) 08/30/21 16:07 Ur Leukocyte Esterase Negative (Negative) 08/30/21 16:07 Urine RBC 0-4 /hpf (0-2) H 08/30/21 16:07 Urine WBC 0-4 /hpf (0-5) H 08/30/21 16:07 Ur Squamous Epith Cells 15-25 /hpf (0-5) H 08/30/21 16:07 Amorphous Sediment Not Reportable 08/30/21 16:07 Urine Bacteria 4+ /hpf (NONE) H 08/30/21 16:07 Hepatitis A IgM Ab Non-reactive (Nonreactive) 08/30/21 13:10 Hep Bs Antigen Non-reactive (Nonreactive) 08/30/21 13:10 Hep B Core IgM Ab Non-reactive (Nonreactive) 08/30/21 13:10 Hepatitis C Antibody Non-reactive (Nonreactive) 08/30/21 13:10 EKG 3: My Interpretation: 100% V paced rhythm. Further interpretation is not possible. EKG computer-generated impression: Chest X-Ray 08/30/21 12:54 IMPRESSION: Mild cardiomegaly and pulmonary vascular congestion. Chest/Abdomen/Pelvis CT 08/30/21 14:15 IMPRESSION: 1. Cardiomegaly, increased since prior exam. Coronary calcifications. No obvious signs of vascular congestion. 2. New pleural effusions as described. No acute lung consolidation or ground-glass opacity otherwise. IMPRESSION: 1. Gallbladder findings. See discussion above. 2. Colonic diverticulosis. No acute diverticulitis or other obvious acute bowel findings. Somewhat limited exam due to lack of contrast. 3. Trace perihepatic ascites. Abdomen Ultrasound 08/30/21 16:42 IMPRESSION: 1. Mild nonspecific gallbladder wall thickening. This may be related to systemic/cardiac disease, or regional inflammatory disease such as hepatitis or mild cholangitis. No cholelithiasis or obvious imaging signs of acute cholecystitis otherwise. No bile duct dilatation. 2. Other findings as above. A&P Assessment and plan (1) Acute on chronic congestive heart failure: We will continue the IV diuretics and other symptomatic measures. We will do a coronary ischemia causing the heart failure is a consideration. We will continue to optimize her medical treatment. Because of the relatively low blood pressure, I may hold off on any blood pressure lowering medications at this point. Status: Acute (2) ASHD (arteriosclerotic heart disease): Possibility of underlying coronary ischemia causing the heart failure is a consideration. The family wants to keep the patient DNI DNR status. I will be discussing with the family regarding the cardiac catheterization. Status: Acute (3) Troponin level elevated: Most likely due to a type II MO. A type I MO cannot be excluded. Status: Acute (4) Presence of permanent cardiac pacemaker: Pacemaker function appears to be appropriate. Patient has a single-chamber device. Status: Acute (5) Hypertension: Patient was hypotensive for a while. Currently she is normotensive. Continue monitoring her blood pressure very closely. Status: Acute Qualifiers: Hypertension type: essential hypertension Qualified Code(s): I10 - Essential (primary) hypertension Plan Based on review of progress, further recommendations will be made. I will be discussing with the family about the treatment options. A final decision will be made afterwards. Attestations Medical Necessity Statement*: Patient requires continued hospital stay for close monitoring and further management Coding Level of Care Code Acute Art Manager for Chg Fwd History Expanded Problem Focused Exam Detailed Medical Decision Making Moderate Complexity Diagnoses ASHD (arteriosclerotic heart disease) I25.10 Troponin level elevated R77.8 Acute on chronic congestive heart failure I50.9 Presence of permanent cardiac pacemaker Z95.0 Hypertension I10 Hypertension type: essential hypertension
[2021-09-01] VITALS (8 sets, daily range): BP systolic 94–108; BP diastolic 47–66; PULSE 65–88; RESP 16–24; TEMP 36.6–37; O2SAT 91–96
[2021-09-01 00:50] LABS: Basophils # 0.1 10^3/uL (0.0-0.1); Basophils % 0.8 %; Eosinophils % 0.3 %; Hematocrit 34.1 % (37.0-47.0); Hemoglobin 11.3 g/dL (11.5-15.3); Lymphocytes # 1.8 10^3/uL (0.8-4.8); Lymphocytes % 15.6 %; Mean Corpuscular HGB Conc 33.1 g/dL (30.0-36.0); Mean Corpuscular Hemoglobin 28.3 pg (28.0-34.0); Mean Corpuscular Volume 85.5 fl (81-99); Mean Platelet Volume 12.2 fL (7.4-10.4); Monocytes % 8.6 %; Neutrophils # 8.37 10^3/uL (1.8-7.7); Neutrophils % 74.1 %; Nucleated Red Blood Cells # 0.1 /100WBC; Nucleated Red Blood Cells % 0.5 %; Platelet Count 220 10^3/cmm (130-400); Red Blood Count 3.99 10^6/uL (4.1-5.3); Red Cell Distribution Width 13.9 % (12.1-15.1); White Blood Count 11.3 10^3/uL (4.0-10.0)
[2021-09-01 01:04] LABS: Partial Thromboplastin Time 70.2 SECONDS (23.9-36.7)
[2021-09-01] MEDS: aspirin 81 mg EC Tablet PO (05:35)
[2021-09-01] MEDS: pantoprazole DR 40 mg Tablet PO (05:35)
[2021-09-01] MEDS: predniSONE 5 mg Tablet 2.5 MG PO (05:35)
[2021-09-01] MEDS: piperacillin-tazobactam 3.375 GM in sodium chloride 0.9% (plus) 50 ML IV (05:35)
[2021-09-01 06:12] LABS: Alanine Aminotransferase 601 U/L (0-33); Albumin Level 3.3 g/dL (3.5-5.2); Alkaline Phosphatase 102 IU/L (35-105); Anion Gap 16.3 (5-19); Aspartate Amino Transferase 231 U/L (0-32); Blood Urea Nitrogen 32 mg/dL (8-23); Calcium 8.3 mg/dL (8.5-10.5); Carbon Dioxide 25 mmol/L (22-29); Chloride 96 mmol/L (98-107); Globulin 2.1 g/dL (1.3-4.6); Glucose 91 mg/dL (65-115); Osmolality Calculated 284 mOsm/kg (285-295); Potassium 3.3 mmol/L (3.5-5.1); Sodium 134 mmol/L (136-145); Total Bilirubin 0.7 mg/dL (0.15-1.2); Total Protein 5.4 g/dL (6.6-8.7)
[2021-09-01] MEDS: sennosides-docusate Tablet 1 TAB PO (08:57)
[2021-09-01] MEDS: spironolactone 25 mg Tablet PO (08:57)
[2021-09-01] MEDS: ticagrelor 90 mg Tablet PO ×2 (10:04→18:24)
[2021-09-01 11:20] LABS: D Dimer 9.12 ug/mIFEU (0-0.59)
--- NOTE | 2021-09-01 12:52 | P.PN_ITS ---
Subjective Subjective: -3 L balance Creatinine worsened Discontinue IV diuretics We will watch her 1 more day off diuretics Concern for overdiuresis Patient is emotionally very labile, I did discuss the possibility of angiogram, family decided to go ahead and do coronary angiogram with Dr. Redmond and then follow-up with senior operations manager at [facility] for mitral valve surgery if needed Creatinine right now is 1.7, I am holding her diuretics Potassium repleted Patient is on room air Clinically feeling better Liver enzymes trending down Plaquenil on hold for worsening creatinine Vitals/I&O/Wt Last Vital Signs Temp 98.0 F 09/01/21 11:51 Pulse 83 09/01/21 11:51 Resp 16 09/01/21 11:51 BP 108/51 09/01/21 11:51 Pulse Ox 92 09/01/21 11:51 08/31/21 09/01/21 09/01/21 22:59 06:59 14:59 Intake Total 290 / 654.005 194.828 / 848.833 240 / 240 Output Total 900 / 1500 1350 / 2850 Balance -610 / -845.995 -1155.172 / -2001.167 240 / 240 Weight last 48 hrs Weight 62.5 kg Physical Exam Narrative: Patient was very emotional labile today however saturating well on room air No active chest pain or shortness of breath Clinically does not look fluid overloaded Toes are not blue or cold today Abdomen soft No audible stridor or wheezing Awake and alert Nonfocal neuro exam Family is at the bedside Urinary Catheter Management: Castellanos Latex: Cath Placed During This Visit: yes Reason for Continuing Indwelling Catheter: Acute Urinary Retention or Obstruction Urinary Catheter Date of Insertion: 08/30/21 Urinary Catheter Time of Insertion: 21:20 Data : 09/01/21 00:11 09/01/21 05:22 A&P Assessment and plan (1) ASHD (arteriosclerotic heart disease): Status: Acute (2) Cardiogenic shock: Status: Acute (3) Troponin level elevated: Status: Acute (4) Non-ST elevation VT (NSTEMI): Status: Acute (5) Acute on chronic congestive heart failure: Status: Acute (6) Transaminitis: Status: Acute (7) Acidosis, lactic: Status: Acute (8) Presence of permanent cardiac pacemaker: Status: Acute (9) Hyponatremia: Status: Acute (10) Sleep apnea: Status: Acute Qualifiers: Sleep apnea type: obstructive Qualified Code(s): G47.33 - Obstructive sleep apnea (adult) (pediatric) Plan Recurrent systolic CHF exacerbation Plan for angiogram as Dr. Redmond to rule out ischemia echo showed valvular regurgitation with reduced EF, right ventricle hypokinetic Requested D-dimer which came back high at 9.1 Unfortunately not a candidate for CTA chest We will request venous Doppler VQ scan I do believe her symptomatology is associated with valvular regurgitation with reduced EF No active signs of cardiogenic shock: Lactic acid improved Prerenal azotemia, BRANDI worsening, concern for overdiuresis, hold off on diuresis for today, -2 L balance patient's liver enzymes are trending down clinically she is much better as compared to day of admission Abnormal transaminases congestive hepatopathy: Improving NSTEMI: Discontinue heparin, she has finished 48 hours on heparin Now I will start heparin DVT prophylaxis No active chest pain angiogram once kidney function is stable Gallbladder congestion secondary to congestive heart failure no signs of cholecystitis, discontinue antibiotics Family updated Clinic for worsening creatinine, continue steroids for her lupus DNR/DNI Cardiac diet Attestations Medical Necessity Statement*: Angiogram once kidney function is better Time Spent in Patient Care: 35 Coding Level of Care Code Acute [place] Burner Operator for Chg Fwd Diagnoses ASHD (arteriosclerotic heart disease) I25.10 Cardiogenic shock R57.0 Troponin level elevated R77.8 Non-ST elevation VT (NSTEMI) I21.4 Acute on chronic congestive heart failure I50.9 Transaminitis R74.01 Acidosis, lactic E87.2 Presence of permanent cardiac pacemaker Z95.0 Hyponatremia E87.1 Sleep apnea G47.33 Sleep apnea type: obstructive
--- NOTE | 2021-09-01 13:04 | USCV_ITS ---
Bryanna Mark Age: 81 Gender: F : 1940 Exam Date: 09/01/2021 14:45 Ordering Phys: Galilea Frost MD Technologist: Adelso Lakhani [place] [facility] [place]: bilat edema PROCEDURES: The venous duplex Doppler examination of both lower extremities was performed in the standard fashion. The following venous structures were evaluated: common femoral vein, profunda vein, proximal portion of the greater saphenous vein, superficial femoral vein, and the popliteal vein. In addition, the posterior tibial veins were evaluated. In addition, the posterior tibial and peroneal trunk were evaluated. FINDINGS: Normal 2-D Doppler and augmentation and compressibility throughout the lower extremity venous structures. Additional imaging through the proximal calf veins also reveals no thrombus. Limited evaluation of the greater saphenous vein is patent with no thrombus.. The veins were found to be easily compressible with spontaneous blood flow. Non pulsatile flow pattern. CONCLUSIONS No evidence of DVT in the above-mentioned identifiable veins. Dr Rojas Redmond MD [facility] (Electronically Signed) Final Date: 03 September 2021 07:25 S
[2021-09-01] MEDS: heparin 5,000 unit/mL INJ 1 mL 5000 UNIT SUBCUT (14:48)
--- NOTE | 2021-09-01 18:18 | P.PN_ITS ---
Subjective Subjective: Patient continues to improve. No chest pain. Shortness of breath is much better. No fever or chills. No cough. Medications: Medication Review Details: Current Medications Acetaminophen (Acetaminophen 500 Mg Tablet) 500 mg PO Q4H PRN PRN Reason: fever Albuterol/Ipratropium (Ipratropium-Albuterol 3 Ml Neb) 3 ml INHALATION Q6H PRN PRN Reason: SHORTNESS OF BREATH Aspirin (Aspirin 81 Mg Ec Tablet) [address] [facility] Last Admin: 09/01/21 05:35 Dose: 81 mg Documented by: Heparin Sodium (Porcine) (Heparin 5,000 Unit/Ml Inj 1 Ml) 5,000 unit SUBCUT Q12H [facility] Last Admin: 09/01/21 14:48 Dose: 5,000 unit Documented by: Ondansetron HCl (Ondansetron 2 Mg/Ml Sdv 2 Ml) 4 mg IVP Q6H PRN PRN Reason: NAUSEA AND VOMITING Pantoprazole Sodium (Pantoprazole Dr 40 Mg Tablet) [address] [facility] Last Admin: 09/01/21 05:35 Dose: 40 mg Documented by: Prednisone (Prednisone 5 Mg Tablet) 2.[address] [facility] Last Admin: 09/01/21 05:35 Dose: 2.5 mg Documented by: Senna/Docusate Sodium (Sennosides-Docusate Tablet) 1 tab PO DAILY [facility] Last Admin: 09/01/21 08:57 Dose: 1 tab Documented by: Spironolactone (Spironolactone 25 Mg Tablet) 25 mg PO DAILY [facility] Last Admin: 09/01/21 08:57 Dose: 25 mg Documented by: Ticagrelor (Ticagrelor 90 Mg Tablet) 90 mg PO BID [facility] Last Admin: 09/01/21 10:04 Dose: 90 mg Documented by: Vitals/I&O/Wt Last Vital Signs Temp 98.2 F 09/01/21 16:00 Pulse 75 09/01/21 16:00 Resp 16 09/01/21 16:00 BP 105/66 09/01/21 16:00 Pulse Ox 91 09/01/21 16:00 09/01/21 09/01/21 09/01/21 06:59 14:59 22:59 Intake Total 194.828 / 848.833 360 / 360 Output Total 1350 / 2850 Balance -1155.172 / -2001.167 360 / 360 Weight last 48 hrs Weight 137 lb 12.623 oz Physical Exam Narrative: GENERAL: The patient is alert and oriented times three. Not in any acute distress. HEENT: Minimal pallor. No icterus or lymphadenopathy.Oral cavity: There are no mucous membrane lesions. NECK: Trachea appears to be central. No masses noted. No JVD or thyromegaly appreciated. RESPIRATORY: Breath sounds are heard bilaterally with no rales or rhonchi. Densities of breath sounds are diminished in the bases. BREASTS: Deferred. HEART: The heart sounds are normal. No S3 or S4. Systolic murmur grade 3 or 6 in the left sternal border. No pericardial rub ABDOMEN: No vessel pulsations or distention. No tenderness. No organomegaly appreciated. Bowel sounds are normally heard. : Deferred. RECTAL: Deferred. LYMPHATIC: No lymphadenopathy noted in the neck. EXTREMITIES: No edema or cyanosis. No clubbing. MUSCULOSKELETAL: No acute joint deformities or swelling SKIN: There are no significant rashes or ecchymosis NEUROPSYCHIATRIC: The patient is alert and oriented x3. Appears to be in a good mood. No tremors or rigidity noted. Urinary Catheter Management: Castellanos Latex: Cath Placed During This Visit: yes Reason for Continuing Indwelling Catheter: Acute Urinary Retention or Obstruction Urinary Catheter Date of Insertion: 08/30/21 Urinary Catheter Time of Insertion: 21:20 Data : 09/01/21 00:11 09/01/21 05:22 Other Labs: Laboratory Last Values WBC 11.3 10^3/uL (4.0-10.0) H 09/01/21 00:11 RBC 3.99 10^6/uL (4.1-5.3) L 09/01/21 00:11 Hgb 11.3 g/dL (11.5-15.3) L 09/01/21 00:11 Hct 34.1 % (37.0-47.0) L 09/01/21 00:11 MCV 85.5 fl (81-99) 09/01/21 00:11 MCH 28.3 pg (28.0-34.0) 09/01/21 00:11 MCHC 33.1 g/dL (30.0-36.0) 09/01/21 00:11 RDW 13.9 % (12.1-15.1) 09/01/21 00:11 Plt Count 220 10^3/cmm (130-400) 09/01/21 00:11 MPV 12.2 fL (7.4-10.4) H 09/01/21 00:11 Neut % (Auto) 74.1 % 09/01/21 00:11 Lymph % (Auto) 15.6 % 09/01/21 00:11 [place] % (Auto) 8.6 % 09/01/21 00:11 Eos % (Auto) 0.3 % 09/01/21 00:11 Baso % (Auto) 0.8 % 09/01/21 00:11 Neut # (Auto) 8.37 10^3/uL (1.8-7.7) H 09/01/21 00:11 Lymph # (Auto) 1.8 10^3/uL (0.8-4.8) 09/01/21 00:11 [place] # (Auto) 1.0 10^3/uL (0.2-0.9) H 09/01/21 00:11 Eos # (Auto) 0.0 10^3/uL (0.0-0.8) 09/01/21 00:11 Baso # (Auto) 0.1 10^3/uL (0.0-0.1) 09/01/21 00:11 Nucleated RBC % (auto) 0.5 % 09/01/21 00:11 Nucleated RBCs # 0.1 /100WBC 09/01/21 00:11 APTT 70.2 SECONDS (23.9-36.7) H 09/01/21 00:11 D-Dimer 9.12 ug/mIFEU (0-0.59) H 09/01/21 09:03 Sodium 134 mmol/L (136-145) L 09/01/21 05:22 Potassium 3.3 mmol/L (3.5-5.1) L 09/01/21 05:22 Chloride 96 mmol/L (98-107) L 09/01/21 05:22 Carbon Dioxide 25 mmol/L (22-29) 09/01/21 05:22 Anion Gap 16.3 (5-19) 09/01/21 05:22 BUN 32 mg/dL (8-23) H 09/01/21 05:22 Creatinine 1.7 mg/dL (0.5-0.9) H 09/01/21 05:22 GFR Calculation Not Reportable 09/01/21 05:22 Glucose 91 mg/dL (65-115) 09/01/21 05:22 Estimat Average Glucose 143 08/31/21 13:44 Hemoglobin A1c 6.6 % (4.0-6.0) H 08/31/21 13:44 Calculated Osmolality 284 mOsm/kg (285-295) L 09/01/21 05:22 Lactic Acid 5.5 mmol/L (0.5-2.2) H* 08/30/21 16:54 Lactic Acid (Sepsis) 3.2 mmol/L (0.5-2.2) H 08/30/21 19:50 Lactate 1.6 mmol/L (0.5-2.2) 08/31/21 04:09 Calcium 8.3 mg/dL (8.5-10.5) L 09/01/21 05:22 Magnesium 2.0 mg/dL (1.7-2.3) 08/31/21 04:09 Total Bilirubin 0.7 mg/dL (0.15-1.2) 09/01/21 05:22 Direct Bilirubin 0.30 mg/dL (0.00-0.30) 08/31/21 13:44 AST 231 U/L (0-32) H 09/01/21 05:22 ALT 601 U/L (0-33) H 09/01/21 05:22 Alkaline Phosphatase 102 IU/L (35-105) 09/01/21 05:22 Troponin T Baseline 275 ng/L (0-10) H* 08/30/21 13:10 Troponin T 120 Minute 281.6 ng/L (0-10) H 08/30/21 15:31 Delta Troponin T 6.6 ABS# (0-10) 08/30/21 15:31 Troponin T Hi Sens 6Hr 299.8 ng/L (0-10) H 08/30/21 19:50 Troponin T Hi Sens 6Hr Delta 24.8 ng/L (0-12) H* 08/30/21 19:50 C-Reactive Protein 30.7 mg/L (0.0-4.9) H 08/31/21 04:09 NT-Pro-B Natriuret Pep 70181 pg/mL (0-450) H 08/30/21 13:10 Total Protein 5.4 g/dL (6.6-8.7) L 09/01/21 05:22 Albumin 3.3 g/dL (3.5-5.2) L 09/01/21 05:22 Globulin 2.1 g/dL (1.3-4.6) 09/01/21 05:22 Lipase 33 U/L (13-60) 08/30/21 13:10 Prolactin 17.60 ng/mL (4.8-23.3) 08/30/21 15:31 Urine Color Yellow (Yellow) 08/30/21 16:07 Urine Appearance Clear (CLEAR) 08/30/21 16:07 Urine pH 5 (5-7) 08/30/21 16:07 Ur Specific [place] 1.025 (1.005-1.030) 08/30/21 16:07 Urine Protein Neg (Negative) 08/30/21 16:07 Urine Glucose (UA) Norm (Normal) 08/30/21 16:07 Urine Ketones Negative (Negative) 08/30/21 16:07 Urine Blood 2+ (Negative) H 08/30/21 16:07 Urine Nitrate Negative (Negative) 08/30/21 16:07 Urine Bilirubin Neg (Negative) 08/30/21 16:07 Urine Urobilinogen Norm mg/dL (Negative) 08/30/21 16:07 Ur Leukocyte Esterase Negative (Negative) 08/30/21 16:07 Urine RBC 0-4 /hpf (0-2) H 08/30/21 16:07 Urine WBC 0-4 /hpf (0-5) H 08/30/21 16:07 Ur Squamous Epith Cells 15-25 /hpf (0-5) H 08/30/21 16:07 Amorphous Sediment Not Reportable 08/30/21 16:07 Urine Bacteria 4+ /hpf (NONE) H 08/30/21 16:07 Hepatitis A IgM Ab Non-reactive (Nonreactive) 08/30/21 13:10 Hep Bs Antigen Non-reactive (Nonreactive) 08/30/21 13:10 Hep B Core IgM Ab Non-reactive (Nonreactive) 08/30/21 13:10 Hepatitis C Antibody Non-reactive (Nonreactive) 08/30/21 13:10 A&P Assessment and plan (1) Troponin level elevated: Is very possible that the patient might have had a non-ST elevation myocardial infarction. Currently she seems to be stable hemodynamically. May continue the heparin Brilinta and aspirin. She requires a cardiac catheterization, to further evaluate the coronary status. Patient and the family are wanting to go ahead with the angiogram. Status: Acute (2) Acute on chronic congestive heart failure: May carefully treat with IV diuretics. Status: Acute (3) Presence of permanent cardiac pacemaker: Pacemaker function is appropriate. Status: Acute (4) Acidosis, lactic: Possibly related to low output heart failure Status: Acute (5) Elevated liver enzymes: The liver enzymes are coming down. Status: Acute (6) Acute kidney injury: The BUN/creatinine is slowly trending upward. Status: Acute Plan May continue on the current medications. Repeat BMP, liver profile in the morning. Had a long discussion with the patient and her family members. The family wants the patient to have the angiogram to evaluate the coronary status and decide on further management. In view of her advanced age and comorbidities, she carries a high risk. Specifically discussed about contrast-induced nephropathy. Patient and the family understood this well. We may hold off on the procedure till the kidney function is stabilized and the liver enzymes are returned to the near normal levels Attestations Medical Necessity Statement*: Patient requires continued hospital stay for close monitoring and further management Coding Level of Care Code Acute Inspector Machine Cut Glass for [employer] Fwd History Expanded Problem Focused Exam Detailed Medical Decision Making Moderate Complexity Diagnoses Troponin level elevated R77.8 Acute on chronic congestive heart failure I50.9 Presence of permanent cardiac pacemaker Z95.0 Acidosis, lactic E87.2 Elevated liver enzymes R74.8 Acute kidney injury N17.9
[2021-09-02] VITALS (9 sets, daily range): BP systolic 98–121; BP diastolic 65–74; PULSE 62–85; RESP 16–18; TEMP 36.6–37.1; O2SAT 92–99
[2021-09-02] MEDS: heparin 5,000 unit/mL INJ 1 mL 5000 UNIT SUBCUT ×2 (02:24→13:44)
[2021-09-02 05:35] LABS: Basophils # 0.1 10^3/uL (0.0-0.1); Basophils % 0.9 %; Hematocrit 33.4 % (37.0-47.0); Hemoglobin 11.1 g/dL (11.5-15.3); Lymphocytes # 1.7 10^3/uL (0.8-4.8); Lymphocytes % 20.2 %; Mean Corpuscular HGB Conc 33.2 g/dL (30.0-36.0); Mean Corpuscular Hemoglobin 28.5 pg (28.0-34.0); Mean Corpuscular Volume 85.6 fl (81-99); Mean Platelet Volume 11.8 fL (7.4-10.4); Monocytes # 0.9 10^3/uL (0.2-0.9); Monocytes % 10.3 %; Neutrophils # 5.74 10^3/uL (1.8-7.7); Neutrophils % 67.9 %; Nucleated Red Blood Cells % 0.2 %; Platelet Count 222 10^3/cmm (130-400); Red Cell Distribution Width 13.8 % (12.1-15.1); White Blood Count 8.5 10^3/uL (4.0-10.0)
[2021-09-02 05:53] LABS: Anion Gap 13.3 (5-19); Blood Urea Nitrogen 23 mg/dL (8-23); Calcium 8.5 mg/dL (8.5-10.5); Carbon Dioxide 27 mmol/L (22-29); Chloride 99 mmol/L (98-107); Glucose 105 mg/dL (65-115); Osmolality Calculated 286 mOsm/kg (285-295); Potassium 3.3 mmol/L (3.5-5.1); Sodium 136 mmol/L (136-145)
[2021-09-02] MEDS: aspirin 81 mg EC Tablet PO (05:53)
[2021-09-02] MEDS: pantoprazole DR 40 mg Tablet PO (05:53)
[2021-09-02] MEDS: predniSONE 5 mg Tablet 2.5 MG PO (05:53)
--- NOTE | 2021-09-02 08:00 | NM_ITS ---
WS: [id number] NUCLEAR MEDICINE VENTILATION/PERFUSION LUNG SCAN HISTORY: Concern for PE high D-dimer, CHF COMPARISON: Chest radiograph 08/30/2021 TECHNIQUE: Ventilation: 33.0 mCi of Technetium 99 DTPA aerosol inhaled. Perfusion: 5.1 mCi of technetium 99m MAA IV. Lungs are hyperinflated. Moderate deposition of radionuclide along the trachea and proximal bronchial tree. Very heterogeneous uptake on the ventilatory portion of the exam. Much better perfusion as com pared to ventilation. Matched defect RIGHT apex. Perfusion and ventilatory defect is identified. NM/NM pul vent and perfus* [id number] IMPRESSION: Low probability pulmonary embolism.
[2021-09-02] MEDS: sennosides-docusate Tablet 1 TAB PO (11:07)
[2021-09-02] MEDS: ticagrelor 90 mg Tablet PO ×2 (11:07→18:23)
--- NOTE | 2021-09-02 11:49 | P.PN_ITS ---
Subjective Subjective: Patient is doing much better clinically her creatinine is improved, adequate diuresis without diuretics Dr. Redmond my plan for angiogram Vitals/I&O/Wt Last Vital Signs Temp 97.8 F 09/02/21 08:00 Pulse 78 09/02/21 08:11 Resp 18 09/02/21 08:11 BP 117/71 09/02/21 08:00 Pulse Ox 97 09/02/21 08:11 09/01/21 09/02/21 09/02/21 22:59 06:59 14:59 Intake Total 290 / 650 240 / 240 Output Total 1675 / 1675 Balance 290 / 650 -1675 / -1025 240 / 240 Physical Exam Narrative: Patient is laying supine Very happy with the progress Clinically looks euvolemic Family at the bedside Satting well on room No active chest pain Abdomen soft Very pleasant and cooperative Nonfocal neuro exam Edema, PERRLA Urinary Catheter Management: Castellanos Latex: Cath Placed During This Visit: yes Reason for Continuing Indwelling Catheter: Acute Urinary Retention or Obstruction Urinary Catheter Date of Insertion: 08/30/21 Urinary Catheter Time of Insertion: 21:20 Data : 09/02/21 04:23 09/02/21 04:23 A&P Assessment and plan (1) Acute kidney injury: Status: Acute (2) Elevated liver enzymes: Status: Acute (3) ASHD (arteriosclerotic heart disease): Status: Acute (4) Non-ST elevation VA (NSTEMI): Status: Acute (5) Acute on chronic congestive heart failure: Status: Acute (6) Transaminitis: Status: Acute (7) Acidosis, lactic: Status: Acute Plan Recurrent CHF exacerbation Reduced EF Hypokinesia right ventricle High D-dimer, requested VQ scan and venous Doppler Creatinine has improved, Dr. Redmond my plan for angiogram Off diuretics Recheck liver enzymes Continue steroids Continue aspirin and Brilinta NSTEMI: Status post heparin 48 hours, no active chest pain Attestations Medical Necessity Statement*: Plan for angiogram Time Spent in Patient Care: 30 Coding Level of Care Code Acute Data Collection Technician for [facility] Fwd Diagnoses Acute kidney injury N17.9 Elevated liver enzymes R74.8 ASHD (arteriosclerotic heart disease) I25.10 Non-ST elevation VA (NSTEMI) I21.4 Acute on chronic congestive heart failure I50.9 Transaminitis R74.01 Acidosis, lactic E87.2
--- NOTE | 2021-09-02 12:47 | PC.SOCIAL ---
Pg 2 IMM Explained to pt & family Pg 2 IMM. No questions voiced. Provided pt a copy. Initialed, dated, & timed a copy & placed in chart.
--- NOTE | 2021-09-02 18:41 | PM.PN ---
Subjective Subjective: The patient continues to improve. No chest pain or chest tightness. No fever, chills or cough. Vital signs remained stable. Medications: Medication Review Details: Current Medications Acetaminophen (Acetaminophen 500 Mg Tablet) 500 mg PO Q4H PRN PRN Reason: fever Albuterol/Ipratropium (Ipratropium-Albuterol 3 Ml Neb) 3 ml INHALATION Q6H PRN PRN Reason: SHORTNESS OF BREATH Aspirin (Aspirin 81 Mg Ec Tablet) [address] [facility] Last Admin: 09/02/21 05:53 Dose: 81 mg Documented by: Diphenhydramine HCl (Diphenhydramine 50 Mg Capsule) 50 mg PO ONCE ONE Stop: 09/02/21 18:39 Heparin Sodium (Porcine) (Heparin 5,000 Unit/Ml Inj 1 Ml) 5,000 unit SUBCUT Q12H [facility] Last Admin: 09/02/21 13:44 Dose: 5,000 unit Documented by: Sodium Chloride (Sodium Chloride 0.9%) 1,000 mls @ 50 mls/hr IV .Q20H ONE Stop: 09/03/21 14:37 Ondansetron HCl (Ondansetron 2 Mg/Ml Sdv 2 Ml) 4 mg IVP Q6H PRN PRN Reason: NAUSEA AND VOMITING Pantoprazole Sodium (Pantoprazole Dr 40 Mg Tablet) [address] [facility] Last Admin: 09/02/21 05:53 Dose: 40 mg Documented by: Prednisone (Prednisone 5 Mg Tablet) 2.[address] [facility] Last Admin: 09/02/21 05:53 Dose: 2.5 mg Documented by: Senna/Docusate Sodium (Sennosides-Docusate Tablet) 1 tab PO DAILY [facility] Last Admin: 09/02/21 11:07 Dose: 1 tab Documented by: Spironolactone (Spironolactone 25 Mg Tablet) 25 mg PO DAILY [facility] Last Admin: 09/01/21 08:57 Dose: 25 mg Documented by: Ticagrelor (Ticagrelor 90 Mg Tablet) 90 mg PO BID [facility] Last Admin: 09/02/21 18:23 Dose: 90 mg Documented by: Vitals/I&O/Wt Last Vital Signs Temp 97.9 F 09/02/21 16:00 Pulse 78 09/02/21 16:00 Resp 16 09/02/21 16:00 BP 107/65 09/02/21 16:00 Pulse Ox 95 09/02/21 16:00 09/02/21 09/02/21 09/02/21 06:59 14:59 22:59 Intake Total 240 / 240 Output Total 1675 / 1675 Balance -1675 / -1025 240 / 240 Physical Exam Narrative: GENERAL: The patient is alert and oriented times three. Not in any acute distress. HEENT: Minimal pallor. No icterus or lymphadenopathy.Oral cavity: There are no mucous membrane lesions. NECK: Trachea appears to be central. No masses noted. No JVD or thyromegaly appreciated. RESPIRATORY: Chest is symmetrical. No intercostals muscle retraction or any accessory muscle activation. There is no chest wall tenderness. Breath sounds are heard bilaterally. No rales or rhonchi heard. No evidence of any consolidation. BREASTS: Deferred. HEART: The heart sounds are normal. No S3 or S4. Systolic murmur grade 3 or 6 in the left sternal border. No pericardial rub ABDOMEN: No vessel pulsations or distention. No tenderness. No organomegaly appreciated. Bowel sounds are normally heard. : Deferred. RECTAL: Deferred. LYMPHATIC: No lymphadenopathy noted in the neck. EXTREMITIES: No edema or cyanosis. No clubbing. MUSCULOSKELETAL: No acute joint deformities or swelling SKIN: There are no significant rashes or ecchymosis NEUROPSYCHIATRIC: The patient is alert and oriented x3. Appears to be in a good mood. No tremors or rigidity noted. Urinary Catheter Management: Castellanos Latex: Cath Placed During This Visit: yes, but has since been removed by the nurse Reason for Continuing Indwelling Catheter: Not indwelling catheter Urinary Catheter Date of Insertion: 08/30/21 Urinary Catheter Time of Insertion: 21:20 Date Urinary Catheter Removed: 09/02/21 Time Urinary Catheter Discontinued: 13:45 Data : 09/02/21 04:23 09/02/21 04:23 A&P Assessment and plan (1) Troponin level elevated: Is very possible that the patient might have had a non-ST elevation myocardial infarction. Currently she seems to be stable hemodynamically. May continue the heparin Brilinta and aspirin. She requires a cardiac catheterization, to further evaluate the coronary status. Patient and the family are wanting to go ahead with the angiogram. Since the patient's kidney function has improved, relative appropriate to go ahead with the procedure tomorrow. The risk of bleeding, hematoma, vascular injury, myocardial infarction, CVA, renal failure and other concomitant complications were explained in detail. Patient and the family understood this well and consented to proceed. We will go ahead and make arrangements to have a drain in the morning. Status: Acute (2) Acute on chronic congestive heart failure: Clinically seems to be compensated. I may hold the diuretic at this time. Status: Acute (3) Presence of permanent cardiac pacemaker: Pacemaker function is appropriate. No new arrhythmias are noted on the monitor. Status: Acute (4) Acidosis, lactic: Possibly related to low output heart failure. Clinically improved Status: Acute (5) Elevated liver enzymes: The liver enzymes are coming down. We will have a repeat liver enzymes in the morning. Status: Acute (6) Acute kidney injury: The BUN/creatinine is almost returning to baseline. We will continue the current treatment measures. Status: Acute Plan Since I will not be here tomorrow, I asked my colleague Dr. Jones to perform cardiac catheterization. Discussed with the patient and family-they are agreeable. We will keep n.p.o. after midnight. Schedule the procedure for 6 AM Attestations Medical Necessity Statement*: Patient requires continued hospital stay for close monitoring and further management Coding Level of Care Code Acute Asset Management Lead for Chg Fwd History Expanded Problem Focused Exam Detailed Medical Decision Making Moderate Complexity Diagnoses Troponin level elevated R77.8 Acute on chronic congestive heart failure I50.9 Presence of permanent cardiac pacemaker Z95.0 Acidosis, lactic E87.2 Elevated liver enzymes R74.8 Acute kidney injury N17.9
[2021-09-03] VITALS (12 sets, daily range): BP systolic 112–156; BP diastolic 68–89; PULSE 76–99; RESP 13–35; TEMP 36.7–36.9; O2SAT 94–99
[2021-09-03] MEDS: heparin 5,000 unit/mL INJ 1 mL 5000 UNIT SUBCUT (00:35)
[2021-09-03 05:22] LABS: Basophils # 0.1 10^3/uL (0.0-0.1); Basophils % 1.4 %; Hematocrit 37.8 % (37.0-47.0); Hemoglobin 12.1 g/dL (11.5-15.3); Lymphocytes % 23.3 %; Mean Corpuscular Hemoglobin 28.3 pg (28.0-34.0); Mean Corpuscular Volume 88.3 fl (81-99); Mean Platelet Volume 11.5 fL (7.4-10.4); Monocytes # 0.9 10^3/uL (0.2-0.9); Neutrophils # 5.64 10^3/uL (1.8-7.7); Neutrophils % 64.7 %; Nucleated Red Blood Cells % 0 %; Platelet Count 250 10^3/cmm (130-400); Red Blood Count 4.28 10^6/uL (4.1-5.3); White Blood Count 8.7 10^3/uL (4.0-10.0)
[2021-09-03 05:46] LABS: Alanine Aminotransferase 443 U/L (0-33); Albumin Level 3.4 g/dL (3.5-5.2); Alkaline Phosphatase 100 IU/L (35-105); Anion Gap 15.5 (5-19); Aspartate Amino Transferase 156 U/L (0-32); Blood Urea Nitrogen 17 mg/dL (8-23); Calcium 8.9 mg/dL (8.5-10.5); Carbon Dioxide 26 mmol/L (22-29); Chloride 98 mmol/L (98-107); Globulin 2.3 g/dL (1.3-4.6); Glucose 102 mg/dL (65-115); Osmolality Calculated 284 mOsm/kg (285-295); Potassium 3.5 mmol/L (3.5-5.1); Sodium 136 mmol/L (136-145); Total Bilirubin 0.6 mg/dL (0.15-1.2); Total Protein 5.7 g/dL (6.6-8.7)
--- NOTE | 2021-09-03 06:21 | XACV_ITS ---
Exam Room: [facility] Ht: 160 cm Wt: 62 kg BSA: 1.67 m2 Gender: Female : 1940 Any Known Allergies: Other Exam Priority: Routine Procedure(s): Procedure Description: Diagnostic procedure Procedure Description: Left Heart Catheterization Procedure Description: Coronary Angiography Diagnostic Cath Status: Elective Diagnostic Findings * Ostial Circumflex: minimal 30% stenosis, RUBINA: 3 flow. * Left Anterior Descending has no signficaint disease.Patent stents.Gives rise a large sized diagonal artery that is also patent. * Right Coronary Artery has patent stents and no significant stenosis. * Proximal Circumflex: mild 40% stenosis, RUBINA: 3 flow. Stent in left circumflex artery is patent. * Left Main has no disease. * Coronary angiography shows right dominance. Conclusions 1. Nonobstructive coronary artery disease. 2. Patent prior stents in all 3 vessels.. Recommendations * Aggressive risk factor modification. * Continue dual antiplatelet therapy with aspirin and Brilinta. * Beta-ted and statin therapy. * Outpatient cardiology follow-up in 4 weeks. Interventional RX Recommendation: medical therapy and/or counseling Diagnostic RX Recommendation: medical therapy and/or counseling Pressures Phase:Rest AO : 133 / 55 ( 84 ) @ 8:01:00 AM 113 / 67 ( 81 ) @ 8:01:00 AM 113 / 67 ( 84 ) @ 8:01:00 AM LV : 141 / -4 / 14 @ 8:01:00 AM 145 / -5 / 19 @ 8:01:00 AM Valves Phase:DefaultPhase AV : 32.0 @ 7:06:50 AM AV Mean Gradient: 25.0 @ 7:06:50 AM Clinical Evaluation EBL: 5mL-10mL Procedural Details Procedure Consent Obtained. Pre-Procedure Time Out. Identified patient by full name and date of as verbalized by the patient/guarantor. Does the consent match the physician's order: Yes. Accurate & Complete Informed Consent: Yes. Inpatient/Outpatient History & Physical on Chart: Yes. If H&P is completed, is and addenduem needed: No; If yes, is the addendum complete: N/A. Visualize and Verify Site with Patient/Guarantor: N/A. Relevant Radiology Images available: N/A. Pre-op teaching completed and patient verbalized understanding. The risks, benefits, and alternatives of sedation and/or procedure were discussed by physician. The patient agrees to continue. Procedure started. [facility] Clinical Fraility Score: 5: Mildly Frail. Real Estate Administrative Assistant Indications: ACS > 24 hours. Chest Pain Symptom Assessment: Atypical Angina. Cardiovascular Instability: No. Correct patient, site and procedure confirmed by cath team. PERRLA. 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 Lungs clear x 5 lobes. IV Site on Arrival: 20 gauge in the left anticubital. IV Site on Arrival: 20 gauge in the right forearm. IV Fluids: 0.9% NaCl at KVO. 0 mL infused prior to boat laborer. Pre Procedural Pulses: bilateral dorsalis pedis was Doppled. Pre Procedural Pulses: bilateral posterior tibial was Doppled. Pre Procedural Pulses: bilateral radial was 1+. Oxygen started at 2liters/min via nasal canula. right groin was prepped with chloroprep then draped in the usual sterile fashion. right radial was prepped with chloroprep then draped in the usual sterile fashion. Physician arrived. Equipment: 6F - Radial. Cardiac Cath Pack. ACIST Manifold Kit Model BT 2000. Heparinized Saline (2 units/mL), 1000 mL bag. Baseline sample Acquired. HR: 103 BPM. Physician scrubbed in. Immediate Pre-Procedure Time Out. Correct Patient: Yes; Correct Procedure: Yes; Correct Site: Yes; Correct Patient Position: Yes; Correct Supplies: Yes; Dried Flammable Prep: Yes; Blood Products Available: N/A;. Lidocaine 1% infiltrated to the right radial. Arterial access obtained. Hand injection through sheath. A 5 swazi TIG catheter in over wire. Glidewire inserted. Multiple views taken of left coronary artery. Catheter redirected to the RCA. Multiple views taken of right coronary artery. Catheter redirected to the left ventricle to place wire. EDP Sample taken: LV 141/-5,14; HR: 102 BPM; SpO2: 96%. Pullback taken: LV 145/-6,19; AO 133/55(84); Mean: 25mmHg, Peak to Peak: 32mmHg, SEP: 22sec/min; HR: 101 BPM; SpO2: 98%. Catheter out. Physician scrubbed out. A TR Band was successful obtaining hemostatsis at the Right Radial artery insertion site. TR band placed. Hemostasis obtained. Post Procedure: Pulses reassessed and unchanged. PERRLA. 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 No VTE prophylaxis required. Medication's Wasted: Lidocaine 1% = 3 mL. Medication's Wasted: Nitro = 49.8 mg. Medication's Wasted: Heparin = 1000 units. Medication's Wasted: Other = fentanyl 75 mcg. Medication's Wasted: Other = versed 1 mg. Total IV fluids: 16 mL. Contrast type used: Visipaque 320 mgI/mL, 500 mL bottle. Post-op diagnosis: non obstructive CAD, patent stents. Complications: none. Estimated blood loss: 5mL-10mL. Responsiveness - Normal response to verbal stimuli; alert and oriented, PERRLA. Airway - Unaffected, no intervention required; spontaneous ventilation. Circulation: W/N/L, pulses unchanged. Nausea/Vomiting: No. Procedure completed. Patient transferred by wheelchair to ICU. Vital chart was stopped. Access Site Site: Right Radial artery Sheath Size: 6 Fr Hemostasis Method: TR Band Hemostasis Success: Successful Procedure Medications Start: 6:45 AM Stop: 6:45 AM Medication: Versed Amount: 1 mg Route: I.V. Start: 6:45 AM Stop: 6:45 AM Medication: Fentanyl Amount: 25 mcg Route: I.V. Start: 6:51 AM Stop: 6:51 AM Medication: Nitrogylcerin Amount: 200 mcg Route: I.A. Start: 6:55 AM Stop: 6:55 AM Medication: Heparin Amount: 5000 units Route: I.V. I, the attending physician, have reviewed and verified all procedure medications. Yes, all medications given per verbal order History/Risk Factors Hypertension: Yes Dyslipidemia: Yes Peripheral Arterial Disease (PAD): No Myocardial Infarction (DC): No Obesity: No Renal Disease: No Prior Interventions PCI: No CABG: No Valve Surgery: No Report Signatures Finalized by Girma Jones MD on 09/05/2021 01:32 PM
[2021-09-03] MEDS: aspirin 81 mg EC Tablet PO (06:22)
[2021-09-03] MEDS: predniSONE 5 mg Tablet 2.5 MG PO (06:22)
[2021-09-03] MEDS: pantoprazole DR 40 mg Tablet PO (06:22)
[2021-09-03] MEDS: diphenhydrAMINE 50 mg Capsule PO (06:22)
[2021-09-03] MEDS: sodium chloride 0.9% 1,000 ML 50 ML IV (06:36)
--- NOTE | 2021-09-03 06:47 | W.PM.OPSUD ---
Surgery/Procedure H&P Update DATE OF PROCEDURE: September 03, 2021 DATE H&P PERFORMED: 08/30/21 H&P UPDATE INFORMATION: I have reviewed H&P completed within last 30 days, I have examined patient prior to procedure and No changes to prior documentation PREOP DIAGNOSIS: NSTEMI/ LV dysfunction PRIMARY INDICATION FOR PROCEDURE: NSTEMI/ LV dysfunction PLANNED PROCEDURE: Operation Date: 09/03/21 06:00 Proposed Procedures p Cardiac Catheterization(Left) - Girma Jones M.D Possible percutaneous coronary intervention PATIENT REASSESSED PRIOR TO SEDATION, WITH NO CHANGE NOTED: Yes PHYSICAL EXAM: alert, oriented x 3, clear to auscultation bilaterally and regular rate & rhythm AIRWAY EVAL/ANESTHESIA PLAN: ASA III, Local Anesthesia, Risks, benefits & alternatives of sedation and/or procedure discussed and Patient agrees to continue as planned ADDITIONAL INFORMATION: Moderate sedation
--- NOTE | 2021-09-03 08:15 | PC.NURSE ---
Transfer from Arcade Games Mechanic Patient arrived from lab intern TR band noted to the right radial access. slight bruising noted proximal to the TR band but family states that the bruising is from previous lab draws not from the procedure. Patient is alert and oriented no needs voiced at this time.
--- NOTE | 2021-09-03 09:26 | PC.NURSE ---
TR band 2 ml of air removed. will monitor.
[2021-09-03] MEDS: spironolactone 25 mg Tablet PO (09:31)
--- NOTE | 2021-09-03 09:36 | P.PN_ITS ---
Subjective Subjective: Patient is doing well. Underwent coronary angiogram today that showed no significant stenosis and prior stents were patent. Vitals/I&O/Wt Last Vital Signs Temp 98.4 F 09/03/21 04:00 Pulse 76 09/03/21 08:00 Resp 16 09/03/21 08:00 BP 122/72 09/03/21 08:00 Pulse Ox 94 09/03/21 08:00 09/02/21 09/03/21 09/03/21 22:59 06:59 14:59 Output Total 200 / 200 300 / 500 Balance -200 / 40 -300 / -260 Physical Exam Narrative: GENERAL: Patient is alert, awake and oriented x3. [] NECK: No jugular vein distension. [] HEENT: No cyanosis. No icterus. No pallor. [] HEART: Regular S1 and S2. No murmur, rub or gallop. [] LUNGS: Clear to auscultate bilaterally. [] ABDOMEN: Soft, nontender and nondistended. Positive bowel sounds. No guarding, rebound or tenderness. [] CENTRAL NERVOUS SYSTEM: Grossly nonfocal. [] EXTREMITIES: Lower extremities with 1+ edema bilaterally. Pulses palpable in the lower extremities, both dorsalis pedis and posterior tibial. [] Urinary Catheter Management: Castellanos Latex: Cath Placed During This Visit: yes, but has since been removed by the nurse Reason for Continuing Indwelling Catheter: Not indwelling catheter Urinary Catheter Date of Insertion: 08/30/21 Urinary Catheter Time of Insertion: 21:20 Date Urinary Catheter Removed: 09/02/21 Time Urinary Catheter Discontinued: 13:45 Data : 09/03/21 05:00 09/03/21 05:00 A&P Assessment and plan (1) Troponin level elevated: Coronary angiogram was performed today that showed no significant stenosis and prior stents were patent. Medical management at this time. Continue aspirin and Brilinta. Continue atorvastatin (2) Acute on chronic congestive heart failure: Compensated at this time. (3) Presence of permanent cardiac pacemaker: Pacemaker function is appropriate. No new arrhythmias are noted on the monitor. (4) Acidosis, lactic: Possibly related to low output heart failure. Clinically improved (5) Elevated liver enzymes: Stable. Status: Resolved (6) Acute kidney injury: Improved Status: Resolved Plan Patient is stable to be discharged from cardiology standpoint. Outpatient follow-up with cardiology. Attestations Medical Necessity Statement*: Care expected to cross 2 midnights Coding Level of Care Code Acute Forensic Ballistics Expert for Chg Fwd Diagnoses Troponin level elevated R77.8 Acute on chronic congestive heart failure I50.9 Presence of permanent cardiac pacemaker Z95.0 Acidosis, lactic E87.2 Elevated liver enzymes R74.8 Acute kidney injury N17.9
--- NOTE | 2021-09-03 09:36 | PC.NURSE ---
TR band 2 ml air removed from the TR band
--- NOTE | 2021-09-03 10:10 | PM.DCS ---
Discharge Providers Date of Admission: 08/30/21 20:12 Date of Discharge: September 03, 2021 Attending Provider at Admission: Galilea Frost MD Attending Provider at Discharge: Galilea Frost MD Primary Care Provider: Javid Edwards MD Diagnoses at Discharge Discharge Diagnosis (1) Troponin level elevated: Status: Acute (2) Acute on chronic congestive heart failure: Status: Acute (3) Presence of permanent cardiac pacemaker: Status: Acute (4) Acidosis, lactic: Status: Acute (5) Elevated liver enzymes: Status: Acute (6) Acute kidney injury: Status: Acute Reason for Visit Reason for Visit: SOB, Vomiting Hospital Course Hospital Course 81-year-old female with recurrent heart failure exacerbation admissions presented this time for worsening orthopnea PND and shortness of breath. She was initially diuresed which worsened her creatinine. When I held her diuretics for 3 days her creatinine improved. Dr. Redmond was consulted who recommended angiogram to look for coronary ischemia. 09/03 coronary angiogram did not show significant obstructive coronary artery disease. She does have tricuspid and mitral valve regurgitation. I have given her outpatient cardiology referral, she might need mitral valve clip surgery. I have conveyed my findings to the patient and her family. Physical Exam Narrative: Patient is laying supine Very happy with the progress Clinically looks euvolemic Family at the bedside Satting well on room No active chest pain Abdomen soft Very pleasant and cooperative Nonfocal neuro exam Edema, PERRLA Urinary Catheter Management: Castellanos Latex: Cath Placed During This Visit: yes, but has since been removed by the nurse Reason for Continuing Indwelling Catheter: Not indwelling catheter Urinary Catheter Date of Insertion: 08/30/21 Urinary Catheter Time of Insertion: 21:20 Date Urinary Catheter Removed: 09/02/21 Time Urinary Catheter Discontinued: 13:45 Discharge Data Studies Completed and Pending Completed Studies During Hospitalization Category Date Time Status CT chest abdomen pelvis [[place] [id number] Cat Scan 08/30/21 14:15 Completed ] Stat XR chest 1V portable [id number] Urgent Exams 08/30/21 12:54 Completed NM pul vent and perfus* [id number] Routine Nuc Med 09/02/21 08:00 Completed CV. 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 Chest/Abdomen/Pelvis CT 08/30/21 14:15 IMPRESSION: 1. Cardiomegaly, increased since prior exam. Coronary calcifications. No obvious signs of vascular congestion. 2. New pleural effusions as described. No acute lung consolidation or ground-glass opacity otherwise. IMPRESSION: 1. Gallbladder findings. See discussion above. 2. Colonic diverticulosis. No acute diverticulitis or other obvious acute bowel findings. Somewhat limited exam due to lack of contrast. 3. Trace perihepatic ascites. Abdomen Ultrasound 08/30/21 16:42 IMPRESSION: 1. Mild nonspecific gallbladder wall thickening. This may be related to systemic/cardiac disease, or regional inflammatory disease such as hepatitis or mild cholangitis. No cholelithiasis or obvious imaging signs of acute cholecystitis otherwise. No bile duct dilatation. 2. Other findings as above. Pulmonary Perfusion Imaging 09/02/21 08:00 IMPRESSION: Low probability pulmonary embolism. Laboratory Results WBC 8.7 10^3/uL (4.0-10.0) 09/03/21 05:00 RBC 4.28 10^6/uL (4.1-5.3) 09/03/21 05:00 Hgb 12.1 g/dL (11.5-15.3) 09/03/21 05:00 Hct 37.8 % (37.0-47.0) 09/03/21 05:00 MCV 88.3 fl (81-99) 09/03/21 05:00 MCH 28.3 pg (28.0-34.0) 09/03/21 05:00 MCHC 32.0 g/dL (30.0-36.0) 09/03/21 05:00 RDW 14.0 % (12.1-15.1) 09/03/21 05:00 Plt Count 250 10^3/cmm (130-400) 09/03/21 05:00 MPV 11.5 fL (7.4-10.4) H 09/03/21 05:00 Neut % (Auto) 64.7 % 09/03/21 05:00 Lymph % (Auto) 23.3 % 09/03/21 05:00 Stanton % (Auto) 10.0 % 09/03/21 05:00 Eos % (Auto) 0.0 % 09/03/21 05:00 Baso % (Auto) 1.4 % 09/03/21 05:00 Neut # (Auto) 5.64 10^3/uL (1.8-7.7) 09/03/21 05:00 Lymph # (Auto) 2.0 10^3/uL (0.8-4.8) 09/03/21 05:00 Stanton # (Auto) 0.9 10^3/uL (0.2-0.9) 09/03/21 05:00 Eos # (Auto) 0.0 10^3/uL (0.0-0.8) 09/03/21 05:00 Baso # (Auto) 0.1 10^3/uL (0.0-0.1) 09/03/21 05:00 Nucleated RBC % (auto) 0 % 09/03/21 05:00 Nucleated RBCs # 0.0 /100WBC 09/03/21 05:00 APTT 70.2 SECONDS (23.9-36.7) H 09/01/21 00:11 D-Dimer 9.12 ug/mIFEU (0-0.59) H 09/01/21 09:03 Sodium 136 mmol/L (136-145) 09/03/21 05:00 Potassium 3.5 mmol/L (3.5-5.1) 09/03/21 05:00 Chloride 98 mmol/L (98-107) 09/03/21 05:00 Carbon Dioxide 26 mmol/L (22-29) 09/03/21 05:00 Anion Gap 15.5 (5-19) 09/03/21 05:00 BUN 17 mg/dL (8-23) 09/03/21 05:00 Creatinine 1.1 mg/dL (0.5-0.9) H 09/03/21 05:00 GFR Calculation Not Reportable 09/03/21 05:00 Glucose 102 mg/dL (65-115) 09/03/21 05:00 Estimat Average Glucose 143 08/31/21 13:44 Hemoglobin A1c 6.6 % (4.0-6.0) H 08/31/21 13:44 Calculated Osmolality 284 mOsm/kg (285-295) L 09/03/21 05:00 Lactic Acid 5.5 mmol/L (0.5-2.2) H* 08/30/21 16:54 Lactic Acid (Sepsis) 3.2 mmol/L (0.5-2.2) H 08/30/21 19:50 Lactate 1.6 mmol/L (0.5-2.2) 08/31/21 04:09 Calcium 8.9 mg/dL (8.5-10.5) 09/03/21 05:00 Magnesium 2.0 mg/dL (1.7-2.3) 08/31/21 04:09 Total Bilirubin 0.6 mg/dL (0.15-1.2) 09/03/21 05:00 Direct Bilirubin 0.30 mg/dL (0.00-0.30) 08/31/21 13:44 AST 156 U/L (0-32) H 09/03/21 05:00 ALT 443 U/L (0-33) H 09/03/21 05:00 Alkaline Phosphatase 100 IU/L (35-105) 09/03/21 05:00 Troponin T Baseline 275 ng/L (0-10) H* 08/30/21 13:10 Troponin T 120 Minute 281.6 ng/L (0-10) H 08/30/21 15:31 Delta Troponin T 6.6 ABS# (0-10) 08/30/21 15:31 Troponin T Hi Sens 6Hr 299.8 ng/L (0-10) H 08/30/21 19:50 Troponin T Hi Sens 6Hr Delta 24.8 ng/L (0-12) H* 08/30/21 19:50 C-Reactive Protein 30.7 mg/L (0.0-4.9) H 08/31/21 04:09 NT-Pro-B Natriuret Pep 75800 pg/mL (0-450) H 08/30/21 13:10 Total Protein 5.7 g/dL (6.6-8.7) L 09/03/21 05:00 Albumin 3.4 g/dL (3.5-5.2) L 09/03/21 05:00 Globulin 2.3 g/dL (1.3-4.6) 09/03/21 05:00 Lipase 33 U/L (13-60) 08/30/21 13:10 Prolactin 17.60 ng/mL (4.8-23.3) 08/30/21 15:31 Urine Color Yellow (Yellow) 08/30/21 16:07 Urine Appearance Clear (CLEAR) 08/30/21 16:07 Urine pH 5 (5-7) 08/30/21 16:07 Ur Specific [place] 1.025 (1.005-1.030) 08/30/21 16:07 Urine Protein Neg (Negative) 08/30/21 16:07 Urine Glucose (UA) Norm (Normal) 08/30/21 16:07 Urine Ketones Negative (Negative) 08/30/21 16:07 Urine Blood 2+ (Negative) H 08/30/21 16:07 Urine Nitrate Negative (Negative) 08/30/21 16:07 Urine Bilirubin Neg (Negative) 08/30/21 16:07 Urine Urobilinogen Norm mg/dL (Negative) 08/30/21 16:07 Ur Leukocyte Esterase Negative (Negative) 08/30/21 16:07 Urine RBC 0-4 /hpf (0-2) H 08/30/21 16:07 Urine WBC 0-4 /hpf (0-5) H 08/30/21 16:07 Ur Squamous Epith Cells 15-25 /hpf (0-5) H 08/30/21 16:07 Amorphous Sediment Not Reportable 08/30/21 16:07 Urine Bacteria 4+ /hpf (NONE) H 08/30/21 16:07 Hepatitis A IgM Ab Non-reactive (Nonreactive) 08/30/21 13:10 Hep Bs Antigen Non-reactive (Nonreactive) 08/30/21 13:10 Hep B Core IgM Ab Non-reactive (Nonreactive) 08/30/21 13:10 Hepatitis C Antibody Non-reactive (Nonreactive) 08/30/21 13:10 Vitals Last Vital Signs Temp 98.4 F 09/03/21 04:00 Pulse 99 09/03/21 10:00 Resp 18 09/03/21 10:00 BP 112/83 09/03/21 10:00 Pulse Ox 97 09/03/21 10:00 Discharge Plan Discharge Patient Disposition: Home Condition: Stable Prescriptions: New Toprol XL 25 mg tablet extended release 24 hr 25 mg PO DAILY Qty: 30 3RF Lasix 20 mg tablet 10 mg PO EVERY OTHER DAY PRN (Reason: weight gain) Qty: 30 0RF Rx Instructions: more than 3 lbs weight gain a day potassium chloride 10 mEq capsule, extended release 10 meq PO EVERY OTHER DAY Qty: 30 0RF Rx Instructions: only take on days when taking lasix Continued diclofenac sodium 1 % gel 2 - 4 g topical QID PRN (Reason: Pain) 0RF Brilinta 90 mg tablet 90 mg PO BID Qty: 60 4RF atorvastatin 20 mg tablet 20 mg PO QAM 0RF nitroglycerin [Nitro-Time] 2.5 mg capsule, extended release 2.5 mg PO BID 0RF prednisone 2.5 mg tablet 2.5 mg PO QAM 0RF Hold Instructions: Resume on 06/08/21. trazodone 50 mg Tablet 25 mg PO BEDTIME PRN (Reason: Sleep) 0RF aspirin 81 mg Tablet,Delayed Release (Dr/Ec) 81 mg PO QAM 0RF lisinopril 40 mg tablet 20 mg PO QAM 0RF Nexium 20 mg Capsule,Delayed Release(Dr/Ec) 20 mg PO QAM 0RF cholecalciferol (vitamin D3) 50 mcg (2,000 unit) tablet 2,000 unit PO QAM 0RF Discontinued metoprolol tartrate 50 mg tablet 50 mg PO BID 0RF Referrals: Rojas Redmond MD [Physician] - 1 month (please cancel August appointment , you will be seen by Carmella Phillip ,see appointment . Next scheduled appointment for October at time of 09:45) Carmella Phillip FNP [Nurse Practitioner] - (please follow up with Carmella Phillip APN nurse , for post hospital /post angiogram , will need wound check and lab test this appointment has been scheduled September 21, 2021 at time of 10:45 am ) Javid Edwards MD [Primary Care Provider] - 2 weeks ( , appointment for follow up , [place] 30 2022 at time of 09:30 am ) Discharge Diet: Cardiac Discharge Activity: Increase activity as tolerated Patient Instructions: Metoprolol (By mouth), Furosemide (By mouth), Potassium Chloride (By mouth), Heart Healthy Diet, Heart Attack (DC), CHF Stoplight, Opioid Safety, Post Angiogram Home Care Instructions, Post Heart Attack Stoplight Discharge Attestations Time Spent in Discharge Care*: less than 30 min Quality Metrics Clinical Quality Measures [ No reported AMI, CVA or VTE this stay] Coding Level of Care Code Acute Chg FW DC note Diagnoses Troponin level elevated R77.8 Acute on chronic congestive heart failure I50.9 Presence of permanent cardiac pacemaker Z95.0 Acidosis, lactic E87.2 Elevated liver enzymes R74.8 Acute kidney injury N17.9
--- NOTE | 2021-09-03 11:25 | PC.NURSE ---
TR band All of the air is removed from the TR band patient tolerated well. No bleeding noted from site.
--- NOTE | 2021-09-03 12:42 | PC.NURSE ---
discharge pt discharged home with daughters. instructions given no questions at this time. escorted out to private vehicle via ambulation, patient tolerated ambulation very well.
== END 2021-09-03 12:30 | disposition home or self-care (01) | DRG 286 ==
LOC: ER 18:02 → ICU 19:45 → MEDSURG 08-31 15:26 → ICU 09-03 07:51
PROVIDERS: Internal Medicine; Admitting Provider Internal Medicine; Emergency Provider Emergency Medicine; PCP Family Medicine; Visit Provider Internal Medicine
PROC: 4A023N7 Measurement of Cardiac Sampling and Pressure, Left Heart, Percutaneous Approach (ICD-10-PCS; principal; 2021-09-03 06:00)
DX: I13.0 Hypertensive heart and chronic kidney disease with heart failure and stage 1 through stage 4 chronic kidney disease, or unspecified chronic kidney disease (principal); I50.23 Acute on chronic systolic (congestive) heart failure; E87.2 Acidosis; N17.9 Acute kidney failure, unspecified; N18.9 Chronic kidney disease, unspecified; I25.10 Atherosclerotic heart disease of native coronary artery without angina pectoris; Z95.5 Presence of coronary angioplasty implant and graft; I25.2 Old myocardial infarction; Z95.0 Presence of cardiac pacemaker; L93.0 Discoid lupus erythematosus; Z85.42 Personal history of malignant neoplasm of other parts of uterus; K21.9 Gastro-esophageal reflux disease without esophagitis; E78.5 Hyperlipidemia, unspecified; M19.90 Unspecified osteoarthritis, unspecified site; M81.0 Age-related osteoporosis without current pathological fracture; Z90.10 Acquired absence of unspecified breast and nipple; Z79.82 Long term (current) use of aspirin; Z79.891 Long term (current) use of opiate analgesic; Z79.52 Long term (current) use of systemic steroids; Z79.02 Long term (current) use of antithrombotics/antiplatelets; I08.1 Rheumatic disorders of both mitral and tricuspid valves; G47.33 Obstructive sleep apnea (adult) (pediatric); Z66 Do not resuscitate; R77.8 Other specified abnormalities of plasma proteins
CPT/HCPCS: 36415; 51702; 71045; 71250; 74176; 76705; 78014; 80048; 80053; 80074; 80076; 81001; 83036; 83605; 83690; 83735; 83880; 84146; 84484; 85025; 85378; 85730; 86140; 93005; 93452; 93458; 93970; 96360; 96365; 96372; 96375; 99152; 99153; 99285; A9540; A9567; C1769; C1887; C1894; C8929; J0692; J1644; J1940; J2250; J2270; J2543; J3010; J3490; J7030; J7512; Q0163; Q9967

== ENCOUNTER → 2021-09-16 12:17 | Outpatient (BNVA) | payer MEDICARE, SELFPAY | PROVIDERS: PCP Family Medicine; Visit Provider Family Medicine | DX: I50.9 Heart failure, unspecified (principal); I25.10 Atherosclerotic heart disease of native coronary artery without angina pectoris | CPT/HCPCS: 80053; 85025; 86140 ==

== ENCOUNTER → 2021-09-21 09:28 | Outpatient (BNVA) | payer MEDICARE, SELFPAY | PROVIDERS: PCP Family Medicine; Visit Provider Nurse Practitioner Family | DX: I25.2 Old myocardial infarction (principal) | CPT/HCPCS: 99213 ==

== ENCOUNTER 2021-10-21 13:04 | Outpatient (CLI) | payer MEDICARE, SELFPAY ==
[2021-10-21 14:04] LABS: Basophils # 0.1 10^3/uL (0.0-0.1); Basophils % 0.7 %; Eosinophils # 0.2 10^3/uL (0.0-0.8); Hematocrit 37.5 % (37.0-47.0); Hemoglobin 11.8 g/dL (11.5-15.3); Lymphocytes # 2.1 10^3/uL (0.8-4.8); Lymphocytes % 21.9 %; Mean Corpuscular HGB Conc 31.5 g/dL (30.0-36.0); Mean Corpuscular Hemoglobin 28.9 pg (28.0-34.0); Mean Corpuscular Volume 91.9 fl (81-99); Mean Platelet Volume 12.7 fL (7.4-10.4); Monocytes # 0.7 10^3/uL (0.2-0.9); Monocytes % 7.7 %; Neutrophils # 6.49 10^3/uL (1.8-7.7); Neutrophils % 67.2 %; Nucleated Red Blood Cells % 0 %; Platelet Count 225 10^3/cmm (130-400); Red Blood Count 4.08 10^6/uL (4.1-5.3); Red Cell Distribution Width 15.6 % (12.1-15.1); White Blood Count 9.7 10^3/uL (4.0-10.0)
[2021-10-21 14:40] LABS: Alanine Aminotransferase 13 U/L (0-33); Albumin Level 4.2 g/dL (3.5-5.2); Alkaline Phosphatase 89 IU/L (35-105); Aspartate Amino Transferase 25 U/L (0-32); Globulin 2.6 g/dL (1.3-4.6); Total Bilirubin 0.4 mg/dL (0.15-1.2); Total Protein 6.8 g/dL (6.6-8.7)
== END 2021-10-21 13:05 | disposition home or self-care (01) ==
LOC: LAB 13:06
PROVIDERS: PCP Family Medicine; Visit Provider Internal Medicine Rheumatology
DX: L93.2 Other local lupus erythematosus (principal); Z79.899 Other long term (current) drug therapy
CPT/HCPCS: 80076; 82565; 85025; 86140

== ENCOUNTER → 2021-10-25 09:34 | Outpatient (BNVA) | payer MEDICARE, SELFPAY | PROVIDERS: PCP Family Medicine; Visit Provider Internal Medicine Cardiovascular Disease | DX: I13.0 Hypertensive heart and chronic kidney disease with heart failure and stage 1 through stage 4 chronic kidney disease, or unspecified chronic kidney disease (principal); N18.9 Chronic kidney disease, unspecified; I50.9 Heart failure, unspecified; Z95.0 Presence of cardiac pacemaker; E78.5 Hyperlipidemia, unspecified; I25.10 Atherosclerotic heart disease of native coronary artery without angina pectoris | CPT/HCPCS: 99214 ==

== ENCOUNTER → 2021-11-01 12:31 | Outpatient (BNVA) | payer MEDICARE, SELFPAY | PROVIDERS: PCP Family Medicine; Visit Provider Internal Medicine Rheumatology | DX: M32.9 Systemic lupus erythematosus, unspecified (principal); Z79.899 Other long term (current) drug therapy; R76.8 Other specified abnormal immunological findings in serum; I50.9 Heart failure, unspecified; M81.0 Age-related osteoporosis without current pathological fracture; Z71.89 Other specified counseling; I12.9 Hypertensive chronic kidney disease with stage 1 through stage 4 chronic kidney disease, or unspecified chronic kidney disease; N18.9 Chronic kidney disease, unspecified; Z95.5 Presence of coronary angioplasty implant and graft | CPT/HCPCS: 99214 ==

== ENCOUNTER 2021-12-10 10:33 | Outpatient (CLI) | payer MEDICARE, SELFPAY ==
[2021-12-10 10:58] LABS: Basophils # 0.1 10^3/uL (0.0-0.1); Eosinophils # 0.8 10^3/uL (0.0-0.8); Eosinophils % 9.8 %; Hemoglobin 12.9 g/dL (11.5-15.3); Lymphocytes # 2.3 10^3/uL (0.8-4.8); Lymphocytes % 28.3 %; Mean Corpuscular HGB Conc 31.5 g/dL (30.0-36.0); Mean Corpuscular Hemoglobin 29.4 pg (28.0-34.0); Mean Corpuscular Volume 93.4 fl (81-99); Mean Platelet Volume 11.8 fL (7.4-10.4); Monocytes # 0.7 10^3/uL (0.2-0.9); Monocytes % 8.7 %; Nucleated Red Blood Cells % 0 %; Platelet Count 207 10^3/cmm (130-400); Red Blood Count 4.39 10^6/uL (4.1-5.3); Red Cell Distribution Width 15.5 % (12.1-15.1); White Blood Count 8.1 10^3/uL (4.0-10.0)
[2021-12-10 11:17] LABS: Alanine Aminotransferase 13 U/L (0-33); Albumin Level 4.4 g/dL (3.5-5.2); Alkaline Phosphatase 107 U/L (35-105); Aspartate Amino Transferase 23 U/L (0-32); Globulin 2.6 g/dL (1.3-4.6); Total Bilirubin 0.3 mg/dL (0.15-1.2)
== END 2021-12-10 10:34 | disposition home or self-care (01) ==
LOC: LAB 10:35
PROVIDERS: PCP Family Medicine; Visit Provider Internal Medicine Rheumatology
DX: M32.9 Systemic lupus erythematosus, unspecified (principal); Z79.899 Other long term (current) drug therapy
CPT/HCPCS: 36415; 80076; 82565; 85025; 86140

== ENCOUNTER → 2022-01-31 12:55 | Outpatient (BNVA) | payer MEDICARE, SELFPAY | PROVIDERS: PCP Family Medicine; Visit Provider Internal Medicine Rheumatology | DX: L93.2 Other local lupus erythematosus (principal); Z79.899 Other long term (current) drug therapy; M81.0 Age-related osteoporosis without current pathological fracture; Z71.89 Other specified counseling; R76.8 Other specified abnormal immunological findings in serum; I12.9 Hypertensive chronic kidney disease with stage 1 through stage 4 chronic kidney disease, or unspecified chronic kidney disease; N18.9 Chronic kidney disease, unspecified; I25.10 Atherosclerotic heart disease of native coronary artery without angina pectoris; Z95.5 Presence of coronary angioplasty implant and graft | CPT/HCPCS: 99214 ==

== ENCOUNTER 2022-03-03 13:51 | Outpatient (CLI) | payer MEDICARE, SELFPAY ==
[2022-03-03 14:35] LABS: Basophils # 0.1 10^3/uL (0.0-0.1); Basophils % 0.7 %; Eosinophils # 0.2 10^3/uL (0.0-0.8); Eosinophils % 2.5 %; Hematocrit 36.5 % (37.0-47.0); Hemoglobin 11.8 g/dL (11.5-15.3); Lymphocytes # 0.9 10^3/uL (0.8-4.8); Lymphocytes % 13.8 %; Mean Corpuscular HGB Conc 32.3 g/dL (30.0-36.0); Mean Corpuscular Hemoglobin 30.6 pg (28.0-34.0); Mean Corpuscular Volume 94.8 fl (81-99); Mean Platelet Volume 11.9 fL (7.4-10.4); Monocytes # 0.8 10^3/uL (0.2-0.9); Monocytes % 12.1 %; Neutrophils # 4.75 10^3/uL (1.8-7.7); Neutrophils % 70.3 %; Nucleated Red Blood Cells % 0 %; Platelet Count 198 10^3/cmm (130-400); Red Blood Count 3.85 10^6/uL (4.1-5.3); Red Cell Distribution Width 13.7 % (12.1-15.1); White Blood Count 6.8 10^3/uL (4.0-10.0)
[2022-03-03 14:52] LABS: Alanine Aminotransferase 14 U/L (0-33); Albumin Level 3.9 g/dL (3.5-5.2); Alkaline Phosphatase 106 U/L (35-105); Aspartate Amino Transferase 27 U/L (0-32); Globulin 3.1 g/dL (1.3-4.6); Total Bilirubin 0.3 mg/dL (0.15-1.2)
== END 2022-03-03 13:52 | disposition home or self-care (01) ==
LOC: LAB 13:56
PROVIDERS: PCP Family Medicine; Visit Provider Internal Medicine Rheumatology
DX: M10.9 Gout, unspecified (principal); Z79.899 Other long term (current) drug therapy
CPT/HCPCS: 36415; 80076; 82565; 85025; 86140

== ENCOUNTER 2022-03-25 09:48 | Outpatient (CLI) | payer MEDICARE, SELFPAY ==
--- NOTE | 2022-03-25 09:57 | MM_ITS ---
WS: [id number] Left breast diagnostic 3D tomosynthesis digital mammogram, 03/25/2022 Clinical Data: HX OF BREAST CA;RT MST Comparison: 01/29/2021, 10/25/2019, 10/15/2018, 10/13/2017, 10/07/2016, 10/06/2015, 09/29/2014, 09/26/2013, , 08/24/2011, 08/18/2010 08/05/2010 02/04/2010 01/15/2010, 01/14/2009 01/14/2008, 01/10/2007, 01/09. Findings: The left breast parenchyma shows fibroglandular tissue. There are scattered benign calcifications in the left breast. There are no secondary signs of carcinoma. There are no spiculated masses or cluster ed calcifications. A pacemaker generator is noted in the left axilla. MM/[place] [id number] Impression: 1. Negative left breast mammogram unchanged. 2. Recommend annual left breast mammogram. BIRADS: 1-Negative FOLLOW UP: 1 Year Follow-up The CAD gas meter checker was used.
== END 2022-03-25 09:49 | disposition home or self-care (01) ==
LOC: RAD 09:48
PROVIDERS: PCP Family Medicine; Visit Provider Family Medicine
DX: Z85.3 Personal history of malignant neoplasm of breast (principal); Z90.11 Acquired absence of right breast and nipple
CPT/HCPCS: 77061; G0279

== ENCOUNTER → 2022-05-11 09:38 | Outpatient (BNVA) | payer MEDICARE, SELFPAY | PROVIDERS: PCP Family Medicine; Visit Provider Internal Medicine Cardiovascular Disease | DX: G47.33 Obstructive sleep apnea (adult) (pediatric) (principal); E78.5 Hyperlipidemia, unspecified; Z95.0 Presence of cardiac pacemaker; I13.0 Hypertensive heart and chronic kidney disease with heart failure and stage 1 through stage 4 chronic kidney disease, or unspecified chronic kidney disease; N18.9 Chronic kidney disease, unspecified; I50.9 Heart failure, unspecified | CPT/HCPCS: 99214 ==

== ENCOUNTER → 2022-05-17 10:01 | Outpatient (BNVA) | payer MEDICARE, SELFPAY | PROVIDERS: PCP Family Medicine; Visit Provider Internal Medicine Rheumatology | DX: L93.2 Other local lupus erythematosus (principal); Z79.899 Other long term (current) drug therapy; R76.8 Other specified abnormal immunological findings in serum; M81.0 Age-related osteoporosis without current pathological fracture; Z71.89 Other specified counseling; R21 Rash and other nonspecific skin eruption; I10 Essential (primary) hypertension; Z79.52 Long term (current) use of systemic steroids | CPT/HCPCS: 36415; 80076; 82565; 85025; 86140; 86160; 99214 ==

== ENCOUNTER 2022-05-18 11:35 | Outpatient (CLI) | payer MEDICARE, SELFPAY ==
[2022-05-18 12:43] LABS: Add Urine Culture? No; Bilirubin Urine Neg (Negative); Blood Urine Neg (Negative); Glucose Urine UA Norm (Normal); Ketones Urine Negative (Negative); Leukocyte Esterase Urine Negative (Negative); Nitrate Urine Negative (Negative); Protein Urine Neg (Negative); Specific Gravity, Urine 1.007 (1.005-1.030); Squamous Epithelial Cell Urine 0-4 /hpf (0-5); Urine Appearance Clear (CLEAR); Urine Color Yellow (Yellow); Urobilinogen Urine Neg (Negative); pH Urine 5 (5-7)
[2022-05-18 20:51] LABS: Creatinine Urine, Random 56 mg/dL (28-217)
[2022-05-18 20:56] LABS: Urine Protein Random 7 mg/dL
== END 2022-05-18 11:36 | disposition home or self-care (01) ==
PROVIDERS: PCP Family Medicine; Visit Provider Internal Medicine Rheumatology
DX: L93.2 Other local lupus erythematosus (principal); Z79.899 Other long term (current) drug therapy
CPT/HCPCS: 81001; 82575; 84156

== ENCOUNTER 2022-07-01 20:58 | Emergency (ER) | payer MEDICARE, SELFPAY ==
[2022-07-01 21:00] VITALS: BP 175/107; PULSE 85; RESP 22; TEMP 36.8; O2SAT 98; BMI 23.1
[2022-07-01 21:45] VITALS: BP 167/106; PULSE 77; RESP 16; O2SAT 96
--- NOTE | 2022-07-01 22:00 | XRR_ITS ---
PROCEDURE INFORMATION: Exam: XR Chest Exam date and time: 07/01/2022 10:08 PM Age: 82 years old Clinical indication: Dyspnea; Prior surgery TECHNIQUE: Imaging protocol: Radiologic exam of the chest. Views: 1 view. COMPARISON: CR XR chest 1V portable [id number] 08/30/2021 1:01 PM FINDINGS: Tubes, catheters and devices: There is a permanent pacemaker present. Lungs: Lymph nodes: Calcified mediastinal lymph nodes consistent with old granulomatous disease. Increased interstitial lung markings suggesting mild interstitial edema versus pulmonary fibrosis. No consolidative pulmonary infiltrates are noted. Pleural spaces: No pleural effusion. No pneumothorax. Heart/Mediastinum: Cardiomegaly is present. Bones/joints: Unremarkable. XR/XR chest 1V portable [id number] IMPRESSION: 1. Cardiomegaly is present. 2. Increased interstitial lung markings suggesting mild interstitial edema versus pulmonary fibrosis.
--- NOTE | 2022-07-01 22:00 | XRR_ITS ---
PROCEDURE INFORMATION: Exam: XR Abdomen Exam date and time: 07/01/2022 10:07 PM Age: 82 years old Clinical indication: Nausea and vomiting; Additional info: N/v/d TECHNIQUE: Imaging protocol: Radiologic exam of the abdomen. Views: Frontal supine view of the abdomen. 1 View. COMPARISON: CT chest abdpel [id number] 08/30/2021 4:20 PM FINDINGS: Pleural spaces: Trace right pleural effusion demonstrated. Gastrointestinal tract: Nonobstructive intestinal gas pattern demonstrated. Vasculature: Lower pelvic calcifications are noted, likely representing phleboliths. Bones/joints: Degenerative lumbar spine changes are noted. XR/XR abdomen 1V* [id number] IMPRESSION: No acute abnormality demonstrated.
--- NOTE | 2022-07-01 22:02 | W.ED.NAVMDI ---
Documented by User: Chidi Damian DO 07/01/22 22:08 HPI - Nausea/Vomiting/Diarrhea General: Chief complaint: Nausea/Vomiting/Diarrhea Stated complaint: n/v/d, patient thinks she is having seizures Time Seen by Provider: 07/01/22 21:27 History of Present Illness: Patient presents to the ER with complaints of nausea vomiting diarrhea for the last several days patient also says she has been mildly short of breath with mild Genarc abdominal pain. Patient says she is asymptomatic currently.. MD elicited complaint: nausea, vomiting and diarrhea Onset (ago): day(s) (Several days ago) Description of vomiting: watery Description of diarrhea: watery Associated nausea: Yes Associated abdominal pain: Yes Location of pain: Diffuse Pain consistency: intermittent, now resolved and colicky Exacerbating factors: none Relieving factors: none Associated symtoms: Reports nausea; Denies anxiety, change in vision, chest pain, dysuria, headache(s) or palpitations Review of Systems General: Reports: 10 or more systems reviewed and unremarkable except in HPI and below Const: Denies: fever(s) or chills Eyes: Denies: change in vision ENMT: Denies: throat pain or odynophagia Card: Denies: chest pain, palpitations or irregular heart rhythm Resp: Reports: dyspnea; Denies: productive cough or non-productive cough GI: Reports: abdominal pain, nausea, vomiting and diarrhea : Denies: flank pain, difficulty voiding or dysuria Musc: Denies: neck pain or back pain Skin/Breast: Denies: rash or pruritus Neuro: Denies: headache(s), numbness in extremities or weakness in extremities Psych: Denies: anxiety, depression or mood swings PFSH ED PFSH: Medical History Acidosis, lactic Acute on chronic congestive heart failure ASHD (arteriosclerotic heart disease) Cardiogenic shock CKD (chronic kidney disease) Congestive heart failure Cutaneous lupus erythematosus prior hx Dysphagia Endometrial cancer GERD (gastroesophageal reflux disease) High risk medication use Hyperlipidemia Hypertension Hyponatremia Immunization counseling Lupus (systemic lupus erythematosus) Non-ST elevation NH (NSTEMI) Osteoarthritis Osteoporosis Positive sm/CARDING SUPERVISOR antibody Presence of permanent cardiac pacemaker Skin rash Sleep apnea SS-A antibody positive Transaminitis Troponin level elevated Surgical History H/O mastectomy H/O: hysterectomy History of appendectomy History of PTCA History of shoulder surgery Family History Father Diabetes Family/Other Diabetes Denies family history of Rheumatoid arthritis CAD (coronary artery disease) Clotting disorder Dementia Chronic kidney disease (CKD) Systemic lupus erythematosus (SLE) in adult Suicide Anesthesia complication Bleeding disorder Lung disease Cancer Hypertension Stroke Social History Smoking and tobacco status: never smoked Alcohol intake: never Physical Exam Const: COMMON NORMALS: no acute distress, average body habitus, patient oriented x3, no limitations, healthy appearing, alert and well nourished HENMT: COMMON NORMALS: normocephalic, atraumatic, hearing grossly normal bilaterally, external ears normal, Normal external nose present and moist oral mucous membranes HEAD & SCALP: normocephalic and atraumatic NOSE: Normal external nose present EXTERNAL EAR: Yes external ears normal Eye: COMMON NORMALS: Equal, round and reactive pupils present, EOMs intact bilaterally, conjunctivae normal and no scleral icterus CONJUNCTIVA: Yes conjunctivae normal PUPIL: Yes Equal, round and reactive pupils present Neck/C-Spine: COMMON NORMALS: full ROM, no lymphadenopathy, supple, no meningeal signs, no JVD and Thyroid normal THYROID: Thyroid normal Chest: COMMONS NORMALS: normal inspection of the chest and normal palpation of entire chest wall Resp: COMMON NORMALS: normal respiratory effort, No retractions, No use of accessory muscles and clear to auscultation bilaterally AUSCULTATION: clear to auscultation bilaterally Cardio: COMMON NORMALS: no JVD, regular rate, regular rhythm, S1 normal heart sound present and S2 normal heart sound present RATE: regular rate RHYTHM: regular rhythm HEART SOUNDS: S1 normal heart sound present and S2 normal heart sound present GI: COMMON NORMALS: Normal to inspection, nondistended, normoactive bowel sounds present, Soft to palpation, non-tender and No hepatosplenomegaly present PALPATION: Yes Soft to palpation and Yes No hepatosplenomegaly present : COMMON NORMALS: Yes no CVA tenderness BLADDER/KIDNEY EXAM: Yes no CVA tenderness Back/Pelvis: COMMON NORMALS: no CVA tenderness Neuro: COMMON NORMALS: patient oriented x3 SENSORIUM/ORIENTATION: Yes alert MENINGEAL SIGNS: Yes no meningeal signs Course Vital Signs: Vital signs: Vital Signs Temperature 98.3 F 07/02/22 00:45 Pulse Rate 78 07/02/22 00:45 Respiratory Rate 16 07/02/22 00:45 Blood Pressure 158/95 07/02/22 00:45 Pulse Oximetry 98 07/02/22 00:45 Oxygen Delivery Me thod Room Air 07/01/22 21:45 MDM - Nausea/Vomiting/Diarrhea Differential Diagnosis Likely gastroenteritis; Unlikely traveler's diarrhea, food poisoning, clostridium difficile infection, drug-induced nausea and vomiting or dehydration Lab Data 07/01/22 21:44 07/01/22 21:44 Radiology Impressions Abdomen X-Ray 07/01/22 22:00 IMPRESSION: No acute abnormality demonstrated. Chest X-Ray 07/01/22 22:00 IMPRESSION: 1. Cardiomegaly is present. 2. Increased interstitial lung markings suggesting mild interstitial edema versus pulmonary fibrosis. ADDENDUM: 07/01/22 1566 Additional/correction: Trace right pleural effusion suspected. Laboratory Results WBC 6.1 10^3/uL (4.0-10.0) 07/01/22 21:44 RBC 4.07 10^6/uL (4.1-5.3) L 07/01/22 21:44 Hgb 12.9 g/dL (11.5-15.3) 07/01/22 21:44 Hct 39.7 % (37.0-47.0) 07/01/22 21:44 MCV 97.5 fl (81-99) 07/01/22 21:44 MCH 31.7 pg (28.0-34.0) 07/01/22 21:44 MCHC 32.5 g/dL (30.0-36.0) 07/01/22 21:44 RDW 12.7 % (12.1-15.1) 07/01/22 21:44 Plt Count 195 10^3/cmm (130-400) 07/01/22 21:44 MPV 12.2 fL (7.4-10.4) H 07/01/22 21:44 Neut % (Auto) 68.6 % 07/01/22 21:44 Lymph % (Auto) 18.3 % 07/01/22 21:44 [place] % (Auto) 10.8 % 07/01/22 21:44 Eos % (Auto) 1.1 % 07/01/22 21:44 Baso % (Auto) 0.7 % 07/01/22 21:44 Neut # (Auto) 4.19 10^3/uL (1.8-7.7) 07/01/22 21:44 Lymph # (Auto) 1.1 10^3/uL (0.8-4.8) 07/01/22 21:44 [place] # (Auto) 0.7 10^3/uL (0.2-0.9) 07/01/22 21:44 Eos # (Auto) 0.1 10^3/uL (0.0-0.8) 07/01/22 21:44 Baso # (Auto) 0.0 10^3/uL (0.0-0.1) 07/01/22 21:44 Nucleated RBC % (auto) 0 % 07/01/22 21:44 Nucleated RBCs # 0.0 /100WBC 07/01/22 21:44 Sodium 131 mmol/L (136-145) L 07/01/22 21:44 Potassium 4.5 mmol/L (3.5-5.1) 07/01/22 21:44 Chloride 94 mmol/L (98-107) L 07/01/22 21:44 Carbon Dioxide 23 mmol/L (22-29) 07/01/22 21:44 Anion Gap 18.5 (5-19) 07/01/22 21:44 BUN 18 mg/dL (8-23) 07/01/22 21:44 Creatinine 1.0 mg/dL (0.5-0.9) H 07/01/22 21:44 GFR Calculation Not Reportable 07/01/22 21:44 Glucose 126 mg/dL (65-115) H 07/01/22 21:44 Calculated Osmolality 275 mOsm/kg (285-295) L 07/01/22 21:44 Calcium 9.0 mg/dL (8.5-10.5) 07/01/22 21:44 Magnesium 1.8 mg/dL (1.7-2.3) 07/01/22 21:44 Total Bilirubin 0.6 mg/dL (0.15-1.2) 07/01/22 21:44 AST 55 U/L (0-32) H 07/01/22 21:44 ALT 34 U/L (0-33) H 07/01/22 21:44 Alkaline Phosphatase 79 U/L (35-105) 07/01/22 21:44 Total Protein 7.1 g/dL (6.6-8.7) 07/01/22 21:44 Albumin 4.2 g/dL (3.5-5.2) 07/01/22 21:44 Globulin 2.9 g/dL (1.3-4.6) 07/01/22 21:44 Lipase 35 U/L (13-60) 07/01/22 21:44 Urine Color Yellow (Yellow) 07/01/22 21:44 Urine Appearance Sl hazy (CLEAR) A 07/01/22 21:44 Urine pH 5 (5-7) 07/01/22 21:44 Ur Specific Alexis 1.020 (1.005-1.030) 07/01/22 21:44 Urine Protein 3+ (Negative) H 07/01/22 21:44 Urine Glucose (UA) Norm (Normal) 07/01/22 21:44 Urine Ketones 1+ (Negative) H 07/01/22 21:44 Urine Blood 2+ (Negative) H 07/01/22 21:44 Urine Nitrate Negative (Negative) 07/01/22 21:44 Urine Bilirubin Neg (Negative) 07/01/22 21:44 Urine Urobilinogen Norm mg/dL (Negative) 07/01/22 21:44 Ur Leukocyte Esterase Negative (Negative) 07/01/22 21:44 Urine RBC 5-10 /hpf (0-2) H 07/01/22 21:44 Urine WBC 0-4 /hpf (0-5) H 07/01/22 21:44 Ur Squamous Epith Cells 15-25 /hpf (0-5) H 07/01/22 21:44 Amorphous Sediment Not Reportable 07/01/22 21:44 Urine Bacteria 2+ /hpf (NONE) H 07/01/22 21:44 Urine Mucus 1+ /hpf 07/01/22 21:44 Urine Yeast Trace /hpf 07/01/22 21:44 Discharge Plan Discharge Patient Disposition: Home Clinical Impression: Gastroenteritis Condition: Stable Prescriptions: New ondansetron 4 mg film 4 mg PO DAILY PRN (Reason: nausea and vomiting) Qty: 10 0RF No Action Toprol XL 50 mg tablet extended release 24 hr 50 mg PO DAILY Qty: 90 3RF potassium chloride 10 mEq capsule, extended release 10 meq PO EVERY OTHER DAY PRN Rx Instructions: only take on days when taking lasix prednisone 2.5 mg tablet 2.5 mg PO DAILY Qty: 90 1RF triamcinolone acetonide 0.1 % ointment 1 applic topical BID Qty: 454 0RF Rx Instructions: Apply to affected areas on face for 2 weeks clobetasol 0.05 % ointment 1 applic topical BID 14 Days Qty: 45 1RF Rx Instructions: Apply to affected areas on trunk and extremities for 2 weeks. not for face or skin folds tacrolimus [Protopic] 0.1 % ointment 1 applic topical BID Qty: 30 0RF Rx Instructions: Apply to face following hydrocortisone as needed hydrocortisone 2.5 % ointment 1 applic topical BID Qty: 20 0RF Rx Instructions: Apply to face twice daily for 2 weeks. nitroglycerin [Nitro-Time] 2.5 mg capsule, extended release 2.5 mg PO BID Qty: 180 3RF atorvastatin 20 mg tablet 20 mg PO QAM Qty: 100 3RF diclofenac sodium 1 % gel 2 - 4 g topical QID PRN (Reason: Pain) Qty: 100 2RF Brilinta 90 mg tablet 90 mg PO BID Qty: 60 4RF trazodone 50 mg Tablet 25 mg PO BEDTIME PRN (Reason: Sleep) aspirin 81 mg Tablet,Delayed Release (Dr/Ec) 81 mg PO QAM lisinopril 40 mg tablet 20 mg PO QAM Nexium 20 mg Capsule,Delayed Release(Dr/Ec) 20 mg PO QAM cholecalciferol (vitamin D3) 50 mcg (2,000 unit) tablet 2,000 unit PO QAM Lasix 20 mg tablet 10 mg PO EVERY OTHER DAY PRN (Reason: weight gain) Qty: 30 0RF Rx Instructions: more than 3 lbs weight gain a day Discharge Orders: Discharge ED (Routine); Ordered 07/01/22 Ordered By: Amarjit Ferguson Referrals: Javid Edwards MD [Primary Care Provider] - 1-3 days Patient Instructions: Gastroenteritis (ED) Activity Restrictions/Additional Instructions: Take the medication you were prescribed every 6 hours while awake for the first 24 hours, then as needed. Return for fever greater than 100, vomiting liquids or medications despite treatment, worsening belly pain, any other concerning symptoms Coding Level of Care Code ED Roof Bolter Operator for Chg Fwd Documented by User: Amarjit Ferguson DO 07/02/22 03:44 HPI - Nausea/Vomiting/Diarrhea General: Chief complaint: Nausea/Vomiting/Diarrhea Stated complaint: n/v/d, patient thinks she is having seizures Time Seen by Provider: 07/01/22 21:27 [facility] ED PFSH: Medical History Acidosis, lactic Acute on chronic congestive heart failure ASHD (arteriosclerotic heart disease) Cardiogenic shock CKD (chronic kidney disease) Congestive heart failure Cutaneous lupus erythematosus prior hx Dysphagia Endometrial cancer GERD (gastroesophageal reflux disease) High risk medication use Hyperlipidemia Hypertension Hyponatremia Immunization counseling Lupus (systemic lupus erythematosus) Non-ST elevation NH (NSTEMI) Osteoarthritis Osteoporosis Positive sm/CARDING SUPERVISOR antibody Presence of permanent cardiac pacemaker Skin rash Sleep apnea SS-A antibody positive Transaminitis Troponin level elevated Surgical History H/O mastectomy H/O: hysterectomy History of appendectomy History of PTCA History of shoulder surgery Family History Father Diabetes Family/Other Diabetes Denies family history of Rheumatoid arthritis CAD (coronary artery disease) Clotting disorder Dementia Chronic kidney disease (CKD) Systemic lupus erythematosus (SLE) in adult Suicide Anesthesia complication Bleeding disorder Lung disease Cancer Hypertension Stroke Social History Smoking and tobacco status: never smoked Alcohol intake: never Course Vital Signs: Vital signs: Vital Signs Temperature 98.3 F 07/02/22 00:45 Pulse Rate 78 07/02/22 00:45 Respiratory Rate 16 07/02/22 00:45 Blood Pressure 158/95 07/02/22 00:45 Pulse Oximetry 98 07/02/22 00:45 Oxygen Delivery Me thod Room Air 07/01/22 21:45 MDM - Nausea/Vomiting/Diarrhea Medical Decision Making 82-year-old female checked out to me at shift change by Dr. Damian. This lady is feeling improved after some fluid and antiemetic here. Her CBC is normal. Other laboratory not remarkable. Urinalysis is negative. Abdominal x-ray reveals no obstructive pattern. Chest x-ray shows some mild interstitial edema versus pulmonary fibrosis. No signs of toxicity here, no vomiting. She will be allowed discharge with antiemetic, and close outpatient follow-up. To return if worsening. Lab Data 07/01/22 21:44 07/01/22 21:44 Radiology Impressions Abdomen X-Ray 07/01/22 22:00 IMPRESSION: No acute abnormality demonstrated. Chest X-Ray 07/01/22 22:00 IMPRESSION: 1. Cardiomegaly is present. 2. Increased interstitial lung markings suggesting mild interstitial edema versus pulmonary fibrosis. ADDENDUM: 07/01/22 2536 Additional/correction: Trace right pleural effusion suspected. Laboratory Results WBC 6.1 10^3/uL (4.0-10.0) 07/01/22:44 RBC 4.07 10^6/uL (4.1-5.3) L 07/01/22 21:44 Hgb 12.9 g/dL (11.5-15.3) 07/01/22 21:44 Hct 39.7 % (37.0-47.0) 07/01/22:44 MCV 97.5 fl (81-99) 07/01/22 21:44 MCH 31.7 pg (28.0-34.0) 07/01/22:44 MCHC 32.5 g/dL (30.0-36.0) 07/01/22:44 RDW 12.7 % (12.1-15.1) 07/01/22 21:44 Plt Count 195 10^3/cmm (130-400) 07/01/22 21:44 MPV 12.2 fL (7.4-10.4) H 07/01/22:44 Neut % (Auto) 68.6 % 07/01/22 21:44 Lymph % (Auto) 18.3 % 07/01/22 21:44 [place] % (Auto) 10.8 % 07/01/22 21:44 Eos % (Auto) 1.1 % 07/01/22 21:44 Baso % (Auto) 0.7 % 07/01/22 21:44 Neut # (Auto) 4.19 10^3/uL (1.8-7.7) 07/01/22 21:44 Lymph # (Auto) 1.1 10^3/uL (0.8-4.8) 07/01/22 21:44 [place] # (Auto) 0.7 10^3/uL (0.2-0.9) 07/01/22 21:44 Eos # (Auto) 0.1 10^3/uL (0.0-0.8) 07/01/22 21:44 Baso # (Auto) 0.0 10^3/uL (0.0-0.1) 07/01/22 21:44 Nucleated RBC % (auto) 0 % 07/01/22 21:44 Nucleated RBCs # 0.0 /100WBC 07/01/22 21:44 Sodium 131 mmol/L (136-145) L 07/01/22 21:44 Potassium 4.5 mmol/L (3.5-5.1) 07/01/22 21:44 Chloride 94 mmol/L (98-107) L 07/01/22 21:44 Carbon Dioxide 23 mmol/L (22-29) 07/01/22 21:44 Anion Gap 18.5 (5-19) 07/01/22 21:44 BUN 18 mg/dL (8-23) 07/01/22 21:44 Creatinine 1.0 mg/dL (0.5-0.9) H 07/01/22 21:44 GFR Calculation Not Reportable 07/01/22 21:44 Glucose 126 mg/dL (65-115) H 07/01/22 21:44 Calculated Osmolality 275 mOsm/kg (285-295) L 07/01/22 21:44 Calcium 9.0 mg/dL (8.5-10.5) 07/01/22 21:44 Magnesium 1.8 mg/dL (1.7-2.3) 07/01/22 21:44 Total Bilirubin 0.6 mg/dL (0.15-1.2) 07/01/22 21:44 AST 55 U/L (0-32) H 07/01/22 21:44 ALT 34 U/L (0-33) H 07/01/22 21:44 Alkaline Phosphatase 79 U/L (35-105) 07/01/22 21:44 Total Protein 7.1 g/dL (6.6-8.7) 07/01/22 21:44 Albumin 4.2 g/dL (3.5-5.2) 07/01/22 21:44 Globulin 2.9 g/dL (1.3-4.6) 07/01/22 21:44 Lipase 35 U/L (13-60) 07/01/22 21:44 Urine Color Yellow (Yellow) 07/01/22 21:44 Urine Appearance Sl hazy (CLEAR) A 07/01/22 21:44 Urine pH 5 (5-7) 07/01/22 21:44 Ur Specific Alexis 1.020 (1.005-1.030) 07/01/22 21:44 Urine Protein 3+ (Negative) H 07/01/22 21:44 Urine Glucose (UA) Norm (Normal) 07/01/22 21:44 Urine Ketones 1+ (Negative) H 07/01/22 21:44 Urine Blood 2+ (Negative) H 07/01/22 21:44 Urine Nitrate Negative (Negative) 07/01/22 21:44 Urine Bilirubin Neg (Negative) 07/01/22 21:44 Urine Urobilinogen Norm mg/dL (Negative) 07/01/22 21:44 Ur Leukocyte Esterase Negative (Negative) 07/01/22 21:44 Urine RBC 5-10 /hpf (0-2) H 07/01/22 21:44 Urine WBC 0-4 /hpf (0-5) H 07/01/22 21:44 Ur Squamous Epith Cells 15-25 /hpf (0-5) H 07/01/22 21:44 Amorphous Sediment Not Reportable 07/01/22 21:44 Urine Bacteria 2+ /hpf (NONE) H 07/01/22 21:44 Urine Mucus 1+ /hpf 07/01/22 21:44 Urine Yeast Trace /hpf 07/01/22 21:44 Discharge Plan Discharge Patient Disposition: Home Clinical Impression: Gastroenteritis Condition: Stable Prescriptions: New ondansetron 4 mg film 4 mg PO DAILY PRN (Reason: nausea and vomiting) Qty: 10 0RF No Action Toprol XL 50 mg tablet extended release 24 hr 50 mg PO DAILY Qty: 90 3RF potassium chloride 10 mEq capsule, extended release 10 meq PO EVERY OTHER DAY PRN Rx Instructions: only take on days when taking lasix prednisone 2.5 mg tablet 2.5 mg PO DAILY Qty: 90 1RF triamcinolone acetonide 0.1 % ointment 1 applic topical BID Qty: 454 0RF Rx Instructions: Apply to affected areas on face for 2 weeks clobetasol 0.05 % ointment 1 applic topical BID 14 Days Qty: 45 1RF Rx Instructions: Apply to affected areas on trunk and extremities for 2 weeks. not for face or skin folds tacrolimus [Protopic] 0.1 % ointment 1 applic topical BID Qty: 30 0RF Rx Instructions: Apply to face following hydrocortisone as needed hydrocortisone 2.5 % ointment 1 applic topical BID Qty: 20 0RF Rx Instructions: Apply to face twice daily for 2 weeks. nitroglycerin [Nitro-Time] 2.5 mg capsule, extended release 2.5 mg PO BID Qty: 180 3RF atorvastatin 20 mg tablet 20 mg PO QAM Qty: 100 3RF diclofenac sodium 1 % gel 2 - 4 g topical QID PRN (Reason: Pain) Qty: 100 2RF Brilinta 90 mg tablet 90 mg PO BID Qty: 60 4RF trazodone 50 mg Tablet 25 mg PO BEDTIME PRN (Reason: Sleep) aspirin 81 mg Tablet,Delayed Release (Dr/Ec) 81 mg PO QAM lisinopril 40 mg tablet 20 mg PO QAM Nexium 20 mg Capsule,Delayed Release(Dr/Ec) 20 mg PO QAM cholecalciferol (vitamin D3) 50 mcg (2,000 unit) tablet 2,000 unit PO QAM Lasix 20 mg tablet 10 mg PO EVERY OTHER DAY PRN (Reason: weight gain) Qty: 30 0RF Rx Instructions: more than 3 lbs weight gain a day Discharge Orders: Discharge ED (Routine); Ordered 07/01/22 Ordered By: Amarjit Ferguson Referrals: Javid Edwards MD [Primary Care Provider] - 1-3 days Patient Instructions: Gastroenteritis (ED) Activity Restrictions/Additional Instructions: Take the medication you were prescribed every 6 hours while awake for the first 24 hours, then as needed. Return for fever greater than 100, vomiting liquids or medications despite treatment, worsening belly pain, any other concerning symptoms Coding Level of Care Code ED Roof Bolter Operator for Rosa Joyner
[2022-07-01 22:05] VITALS: BP 154/105; PULSE 77; RESP 16; O2SAT 97
[2022-07-01 22:06] LABS: Basophils % 0.7 %; Eosinophils # 0.1 10^3/uL (0.0-0.8); Eosinophils % 1.1 %; Hematocrit 39.7 % (37.0-47.0); Hemoglobin 12.9 g/dL (11.5-15.3); Lymphocytes # 1.1 10^3/uL (0.8-4.8); Lymphocytes % 18.3 %; Mean Corpuscular HGB Conc 32.5 g/dL (30.0-36.0); Mean Corpuscular Hemoglobin 31.7 pg (28.0-34.0); Mean Corpuscular Volume 97.5 fl (81-99); Mean Platelet Volume 12.2 fL (7.4-10.4); Monocytes # 0.7 10^3/uL (0.2-0.9); Monocytes % 10.8 %; Neutrophils # 4.19 10^3/uL (1.8-7.7); Neutrophils % 68.6 %; Nucleated Red Blood Cells % 0 %; Platelet Count 195 10^3/cmm (130-400); Red Blood Count 4.07 10^6/uL (4.1-5.3); Red Cell Distribution Width 12.7 % (12.1-15.1); White Blood Count 6.1 10^3/uL (4.0-10.0)
--- NOTE | 2022-07-01 22:11 | ECG_ITS ---
[facility] Test Date: 2022-07-01 Pat Name: Bryanna Mark Department: Room: Gender: Female Senior Major Gifts Officer: : 1940 Requested By: Chidi Damian Order Number: [id number] Jiang MD: Girma Jones M.D. Measurements Intervals [place] Rate: 78 P: 7 [place]: 230 QRS: -58 QRSD: 130 T: 122 QT: 398 QTc: 456 Interpretive Statements SINUS RHYTHM WITH FIRST DEGREE AV BLOCK RIGHT BUNDLE BRANCH BLOCK [120+ ms QRS DURATION, UPRIGHT V1, 40+ ms S IN I/aVL/V4/V5/V6] LEFT VENTRICULAR HYPERTROPHY AND ST-T CHANGE [VOLTAGE CRITERIA PLUS ST/T ABNORMALITY] INFERIOR MYOCARDIAL INFARCTION , OF INDETERMINATE AGE [40+ ms Q WAVE AND/OR ST/T ABNORMALITY IN II/aVF] Compared to ECG 08/30/2021 15:03:20 First degree AV block now present Right bundle-branch block now present Left ventricular hypertrophy now present ST (T wave) deviation now present Myocardial infarct finding now present Ventricular-paced complex(es) or rhythm no longer present Electronically Signed On 07-02-2022 10:29:20 CDT by Girma Jones M.D. [id number]
[2022-07-01 22:19] LABS: Alanine Aminotransferase 34 U/L (0-33); Albumin Level 4.2 g/dL (3.5-5.2); Alkaline Phosphatase 79 U/L (35-105); Anion Gap 18.5 (5-19); Aspartate Amino Transferase 55 U/L (0-32); Blood Urea Nitrogen 18 mg/dL (8-23); Carbon Dioxide 23 mmol/L (22-29); Chloride 94 mmol/L (98-107); Globulin 2.9 g/dL (1.3-4.6); Glucose 126 mg/dL (65-115); Lipase 35 U/L (13-60); Magnesium 1.8 mg/dL (1.7-2.3); Osmolality Calculated 275 mOsm/kg (285-295); Potassium 4.5 mmol/L (3.5-5.1); Sodium 131 mmol/L (136-145); Total Bilirubin 0.6 mg/dL (0.15-1.2); Total Protein 7.1 g/dL (6.6-8.7)
[2022-07-01 22:45] VITALS: BP 142/98; PULSE 78; RESP 16; O2SAT 96
[2022-07-01 22:50] LABS: Urine Appearance SL Hazy (CLEAR); Urine Color Yellow (Yellow)
[2022-07-01 22:51] LABS: Add Urine Microscopic? YES; Bilirubin Urine Neg (Negative); Blood Urine 2+ (Negative); Glucose Urine UA Norm (Normal); Ketones Urine 1+ (Negative); Leukocyte Esterase Urine Negative (Negative); Nitrate Urine Negative (Negative); Protein Urine 3+ (Negative); Urobilinogen Urine Norm (Negative); pH Urine 5 (5-7)
[2022-07-01 22:52] LABS: WBC Urine 0-4 /hpf (0-5)
[2022-07-01 22:55] LABS: Bacteria Urine 2+ /hpf; Mucus Urine 1+ /hpf; Squamous Epithelial Cell Urine 15-25 /hpf (0-5)
[2022-07-01 23:08] VITALS: BP 153/98; RESP 16; O2SAT 97
[2022-07-01] MEDS: ondansetron 2 mg/ML SDV 2 mL 4 MG IVP (23:35)
[2022-07-01] MEDS: sodium chloride 0.9% 500 ML 999 ML IV (23:35)
[2022-07-01 23:53] VITALS: BP 158/95; O2SAT 98
[2022-07-02 00:45] VITALS: BP 158/95; PULSE 78; RESP 16; TEMP 36.8; O2SAT 98
== END 2022-07-02 00:46 | disposition home or self-care (01) ==
PROVIDERS: Emergency Medicine; Emergency Provider Emergency Medicine; PCP Family Medicine
DX: K52.9 Noninfective gastroenteritis and colitis, unspecified (principal); Z79.82 Long term (current) use of aspirin; I13.0 Hypertensive heart and chronic kidney disease with heart failure and stage 1 through stage 4 chronic kidney disease, or unspecified chronic kidney disease; N18.9 Chronic kidney disease, unspecified; I50.9 Heart failure, unspecified; M32.9 Systemic lupus erythematosus, unspecified; Z85.42 Personal history of malignant neoplasm of other parts of uterus; I25.2 Old myocardial infarction
CPT/HCPCS: 71045; 74018; 80053; 81001; 83690; 83735; 85025; 93005; 96374; 99285; J2405; J7040

== ENCOUNTER 2022-07-08 09:31 | Observation (INO) | payer MEDICARE, MEDICAID, SELFPAY ==
[2022-07-08] VITALS (78 sets, daily range): BP systolic 134–155; BP diastolic 76–104; PULSE 64–94; RESP 15–39; TEMP 36.3–36.6; O2SAT 93–100; BMI 22.3
--- NOTE | 2022-07-08 09:49 | ECG_ITS ---
[facility] Test Date: 2022-07-08 Pat Name: Bryanna Mark Department: Room: Gender: Female Safety Manager: : 1940 Requested By: Jonathan Bryan Order Number: [id number] Deidre MD: Nacho Rush M.D. Measurements Intervals [place] Rate: 81 P: -3 [place]: 225 QRS: -61 QRSD: 134 T: 117 QT: 392 QTc: 455 Interpretive Statements SINUS RHYTHM WITH FIRST DEGREE AV BLOCK WITH OCCASIONAL SUPRAVENTRICULAR PREMATURE COMPLEXES INTRAVENTRICULAR CONDUCTION DELAY [130+ ms QRS DURATION] LEFT VENTRICULAR HYPERTROPHY AND ST-T CHANGE [VOLTAGE CRITERIA PLUS ST/T ABNORMALITY] ANTEROLATERAL MYOCARDIAL INFARCTION , OF INDETERMINATE AGE [40+ ms Q WAVE IN I/aVL/V3-V6] Compared to ECG 07/01/2022 22:11:02 Intraventricular conduction delay now present Right bundle-branch block no longer present ST (T wave) deviation still present Myocardial infarct finding still present Electronically Signed On 07-09-2022 10:05:24 CDT by Nacho Rush M.D. [id number]
--- NOTE | 2022-07-08 09:54 | XRR_ITS ---
PROCEDURE INFORMATION: Exam: XR Chest Exam date and time: 07/08/2022 10:45 AM Age: 82 years old Clinical indication: Cough and dyspnea; Additional info: Dyspnea/cough TECHNIQUE: Imaging protocol: Radiologic exam of the chest. Views: 1 view. COMPARISON: CR (CHEST, ) 07/01/2022 10:08 PM FINDINGS: Lungs: There is mild haziness with indistinct pulmonary vascularity within the lung nicholson slightly more pronounced on the current study and suggestive of mild pulmonary congestion. No consolidating infiltrates or lisa pulmonary edema. Pleural spaces: Unremarkable. No pleural effusion. No pneumothorax. Heart/Mediastinum: Cardiac silhouette is moderately enlarged, unchanged. There is a single electrode pacemaker projecting within the right ventricle unchanged. Bones/joints: Unremarkable for age. XR/XR chest 1V portable [id number] IMPRESSION: Cardiomegaly with findings suspicious for mild CHF slightly progressed from previous exam.
--- NOTE | 2022-07-08 09:54 | CT_ITS ---
WS: [id number] CT ABDOMEN AND PELVIS WITH CONTRAST HISTORY: abd pain TECHNIQUE: Imaging performed of the abdomen and pelvis with IV contrast. Single phase imaging of the abdomen. Coronal and sagittal reformats are submitted. All CT scans at [facility] use at [facility] [facility] one of these dose optimization techniques: automated exposure control; mA and/or kV adjustment per patient size (includes targeted exams where dose is matched to clinical indication); or iterative re construction. IV CONTRAST: Omnipaque 350; 100 mL IV. Oral contrast: No DLP: 376.24 mGy.cm COMPARISON: 08/30/2021 Motion artifact. Lower thorax: Small layering RIGHT pleural effusion similar to the prior study of 08/30/2021. There is additional very small LEFT pleural effusion. Moderate cardiomegaly. No hiatal hernia. Liver/biliary system: Normal size with no intrahepatic dilatation. Gallbladder: Patient was unable to hold her breath for this examination. There is motion artifact. Th ere is no gallbladder hydrops. There is adjacent inflammation which is due to motion. Cannot exclude wall thickening or hyperemia. Pancreas: Normal size pancreas and pancreatic duct. No adjacent inflammation. Spleen: Normal size spleen. No mass or infarct. Adrenal glands: Normal. Right kidney: Normal. Left kidney: Normal. Aorta: Mild atherosclerosis with no aneurysm. Lymphadenopathy: None. Free fluid: None. GI tract: Minimally distended stomach. There is hyperemia of the gastric mucosa but this is probably due to early contrast enhancement. No wall thickening and no obstruction. There is a small amount of includes fluid towards the antrum. No small bowel obstruction. Diffuse mild constipation. Distal colo conor diverticulosis without acute diverticulitis. Prior appendectomy. Abdominal wall: Soft tissue anasarca. Pelvis: Prior hysterectomy. There is a very small amount of presacral soft tissue thickening which wa s present on prior studies. Bones: Degenerative curvature lumbar spine. No destructive bone lesions. CT/CT abdomen pelvis w con* [id number] IMPRESSION: 1. Motion artifact from the upper abdomen. 2. Difficult to evaluate the gallbladder due to motion artifact. 3. No GI tract obstruction. There is diffuse constipation. 4. Small bilateral pleural effusions. 5. Moderate cardiomegaly. 6. Soft tissue anasarca. 7. No metastatic disease or adenopathy. 8. Distal colon diverticulosis without acute diverticulitis. 9. Prior hysterectomy and appendectomy.
[2022-07-08 10:03] LABS: Glucose Point of Care 167 mg/dL (70-110)
--- NOTE | 2022-07-08 10:10 | ED_ITS ---
HPI - SOB/Dyspnea General: Chief Complaint: Shortness of Breath/Dyspnea Stated Complaint: sob/weak Time Seen by Provider: 07/08/22 09:36 Source: patient Mode of arrival: wheelchair History of Present Illness: HPI Narrative: 82-year-old female who presents to the emergency room with complaints of shortness of breath and weakness. She was seen last week for nausea vomiting or diarrhea. Normally she is alert able to walk she is arrives today lethargic having difficult time breathing some mild orthopnea she fell and hit her abdomen has a large bruise on her abdomen and her left arm. She has been nauseous had a productive cough as well. She denies any chest pain. MD elicited complaint: shortness of breath and cough Onset (ago): day(s) (5) Timing: constant and progressively worsening Severity: moderate Exacerbating factors: coughing Relieving factors: nothing Associated symptoms: Deny abdominal pain, chest congestion, chest pain, cough, diaphoresis, dizziness, extremity pain, fever(s), hemoptysis, lightheadedness, myalgias, nausea, orthopnea, palpitations, paresthesias, polydipsia, polyuria, rash, sense of impending doom, syncope or vomiting Treatment prior to arrival: none Review of Systems Const: Denies: fever(s) or diaphoresis Card: Denies: chest pain, palpitations, lightheadedness, syncope or orthopnea Resp: Denies: hemoptysis or chest congestion GI: Denies: abdominal pain, nausea or vomiting Musc: Denies: extremity pain Neuro: Denies: dizziness Endo: Denies: polyuria or polydipsia PFSH ED PFSH: Medical History Acidosis, lactic Acute on chronic congestive heart failure ASHD (arteriosclerotic heart disease) Cardiogenic shock CKD (chronic kidney disease) Congestive heart failure Cutaneous lupus erythematosus prior hx Dysphagia Endometrial cancer GERD (gastroesophageal reflux disease) High risk medication use Hyperlipidemia Hypertension Hyponatremia Immunization counseling Lupus (systemic lupus erythematosus) Non-ST elevation DC (NSTEMI) Osteoarthritis Osteoporosis Positive sm/MEDIA ANALYTICS MANAGER antibody Presence of permanent cardiac pacemaker Skin rash Sleep apnea SS-A antibody positive Transaminitis Troponin level elevated Surgical History H/O mastectomy H/O: hysterectomy History of appendectomy History of PTCA History of shoulder surgery Family History Father Diabetes Family/Other Diabetes Denies family history of Rheumatoid arthritis CAD (coronary artery disease) Clotting disorder Dementia Chronic kidney disease (CKD) Systemic lupus erythematosus (SLE) in adult Suicide Anesthesia complication Bleeding disorder Lung disease Cancer Hypertension Stroke Social History Smoking and tobacco status: never smoked Alcohol intake: never Substance/Drug Use: never Physical Exam Const: COMMON NORMALS: no acute distress GENERAL APPEARANCE: cooperative and comfortable ORIENTATION/CONSCIOUSNESS: Yes awake, Yes oriented to person, Yes oriented to place and Yes oriented to time HENMT: COMMON NORMALS: normocephalic, atraumatic and hearing grossly normal bilaterally HEAD & SCALP: normocephalic and atraumatic Resp: COMMON NORMALS: normal respiratory effort, No retractions, No use of accessory muscles and clear to auscultation bilaterally AUSCULTATION: clear to auscultation bilaterally Cardio: COMMON NORMALS: regular rate, regular rhythm and No murmurs present (Cardio) RATE: regular rate RHYTHM: regular rhythm GI: COMMON NORMALS: Soft to palpation and No hepatosplenomegaly present AUSCULTATION: Yes normoactive bowel sounds PALPATION: Yes Soft to palpation, No Tenderness to palpation present (GI), No Guarding due to palpation present (GI) and Yes No hepatosplenomegaly present Extremity: COMMON NORMALS: normal to inspection, capillary refill normal, no clubbing, cyanosis or edema, no calf tenderness and no pedal edema Neuro: SENSORIUM/ORIENTATION: Yes oriented to person, Yes oriented to place and Yes oriented to time Skin: OTHER: Ecchymosis in the left lower quadrant to the midline at the level of the umbilicus. There is small ecchymosis to the posterior left arm. There is a rash secondary to her systemic lupus bilaterally on the arms no induration no signs of infection Course Vital Signs: Vital signs: Vital Signs Temperature 97.3 F L 07/08/22 09:37 Pulse Rate 81 07/08/22 11:24 Respiratory Rate 26 H 07/08/22 11:24 Blood Pressure 138/93 07/08/22 11:24 Pulse Oximetry 94 07/08/22 11:24 Oxygen Delivery Me thod Room Air 07/08/22 09:37 MDM - SOB/Dyspnea Medical Decision Making Patient still tachypneic. No sign of pneumonia, presentation not suggestive of pulmonary embolism no pneumothorax no widening of the mediastinum. No known history of chronic respiratory disease. She has some mild fluid overload. We will go ahead and admit her she has been given Lasix in the ER. She is also hyponatremic. Previous EF 35 to 40% chest x-ray today shows CHF. Placed on observation discussed Dr. Devine orders written Medical Records I reviewed the patient's medical records. Lab Data I reviewed the patient's lab results. 07/08/22 10:01 07/08/22 11:10 Labs/Radiology: Radiology Impressions Abdomen/Pelvis CT 07/08/22 09:54 IMPRESSION: 1. Motion artifact from the upper abdomen. 2. Difficult to evaluate the gallbladder due to motion artifact. 3. No GI tract obstruction. There is diffuse constipation. 4. Small bilateral pleural effusions. 5. Moderate cardiomegaly. 6. Soft tissue anasarca. 7. No metastatic disease or adenopathy. 8. Distal colon diverticulosis without acute diverticulitis. 9. Prior hysterectomy and appendectomy. Chest X-Ray 07/08/22 09:54 IMPRESSION: Cardiomegaly with findings suspicious for mild CHF slightly progressed from previous exam. Laboratory Results WBC 5.8 10^3/uL (4.0-10.0) 07/08/22 10:01 RBC 4.15 10^6/uL (4.1-5.3) 07/08/22 10:01 Hgb 13.1 g/dL (11.5-15.3) 07/08/22 10:01 Hct 43.2 % (37.0-47.0) 07/08/22 10:01 MCV 104.1 fl (81-99) H 07/08/22 10:01 MCH 31.6 pg (28.0-34.0) 07/08/22 10:01 MCHC 30.3 g/dL (30.0-36.0) 07/08/22 10:01 RDW 13.1 % (12.1-15.1) 07/08/22 10:01 Plt Count 214 10^3/cmm (130-400) 07/08/22 10:01 MPV 11.7 fL (7.4-10.4) H 07/08/22 10:01 Neut % (Auto) 76.7 % 07/08/22 10:01 Lymph % (Auto) 13.1 % 07/08/22 10:01 [place] % (Auto) 8.3 % 07/08/22 10:01 Eos % (Auto) 0.7 % 07/08/22 10:01 Baso % (Auto) 0.5 % 07/08/22 10:01 Neut # (Auto) 4.43 10^3/uL (1.8-7.7) 07/08/22 10:01 Lymph # (Auto) 0.8 10^3/uL (0.8-4.8) 07/08/22 10:01 [place] # (Auto) 0.5 10^3/uL (0.2-0.9) 07/08/22 10:01 Eos # (Auto) 0.0 10^3/uL (0.0-0.8) 07/08/22 10:01 Baso # (Auto) 0.0 10^3/uL (0.0-0.1) 07/08/22 10:01 Nucleated RBC % (auto) 0 % 07/08/22 10:01 Nucleated RBCs # 0.0 /100WBC 07/08/22 10:01 Sodium 126 mmol/L (136-145) L 07/08/22 11:10 Potassium 4.5 mmol/L (3.5-5.1) 07/08/22 11:10 Chloride 92 mmol/L (98-107) L 07/08/22 11:10 Carbon Dioxide 20 mmol/L (22-29) L 07/08/22 11:10 Anion Gap 18.5 (5-19) 07/08/22 11:10 BUN 22 mg/dL (8-23) 07/08/22 11:10 Creatinine 1.0 mg/dL (0.5-0.9) H 07/08/22 11:10 GFR Calculation Not Reportable 07/08/22 11:10 Glucose 146 mg/dL (65-115) H 07/08/22 11:10 POC Glucose 167 mg/dL (70-110) H 07/08/22 09:46 Calculated Osmolality 268 mOsm/kg (285-295) L 07/08/22 11:10 Calcium 8.6 mg/dL (8.5-10.5) 07/08/22 11:10 Total Bilirubin 0.6 mg/dL (0.15-1.2) 07/08/22 11:10 AST 103 U/L (0-32) H 07/08/22 11:10 ALT 88 U/L (0-33) H 07/08/22 11:10 Alkaline Phosphatase 122 U/L (35-105) H 07/08/22 11:10 Troponin T Baseline 74 ng/L (0-10) H 07/08/22 10:01 Troponin T 120 Minute 58.30 ng/L (0-10) H 07/08/22 12:20 Delta Troponin T -15.70 ABS# (0-10) L 07/08/22 12:20 Total Protein 6.2 g/dL (6.6-8.7) L 07/08/22 11:10 Albumin 3.5 g/dL (3.5-5.2) 07/08/22 11:10 Globulin 2.7 g/dL (1.3-4.6) 07/08/22 11:10 Lipase 34 U/L (13-60) 07/08/22 11:10 Urine Color Yellow (Yellow) 07/08/22 11:46 Urine Appearance Clear (CLEAR) 07/08/22 11:46 Urine pH 5 (5-7) 07/08/22 11:46 Ur Specific [place] 1.015 (1.005-1.030) 07/08/22 11:46 Urine Protein 3+ (Negative) H 07/08/22 11:46 Urine Glucose (UA) Norm (Normal) 07/08/22 11:46 Urine Ketones Negative (Negative) 07/08/22 11:46 Urine Blood 2+ (Negative) H 07/08/22 11:46 Urine Nitrate Negative (Negative) 07/08/22 11:46 Urine Bilirubin Neg (Negative) 07/08/22 11:46 Urine Urobilinogen Neg mg/dL (Negative) 07/08/22 11:46 Ur Leukocyte Esterase Negative (Negative) 07/08/22 11:46 Urine RBC 5-10 /hpf (0-2) H 07/08/22 11:46 Urine WBC 0-4 /hpf (0-5) H 07/08/22 11:46 Ur Squamous Epith Cells 5-10 /hpf (0-5) H 07/08/22 11:46 Amorphous Sediment Not Reportable 07/08/22 11:46 Urine Bacteria Trace /hpf (NONE) 07/08/22 11:46 Hyaline Casts 0-4 /lpf H 07/08/22 11:46 Urine Mucus 1+ /hpf 07/08/22 11:46 Discharge Plan Discharge Patient Disposition: Placed in Observation Clinical Impression: Congestive heart failure Condition: Stable Prescriptions: No Action potassium chloride 10 mEq capsule, extended release 10 meq PO EVERY OTHER DAY PRN (Reason: with lasix) Rx Instructions: only take on days when taking lasix prednisone 2.5 mg tablet 2.5 mg PO DAILY Qty: 90 1RF clobetasol 0.05 % ointment 1 applic topical BID 14 Days Qty: 45 1RF Rx Instructions: Apply to affected areas on trunk and extremities for 2 weeks. not for face or skin folds nitroglycerin [Nitro-Time] 2.5 mg capsule, extended release 2.5 mg PO BID Qty: 180 3RF atorvastatin 20 mg tablet 20 mg PO QAM Qty: 100 3RF diclofenac sodium 1 % gel 2 - 4 g topical QID PRN (Reason: Pain) Qty: 100 2RF Brilinta 90 mg tablet 90 mg PO BID Qty: 60 4RF metoprolol succinate 25 mg tablet extended release 24 hr 25 mg PO DAILY aspirin 81 mg Tablet,Delayed Release (Dr/Ec) 81 mg PO QAM esomeprazole magnesium [Nexium] 20 mg Capsule,Delayed Release(Dr/Ec) 20 mg PO QAM cholecalciferol (vitamin D3) 50 mcg (2,000 unit) tablet 2,000 unit PO QAM furosemide [Lasix] 20 mg tablet 10 mg PO EVERY OTHER DAY PRN (Reason: weight gain) Qty: 30 0RF Rx Instructions: more than 3 lbs weight gain a day ondansetron 4 mg film 4 mg PO DAILY PRN (Reason: nausea and vomiting) Qty: 10 0RF Referrals: Javid Edwards MD [Primary Care Provider] - Patient Instructions: Opioid Safety, Pain Management Coding Level of Care Code ED Construction Or Leak Gang Laborer for Chg Ar
[2022-07-08 10:30] LABS: Basophils % 0.5 %; Eosinophils % 0.7 %; Hematocrit 43.2 % (37.0-47.0); Hemoglobin 13.1 g/dL (11.5-15.3); Lymphocytes # 0.8 10^3/uL (0.8-4.8); Lymphocytes % 13.1 %; Mean Corpuscular HGB Conc 30.3 g/dL (30.0-36.0); Mean Corpuscular Hemoglobin 31.6 pg (28.0-34.0); Mean Corpuscular Volume 104.1 fl (81-99); Mean Platelet Volume 11.7 fL (7.4-10.4); Monocytes # 0.5 10^3/uL (0.2-0.9); Monocytes % 8.3 %; Neutrophils # 4.43 10^3/uL (1.8-7.7); Neutrophils % 76.7 %; Nucleated Red Blood Cells % 0 %; Platelet Count 214 10^3/cmm (130-400); Red Blood Count 4.15 10^6/uL (4.1-5.3); Red Cell Distribution Width 13.1 % (12.1-15.1); White Blood Count 5.8 10^3/uL (4.0-10.0)
--- NOTE | 2022-07-08 10:30 | ECG_ITS ---
[facility] Test Date: 2022-07-08 Pat Name: Bryanna Mark Department: Room: Gender: Female Oncology Rep: : 1940 Requested By: Jonathan Bryan Order Number: [id number] Deidre MD: Rojas Redmond M.D. Measurements Intervals [place] Rate: 79 P: -5 OR: 229 QRS: -61 QRSD: 138 T: 116 QT: 412 QTc: 474 Interpretive Statements A sensed, V paced rhythm. Occasional PVCs. Further interpretation is not possible Electronically Signed On 07-08-2022 22:07:04 CDT by Rojas Redmond M.D. [email or web address]
--- NOTE | 2022-07-08 10:35 | PC.NURSE ---
attempted IV, unsuccessful
[2022-07-08 10:54] LABS: Troponin(5th) Baseline 74 ng/L (0-10)
[2022-07-08] MEDS: iohexol 350 mg/mL 500 mL Btl (per mL) IV (11:02)
[2022-07-08] MEDS: FUROsemide 10 mg/mL SDV 4mL 40 MG IVP (11:16)
[2022-07-08 11:38] LABS: Alanine Aminotransferase 88 U/L (0-33); Albumin Level 3.5 g/dL (3.5-5.2); Alkaline Phosphatase 122 U/L (35-105); Anion Gap 18.5 (5-19); Aspartate Amino Transferase 103 U/L (0-32); Blood Urea Nitrogen 22 mg/dL (8-23); Calcium 8.6 mg/dL (8.5-10.5); Carbon Dioxide 20 mmol/L (22-29); Chloride 92 mmol/L (98-107); Globulin 2.7 g/dL (1.3-4.6); Glucose 146 mg/dL (65-115); Lipase 34 U/L (13-60); Osmolality Calculated 268 mOsm/kg (285-295); Potassium 4.5 mmol/L (3.5-5.1); Sodium 126 mmol/L (136-145); Total Bilirubin 0.6 mg/dL (0.15-1.2); Total Protein 6.2 g/dL (6.6-8.7)
--- NOTE | 2022-07-08 12:20 | ECG_ITS ---
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 Measurements Intervals [place] Rate: 80 P: 20 GA: 233 QRS: -60 QRSD: 134 T: 121 QT: 402 QTc: 464 Interpretive Statements SINUS RHYTHM WITH FIRST DEGREE AV BLOCK RIGHT BUNDLE BRANCH BLOCK [120+ ms QRS DURATION, UPRIGHT V1, 40+ ms S IN I/aVL/V4/V5/V6] LEFT VENTRICULAR HYPERTROPHY AND ST-T CHANGE [VOLTAGE CRITERIA PLUS ST/T ABNORMALITY] INFERIOR MYOCARDIAL INFARCTION , OF INDETERMINATE AGE [40+ ms Q WAVE AND/OR ST/T ABNORMALITY IN II/aVF] Compared to ECG 07/08/2022 10:30:57 First degree AV block now present Right bundle-branch block now present Intraventricular conduction delay no longer present ST (T wave) deviation still present Myocardial infarct finding still present Electronically Signed On 07-09-2022 10:06:09 CDT by Nacho Rush M.D. [id number]
--- NOTE | 2022-07-08 13:02 | US_ITS ---
WS: [id number] RIGHT UPPER QUADRANT ULTRASOUND HISTORY: transaminitis COMPARISON: 08/30/2021 Liver: 15.8 cm in length. Normal size liver and echogenicity. No bile duct dilatation or mass. Portal Vein: Not imaged. Gallbladder: Not visualized. CBD: 1.0 cm Pancreas: Poorly visualized Obscured by bowel gas. Right kidney: 8.9 cm in length. Normal size and echogenicity. No hydronephrosis or mass. Aorta and IVC: Not visualized. No ascites. Small RIGHT pleural effusion. US/US gall bladder [id number] IMPRESSION: 1. Gallbladder not identified by ultrasound. Common bile duct is difficult to visualize. Normal caliber on the recent CT. 2. Small RIGHT pleural effusion.
[2022-07-08 13:06] LABS: Add Urine Microscopic? YES; Bilirubin Urine Neg (Negative); Blood Urine 2+ (Negative); Glucose Urine UA Norm (Normal); Ketones Urine Negative (Negative); Leukocyte Esterase Urine Negative (Negative); Nitrate Urine Negative (Negative); Protein Urine 3+ (Negative); Specific Gravity, Urine 1.015 (1.005-1.030); Urine Appearance Clear (CLEAR); Urine Color Yellow (Yellow); Urobilinogen Urine Neg (Negative); pH Urine 5 (5-7)
[2022-07-08 13:07] LABS: Add Urine Culture? No; Bacteria Urine TRACE /hpf; Hyaline Casts Urine 0-4 /lpf; Mucus Urine 1+ /hpf; WBC Urine 0-4 /hpf (0-5)
--- NOTE | 2022-07-08 13:40 | PM.HP ---
Providers/Chief Complaint Primary Care Provider: Javid Edwards MD Chief Complaint: sob/weak History of Present Illness 82-year-old lady was evaluated in the ER after presenting with shortness of breath, fall, abdominal pain, vomiting, with recent visit last week, reported by family to be lethargic, complains of shortness of breath. Per her daughter Kalina with whom she lives she states that patient has been getting somewhat weaker over the last week, having more trouble walking. Having poor appetite. Having some nausea, some dry heaving triggered by phlegm production. Patient is not sure but thinks that once in a while she complains of some abdominal discomfort. She now has some abdominal soreness after falling. In ER with tachypnea, maintains oxygen saturation low to mid 90s on room air. Chest x-ray with cardiomegaly, findings suspicious for CHF slightly progressed from prior. Troponin with moderate elevation 74 at baseline, 2 hours 58.3. Sodium 126. Chemistry with elevation of AST 103, ALT 88, alk phos 122. Normal T. bili. Lipase 34. UA 5-10 RBC, 0-4 WBC. 5-10 SEC, hyaline cast 0-4, urine mucus, trace bacteria. CT/CT abdomen pelvis w con* [id number] IMPRESSION: 1. Motion artifact from the upper abdomen. 2. Difficult to evaluate the gallbladder due to motion artifact. 3. No GI tract obstruction. There is diffuse constipation. 4. Small bilateral pleural effusions. 5. Moderate cardiomegaly. 6. Soft tissue anasarca. 7. No metastatic disease or adenopathy. 8. Distal colon diverticulosis without acute diverticulitis. 9. Prior hysterectomy and appendectomy. Gallbladder ultrasound in progress. She received a dose of Lasix in ER. Review of Systems Const: Reports: change in appetite and fatigue; Denies: fever(s) ENMT: Denies: throat pain, oral sores or ear or mastoid pain Card: Denies: chest pain, edema, pre-syncope or dyspnea on exertion Resp: Denies: dyspnea, productive cough, change in phlegm color or hemoptysis GI: Reports: nausea; Denies: abdominal pain, diarrhea, constipation, hematochezia or melena : Denies: flank pain, urinary frequency or hematuria Musc: Denies: back pain, joint swelling or joint redness Skin/Breast: Reports: rash (Was biopsied and reportedly is from her lupus) Neuro: Reports: other (Today lethargic at home); Denies: headache(s), numbness in extremities, weakness in extremities, dizziness or seizure-like activity Moncho/Lymph: Denies: easy bleeding or tender lymph nodes All/Imm: Denies: tongue swelling Medications/Allergies Home Medications Medication Instructions Recorded Confirmed Last Taken Type ticagrelor 90 mg tablet (Brilinta) 90 mg PO BID #60 tabs 02/16/21 07/08/22 07/08/22 Rx aspirin 81 mg tablet,delayed 81 mg PO QAM 08/30/21 07/08/22 07/08/22 History release cholecalciferol (vitamin D3) 50 2,000 unit PO QAM 08/30/21 07/08/22 07/08/22 History mcg (2,000 unit) tablet esomeprazole magnesium 20 mg 20 mg PO QAM 08/30/21 07/08/22 07/08/22 History capsule,delayed release (Nexium) furosemide 20 mg tablet (Lasix) 10 mg PO EVERY OTHER DAY PRN 09/03/21 07/08/22 Unknown Rx weight gain #30 tabs potassium chloride 10 mEq 10 meq PO EVERY OTHER DAY PRN with 09/21/21 07/08/22 Unknown History capsule,extended release lasix nitroglycerin 2.5 mg 2.5 mg PO BID #180 caps 02/28/22 07/08/22 07/08/22 Rx capsule,extended release (Nitro-Time) atorvastatin 20 mg tablet 20 mg PO QAM #100 tabs 04/21/22 07/08/22 07/08/22 Rx diclofenac sodium 1 % topical gel 2 - 4 g topical QID PRN Pain #100 04/27/22 07/08/22 Unknown Rx grams prednisone 2.5 mg tablet 2.5 mg PO DAILY #90 tabs 05/17/22 07/08/22 07/08/22 Rx clobetasol 0.05 % topical ointment 1 applic topical BID 2 weeks #45 05/26/22 07/08/22 Unknown Rx grams ondansetron 4 mg oral soluble film 4 mg PO DAILY PRN nausea and 07/01/22 07/08/22 Unknown Rx vomiting #10 ea metoprolol succinate 25 mg 25 mg PO DAILY 07/08/22 07/08/22 Unknown History tablet,extended release 24 hr Allergies Allergy/AdvReac Type Severity Reaction Status Date / Time niacin Allergy ALGY-Rash Verified 07/08/22 09:43 PFSH Acute PFSH: Medical History (Updated 07/08/22 @ 15:02 by Torsten Devine MD) Acidosis, lactic Acute on chronic congestive heart failure ASHD (arteriosclerotic heart disease) Cardiogenic shock CKD (chronic kidney disease) Congestive heart failure Cutaneous lupus erythematosus prior hx Dysphagia Endometrial cancer GERD (gastroesophageal reflux disease) High risk medication use Hyperlipidemia Hypertension Hyponatremia Immunization counseling Lupus (systemic lupus erythematosus) Non-ST elevation IA (NSTEMI) Osteoarthritis Osteoporosis 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 Presence of permanent cardiac pacemaker Skin rash Sleep apnea SS-A antibody positive Transaminitis Troponin level elevated Surgical History H/O mastectomy H/O: hysterectomy History of appendectomy History of PTCA History of shoulder surgery Family History Father Diabetes Family/Other Diabetes Denies family history of Rheumatoid arthritis CAD (coronary artery disease) Clotting disorder Dementia Chronic kidney disease (CKD) Systemic lupus erythematosus (SLE) in adult Suicide Anesthesia complication Bleeding disorder Lung disease Cancer Hypertension Stroke Social History Smoking and tobacco status: never smoked Alcohol intake: never Substance/Drug Use: never Vitals/I&O/Wt Last Vital Signs Temp 97.3 F L 07/08/22 09:37 Pulse 81 07/08/22 11:24 Resp 26 H 07/08/22 11:24 BP 138/93 07/08/22 11:24 Pulse Ox 94 07/08/22 11:24 O2 Del Method Room Air 07/08/22 09:37 Weight last 48 hrs Weight 58.967 kg Physical Exam Narrative: Accompanied by her daughters Const: COMMON NORMALS: patient oriented x3 and alert GENERAL APPEARANCE: cooperative ORIENTATION/CONSCIOUSNESS: Yes awake HENMT: COMMON NORMALS: oropharynx normal OTHER: Difficult to assess JVD Neck/C-Spine: COMMON NORMALS: no JVD Resp: COMMON NORMALS: normal respiratory effort and clear to auscultation bilaterally AUSCULTATION: clear to auscultation bilaterally Cardio: COMMON NORMALS: no JVD, regular rhythm, S1 normal heart sound present, S2 normal heart sound present and No murmurs present (Cardio) RHYTHM: regular rhythm HEART SOUNDS: S1 normal heart sound present and S2 normal heart sound present GI: COMMON NORMALS: Soft to palpation and non-tender PALPATION: Yes Soft to palpation OTHER: Maldonado negative Extremity: COMMON NORMALS: no joint enlargement and no pedal edema Neuro: COMMON NORMALS: patient oriented x3 and moves all extremities SENSORIUM/ORIENTATION: Yes alert Skin: COMMON NORMALS: no rashes or lesions noted GENERAL SKIN EXAM: no rashes or lesions noted Data 07/08/22 10:01 07/08/22 11:10 A&P Assessment and plan (1) Congestive heart failure: Acute exacerbation of systolic CHF, reports orthopnea, with noted cardiomegaly, fine suggestive of CHF on chest x-ray. No lower extremity edema. Difficult to assess JVD. Unclear whether cholestasis may be related to CHF. Received 40 mg IV Lasix in ER. At home normally on Lasix 20 mg only as needed, has not been take any recently. For now we will not order standing Lasix, reassess urine output, renal function has looks like on review of notes from prior admission she had gone into [facility]. Monitor renal function closely may be at risk of BRANDI again. Complete troponin EKG series. She denies chest pain or pressure. Noted moderate elevation with some decrease in troponin series so far. Monitor on telemetry. With hyponatremia, need chemistry monitoring with diuresis. Repeat chemistry due to risk of electrolyte abnormality with diuresis and for follow-up of renal function with risk of BRANDI, with BRANDI last admission. Obtain TTE. Last one was over a year ago. (2) Liver function test abnormality: Possibly secondary to CHF, discussed with her family difficult to entirely exclude cholecystitis. Unfortunately CT scan and ultrasound results reviewed and both unrevealing. Prior CT scan noted with abnormality with some wall thickening, some possibly minute stones or sludge. Discussed HIDA scan assessment with patient and family and they are in agreement. She otherwise states her nausea is associated more so with coughing with mucus production necessarily with abdominal pain. She is pain-free other than contusion on her abdomen. She is not entirely sure but she may have some abdominal discomfort occasionally that makes her not want to eat at home. She otherwise has no leukocytosis, afebrile. Hold off antibiotic for now. Treat CHF as above. T. bili noted normal. Lipase normal. Follow-up liver parameters. (3) Nausea and vomiting: Treat underlying issues as above. Merly with consideration of possible gastritis as she is on chronic steroid, looks like also uses diclofenac gel. Takes PPI at home, will increase to twice daily here. (4) Generalized weakness: Over the last week has becoming weaker, with nausea, poor appetite, more difficult for her to walk. Some functional decline. On chronic steroids with prednisone 2.5 mg daily. Noted some hyponatremia. Has been maintaining blood pressures. Discussed with them possibility of adrenal insufficiency, discussed increasing prednisone dose temporarily. For now we will increase to 10 mg. Increase PPI to twice daily. Check TSH Treat acute CHF On statin. Check CK. Hold statin for now. PT, OT assessment. (5) Acute encephalopathy: Lethargy at home, currently she is awake and alert, oriented, pleasant, cooperative and provides some history, the history is to be filled in by her daughters. Acute encephalopathy suspected combination possibly from acute metabolic encephalopathy with hyponatremia sodium 126, some mild volume overload and CHF exacerbation. UA not entirely suggestive of UTI, somewhat abnormal with 5-to 10 RBC, 0-4 WBC, 5-10 SEC. 0-4 hyaline cast. 1+ mucus. Trace bacteria. Denies any urinary symptoms. Kidneys unremarkable and CT (6) Fall: At home with abdominal bruising. Reassess hemoglobin. She is on Brilinta and aspirin. Hold off anticoagulation. SCD for DVT prophylaxis. (7) Traumatic ecchymosis of abdominal wall: Monitor, reassess CBC. On aspirin and Brilinta. (8) Microscopic hematuria: On aspirin and Brilinta. No symptoms to suggest UTI. Will need follow-up for resolution of microscopic hematuria. (9) Hyponatremia: Suspect may be hypervolemic with acute CHF, versus possibly adrenal insufficiency. Diuresis as above. Recheck chemistry. Prednisone dose increased as above. Plan SLE: Chronic steroid TVR MVR CKD at baseline Dysphagia Endometrial cancer GERD: Increase PPI to twice daily HLD: Check CK, hold statin for now HTN: Monitor blood pressures History of hyponatremia CAD status post stenting: Complete troponin EKG series. Continue aspirin, Brilinta, beta-ted, statin PPM OA JAIMEE Discussed with ER physician, ER documentation reviewed. Attestations Medical Necessity Statement*: Place in observation for further assessment management of systolic CHF exacerbation, generalized weakness, nausea, decreased appetite, further assessment of cholestasis. Diagnoses Congestive heart failure I50.9 Liver function test abnormality R79.89 Nausea and vomiting R11.2 Generalized weakness R53.1 Acute encephalopathy G93.40 Fall W19.XXXA Traumatic ecchymosis of abdominal wall S30.1XXA Microscopic hematuria R31.29 Hyponatremia E87.1
--- NOTE | 2022-07-08 14:14 | PC.NURSE ---
attempted to call report to CSU. nurse unavailable at this time and room is not clean for pt yet
--- NOTE | 2022-07-08 14:45 | PC.NURSE ---
attempted to call report to CSU, nurse unavailable at this time.
--- NOTE | 2022-07-08 15:24 | PC.NURSE ---
report given to Arlene on CSU
--- NOTE | 2022-07-08 15:47 | PC.NURSE ---
Patient arrived from ED with family present. Patient oriented to room and vital signs are stable. Nurse will continue to monitor
[2022-07-08 16:31] LABS: Creatine Phosphokinase 168 U/L (26-192)
--- NOTE | 2022-07-08 16:31 | ECG_ITS ---
[facility] Test Date: 2022-07-08 Pat Name: Bryanna Mark Department: Room: 102 Gender: Female Sep[employer]: : 1940 Requested By: Jonathan Bryan Order Number: [id number] Deidre MD: Nacho Rush M.D. Measurements Intervals [place] Rate: 89 P: 43 W[place]: 241 QRS: -53 QRSD: 133 T: 121 QT: 391 QTc: 477 Interpretive Statements INTRAVENTRICULAR CONDUCTION DELAY [130+ ms QRS DURATION] LEFT VENTRICULAR HYPERTROPHY AND ST-T CHANGE [VOLTAGE CRITERIA PLUS ST/T ABNORMALITY] POSSIBLE ANTERIOR MYOCARDIAL INFARCTION [30 ms Q WAVE IN V3/V4, OR R < 0.2 mV IN V4], PROBABLY OLD Compared to ECG 07/08/2022 12:51:54 Intraventricular conduction delay now present Sinus rhythm no longer present First degree AV block no longer present Right bundle-branch block no longer present ST (T wave) deviation still present Myocardial infarct finding still present Electronically Signed On 07-09-2022 10:06:37 CDT by Nacho Rush M.D. [id number]
[2022-07-08 17:05] LABS: Troponin 5 6HR 68.96 ng/L (0-10)
[2022-07-08 17:06] LABS: Troponin 5 6HR Delta -5.04 ng/L (0-12)
[2022-07-08] MEDS: pantoprazole DR 40 mg Tablet PO (18:36)
[2022-07-08] MEDS: ticagrelor 90 mg Tablet PO (18:36)
[2022-07-08] MEDS: ondansetron 2 mg/ML SDV 2 mL 4 MG IVP (22:07)
[2022-07-09] VITALS (9 sets, daily range): BP systolic 128–144; BP diastolic 79–94; PULSE 66–103; RESP 22–30; TEMP 36.4–37; O2SAT 93–98
[2022-07-09 04:50] LABS: Basophils % 0.5 %; Eosinophils # 0.1 10^3/uL (0.0-0.8); Eosinophils % 2.2 %; Hematocrit 37.9 % (37.0-47.0); Hemoglobin 11.8 g/dL (11.5-15.3); Lymphocytes # 0.8 10^3/uL (0.8-4.8); Lymphocytes % 13.9 %; Mean Corpuscular HGB Conc 31.1 g/dL (30.0-36.0); Mean Corpuscular Hemoglobin 31.4 pg (28.0-34.0); Mean Corpuscular Volume 100.8 fl (81-99); Mean Platelet Volume 12.2 fL (7.4-10.4); Monocytes # 0.9 10^3/uL (0.2-0.9); Monocytes % 14.8 %; Neutrophils # 3.95 10^3/uL (1.8-7.7); Neutrophils % 68.1 %; Nucleated Red Blood Cells % 0 %; Platelet Count 118 10^3/cmm (130-400); Red Blood Count 3.76 10^6/uL (4.1-5.3); White Blood Count 5.8 10^3/uL (4.0-10.0)
[2022-07-09] MEDS: aspirin 81 mg EC Tablet PO (05:12)
[2022-07-09 05:17] LABS: Alkaline Phosphatase 101 U/L (35-105); Blood Urea Nitrogen 22 mg/dL (8-23); Calcium 8.7 mg/dL (8.5-10.5); Carbon Dioxide 21 mmol/L (22-29); Chloride 91 mmol/L (98-107); Globulin 2.6 g/dL (1.3-4.6); Glucose 75 mg/dL (65-115); Osmolality Calculated 266 mOsm/kg (285-295); Sodium 127 mmol/L (136-145); Total Bilirubin 0.6 mg/dL (0.15-1.2); Total Protein 5.6 g/dL (6.6-8.7)
[2022-07-09 05:19] LABS: Anion Gap 19.3 (5-19); Aspartate Amino Transferase 94 U/L (0-32); Potassium 4.3 mmol/L (3.5-5.1)
[2022-07-09 05:20] LABS: Alanine Aminotransferase 80 U/L (0-33)
--- NOTE | 2022-07-09 06:00 | USCV_ITS ---
Bryanna Mark Age: 82 Gender: F : 1940 Exam Date: 07/09/2022 12:37 Ordering Phys: Torsten Devine MD Technologist: SELIN Exam Location: [facility] Indication: chf,cad BP: / HR: 90 Rhythm: Sinus Technical Quality: Suboptimal MEASUREMENTS (Male / Female) Normal Values 2D ECHO LV Diastolic Diameter PLAX 4.3 cm 4.2 - 5.9 / 3.9 - 5.3 cm LV Systolic Diameter PLAX 4.1 cm IVS Diastolic Thickness 1.4 cm 0.6 - 1.0 / 0.6 - 0.9 cm IVS Systolic Thickness 1.7 cm LVPW Diastolic Thickness 1.3 cm 0.6 - 1.0 / 0.6 - 0.9 cm LVPW Systolic Thickness 1.0 cm LVOT Diameter 2.1 cm LV Ejection Fraction 2D Teich 13.2 % LV Ejection Fraction MOD 2C 50.2 % LV Ejection Fraction 2C AL 51.6 % LA Diameter 2.9 cm IVC Diameter 2.1 cm M-MODE Aortic Annulus Diameter 2.9 cm LA Ao Ratio MM 1.1 MV E Point Septal Separation 1.7 cm DOPPLER AV Peak Velocity 113.0 cm/s LVOT Peak Velocity 69.0 cm/s AV Area Cont Eq vti 2.3 cm squared AV Area Cont Eq pk 2.2 cm squared MV Area PHT 2.7 cm squared Mitral E to A Ratio 1.0 MV E' Velocity 53.0 cm/s Mitral E to MV E' Ratio 14.8 Mitral E to LV E' Lateral Ratio 26.9 Mitral E to LV E' Septal Ratio 10.3 TR Peak Velocity 265.0 cm/s TR Peak Gradient 28.1 mmHg TV Peak E Velocity 70.0 cm/s Right Atrial Pressure 6.0 mmHg Pulmonary Artery Systolic Pressu 34.1 mmHg PV Peak Velocity 44.0 cm/s FINDINGS Left Ventricle Normal left ventricular cavity size. Normal left ventricular wall thickness. Mildly decreased left ventricular systolic function. Regional wall motion abnormalities (see diagram). Left ventricular ejection fraction is estimated at 40 %. Grade I/IV diastolic dysfunction (abnormal relaxation filling pattern), normal to mildly elevated filling pressures. There is severe hypokinesis to akinesis of the inferior wall and posterior wall. Right Ventricle Normal right ventricular size and systolic function. Catheter/pacemaker wire visualized in the right ventricle. Normal right ventricular systolic pressure. Right Atrium Mildly increased right atrial size. Left Atrium Moderately increased left atrial size. Mitral Valve Structurally normal mitral valve. Trace mitral valve regurgitation. Aortic Valve Structurally normal aortic valve without significant sclerosis or stenosis. There is no aortic regurgitation. Tricuspid Valve Structurally normal tricuspid valve. Trace to mild tricuspid valve regurgitation. Pulmonic Valve Pulmonic valve not well visualized. Mild pulmonary valve regurgitation. Pericardium Normal pericardium without effusion. Aorta Normal ascending aorta dimension. IVC Inferior vena cava not visualized. CONCLUSIONS Normal left ventricular cavity size. Normal left ventricular wall thickness. Mildly decreased left ventricular systolic function. Regional wall motion abnormalities (see diagram). Left ventricular ejection fraction is estimated at 40 %. Grade I/IV diastolic dysfunction (abnormal relaxation filling pattern), normal to mildly elevated filling pressures. There is severe hypokinesis to akinesis of the inferior wall and posterior wall. Normal right ventricular size and systolic function. Catheter/pacemaker wire visualized in the right ventricle. Normal right ventricular systolic pressure. Mildly increased right atrial size. Moderately increased left atrial size. Structurally normal mitral valve. Trace mitral valve regurgitation. The previous echo was performed August 31 of last year. It was a equally poor quality study and contrast material was used. Ejection fraction is about the same. Moderate mitral regurgitation was noted previously. That is not noted on today's study. Additionally severe tricuspid regurgitation was seen and that is not noted on today's study. Dr. Nacho Rush MD (Electronically Signed) Final Date: 10 July 2022 09:09 S
[2022-07-09] MEDS: metoprolol succinate ER (24 HR) 25 mg Tablet PO (08:46)
[2022-07-09] MEDS: pantoprazole DR 40 mg Tablet PO ×2 (08:46→18:01)
[2022-07-09] MEDS: ticagrelor 90 mg Tablet PO ×2 (08:46→18:00)
[2022-07-09] MEDS: predniSONE 10 mg Tablet PO (08:47)
--- NOTE | 2022-07-09 21:23 | P.PN_ITS ---
Subjective Subjective: Subjectively she feels better. States no further nausea or vomiting. Tolerated breakfast. Denies abdominal pain. No chest pain. Vitals/I&O/Wt Last Vital Signs Temp 97.8 F 07/09/22 11:26 Pulse 80 07/09/22 16:57 Resp 22 H 07/09/22 16:00 BP 135/91 07/09/22 16:00 Pulse Ox 95 07/09/22 16:57 O2 Del Method Nasal Cannula 07/09/22 16:57 O2 Flow Rate 2 07/09/22 16:57 07/09/22 07/09/22 07/09/22 06:59 14:59 22:59 Intake Total 400 / 400 600 / 600 480 / 1080 Output Total 1300 / 1300 Balance -900 / -900 600 / 600 480 / 1080 Weight last 48 hrs Weight 56.064 kg Weight 58.967 kg Weight 58.967 kg Physical Exam Const: COMMON NORMALS: patient oriented x3 and alert GENERAL APPEARANCE: cooperative ORIENTATION/CONSCIOUSNESS: Yes awake HENMT: COMMON NORMALS: oropharynx normal Neck/C-Spine: COMMON NORMALS: no JVD Resp: COMMON NORMALS: normal respiratory effort and clear to auscultation bilaterally AUSCULTATION: clear to auscultation bilaterally Cardio: COMMON NORMALS: no JVD, regular rhythm, S1 normal heart sound present, S2 normal heart sound present and No murmurs present (Cardio) RHYTHM: regular rhythm HEART SOUNDS: S1 normal heart sound present and S2 normal heart sound present GI: COMMON NORMALS: Soft to palpation and non-tender PALPATION: Yes Soft to palpation OTHER: Maldonado negative Extremity: COMMON NORMALS: no joint enlargement and no pedal edema Neuro: COMMON NORMALS: patient oriented x3 and moves all extremities SENSORIUM/ORIENTATION: Yes alert Skin: COMMON NORMALS: no rashes or lesions noted GENERAL SKIN EXAM: no rashes or lesions noted Urinary Catheter Management: Castellanos: Cath Placed During This Visit: no Reason for Continuing Indwelling Catheter: Accurate Measurement of Urinary Output in Critically Ill Patients Data 07/09/22 03:00 07/09/22 03:00 A&P Assessment and plan (1) Congestive heart failure: Was in negative balance this morning, subjectively feeling slightly better. Some worsening renal function creatinine up to 1.1. BUN 22. We will give additional smaller dose Lasix IV 20 mg in the morning, reassess again. She is at risk of BRANDI as per prior admission. I do suspect there is a degree of portal hypertension secondary to CHF. This appears to be slightly better with diuresis, alk phos down to 101. T. bili normal. Acute exacerbation of systolic CHF, reports orthopnea, with noted cardiomegaly, fine suggestive of CHF on chest x-ray. No lower extremity edema. For now we will not order standing Lasix, reassess urine output, renal function has looks like on review of notes from prior admission she had gone into BRANDI. M onitor renal function closely may be at risk of BRANDI again. Moderate troponin elevation, no chest pain. Trend not suggestive of acute VA. EKG with intraventricular conduction delay, LVH, possible AMI probably old. With hyponatremia, need chemistry monitoring with diuresis. Repeat chemistry due to risk of electrolyte abnormality with diuresis and for follow-up of renal function with risk of BRANDI, with BRANDI last admission. Follow-up pending TTE. Last one was over a year ago. (2) Liver function test abnormality: With improvement, suspect at least a component of portal hypertension causing cholestasis. Still equivocal findings as below on presentation. HIDA scan has been requested. Given she is remains off antibiotics, without leukocytosis or fever, symptoms improved, acute cholecystitis is becoming less likely. Possibly secondary to CHF, discussed with her family difficult to entirely exclude cholecystitis. Unfortunately CT scan and ultrasound results reviewed and both unrevealing. Prior CT scan noted with abnormality with some wall thickening, some possibly minute stones or sludge. Discussed HIDA scan assessment with patient and family and they are in agreement. She otherwise states her nausea is associated more so with coughing with mucus production necessarily with abdominal pain. She is pain-free other than contusion on her abdomen. She is not entirely sure but she may have some abdominal discomfort occasionally that makes her not want to eat at home. She otherwise has no leukocytosis, afebrile. Hold off antibiotic for now. Treat CHF as above. T. bili noted normal. Lipase normal. Follow-up liver parameters. (3) Nausea and vomiting: So far has resolved with diuresis. Treat underlying issues as above. Merly with consideration of possible gastritis as she is on chronic steroid, looks like also uses diclofenac gel. Takes PPI at home, will increase to twice daily here. (4) Generalized weakness: Over the last week has becoming weaker, with nausea, poor appetite, more difficult for her to walk. Some functional decline. On chronic steroids with prednisone 2.5 mg daily. Noted some hyponatremia. Has been maintaining blood pressures. Discussed with them possibility of adrenal insufficiency, discussed increasing prednisone dose temporarily. For now we will increase to 10 mg. PPI twice daily. Noted normal TSH Treat acute CHF On statin. Noted normal CK. Resume statin. PT, OT assessment. (5) Acute encephalopathy: Resolved. Sodium slightly better at 127. Had a good response with some gentle diuresis with regards to portal hypertension. UA not entirely suggestive of UTI, somewhat abnormal with 5-to 10 RBC, 0-4 WBC, 5-10 SEC. 0-4 hyaline cast. 1+ mucus. Trace bacteria. Denies any urinary symptoms. Kidneys unremarkable and CT (6) Fall: At home with abdominal bruising. No noted mild decrease in hemoglobin to 11.8. She is on Brilinta and aspirin. Hold off anticoagulation. SCD for DVT prophylaxis. (7) Traumatic ecchymosis of abdominal wall: Monitor, reassess CBC. On aspirin and Brilinta. (8) Microscopic hematuria: On aspirin and Brilinta. No symptoms to suggest UTI. Will need follow-up for resolution of microscopic hematuria. (9) Hyponatremia: Suspect may be hypervolemic with acute CHF, versus possibly adrenal insufficien cy. Diuresis as above. Recheck chemistry. Prednisone dose increased as above. Plan SLE: Chronic steroid TVR MVR CKD at baseline Dysphagia Endometrial cancer GERD: Increase PPI to twice daily HLD: Check CK, hold statin for now HTN: Monitor blood pressures History of hyponatremia CAD status post stenting: Complete troponin EKG series. Continue aspirin, Brilinta, beta-ted, statin PPM OA JAIMEE Discussed with ER physician, ER documentation reviewed. Attestations Medical Necessity Statement*: Continue admission for assessment management of acute CHF in a lady at high risk of acute kidney injury, further assessment of cholestasis and for lower pos sibility of cholecystitis. Diagnoses Congestive heart failure I50.9 Liver function test abnormality R79.89 Nausea and vomiting R11.2 Generalized weakness R53.1 Acute encephalopathy G93.40 Fall W19.XXXA Traumatic ecchymosis of abdominal wall S30.1XXA Microscopic hematuria R31.29 Hyponatremia E87.1
[2022-07-10] VITALS: BP 144/94; PULSE 89; RESP 25; TEMP 36.4; O2SAT 96
[2022-07-10 03:40] VITALS: PULSE 67
[2022-07-10 04:00] VITALS: BP 128/86; PULSE 78; RESP 19; TEMP 36.7; O2SAT 96
[2022-07-10 04:40] LABS: Alanine Aminotransferase 63 U/L (0-33); Albumin Level 3.5 g/dL (3.5-5.2); Alkaline Phosphatase 98 U/L (35-105); Blood Urea Nitrogen 21 mg/dL (8-23); Calcium 8.9 mg/dL (8.5-10.5); Carbon Dioxide 24 mmol/L (22-29); Chloride 92 mmol/L (98-107); Globulin 2.2 g/dL (1.3-4.6); Glucose 99 mg/dL (65-115); Osmolality Calculated 271 mOsm/kg (285-295); Sodium 129 mmol/L (136-145); Total Bilirubin 0.6 mg/dL (0.15-1.2); Total Protein 5.7 g/dL (6.6-8.7)
[2022-07-10 04:46] LABS: Anion Gap 17.7 (5-19); Potassium 4.7 mmol/L (3.5-5.1)
[2022-07-10 04:47] LABS: Aspartate Amino Transferase 70 U/L (0-32)
[2022-07-10] MEDS: atorvastatin 40 mg Tablet 20 MG PO (05:51)
[2022-07-10] MEDS: aspirin 81 mg EC Tablet PO (05:51)
[2022-07-10 06:07] LABS: Basophils % 0.3 %; Eosinophils # 0.1 10^3/uL (0.0-0.8); Hematocrit 39.2 % (37.0-47.0); Hemoglobin 12.6 g/dL (11.5-15.3); Lymphocytes % 16.2 %; Mean Corpuscular HGB Conc 32.1 g/dL (30.0-36.0); Mean Corpuscular Volume 96.6 fl (81-99); Monocytes # 0.9 10^3/uL (0.2-0.9); Monocytes % 15.2 %; Neutrophils % 66.8 %; Nucleated Red Blood Cells % 0 %; Platelet Count 220 10^3/cmm (130-400); Red Blood Count 4.06 10^6/uL (4.1-5.3); Red Cell Distribution Width 12.7 % (12.1-15.1)
[2022-07-10 08:00] VITALS: BP 139/74; PULSE 80; PULSE 86; RESP 20; TEMP 36.8; O2SAT 93; O2SAT 94
[2022-07-10] MEDS: predniSONE 10 mg Tablet PO (08:31)
[2022-07-10] MEDS: metoprolol succinate ER (24 HR) 25 mg Tablet PO (08:31)
[2022-07-10] MEDS: ticagrelor 90 mg Tablet PO (08:31)
[2022-07-10] MEDS: pantoprazole DR 40 mg Tablet PO (08:33)
[2022-07-10 11:27] VITALS: BP 141/72; PULSE 79; RESP 18; TEMP 36.6; O2SAT 97
--- NOTE | 2022-07-10 13:33 | PM.DCS ---
Discharge Providers Date of Admission: 07/08/22 14:02 Date of Discharge: July 10, 2022 Attending Provider at Admission: Torsten Devine Attending Provider at Discharge: Torsten Devine Primary Care Provider: Javid Edwards MD Diagnoses at Discharge Discharge Diagnosis (1) Congestive heart failure: Status: Acute (2) Liver function test abnormality: Status: Acute (3) Nausea and vomiting: Status: Acute (4) Generalized weakness: Status: Acute (5) Acute encephalopathy: Status: Acute (6) Fall: Status: Acute (7) Traumatic ecchymosis of abdominal wall: Status: Acute (8) Microscopic hematuria: Status: Acute (9) Hyponatremia: Status: Acute Reason for Visit Reason for Visit: sob/weak Brief History: 82-year-old lady was evaluated in the ER after presenting with shortness of breath, fall, abdominal pain, vomiting, with recent visit last week, reported by family to be lethargic, complains of shortness of breath.? Per her daughter Kalina with whom she lives she states that patient has been getting somewhat weaker over the last week, having more trouble walking.? Having poor appetite.? Having some nausea, some dry heaving triggered by phlegm production.? Patient is not sure but thinks that once in a while she complains of some abdominal discomfort.? She now has some abdominal soreness after falling. In ER with tachypnea, maintains oxygen saturation low to mid 90s on room air.? Chest x-ray with cardiomegaly, findings suspicious for CHF slightly progressed from prior. ? Troponin with moderate elevation 74 at baseline, 2 hours 58.3. Sodium 126.? Chemistry with elevation of AST 103, ALT 88, alk phos 122.? Normal T. bili.? Lipase 34. UA 5-10 RBC, 0-4 WBC.? 5-10 SEC, hyaline cast 0-4, urine mucus, trace bacteria. CT/CT abdomen pelvis w con* [id number] IMPRESSION: ? 1.? Motion artifact from the upper abdomen. 2.? Difficult to evaluate the gallbladder due to motion artifact. 3.? No GI tract obstruction. There is diffuse constipation. 4.? Small bilateral pleural effusions. 5.? Moderate cardiomegaly. 6.? Soft tissue anasarca. 7.? No metastatic disease or adenopathy. 8.? Distal colon diverticulosis without acute diverticulitis. 9.? Prior hysterectomy and appendectomy. Gallbladder ultrasound 1.? Gallbladder not identified by ultrasound. Common bile duct is difficult to visualize. Normal caliber on the recent CT. 2.? Small RIGHT pleural effusion. She received a dose of Lasix 40mg IV x1. ? Hospital Course Hospital Course Report status and renal function were reassessed. She was monitored off antibiotics. PPI was increased to twice daily. Her symptoms actually improved with resolution of nausea and vomiting. With improving liver parameters. HIDA scan was ordered, but was not available over the weekend. However, with improving symptoms, no fever, without leukocytosis, with Maldonado negative and right quadrant discussed with her and her daughter further options, likelihood of acute cholecystitis is rather low. Exclude a degree of chronic cholecystitis with also noted prior cholelithiasis on older imaging. As such she is referred for additional assessment by HIDA scan. Please follow-up. She otherwise appeared compensated volume cosby after the initial dose of 40 mg IV Lasix. She appears to have a very narrow therapeutic window with regards to CHF, and certainly congestive hepatopathy and gallbladder disease is suspected, with improvement in liver parameters with diuresis, however, also had a rise in creatinine up to 1.2 with mild BRANDI, further diuretics were not repeated. Please reassess volume status, renal function. Her sodium has also gradually improved up to 129 today. She is told not to limit sodium intake. Please recheck hyponatremia as that may have been contributing to her symptoms including acute encephalopathy. Encephalopathy resolved. She later also notes has been recovering from some kind of cold or flu with cough, which had since resolved, some diarrhea, initially thought possibly gastroenteritis. Although this has resolved. Certainly may have been a trigger for her episode of CHF. Please follow-up after episode of congestive heart failure, reassessment of kidney function with mild acute kidney injury 1.2, reassessment of electrolytes. Please have your primary doctor also check your sodium level as your sodium had been low on presentation, but has been gradually improving up to 129 today. Do not restrict sodium intake. Seems to have very narrow therapeutic window for diuresis. Please follow-up liver function parameters as well as HIDA scan. There may have been congestive hepatopathy due to heart failure causing increase in liver numbers and possibly congestive changes around the gallbladder. However, with history of gallstones, at least currently there does not appear to be acute cholecystitis, but degree of chronic cholecystitis cannot be excluded entirely at the moment. HIDA scan is ordered to further assess this. Prednisone dose is increased to 10 mg with gradual taper with recent generalized weakness due to consideration of possible adrenal insufficiency appears may have helped her symptoms. Taper prescriptions given at discharge. Please follow-up with rheumatology regarding lupus. Continue to reassess risk of falls. Please follow-up bruise on abdomen for continued resolution as well as follow-up hemoglobin. Here so far your hemoglobin has been staying steady. Please follow-up microscopic hematuria for resolution. If not resolving may need additional evaluation. Please stop diclofenac gel and avoid NSAIDs. In case of returning or persisting nausea and/or dyspepsia consider endoscopic evaluation. Physical Exam Narrative: Daughter at bedside at second visit, discussed also with her daughter. Const: COMMON NORMALS: patient oriented x3 and alert GENERAL APPEARANCE: cooperative ORIENTATION/CONSCIOUSNESS: Yes awake HENMT: COMMON NORMALS: oropharynx normal OTHER: No Neck/C-Spine: COMMON NORMALS: no JVD Resp: COMMON NORMALS: normal respiratory effort and clear to auscultation bilaterally AUSCULTATION: clear to auscultation bilaterally Cardio: COMMON NORMALS: no JVD, regular rhythm, S1 normal heart sound present, S2 normal heart sound present and No murmurs present (Cardio) RHYTHM: regular rhythm HEART SOUNDS: S1 normal heart sound present and S2 normal heart sound present GI: COMMON NORMALS: Soft to palpation and non-tender PALPATION: Yes Soft to palpation OTHER: Maldonado negative Extremity: COMMON NORMALS: no joint enlargement and no pedal edema Neuro: COMMON NORMALS: patient oriented x3 and moves all extremities SENSORIUM/ORIENTATION: Yes alert Skin: COMMON NORMALS: no rashes or lesions noted GENERAL SKIN EXAM: no rashes or lesions noted Urinary Catheter Management: Castellanos: Cath Placed During This Visit: no Reason for Continuing Indwelling Catheter: Accurate Measurement of Urinary Output in Critically Ill Patients Discharge Data Studies Completed and Pending Completed Studies During Hospitalization Category Date Time Status CT abdomen pelvis w con* [id number] Stat Cat Scan 07/08/22 09:54 Completed XR chest 1V portable [id number] Stat Exams 07/08/22 09:54 Completed CV. echo complete* [id number] Routine Ultrasound 07/09/22 06:00 Completed US gall bladder [id number] Stat Ultrasound 07/08/22 13:02 Completed Pending at discharge Category Date Time Status Complete Blood Count w/Auto AM LABS Lab 07/11/22 04:00 Ordered Comprehensive Metabolic Panel AM LABS Lab 07/11/22 04:00 Ordered NM hepatobiliary w phar* [id number] Routine Nuc Med 07/11/22 15:39 Ordered Radiology Impressions Abdomen/Pelvis CT 07/08/22 09:54 IMPRESSION: 1. Motion artifact from the upper abdomen. 2. Difficult to evaluate the gallbladder due to motion artifact. 3. No GI tract obstruction. There is diffuse constipation. 4. Small bilateral pleural effusions. 5. Moderate cardiomegaly. 6. Soft tissue anasarca. 7. No metastatic disease or adenopathy. 8. Distal colon diverticulosis without acute diverticulitis. 9. Prior hysterectomy and appendectomy. Chest X-Ray 07/08/22 09:54 IMPRESSION: Cardiomegaly with findings suspicious for mild CHF slightly progressed from previous exam. Gallbladder Ultrasound 07/08/22 13:02 IMPRESSION: 1. Gallbladder not identified by ultrasound. Common bile duct is difficult to visualize. Normal caliber on the recent CT. 2. Small RIGHT pleural effusion. Laboratory Results WBC 6.0 10^3/uL (4.0-10.0) 07/10/22 05:49 Corrected WBC Cancelled 07/10/22 02:55 RBC 4.06 10^6/uL (4.1-5.3) L 07/10/22 05:49 Hgb 12.6 g/dL (11.5-15.3) 07/10/22 05:49 Hct 39.2 % (37.0-47.0) 07/10/22 05:49 MCV 96.6 fl (81-99) 07/10/22 05:49 MCH 31.0 pg (28.0-34.0) 07/10/22 05:49 MCHC 32.1 g/dL (30.0-36.0) 07/10/22 05:49 RDW 12.7 % (12.1-15.1) 07/10/22 05:49 Plt Count 220 10^3/cmm (130-400) D 07/10/22 05:49 MPV 12.0 fL (7.4-10.4) H 07/10/22 05:49 Gran % Cancelled 07/10/22 02:55 Neut % (Auto) 66.8 % 07/10/22 05:49 Lymph % (Auto) 16.2 % 07/10/22 05:49 [place] % (Auto) 15.2 % 07/10/22 05:49 Eos % (Auto) 1.0 % 07/10/22 05:49 Baso % (Auto) 0.3 % 07/10/22 05:49 Neut # (Auto) 4.00 10^3/uL (1.8-7.7) 07/10/22 05:49 Lymph # (Auto) 1.0 10^3/uL (0.8-4.8) 07/10/22 05:49 [place] # (Auto) 0.9 10^3/uL (0.2-0.9) 07/10/22 05:49 Eos # (Auto) 0.1 10^3/uL (0.0-0.8) 07/10/22 05:49 Baso # (Auto) 0.0 10^3/uL (0.0-0.1) 07/10/22 05:49 Absolute Gran (auto) Cancelled 07/10/22 02:55 Nucleated RBC % (auto) 0 % 07/10/22 05:49 Nucleated RBCs # 0.0 /100WBC 07/10/22 05:49 Sodium 129 mmol/L (136-145) L 07/10/22 02:55 Potassium 4.7 mmol/L (3.5-5.1) 07/10/22 02:55 Chloride 92 mmol/L (98-107) L 07/10/22 02:55 Carbon Dioxide 24 mmol/L (22-29) 07/10/22 02:55 Anion Gap 17.7 (5-19) 07/10/22 02:55 BUN 21 mg/dL (8-23) 07/10/22 02:55 Creatinine 1.2 mg/dL (0.5-0.9) H 07/10/22 02:55 GFR Calculation Not Reportable 07/10/22 02:55 Glucose 99 mg/dL (65-115) 07/10/22 02:55 POC Glucose 167 mg/dL (70-110) H 07/08/22 09:46 Calculated Osmolality 271 mOsm/kg (285-295) L 07/10/22 02:55 Calcium 8.9 mg/dL (8.5-10.5) 07/10/22 02:55 Total Bilirubin 0.6 mg/dL (0.15-1.2) 07/10/22 02:55 AST 70 U/L (0-32) H 07/10/22 02:55 ALT 63 U/L (0-33) H 07/10/22 02:55 Alkaline Phosphatase 98 U/L (35-105) 07/10/22 02:55 Creatine Kinase 168 U/L (26-192) 07/08/22 11:10 Troponin T Baseline 74 ng/L (0-10) H 07/08/22 10:01 Troponin T 120 Minute 58.30 ng/L (0-10) H 07/08/22 12:20 Delta Troponin T -15.70 ABS# (0-10) L 07/08/22 12:20 Troponin T Hi Sens 6Hr 68.96 ng/L (0-10) H 07/08/22 16:20 Troponin T Hi Sens 6Hr Delta -5.04 ng/L (0-12) L 07/08/22 16:20 Total Protein 5.7 g/dL (6.6-8.7) L 07/10/22 02:55 Albumin 3.5 g/dL (3.5-5.2) 07/10/22 02:55 Globulin 2.2 g/dL (1.3-4.6) 07/10/22 02:55 Lipase 34 U/L (13-60) 07/08/22 11:10 TSH 3.00 uIU/mL (0.27-4.20) 07/08/22 11:10 Urine Color Yellow (Yellow) 07/08/22 11:46 Urine Appearance Clear (CLEAR) 07/08/22 11:46 Urine pH 5 (5-7) 07/08/22 11:46 Ur Specific [place] 1.015 (1.005-1.030) 07/08/22 11:46 Urine Protein 3+ (Negative) H 07/08/22 11:46 Urine Glucose (UA) Norm (Normal) 07/08/22 11:46 Urine Ketones Negative (Negative) 07/08/22 11:46 Urine Blood 2+ (Negative) H 07/08/22 11:46 Urine Nitrate Negative (Negative) 07/08/22 11:46 Urine Bilirubin Neg (Negative) 07/08/22 11:46 Urine Urobilinogen Neg mg/dL (Negative) 07/08/22 11:46 Ur Leukocyte Esterase Negative (Negative) 07/08/22 11:46 Urine RBC 5-10 /hpf (0-2) H 07/08/22 11:46 Urine WBC 0-4 /hpf (0-5) H 07/08/22 11:46 Ur Squamous Epith Cells 5-10 /hpf (0-5) H 07/08/22 11:46 Amorphous Sediment Not Reportable 07/08/22 11:46 Urine Bacteria Trace /hpf (NONE) 07/08/22 11:46 Hyaline Casts 0-4 /lpf H 07/08/22 11:46 Urine Mucus 1+ /hpf 07/08/22 11:46 Vitals Last Vital Signs Temp 97.9 F 07/10/22 11:27 Pulse 79 07/10/22 11:27 Resp 18 07/10/22 11:27 BP 141/72 07/10/22 11:27 Pulse Ox 97 07/10/22 11:27 O2 Del Method Room Air 07/10/22 11:27 O2 Flow Rate 2 07/09/22 16:57 Discharge Plan Discharge Patient Disposition: Home Condition: Stable Prescriptions: New prednisone 2.5 mg tablet See Rx Instructions .ROUTE .COMPLEX Qty: 27 0RF Rx Instructions: 4 tab daily for 3d, then 3 tab daily for 3d, 2 tab for 3d, Then cont 1 tab daily. Continued potassium chloride 10 mEq capsule, extended release 10 meq PO EVERY OTHER DAY PRN (Reason: with lasix) Rx Instructions: only take on days when taking lasix clobetasol 0.05 % ointment 1 applic topical BID 14 Days Qty: 45 1RF Rx Instructions: Apply to affected areas on trunk and extremities for 2 weeks. not for face or skin folds nitroglycerin [Nitro-Time] 2.5 mg capsule, extended release 2.5 mg PO BID Qty: 180 3RF atorvastatin 20 mg tablet 20 mg PO QAM Qty: 100 3RF Brilinta 90 mg tablet 90 mg PO BID Qty: 60 4RF metoprolol succinate 25 mg tablet extended release 24 hr 25 mg PO DAILY aspirin 81 mg Tablet,Delayed Release (Dr/Ec) 81 mg PO QAM esomeprazole magnesium [Nexium] 20 mg Capsule,Delayed Release(Dr/Ec) 20 mg PO QAM cholecalciferol (vitamin D3) 50 mcg (2,000 unit) tablet 2,000 unit PO QAM furosemide [Lasix] 20 mg tablet 10 mg PO EVERY OTHER DAY PRN (Reason: weight gain) Qty: 30 0RF Rx Instructions: more than 3 lbs weight gain a day ondansetron 4 mg film 4 mg PO DAILY PRN (Reason: nausea and vomiting) Qty: 10 0RF Discontinued prednisone 2.5 mg tablet 2.5 mg PO DAILY Qty: 90 1RF diclofenac sodium 1 % gel 2 - 4 g topical QID PRN (Reason: Pain) Qty: 100 2RF Discharge Orders: Discharge Order (Routine); Ordered 07/10/22 Ordered By: Torsten Devine Other Ambulatory Orders: NM hepatobiliary w phar* [id number] (Routine) Timeframe: 3 Days Facility: [facility] - Location: Radiology Ordered By: Torsten Devine Referrals: Carmella Phillip FNP [Nurse Practitioner] - 1 week (CHF follow up, BRANDI) Javid Edwards MD [Primary Care Provider] - 4-7 days Discharge Diet: As Directed and Cardiac Discharge Activity: As per PT/OT instructions Patient Instructions: Prednisone (By mouth) (predniSONE Intensol, Prednicot, Deltasone, Pricila), Hyponatremia (DC), Opioid Safety, Pain Management, Weakness (Generalized) Activity Restrictions/Additional Instructions: Follow-up with your primary doctor for reassessment after episode of congestive heart failure, reassessment of kidney function with mild acute kidney injury 1.2, reassessment of electrolytes. Please have your primary doctor also check your sodium level as your sodium had been low on presentation, but has been gradually improving up to 129 today. Do not restrict sodium intake. Please have your primary doctor follow-up liver function parameters as well as HIDA scan. There may have been congestive hepatopathy due to heart failure causing increase in liver numbers and possibly congestive changes around the gallbladder. However, with history of gallstones, at least currently there does not appear to be acute cholecystitis, but degree of chronic cholecystitis cannot be excluded entirely at the moment. HIDA scan is ordered to further assess this. Please follow-up with your primary doctor for reassessment. In case of recurrence of nausea vomiting, inability to tolerate oral intake or medications, abdominal pain, fever, or any other concerning symptoms, please seek medical attention. Please note for now your prednisone dose is increased to 10 mg with gradual taper. Please follow-up with rheumatology regarding lupus. Maintain fall precautions. Continue home exercise program as per physical therapy. Please have your primary doctor follow-up bruise on your abdomen for continued resolution as well as follow-up hemoglobin. Here so far your hemoglobin has been staying steady. Please have your primary doctor follow-up microscopic hematuria for resolution. If not resolving may need additional evaluation. Please stop diclofenac gel and avoid any NSAIDs. In case of returning or persisting nausea and/or dyspepsia discuss with your primary doctor consideration of endoscopic evaluation. Discharge Attestations Time Spent in Discharge Care*: greater than 30 min Quality Metrics Clinical Quality Measures [ No reported AMI, CVA or VTE this stay] Coding Level of Care Code Acute Code for Chg Fwd Diagnoses Congestive heart failure I50.9 Liver function test abnormality R79.89 Nausea and vomiting R11.2 Generalized weakness R53.1 Acute encephalopathy G93.40 Fall W19.XXXA Traumatic ecchymosis of abdominal wall S30.1XXA Microscopic hematuria R31.29 Hyponatremia E87.1
[2022-07-10 14:17] VITALS: BP 141/72; PULSE 79; RESP 18; TEMP 36.6; O2SAT 97
--- NOTE | 2022-07-10 14:49 | PC.NURSE ---
discharge instructions given and explained to pt and daughter.they verb understanding of instructions.discharged via w/v to exit at this time.daughter to drive pt home.
== END 2022-07-10 14:51 | disposition home or self-care (01) ==
LOC: ER 13:19 → CSU 14:02
PROVIDERS: Admitting Provider Internal Medicine; Emergency Provider Family Medicine; PCP Family Medicine; Visit Provider Internal Medicine
DX: I13.0 Hypertensive heart and chronic kidney disease with heart failure and stage 1 through stage 4 chronic kidney disease, or unspecified chronic kidney disease (principal); N18.9 Chronic kidney disease, unspecified; I50.23 Acute on chronic systolic (congestive) heart failure; R79.89 Other specified abnormal findings of blood chemistry; R11.2 Nausea with vomiting, unspecified; R53.1 Weakness; G93.40 Encephalopathy, unspecified; S30.1XXA Contusion of abdominal wall, initial encounter; W19.XXXA Unspecified fall, initial encounter; R31.29 Other microscopic hematuria; E87.1 Hypo-osmolality and hyponatremia; N17.9 Acute kidney failure, unspecified; K21.9 Gastro-esophageal reflux disease without esophagitis; R78.5 Finding of other psychotropic drug in blood; I25.10 Atherosclerotic heart disease of native coronary artery without angina pectoris; Z95.5 Presence of coronary angioplasty implant and graft; Z79.82 Long term (current) use of aspirin; M19.90 Unspecified osteoarthritis, unspecified site; G47.33 Obstructive sleep apnea (adult) (pediatric); M32.9 Systemic lupus erythematosus, unspecified; Z79.52 Long term (current) use of systemic steroids; Z95.0 Presence of cardiac pacemaker
CPT/HCPCS: 36415; 36416; 71045; 74177; 76705; 80053; 81001; 82550; 82962; 83690; 84443; 84484; 85025; 93005; 93306; 96374; 96375; 96376; 97110; 97116; 97161; 97166; 99285; A9270; G0378; J1940; J2405; J7512; Q9967

== ENCOUNTER → 2022-07-18 15:39 | Outpatient (BNVA) | payer MEDICARE, SELFPAY | PROVIDERS: PCP Family Medicine; Visit Provider Family Medicine | DX: E87.1 Hypo-osmolality and hyponatremia (principal); R79.89 Other specified abnormal findings of blood chemistry; I50.9 Heart failure, unspecified; I10 Essential (primary) hypertension | CPT/HCPCS: 80053; 83880; 85025 ==

== ENCOUNTER → 2022-08-16 10:12 | Outpatient (BNVA) | payer MEDICARE, SELFPAY | PROVIDERS: PCP Family Medicine; Visit Provider Internal Medicine Rheumatology | DX: M81.0 Age-related osteoporosis without current pathological fracture (principal); Z79.899 Other long term (current) drug therapy; Z71.89 Other specified counseling; L93.1 Subacute cutaneous lupus erythematosus; R76.8 Other specified abnormal immunological findings in serum | CPT/HCPCS: 99214 ==

== ENCOUNTER 2022-09-16 11:01 | Outpatient (CLI) | payer MEDICARE, SELFPAY ==
[2022-09-16 12:14] LABS: Basophils % 0.6 %; Eosinophils # 0.2 10^3/uL (0.0-0.8); Eosinophils % 2.4 %; Hematocrit 36.5 % (37.0-47.0); Hemoglobin 11.7 g/dL (11.5-15.3); Lymphocytes # 0.5 10^3/uL (0.8-4.8); Lymphocytes % 8.2 %; Mean Corpuscular HGB Conc 32.1 g/dL (30.0-36.0); Mean Corpuscular Hemoglobin 31.5 pg (28.0-34.0); Mean Corpuscular Volume 98.1 fl (81-99); Mean Platelet Volume 12.3 fL (7.4-10.4); Monocytes # 0.5 10^3/uL (0.2-0.9); Monocytes % 7.6 %; Neutrophils # 5.26 10^3/uL (1.8-7.7); Neutrophils % 80.4 %; Nucleated Red Blood Cells % 0 %; Platelet Count 224 10^3/cmm (130-400); Red Blood Count 3.72 10^6/uL (4.1-5.3); Red Cell Distribution Width 17.2 % (12.1-15.1); White Blood Count 6.6 10^3/uL (4.0-10.0)
[2022-09-16 12:39] LABS: Alanine Aminotransferase 15 U/L (0-33); Albumin Level 3.8 g/dL (3.5-5.2); Alkaline Phosphatase 77 U/L (35-105); Aspartate Amino Transferase 21 U/L (0-32); C Reactive Protein 12.6 mg/L (0.0-4.9); Globulin 2.4 g/dL (1.3-4.6); NT Pro B Type Natriuretic Pept 12771 pg/mL (0-450); Total Bilirubin 0.4 mg/dL (0.15-1.2); Total Protein 6.2 g/dL (6.6-8.7)
== END 2022-09-16 11:02 | disposition home or self-care (01) ==
LOC: LAB 11:04
PROVIDERS: PCP Family Medicine; Visit Provider Internal Medicine Rheumatology
DX: I50.9 Heart failure, unspecified (principal); L93.2 Other local lupus erythematosus; Z79.899 Other long term (current) drug therapy
CPT/HCPCS: 80076; 82565; 83880; 85025; 86140

== ENCOUNTER → 2022-10-19 11:37 | Outpatient (BNVA) | payer MEDICARE, SELFPAY | PROVIDERS: PCP Family Medicine; Visit Provider Internal Medicine Cardiovascular Disease | DX: I13.0 Hypertensive heart and chronic kidney disease with heart failure and stage 1 through stage 4 chronic kidney disease, or unspecified chronic kidney disease (principal); N18.9 Chronic kidney disease, unspecified; I50.9 Heart failure, unspecified; E78.5 Hyperlipidemia, unspecified; I25.10 Atherosclerotic heart disease of native coronary artery without angina pectoris; Z95.0 Presence of cardiac pacemaker; R06.02 Shortness of breath | CPT/HCPCS: 80048; 83880; 99214 ==

== ENCOUNTER → 2022-11-07 14:24 | Outpatient (BNVA) | payer MEDICARE, SELFPAY | PROVIDERS: PCP Family Medicine; Visit Provider Family Medicine | DX: I50.9 Heart failure, unspecified (principal); I10 Essential (primary) hypertension | CPT/HCPCS: 80048; 83880 ==

== ENCOUNTER → 2022-11-14 09:16 | Outpatient (BNVA) | payer MEDICARE, SELFPAY | PROVIDERS: PCP Family Medicine; Visit Provider Internal Medicine Rheumatology | DX: L93.1 Subacute cutaneous lupus erythematosus (principal); Z79.899 Other long term (current) drug therapy; M81.0 Age-related osteoporosis without current pathological fracture; Z71.89 Other specified counseling; R76.8 Other specified abnormal immunological findings in serum | CPT/HCPCS: 80076; 85025; 99214 ==

== ENCOUNTER → 2023-02-13 10:25 | Outpatient (BNVA) | payer MEDICARE, SELFPAY | PROVIDERS: PCP Family Medicine; Visit Provider Internal Medicine Rheumatology | DX: L93.1 Subacute cutaneous lupus erythematosus (principal); Z79.899 Other long term (current) drug therapy; M81.0 Age-related osteoporosis without current pathological fracture; Z71.89 Other specified counseling; R76.8 Other specified abnormal immunological findings in serum | CPT/HCPCS: 99214 ==

== ENCOUNTER 2023-03-15 10:51 | Outpatient (CLI) | payer MEDICARE, SELFPAY ==
[2023-03-15 11:18] LABS: Basophils % 0.6 %; Eosinophils # 0.2 10^3/uL (0.0-0.8); Eosinophils % 4.3 %; Hematocrit 31.9 % (36-47); Lymphocytes % 19.2 %; Mean Corpuscular HGB Conc 32.9 g/dL (30-55); Mean Corpuscular Hemoglobin 38.5 pg (27-33); Mean Corpuscular Volume 116.8 fl (85-98); Mean Platelet Volume 10.3 fL (7.4-10.4); Monocytes # 0.3 10^3/uL (0.2-0.9); Monocytes % 6.4 %; Neutrophils # 3.51 10^3/uL (1.8-7.7); Neutrophils % 68.1 %; Nucleated Red Blood Cells % 0 %; Platelet Count 147 10^3/cmm (157-399); Red Blood Count 2.73 10^6/uL (3.85-5.65); Red Cell Distribution Width 15.2 % (12.1-15.1); White Blood Count 5.15 10^3/uL (3.29-11.43)
[2023-03-15 11:41] LABS: Alanine Aminotransferase 12 U/L (0-33); Albumin Level 4.1 g/dL (3.5-5.2); Alkaline Phosphatase 100 U/L (35-105); Aspartate Amino Transferase 19 U/L (0-32); Globulin 2.6 g/dL (1.3-4.6); Total Bilirubin 0.3 mg/dL (0.15-1.2); Total Protein 6.7 g/dL (6.6-8.7)
== END 2023-03-15 10:52 | disposition home or self-care (01) ==
LOC: LAB 10:53
PROVIDERS: Internal Medicine Rheumatology; PCP Family Medicine; Visit Provider Internal Medicine
DX: L93.1 Subacute cutaneous lupus erythematosus (principal); Z79.899 Other long term (current) drug therapy
CPT/HCPCS: 36415; 80076; 82565; 85025; 86140

== ENCOUNTER → 2023-03-29 12:35 | Outpatient (BNVA) | payer MEDICARE, SELFPAY | PROVIDERS: PCP Family Medicine; Visit Provider Internal Medicine Cardiovascular Disease | DX: Z45.010 Encounter for checking and testing of cardiac pacemaker pulse generator [battery] (principal) | CPT/HCPCS: 93296 ==

== ENCOUNTER → 2023-05-15 10:16 | Outpatient (BNVA) | payer MEDICARE, SELFPAY | PROVIDERS: PCP Family Medicine; Visit Provider Internal Medicine Rheumatology | DX: L93.1 Subacute cutaneous lupus erythematosus (principal); Z79.899 Other long term (current) drug therapy; M81.0 Age-related osteoporosis without current pathological fracture; Z71.89 Other specified counseling; R76.8 Other specified abnormal immunological findings in serum | CPT/HCPCS: 36415; 80076; 82565; 85025; 86140; 99214 ==

== ENCOUNTER → 2023-05-30 11:57 | Outpatient (BNVA) | payer MEDICARE, SELFPAY | PROVIDERS: PCP Family Medicine; Visit Provider Internal Medicine Cardiovascular Disease | DX: E78.5 Hyperlipidemia, unspecified (principal); I25.10 Atherosclerotic heart disease of native coronary artery without angina pectoris; Z95.0 Presence of cardiac pacemaker; I13.0 Hypertensive heart and chronic kidney disease with heart failure and stage 1 through stage 4 chronic kidney disease, or unspecified chronic kidney disease; I50.9 Heart failure, unspecified; N18.9 Chronic kidney disease, unspecified | CPT/HCPCS: 99213 ==

== ENCOUNTER → 2023-07-06 16:39 | Outpatient (BNVA) | payer MEDICARE, SELFPAY | PROVIDERS: PCP Family Medicine; Visit Provider Internal Medicine Cardiovascular Disease | DX: Z45.010 Encounter for checking and testing of cardiac pacemaker pulse generator [battery] (principal) | CPT/HCPCS: 93296 ==

== ENCOUNTER → 2023-10-16 10:29 | Outpatient (BNVA) | payer MEDICARE, SELFPAY | PROVIDERS: PCP Family Medicine; Visit Provider Internal Medicine Rheumatology | DX: M81.0 Age-related osteoporosis without current pathological fracture (principal); L93.1 Subacute cutaneous lupus erythematosus; N18.9 Chronic kidney disease, unspecified; Z79.899 Other long term (current) drug therapy; Z71.85 Encounter for immunization safety counseling; R76.8 Other specified abnormal immunological findings in serum; I10 Essential (primary) hypertension | CPT/HCPCS: 36415; 80076; 82565; 85025; 85651; 86140; 99214 ==

== ENCOUNTER → 2023-11-09 15:35 | Outpatient (BNVA) | payer MEDICARE, SELFPAY | PROVIDERS: PCP Family Medicine; Visit Provider Family Medicine | DX: R79.89 Other specified abnormal findings of blood chemistry (principal) | CPT/HCPCS: 80048 ==

== ENCOUNTER → 2023-11-28 13:50 | Outpatient (BNVA) | payer MEDICARE, SELFPAY | PROVIDERS: PCP Family Medicine; Visit Provider Internal Medicine Cardiovascular Disease | DX: I25.10 Atherosclerotic heart disease of native coronary artery without angina pectoris (principal); E78.2 Mixed hyperlipidemia; I11.0 Hypertensive heart disease with heart failure; I50.9 Heart failure, unspecified; Z95.0 Presence of cardiac pacemaker | CPT/HCPCS: 99214 ==

== ENCOUNTER → 2023-12-21 09:27 | Outpatient (BNVA) | payer MEDICARE, SELFPAY | PROVIDERS: PCP Family Medicine; Visit Provider Internal Medicine Cardiovascular Disease | DX: Z45.010 Encounter for checking and testing of cardiac pacemaker pulse generator [battery] (principal) | CPT/HCPCS: 93296 ==

== ENCOUNTER 2024-01-19 13:20 | Outpatient (CLI) | payer MEDICARE, SELFPAY ==
[2024-01-19 14:17] LABS: Basophils % 0.2 %; Eosinophils % 0.3 %; Hematocrit 30.8 % (36-47); Lymphocytes # 0.7 10^3/uL (0.8-4.8); Lymphocytes % 5.6 %; Mean Corpuscular HGB Conc 28.9 g/dL (30-55); Mean Corpuscular Hemoglobin 34.4 pg (27-33); Mean Corpuscular Volume 118.9 fl (85-98); Mean Platelet Volume 11.2 fL (7.4-10.4); Monocytes # 0.6 10^3/uL (0.2-0.9); Monocytes % 5.1 %; Neutrophils # 10.89 10^3/uL (1.8-7.7); Neutrophils % 87.7 %; Nucleated Red Blood Cells % 0.2 %; Platelet Count 335 10^3/cmm (157-399); Red Blood Count 2.59 10^6/uL (3.85-5.65); Red Cell Distribution Width 16.7 % (12.1-15.1); White Blood Count 12.43 10^3/uL (3.29-11.43)
[2024-01-19 14:26] LABS: Erythrocyte Sedimentation Rate 14 mm/hr (0-15)
[2024-01-19 14:34] LABS: Alanine Aminotransferase 10 U/L (0-33); Albumin Level 3.6 g/dL (3.5-5.2); Alkaline Phosphatase 155 U/L (35-105); Aspartate Amino Transferase 16 U/L (0-32); C Reactive Protein 5.4 mg/L (0.0-4.9); Globulin 2.2 g/dL (1.3-4.6); Total Bilirubin 0.4 mg/dL (0.15-1.2); Total Protein 5.8 g/dL (6.6-8.7)
== END 2024-01-19 13:21 | disposition home or self-care (01) ==
LOC: LAB 13:22
PROVIDERS: PCP Family Medicine; Visit Provider Internal Medicine Rheumatology
DX: Z79.899 Other long term (current) drug therapy (principal); L93.1 Subacute cutaneous lupus erythematosus
CPT/HCPCS: 36415; 80076; 82565; 85025; 85651; 86140

== ENCOUNTER → 2024-02-14 09:47 | Outpatient (BNVA) | payer MEDICARE, SELFPAY | PROVIDERS: PCP Family Medicine; Visit Provider Internal Medicine Rheumatology | DX: M81.0 Age-related osteoporosis without current pathological fracture (principal); Z79.899 Other long term (current) drug therapy; Z71.89 Other specified counseling; L93.1 Subacute cutaneous lupus erythematosus; R76.8 Other specified abnormal immunological findings in serum; I12.9 Hypertensive chronic kidney disease with stage 1 through stage 4 chronic kidney disease, or unspecified chronic kidney disease; N18.9 Chronic kidney disease, unspecified; I25.10 Atherosclerotic heart disease of native coronary artery without angina pectoris | CPT/HCPCS: 99214 ==

== ENCOUNTER → 2024-04-03 08:50 | Outpatient (BNVA) | payer MEDICARE, SELFPAY | PROVIDERS: PCP Family Medicine; Visit Provider Internal Medicine Cardiovascular Disease | DX: Z45.018 Encounter for adjustment and management of other part of cardiac pacemaker (principal) | CPT/HCPCS: 93296 ==

== ENCOUNTER → 2024-06-13 11:08 | Outpatient (BNVA) | payer MEDICARE, SELFPAY | PROVIDERS: PCP Family Medicine; Visit Provider Internal Medicine Rheumatology | DX: Z79.899 Other long term (current) drug therapy (principal); M81.0 Age-related osteoporosis without current pathological fracture; Z71.89 Other specified counseling; L93.1 Subacute cutaneous lupus erythematosus; R76.8 Other specified abnormal immunological findings in serum | CPT/HCPCS: 36415; 80076; 82565; 85025; 85651; 86140; 99214 ==

== ENCOUNTER → 2024-06-20 14:38 | Outpatient (BNVA) | payer MEDICARE, SELFPAY | PROVIDERS: PCP Family Medicine; Visit Provider Internal Medicine Rheumatology | DX: M19.011 Primary osteoarthritis, right shoulder (principal) | CPT/HCPCS: 20610; J1010; J9999 ==

== ENCOUNTER → 2024-06-27 14:46 | Outpatient (BNVA) | payer MEDICARE, SELFPAY | PROVIDERS: PCP Family Medicine; Visit Provider Internal Medicine Cardiovascular Disease | DX: I25.10 Atherosclerotic heart disease of native coronary artery without angina pectoris (principal); I13.10 Hypertensive heart and chronic kidney disease without heart failure, with stage 1 through stage 4 chronic kidney disease, or unspecified chronic kidney disease; N18.9 Chronic kidney disease, unspecified; I50.9 Heart failure, unspecified; E78.2 Mixed hyperlipidemia; Z95.0 Presence of cardiac pacemaker; I25.2 Old myocardial infarction | CPT/HCPCS: 99214 ==

== ENCOUNTER → 2024-07-10 09:10 | Outpatient (BNVA) | payer MEDICARE, SELFPAY | PROVIDERS: PCP Family Medicine; Visit Provider Internal Medicine Cardiovascular Disease | DX: Z45.018 Encounter for adjustment and management of other part of cardiac pacemaker (principal) | CPT/HCPCS: 93296 ==

== ENCOUNTER → 2024-10-01 09:57 | Outpatient (BNVA) | payer MEDICARE, SELFPAY | PROVIDERS: PCP Family Medicine; Visit Provider Internal Medicine Rheumatology | DX: Z79.899 Other long term (current) drug therapy (principal); M81.0 Age-related osteoporosis without current pathological fracture; M25.50 Pain in unspecified joint; Z71.85 Encounter for immunization safety counseling; L93.1 Subacute cutaneous lupus erythematosus; R76.8 Other specified abnormal immunological findings in serum | CPT/HCPCS: 36415; 73130; 80076; 82306; 82565; 84550; 85025; 85651; 86140; 99214 ==

== ENCOUNTER → 2024-10-14 15:15 | Outpatient (BNVA) | payer MEDICARE, SELFPAY | PROVIDERS: PCP Family Medicine; Visit Provider Family Medicine | DX: R73.9 Hyperglycemia, unspecified (principal); E78.2 Mixed hyperlipidemia | CPT/HCPCS: 80061; 83036 ==

== ENCOUNTER 2024-11-22 11:56 | Outpatient (CLI) | payer MEDICARE, SELFPAY ==
[2024-11-22 12:59] LABS: Uric Acid 6.9 mg/dL (2.4-5.7)
== END 2024-11-22 11:57 | disposition home or self-care (01) ==
PROVIDERS: PCP Family Medicine; Visit Provider Internal Medicine Rheumatology
DX: E79.0 Hyperuricemia without signs of inflammatory arthritis and tophaceous disease (principal)
CPT/HCPCS: 36415; 84550

== ENCOUNTER 2025-01-06 14:49 | Outpatient (CLI) | payer MEDICARE, SELFPAY ==
[2025-01-06 15:19] LABS: Hematocrit 34.5 % (36-47); Hemoglobin 11.10 g/dL (11.27-16.99); Mean Corpuscular HGB Conc 32.2 g/dL (30-55); Mean Corpuscular Hemoglobin 34.5 pg (27-33); Mean Corpuscular Volume 107.1 fl (85-98); Nucleated Red Blood Cells % 0 %; Platelet Count 179 10^3/cmm (157-399); Red Blood Count 3.22 10^6/uL (3.85-5.65); White Blood Count 9.07 10^3/uL (3.29-11.43)
[2025-01-06 15:43] LABS: Alanine Aminotransferase 11 U/L (0-33); Albumin Level 4.2 g/dL (3.5-5.2); Alkaline Phosphatase 108 U/L (35-105); Aspartate Amino Transferase 18 U/L (0-32); Globulin 2.7 g/dL (1.3-4.6); Total Protein 6.9 g/dL (6.6-8.7)
== END 2025-01-06 14:50 | disposition home or self-care (01) ==
PROVIDERS: PCP Family Medicine; Visit Provider Internal Medicine Rheumatology
DX: I25.10 Atherosclerotic heart disease of native coronary artery without angina pectoris (principal); I11.0 Hypertensive heart disease with heart failure; I50.9 Heart failure, unspecified; E78.5 Hyperlipidemia, unspecified; Z95.0 Presence of cardiac pacemaker; Z98.61 Coronary angioplasty status; I25.2 Old myocardial infarction; Z79.899 Other long term (current) drug therapy
CPT/HCPCS: 36415; 80076; 82565; 85025; 85651; 86140; 99214

== ENCOUNTER → 2025-01-08 14:04 | Outpatient (BNVA) | payer MEDICARE, SELFPAY | PROVIDERS: PCP Family Medicine; Visit Provider Internal Medicine Cardiovascular Disease | DX: Z45.018 Encounter for adjustment and management of other part of cardiac pacemaker (principal) | CPT/HCPCS: 93296 ==